=== PATIENT | male | born 1995 | race African-American/Black ===

== ENCOUNTER 2017-11-17 11:44 | Emergency (ER) | payer BC, SELFPAY ==
[2017-11-17 12:13] VITALS: BP 124/88; RESP 18; TEMP 37.1; O2SAT 98
--- NOTE | 2017-11-17 12:22 | W.ED.GENAD ---
Discharge Plan Disposition Patient Disposition: HOME Condition: Fair Discharge Details Chief Complaint: SOB Clinical Impression: Asthma exacerbation Primary Care Provider: Angella Cleveland ED Provider: Sarah Tijerina Home Meds and New Rx's Prescriptions: New prednisone 20 mg tablet 20 mg PO BID Qty: 8 RF: 0 Continue mometasone-formoterol [Dulera] 8.8 GM HFA aerosol inhaler 2 puff BID RF: 0 albuterol sulfate [Ventolin HFA] 60 PUFF HFA aerosol inhaler 8 gm Inhalation Q6H PRN PRNQty: 2 RF: 6 albuterol sulfate [ProAir HFA] 200 PUFF HFA aerosol inhaler 200 puff Inhalation Q4H PRN PRNQty: 2 RF: 10 fluticasone-salmeterol [Advair HFA] 12 GM HFA aerosol inhaler 2 puff Inhalation BID RF: 0 Discharge Instructions Instructions: Asthma (ED) Additional Instructions: Encourage hydration. Stop smoking. Please take prednisone as prescribed to help with asthma exacerbation. Please follow-up with primary care for reevaluation in 1 week. Continue with inhaler and nebulizers previously prescribed. If you develop fever/chills, increased shortness of breath, difficulty breathing or other new/worsening symptoms please seek care urgently once again Stand Alone Forms: Work Release Referrals: Angella Cleveland [Primary Care Provider] - Discharge Data Discharge Date/Time-TO BE ENTERED AT DEPARTURE: 11/17/17 13:41 Medical Decision Making MDM Narrative Medical decision making narrative: Patient presents today with chief complaint of asthma exacerbation. Reports that he has had the symptoms for 1 month. On exam, his lungs are clear. No wheezing or stridor. Patient is currently afebrile with vital signs within normal limits. He appears nontoxic. He does not appear to be short of breath or working to breathe. He is speaking in full complete sentences. No nasal flaring, is breathing through his nose, no pursed lips, no retractions or other accessory muscle use. Patient has not coughed since being here. We discussed treatment options. I did recommend a chest x-ray given the duration of his symptoms. However, he preferred to contact his mother to discuss insurance prior to undergoing imaging. He came into the room, patient was on his phone, resting comfortably. Patient smokes both marijuana and cigarettes daily. I did pediatric genetic counselor him on cessation as this is likely contributing to his asthma exacerbation. However, the patient reports he believes this actually helps his asthma. I further counseled him on this and urged him to consider cessation further. Patient contacted his mother and is agreement with cxr. X-ray reviewed by radiologist. Advised the lungs are unremarkable with no consolidation. Pleural space unremarkable no pleural effusion or pneumothorax. No cardiomegaly. Joints are unremarkable for patient's age. Advised normal two-view chest exam Discussed findings with the patient. Encourage hydration. Tylenol and/or ibuprofen as needed for discomfort or fever. He will be placed on a burst of steroids to help with asthma exacerbation. Advised follow-up with primary care in 1 week for reevaluation. We discussed new/worsening symptoms once he care urgently once again. All questions and concerns were addressed. Patient is requesting a work note for today HPI - General Adult General Mode of arrival: ambulatory. Date/Time Provider Initiated Documentation: 11/17/17 12:03. Limitations to Documentation: no limitations. Information obtained by: patient. HPI Narrative: Patient is a 22-year-old male presenting today with chief complaint of asthma exacerbation ?1 month. He reports that he has been sick with cough and fevers, bringing up yellow phlegm. Reports he has been using his inhalers as prescribed but has not had any relief from these. Reports that his nebulizers not working in regard to helping his symptoms. Patient smokes unfiltered cigarettes and marijuana daily. Reports a typically marijuana helps his asthma symptoms. Has not been seen by his primary care. Reports his symptoms have progressively been increasing. He has not measured his temperature. Reports that he knows he had a fever because I had a headache. Reports that he gets fevers very frequently and reports that this is associated with him being chronically dehydrated. Denies any history of immunocompromise. Related Data Home Medications Medication Instructions Recorded Confirmed mometasone-formoterol [Dulera] 2 puff BID 07/16/15 11/17/17 fluticasone-salmeterol [Advair HFA] 2 puff INHALATION BID 11/18/16 11/17/17 Previous Rx's Medication Instructions Recorded albuterol sulfate [ProAir HFA] 200 puff INHALATION Q4H PRN PRN #2 07/16/15 inh albuterol sulfate [Ventolin HFA] 8 gm INHALATION Q6H PRN PRN #2 inh 07/16/15 prednisone 20 mg PO BID #8 tab 11/17/17 Allergies Allergy/AdvReac Type Severity Reaction Status Date / Time cat dander Allergy Wheezing Unverified 11/17/17 11:58 General Stated Complaint: SOB MINGO: 3 Review of Systems Constitutional Reports as per HPI and Denies headache(s) ENT Denies headache(s), Denies hoarseness, Denies nasal congestion, Denies sinus pressure, Denies sore throat and Denies throat swelling Cardiovascular Denies chest pain Respiratory Reports as per HPI and Reports wheezing (Patient reports that he has a wheezing that this subsides whenever he comes into the hospital.) Gastrointestinal Reports as per HPI and Denies abdominal pain Genitourinary Reports system reviewed and no additional complaints, except as docu Musculoskeletal Denies abnormal gait Neurologic Denies abnormal speech, Denies abnormal gait and Denies headache(s) Psychiatric Denies abnormal sleep pattern and Denies change in appetite Allergic/Immunologic Denies throat swelling and Reports wheezing (Patient reports that he has a wheezing that this subsides whenever he comes into the hospital.) [facility] Medical History Asthma (Chronic) Social History housing: other details: college dorm current occupational status: employed Smoking/Tobacco Use Status: Current every day counseling given: provider counseling substance use type: marijuana counseling given: Yes Exam Const General: cooperative, healthy appearing, comfortable, no acute distress, well developed and well groomed Nutritional Appearance: average body habitus Orientation: alert and awake HENMT Head: normal to inspection Ears: hearing grossly normal bilaterally, external ears normal and TM's normal bilaterally Mouth: oral mucosae normal, lip normal, tongue normal, oropharynx normal and moist mucous membranes Teeth and gingiva: dentition normal Throat: posterior oropharynx normal Eyes General: appearance normal, both eyes and all related structures Neck Neck: normal visual inspection, no lymphadenopathy and no meningeal signs Resp Effort & Inspection: normal respiratory effort, able to speak in complete sentences, abnormal respiratory pattern, no audible wheezes, no cough, no respiratory distress, no retractions and no stridor Auscultation: clear to auscultation bilaterally, no rales, no rhonchi and no wheezes Cardio Rate: regular rate Rhythm: regular rhythm Heart Sounds: S1 normal and S2 normal Skin General skin exam: no rashes or lesions noted Neuro General: alert and awake Cognition: normal cognition Speech: speech normal Gait: normal gait Psych Appearance: grossly normal Mental Status: mental status grossly normal Speech and Movement: speech and movement normal Mood: congruent mood Affect: indifferent Course Vital Signs Temperature 37.1 C 11/17/17 12:13 Respiratory Rate 18 11/17/17 12:13 Blood Pressure 124/88 11/17/17 12:13 Pulse Oximetry 98 11/17/17 12:13 Temperature 37.1 C 11/17/17 12:13 Respiratory Rate 11/17/17 12:13 Blood Pressure 124/88 11/17/17 12:13 Pulse Oximetry 98 11/17/17 12:13
--- NOTE | 2017-11-17 12:27 | ED.GENADUL_ITS ---
Discharge Plan Disposition Patient Disposition: HOME Condition: Fair Discharge Details Chief Complaint: SOB Clinical Impression: Asthma exacerbation Primary Care Provider: Angella Cleveland ED Provider: Sarah Tijerina Home Meds and New Rx's Prescriptions: New prednisone 20 mg tablet 20 mg PO BID Qty: 8 RF: 0 Continue mometasone-formoterol [Dulera] 8.8 GM HFA aerosol inhaler 2 puff BID RF: 0 albuterol sulfate [Ventolin HFA] 60 PUFF HFA aerosol inhaler 8 gm Inhalation Q6H PRN PRNQty: 2 RF: 6 albuterol sulfate [ProAir HFA] 200 PUFF HFA aerosol inhaler 200 puff Inhalation Q4H PRN PRNQty: 2 RF: 10 fluticasone-salmeterol [Advair HFA] 12 GM HFA aerosol inhaler 2 puff Inhalation BID RF: 0 Discharge Instructions Instructions: Asthma (ED) Additional Instructions: Encourage hydration. Stop smoking. Please take prednisone as prescribed to help with asthma exacerbation. Please follow-up with primary care for reevaluation in 1 week. Continue with inhaler and nebulizers previously prescribed. If you develop fever/chills, increased shortness of breath, difficulty breathing or other new/worsening symptoms please seek care urgently once again Stand Alone Forms: Work Release Referrals: Angella Cleveland [Primary Care Provider] - Discharge Data Discharge Date/Time-TO BE ENTERED AT DEPARTURE: 11/17/17 13:41 Medical Decision Making MDM Narrative Medical decision making narrative: Patient presents today with chief complaint of asthma exacerbation. Reports that he has had the symptoms for 1 month. On exam, his lungs are clear. No wheezing or stridor. Patient is currently afebrile with vital signs within normal limits. He appears nontoxic. He does not appear to be short of breath or working to breathe. He is speaking in full complete sentences. No nasal flaring, is breathing through his nose, no pursed lips, no retractions or other accessory muscle use. Patient has not coughed since being here. We discussed treatment options. I did recommend a chest x- ray given the duration of his symptoms. However, he preferred to contact his mother to discuss insurance prior to undergoing imaging. He came into the room , patient was on his phone, resting comfortably. Patient smokes both marijuana and cigarettes daily. 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 However, the patient reports he believes this actually helps his asthma. I further counseled him on this and urged him to consider cessation further. Patient contacted his mother and is agreement with cxr. X-ray reviewed by radiologist. Advised the lungs are unremarkable with no consolidation. Pleural space unremarkable no pleural effusion or pneumothorax. No cardiomegaly. Joints are unremarkable for patient's age. Advised normal two-view chest exam Discussed findings with the patient. Encourage hydration. Tylenol and/or ibuprofen as needed for discomfort or fever. He will be placed on a burst of steroids to help with asthma exacerbation. Advised follow-up with primary care in 1 week for reevaluation. We discussed new/worsening symptoms once he care urgently once again. All questions and concerns were addressed. Patient is requesting a work note for today HPI - General Adult General Mode of arrival: ambulatory . Date/Time Provider Initiated Documentation: 11/17/17 12:03 . Limitations to Documentation: no limitations . Information obtained by: patient . HPI Narrative: Patient is a 22-year-old male presenting today with chief complaint of asthma exacerbation ?1 month. He reports that he has been sick with cough and fevers, bringing up yellow phlegm. Reports he has been using his inhalers as prescribed but has not had any relief from these. Reports that his nebulizers not working in regard to helping his symptoms. Patient smokes unfiltered cigarettes and marijuana daily. Reports a typically marijuana helps his asthma symptoms. Has not been seen by his primary care. Reports his symptoms have progressively been increasing. He has not measured his temperature. Reports that he knows he had a fever because I had a headache. Reports that he gets fevers very frequently and reports that this is associated with him being chronically dehydrated. Denies any history of immunocompromise. Related Data Home Medications Medication Instructions Recorded Confirmed mometasone-formoterol [Dulera] 2 puff BID 07/16/15 11/17/17 fluticasone-salmeterol [Advair HFA] 2 puff INHALATION BID 11/18/16 11/17/17 Previous Rx's Medication Instructions Recorded albuterol sulfate [ProAir HFA] 200 puff INHALATION Q4H PRN PRN #2 07/16/15 inh albuterol sulfate [Ventolin HFA] 8 gm INHALATION Q6H PRN PRN #2 inh 07/16/15 prednisone 20 mg PO BID #8 tab 11/17/17 Allergies Allergy/AdvReac Type Severity Reaction Status Date / Time cat dander Allergy Wheezing Unverified 11/17/17 11:58 General Stated Complaint: SOB MINGO: 3 Review of Systems Constitutional Reports as per HPI and Denies headache(s) ENT Denies headache(s), Denies hoarseness, Denies nasal congestion, Denies sinus pressure, Denies sore throat and Denies throat swelling Cardiovascular Denies chest pain Respiratory Reports as per HPI and Reports wheezing (Patient reports that he has a wheezing that this subsides whenever he comes into the hospital.) Gastrointestinal Reports as per HPI and Denies abdominal pain Genitourinary Reports system reviewed and no additional complaints, except as docu Musculoskeletal Denies abnormal gait Neurologic Denies abnormal speech, Denies abnormal gait and Denies headache(s) Psychiatric Denies abnormal sleep pattern and Denies change in appetite Allergic/Immunologic Denies throat swelling and Reports wheezing (Patient reports that he has a wheezing that this subsides whenever he comes into the hospital.) [facility] Medical History Asthma (Chronic) Social History housing: other details: college dorm current occupational status: employed Smoking/Tobacco Use Status: Current every day counseling given: provider counseling substance use type: marijuana counseling given: Yes Exam Const General: cooperative, healthy appearing, comfortable, no acute distress, well developed and well groomed Nutritional Appearance: average body habitus Orientation: alert and awake HENMT Head: normal to inspection Ears: hearing grossly normal bilaterally, external ears normal and TM's normal bilaterally Mouth: oral mucosae normal, lip normal, tongue normal, oropharynx normal and moist mucous membranes Teeth and gingiva: dentition normal Throat: posterior oropharynx normal Eyes General: appearance normal, both eyes and all related structures Neck Neck: normal visual inspection, no lymphadenopathy and no meningeal signs Resp Effort & Inspection: normal respiratory effort, able to speak in complete sentences, abnormal respiratory pattern, no audible wheezes, no cough, no respiratory distress, no retractions and no stridor Auscultation: clear to auscultation bilaterally, no rales, no rhonchi and no wheezes Cardio Rate: regular rate Rhythm: regular rhythm Heart Sounds: S1 normal and S2 normal Skin General skin exam: no rashes or lesions noted Neuro General: alert and awake Cognition: normal cognition Speech: speech normal Gait: normal gait Psych Appearance: grossly normal Mental Status: mental status grossly normal Speech and Movement: speech and movement normal Mood: congruent mood Affect: indifferent Course Vital Signs Temperature 37.1 C 11/17/17 12:13 Respiratory Rate 18 11/17/17 12:13 Blood Pressure 124/88 11/17/17 12:13 Pulse Oximetry 98 11/17/17 12:13 Temperature 37.1 C 11/17/17 12:13 Respiratory Rate 11/17/17 12:13 Blood Pressure 124/88 11/17/17 12:13 Pulse Oximetry 98 11/17/17 12:13
--- NOTE | 2017-11-17 12:41 | DI.RAD_ITS ---
SYMPTOM/DIAGNOSIS: COUGH X 1 MONTH. PA AND LATERAL CHEST: There are no prior comparison exams. The cardiac and mediastinal contours have a normal appearance. The lungs are well inflated and clear. No infiltrate or effusion is seen. IMPRESSION: Negative chest x-ray.
--- NOTE | 2017-11-17 13:24 | DI.VRAD_ITS ---
EXAM: XR Chest, 2 Views EXAM DATE/TIME: 11/17/2017 12:42 PM CLINICAL HISTORY: 22 years old, male; Signs and symptoms; Cough TECHNIQUE: XR of the chest, 2 views. COMPARISON: No relevant prior studies available. FINDINGS: Lungs: Unremarkable. No consolidation. Pleural space: Unremarkable. No pleural effusion. No pneumothorax. Heart/Mediastinum: Unremarkable. No cardiomegaly. Bones/joints: Unremarkable for patient's age. IMPRESSION: Normal two-view chest examination. Dictated and Authenticated by: Bharath Ventura MD. Ordering:PATRICIA ROBLES MD
== END 2017-11-17 13:41 | disposition home or self-care (01) ==
LOC: ER 13:36
PROVIDERS: Emergency Provider Physician Assistant; PCP Nurse Practitioner Family
DX: J45.901 Unspecified asthma with (acute) exacerbation (principal); F17.210 Nicotine dependence, cigarettes, uncomplicated; F12.20 Cannabis dependence, uncomplicated
CPT/HCPCS: 99284; 71046

== ENCOUNTER 2018-04-18 15:36 | Emergency (ER) | payer BC, SELFPAY ==
[2018-04-18 15:36] VITALS: BP 116/97; PULSE 100; RESP 34; TEMP 37; O2SAT 99
[2018-04-18 15:44] VITALS: RESP 24
--- NOTE | 2018-04-18 16:04 | W.ED.GENAD ---
Discharge Plan Disposition Patient Disposition: HOME Discharge Details Chief Complaint: SOB Clinical Impression: Acute asthma exacerbation Primary Care Provider: Angella Celveland ED Provider: Eric Carrizales Home Meds and New Rx's Prescriptions: Continued sertraline 100 mg Tablet 150 mg PO DAILY RF: 0 albuterol sulfate [ProAir HFA] 200 PUFF HFA aerosol inhaler 200 puff Inhalation Q4H PRN PRNQty: 2 RF: 10 albuterol sulfate 2.5 mg/0.5 mL Solution For Nebulization 2.5 mg INHALATION Q4H PRN (Reason: wheezing) Qty: 30 RF: 0 Advair HFA 12 GM HFA aerosol inhaler 2 puff Inhalation BID Qty: 8 RF: 1 Discontinued Dulera 8.8 GM HFA aerosol inhaler 2 puff BID RF: 0 Ventolin HFA 60 PUFF HFA aerosol inhaler 8 gm Inhalation Q6H PRN PRNQty: 2 RF: 6 prednisone 20 mg tablet 20 mg PO BID Qty: 8 RF: 0 No Action prednisone 20 mg tablet See Rx Instructions .ROUTE .COMPLEX Qty: 12 RF: 0 pantoprazole 40 mg Tablet,Delayed Release (Dr/Ec) 40 mg PO DAILY@0730 Qty: 30 RF: 0 Discharge Instructions Instructions: Asthma (ED) Additional Instructions: Please follow-up with your primary care physician or new primary care physician in the area. Call for an appointment. Please stop smoking. Return to the ER for any worsening or new concerning symptoms. Referrals: Angella Cleveland [Primary Care Provider] - Discharge Data Discharge Date/Time-TO BE ENTERED AT DEPARTURE: 04/18/18 18:12 Medical Decision Making 16:10 --23-year-old male with history of asthma, noncompliant with maintenance treatment, here with shortness of breath and wheezing consistent with asthma exacerbation. Patient also with productive cough, fever, congestion, nausea and vomiting. Patient still wheezing after DuoNeb administered by EMS. Plan to treat with Solu-Medrol and additional albuterol neb treatments. Rapid flu testing negative. Consider pneumonia. Plan to obtain chest x-ray. -- cxr neg. Patient reassessed and has significant improvement. No wheeze on reexamination after nebs. Plan to discharge with prednisone. I will fill his prescription for albuterol neb and albuterol inhaler. I encouraged him to follow-up with primary care and of [facility] care management to assist in arranging outpatient follow-up in the area hopefully in the next couple of weeks. HPI General Mode of arrival: ambulatory. Date/Time Provider Initiated Documentation: 04/18/18 15:41. Limitations to Documentation: no limitations. Information obtained by: patient. HPI Narrative: 23-year-old male with history of asthma presents with chief complaint of difficulty breathing. Patient notes he thinks he is having an asthma exacerbation. Symptoms have flared up over the past day. Wheeze and shortness of breath was severe. Improved after neb given by EMS. Patient also notes recent productive cough, fever, nausea vomiting and sweats. Patient notes he has been noncompliant with his Advair. Patient also notes that his significant other recently was at her dad's house and did laundry with cats present and he believes he is sensitive to cat dander. Related Data Home Medications Medication Instructions Recorded Confirmed Advair HFA 2 puff INHALATION BID #8 gm 04/18/18 05/08/18 albuterol sulfate 2.5 mg INHALATION Q4H PRN #30 each 04/18/18 05/08/18 albuterol sulfate [ProAir HFA] 200 puff INHALATION Q4H PRN PRN #2 04/18/18 05/08/18 inh sertraline 150 mg PO DAILY 04/18/18 05/08/18 pantoprazole 40 mg PO DAILY@0730 #30 tab 04/27/18 05/08/18 prednisone See Rx Instructions .ROUTE 05/08/18 .COMPLEX #12 tab Previous Rx's Medication Instructions Recorded Advair HFA 2 puff INHALATION BID #8 gm 04/18/18 albuterol sulfate 2.5 mg INHALATION Q4H PRN #30 each 04/18/18 albuterol sulfate [ProAir HFA] 200 puff INHALATION Q4H PRN PRN #2 04/18/18 inh pantoprazole 40 mg PO DAILY@0730 #30 tab 04/27/18 prednisone See Rx Instructions .ROUTE 05/08/18 .COMPLEX #12 tab Allergies Allergy/AdvReac Type Severity Reaction Status Date / Time cat dander Allergy Wheezing Unverified 05/08/18 18:49 mirgaine medication AdvReac Uncoded 05/08/18 18:49 General Stated Complaint: SOB MINGO: 3 Review of Systems Review of Systems All systems reviewed & are unremarkable except as noted in HPI and below Constitutional Reports fever(s) Cardiovascular Denies dyspnea Respiratory Reports cough, Denies dyspnea and Reports wheezing Allergic/Immunologic Reports wheezing PFSH Medical History Asthma (Chronic) Social History housing: other details: college dorm current occupational status: employed Smoking and Tabacco status: Current every day counseling given: provider counseling alcohol intake: current alcohol intake frequency: holidays/special occasions only substance use type: marijuana counseling given: Yes Exam Const General: cooperative and no acute distress HENMT Head: normocephalic and atraumatic Mouth: moist mucous membranes Eyes Conjunctivae: normal conjunctivae Sclera: normal sclerae EOM: EOM intact bilaterally Neck Neck: trachea midline and supple Resp Effort & Inspection: normal respiratory effort, able to speak in complete sentences and no respiratory distress Auscultation: no rales, no rhonchi and wheezes scattered wheezes Cardio Jugular venous pressure: no JVD Rate: regular rate and not tachycardic Rhythm: regular rhythm GI Palpation: soft, not firm, no guarding, no masses, not rigid and nontender Skin General skin exam: no rashes or lesions noted Neuro General: alert, awake, oriented x3 and tone normal Extrem General: no edema Psych Appearance: grossly normal Mental Status: mental status grossly normal Speech and Movement: speech and movement normal Course Vital Signs Temperature 37 C 04/18/18 15:36 Pulse 100 H 04/18/18 15:36 Respiratory Rate 34 H 04/18/18 15:36 Blood Pressure 116/97 H 04/18/18 15:36 Pulse Oximetry 99 04/18/18 15:36 Temperature 37 C 04/18/18 15:36 Temperature Source Skin 04/18/18 15:36 Pulse 100 H 04/18/18 15:36 Respiratory Rate 24 04/18/18 15:44 Respiratory Effort 04/18/18 15:44 Respiratory Depth Normal 04/18/18 15:44 Blood Pressure 116/97 H 04/18/18 15:36 Blood Pressure Position Sitting 04/18/18 15:36 Pulse Oximetry 99 04/18/18 15:36 Lab/Test Results Lab/Test Results: 04/18/18 15:40 Nasopharynx Influenza Types A,B Antigen - Final
[2018-04-18] MEDS: methylPREDNISolone SUCC 125 MG VIAL IVP (16:13)
[2018-04-18] MEDS: Albuterol/Ipratropium 3 ML UPD VIAL UPD ×2 (16:13→16:39)
[2018-04-18] MEDS: Normal Saline Flush 10 ML SYR IVP ×3 (16:19→16:40)
[2018-04-18 16:41] VITALS: BP 103/56; PULSE 93; RESP 20; TEMP 37; O2SAT 99
--- NOTE | 2018-04-18 16:55 | DI.RAD_ITS ---
SYMPTOM/DIAGNOSIS: COUGH PA AND LATERAL CHEST: The heart is normal in size. The lungs are clear. The mediastinal structures and pleura appear intact. CONCLUSION: Normal chest.
[2018-04-18 17:01] VITALS: BP 123/69; PULSE 90; RESP 18; O2SAT 94
[2018-04-18 17:58] VITALS: BP 118/63; PULSE 88; RESP 18; TEMP 36.9; O2SAT 97
--- NOTE | 2018-04-18 18:08 | DI.VRAD_ITS ---
EXAM: XR Chest, 2 Views EXAM DATE/TIME: 04/18/2018 4:58 PM CLINICAL HISTORY: 23 years old, male; Signs and symptoms; Cough TECHNIQUE: XR of the chest, 2 views. COMPARISON: No relevant prior studies available. FINDINGS: Lungs: Unremarkable. No consolidation. Pleural space: Unremarkable. No pleural effusion. No pneumothorax. Heart/Mediastinum: Unremarkable. No cardiomegaly. Bones/joints: Unremarkable. IMPRESSION: Negative chest. Dictated and Authenticated by: Vlad Anderson MD. Ordering:JIN Reyes MD
[2018-04-18 18:12] VITALS: BP 118/63; PULSE 88; RESP 18; TEMP 36.9; O2SAT 97
--- NOTE | 2018-04-19 09:16 | PDOC.ERCMPRO ---
Care Management Progress Note 04/19-Dr. Julia Carrizales requested assistance with a PCP (Angella Cleveland) f/u in two weeks for Asthma, med refill. Referral faxed to [facility] this am.
== END 2018-04-18 18:12 | disposition home or self-care (01) ==
PROVIDERS: Emergency Provider Student in an Organized Health Care Education/Training Program; PCP Nurse Practitioner Family
DX: J45.901 Unspecified asthma with (acute) exacerbation (principal); F17.210 Nicotine dependence, cigarettes, uncomplicated
CPT/HCPCS: 87449; 94640; 99283; 71046; J2930; J7620

== ENCOUNTER 2018-04-27 05:41 | Observation (INO) | payer BC, SELFPAY ==
[2018-04-27] VITALS (9 sets, daily range): BP systolic 115–130; BP diastolic 66–89; PULSE 80–100; RESP 7–24; TEMP 36.7–37; O2SAT 96–100
--- NOTE | 2018-04-27 05:56 | W.ED.GENAD ---
Discharge Plan Disposition Patient Disposition: [facility] INPATIENT Condition: Poor Discharge Details Chief Complaint: SOB Clinical Impression: Acute asthma exacerbation Reason For Visit: MINNA Primary Care Provider: Angella Cleveland ED Provider: Joe Walters Home Meds and New Rx's Prescriptions: No Action sertraline 100 mg Tablet 150 mg PO DAILY RF: 0 ProAir HFA 200 PUFF HFA aerosol inhaler 200 puff Inhalation Q4H PRN PRNQty: 2 RF: 10 albuterol sulfate 2.5 mg/0.5 mL Solution For Nebulization 2.5 mg INHALATION Q4H PRN (Reason: wheezing) Qty: 30 RF: 0 Advair HFA 12 GM HFA aerosol inhaler 2 puff Inhalation BID Qty: 8 RF: 1 Medical Decision Making Patient's saturations are normal on room air. He is a little tachypneic and has diffuse wheezing throughout. He received a DuoNeb in route. We will continue with 2 more albuterol. Will dose of 60 of prednisone. We will not repeat x-ray as it was negative last week. May require more of a burst and taper approach to his steroids. Would benefit from decrease smoking of marijuana and tobacco. Needs referral to primary care, but he did not follow through with referral from last week. 8:00 AM -patient has not improved. He continues to have diffuse wheezing and tachypnea. He is not in respiratory distress. He has been hospitalized previously for asthma. He is not sure whether he is ever been intubated. He is agreeable for admission since he is not improving. IVs established and fluids started. CBC and chemistry sent. Case discussed with hospitalist, Dr. Henderson. She would like repeat chest x-ray and flu swab. We will give some IV magnesium to see if that helps in terms of his asthma exacerbation. Will obtain blood gas to be sure there is no CO2 retention. Patient is accepted to the hospitalist service for further management of his asthma exacerbation. Patient has elevated white count of 14. Chemistries fine. Blood gases pending. Chest x-ray is pending. Medical Records Medical records reviewed: Yes I reviewed the patient's medical records. Lab Data Lab results reviewed: Yes I reviewed the patient's lab results. HPI General Mode of arrival: EMS. Date/Time Provider Initiated Documentation: 04/27/18 05:43. Limitations to Documentation: no limitations. Information obtained by: patient and old records reviewed. HPI Narrative: Patient presents to ED by ambulance with complaint of shortness of breath, cough, wheezing. Patient seen here on the seventh for same. At that time chest x-ray and flu swab negative. He received a burst of prednisone. He reports jed better for about a day or two but has steadily got worse again. Not follow-up with primary care. He has been using inhaler/nebulizer without relief. Continues to smoke marijuana and tobacco. Denies fevers recently. No other real URI type symptoms. No chest pain. No GI symptoms. Did receive DuoNeb in route with some help. Related Data Home Medications Medication Instructions Recorded Confirmed Advair HFA 2 puff INHALATION BID #8 gm 04/18/18 04/27/18 ProAir HFA 200 puff INHALATION Q4H PRN PRN #2 04/18/18 04/27/18 inh albuterol sulfate 2.5 mg INHALATION Q4H PRN #30 each 04/18/18 04/27/18 sertraline 150 mg PO DAILY 04/18/18 04/27/18 Previous Rx's Medication Instructions Recorded Advair HFA 2 puff INHALATION BID #8 gm 04/18/18 ProAir HFA 200 puff INHALATION Q4H PRN PRN #2 04/18/18 inh albuterol sulfate 2.5 mg INHALATION Q4H PRN #30 each 04/18/18 Allergies Allergy/AdvReac Type Severity Reaction Status Date / Time cat dander Allergy Wheezing Unverified 11/17/17 11:58 mirgaine medication AdvReac Uncoded 04/27/18 05:49 General Stated Complaint: SOB MINGO: 3 Review of Systems Constitutional Denies fever(s), Reports headache(s) and Denies weakness ENT Denies otalgia, Reports headache(s), Denies neck pain, Denies sinus pain and Denies sore throat Cardiovascular Denies chest pain, Denies edema and Reports dyspnea Respiratory Reports cough, Reports dyspnea and Reports wheezing Gastrointestinal Denies abdominal pain, Denies diarrhea, Denies nausea and Denies vomiting Musculoskeletal Denies back pain, Denies neck pain and Denies numbness Neurologic Denies confusion, Reports headache(s), Denies focal weakness, Denies numbness and Denies weakness Psychiatric Denies confusion Allergic/Immunologic Reports wheezing [facility] Medical History Asthma (Chronic) Social History housing: other details: college dorm current occupational status: employed Smoking and Tabacco status: Current every day counseling given: provider counseling substance use type: marijuana counseling given: Yes Exam Const General: cooperative, comfortable and no acute distress Orientation: alert and oriented x3 HENMT Head: normocephalic and atraumatic Neck Neck: trachea midline and supple Resp Effort & Inspection: tachypneic Auscultation: lung sounds not diminished, no rales, no rhonchi and wheezes Cardio Rate: regular rate Rhythm: regular rhythm Heart Sounds: S1 normal and S2 normal Skin General skin exam: no rashes or lesions noted Neuro General: alert, oriented x3, gait normal, no focal motor deficits and CN's II-XI intact bilaterally Cognition: normal cognition Speech: speech normal Extrem General: no clubbing, cyanosis or edema Course Vital Signs Temperature 98.1 F 04/27/18 05:42 Pulse 100 H 04/27/18 05:42 Respiratory Rate 18 04/27/18 05:42 Pulse Oximetry 100 04/27/18 05:42 Temperature 98.1 F 04/27/18 05:42 Temperature Source Skin 04/27/18 05:42 Pulse 100 H 04/27/18 05:42 Respiratory Rate 22 04/27/18 05:52 Respiratory Effort 04/27/18 05:52 Respiratory Depth Normal 04/27/18 05:52 Respiratory Pattern Normal 04/27/18 05:52 Blood Pressure 130/71 04/27/18 05:52 Pulse Oximetry 100 04/27/18 05:42 Pain Level 0 04/27/18 05:42
[2018-04-27] MEDS: Albuterol 2.5 MG/3 ML INH SOLN VIAL 5 MG UPD (06:02)
[2018-04-27] MEDS: predniSONE 20 MG TAB 60 MG PO (06:02)
--- NOTE | 2018-04-27 06:02 | ED.GENADUL_ITS ---
Discharge Plan Disposition Patient Disposition: [facility] INPATIENT Condition: Poor Discharge Details Chief Complaint: SOB Clinical Impression: Acute asthma exacerbation Reason For Visit: MINNA Primary Care Provider: Angella Cleveland ED Provider: Joe Walters Home Meds and New Rx's Prescriptions: No Action sertraline 100 mg Tablet 150 mg PO DAILY RF: 0 ProAir HFA 200 PUFF HFA aerosol inhaler 200 puff Inhalation Q4H PRN PRNQty: 2 RF: 10 albuterol sulfate 2.5 mg/0.5 mL Solution For Nebulization 2.5 mg INHALATION Q4H PRN (Reason: wheezing) Qty: 30 RF: 0 Advair HFA 12 GM HFA aerosol inhaler 2 puff Inhalation BID Qty: 8 RF: 1 Medical Decision Making Patient's saturations are normal on room air. He is a little tachypneic and has diffuse wheezing throughout. He received a DuoNeb in route. We will continue with 2 more albuterol. Will dose of 60 of prednisone. We will not repeat x-ray as it was negative last week. May require more of a burst and taper approach to his steroids. Would benefit from decrease smoking of marijuana and tobacco. Needs referral to primary care, but he did not follow through with referral from last week. 8:00 AM -patient has not improved. He continues to have diffuse wheezing and tachypnea. He is not in respiratory distress. He has been hospitalized previously for asthma. He is not sure whether he is ever been intubated. He is agreeable for admission since he is not improving. IVs established and fluids started. CBC and chemistry sent. Case discussed with hospitalist, Dr. Henderson. She would like repeat chest x-ray and flu swab. We will give some IV magnesium to see if that helps in terms of his asthma exacerbation. Will obtain blood gas to be sure there is no CO2 retention. Patient is accepted to the hospitalist service for further management of his asthma exacerbation. Patient has elevated white count of 14. Chemistries fine. Blood gases pending. Chest x-ray is pending. Medical Records Medical records reviewed: Yes I reviewed the patient's medical records. Lab Data Lab results reviewed: Yes I reviewed the patient's lab results. HPI General Mode of arrival: EMS . Date/Time Provider Initiated Documentation: 04/27/18 05:43 . Limitations to Documentation: no limitations . Information obtained by: patient and old records reviewed . HPI Narrative: Patient presents to ED by ambulance with complaint of shortness of breath, cough, wheezing. Patient seen here on the seventh for same. At that time chest x-ray and flu swab negative. He received a burst of prednisone. He reports jed better for about a day or two but has steadily got worse again. Not follow-up with primary care. He has been using inhaler/nebulizer without relief. Continues to smoke marijuana and tobacco. Denies fevers recently. No other real URI type symptoms. No chest pain. No GI symptoms. Did receive DuoNeb in route with some help. Related Data Home Medications Medication Instructions Recorded Confirmed Advair HFA 2 puff INHALATION BID #8 gm 04/18/18 04/27/18 ProAir HFA 200 puff INHALATION Q4H PRN PRN #2 04/18/18 04/27/18 inh albuterol sulfate 2.5 mg INHALATION Q4H PRN #30 each 04/18/18 04/27/18 sertraline 150 mg PO DAILY 04/18/18 04/27/18 Previous Rx's Medication Instructions Recorded Advair HFA 2 puff INHALATION BID #8 gm 04/18/18 ProAir HFA 200 puff INHALATION Q4H PRN PRN #2 04/18/18 inh albuterol sulfate 2.5 mg INHALATION Q4H PRN #30 each 04/18/18 Allergies Allergy/AdvReac Type Severity Reaction Status Date / Time cat dander Allergy Wheezing Unverified 11/17/17 11:58 mirgaine medication AdvReac Uncoded 04/27/18 05:49 General Stated Complaint: SOB MINGO: 3 Review of Systems Constitutional Denies fever(s), Reports headache(s) and Denies weakness ENT Denies otalgia, Reports headache(s), Denies neck pain, Denies sinus pain and Denies sore throat Cardiovascular Denies chest pain, Denies edema and Reports dyspnea Respiratory Reports cough, Reports dyspnea and Reports wheezing Gastrointestinal Denies abdominal pain, Denies diarrhea, Denies nausea and Denies vomiting Musculoskeletal Denies back pain, Denies neck pain and Denies numbness Neurologic Denies confusion, Reports headache(s), Denies focal weakness, Denies numbness and Denies weakness Psychiatric Denies confusion Allergic/Immunologic Reports wheezing [facility] Medical History Asthma (Chronic) Social History housing: other details: college dorm current occupational status: employed Smoking and Tabacco status: Current every day counseling given: provider counseling substance use type: marijuana counseling given: Yes Exam Const General: cooperative, comfortable and no acute distress Orientation: alert and oriented x3 HENMT Head: normocephalic and atraumatic Neck Neck: trachea midline and supple Resp Effort & Inspection: tachypneic Auscultation: lung sounds not diminished, no rales, no rhonchi and wheezes Cardio Rate: regular rate Rhythm: regular rhythm Heart Sounds: S1 normal and S2 normal Skin General skin exam: no rashes or lesions noted Neuro General: alert, oriented x3, gait normal, no focal motor deficits and CN's II-XI intact bilaterally Cognition: normal cognition Speech: speech normal Extrem General: no clubbing, cyanosis or edema Course Vital Signs Temperature 98.1 F 04/27/18 05:42 Pulse 100 H 04/27/18 05:42 Respiratory Rate 18 04/27/18 05:42 Pulse Oximetry 100 04/27/18 05:42 Temperature 98.1 F 04/27/18 05:42 Temperature Source Skin 04/27/18 05:42 Pulse 100 H 04/27/18 05:42 Respiratory Rate 22 04/27/18 05:52 Respiratory Effort 04/27/18 05:52 Respiratory Depth Normal 04/27/18 05:52 Respiratory Pattern Normal 04/27/18 05:52 Blood Pressure 130/71 04/27/18 05:52 Pulse Oximetry 100 04/27/18 05:42 Pain Level 0 04/27/18 05:42
--- NOTE | 2018-04-27 06:04 | NUR.NOTE ---
patient medicated per MD order. receiving NEb Nursing Note:
--- NOTE | 2018-04-27 06:22 | NUR.NOTE ---
patient still I/E wheezy after nebulizer. will continue to monitor Nursing Note:
[2018-04-27 07:51] LABS: Abs Immature Grans 0.07 k/cumm (0.0-0.09); Absolute Basophil Count 0.03 k/cumm (0.0-0.2); Absolute Eosinophil Count 0.71 k/cumm (0.0-0.7); Absolute Lymphocyte Count 2.16 k/cumm (1.2-3.4); Absolute Neutrophil Count 9.54 k/cumm (1.2-6.7); Basophils % 0.2; Eosinophils % 5.4; HCT 44.7 % (40.0-50.0); HGB 14.8 g/dL (13.5-17.5); Immature Grans % 0.5; Lymphocytes % 16.5; Mean Corp. HGB Concentration 33.1 g/dL (32.0-36.0); Mean Corpuscular Hemoglobin 27.4 pg (27.0-33.0); Mean Corpuscular Volume 82.8 fL (80-95); Mean Platelet Volume 8.7 fL (8.0-11.0); Monocytes % 4.6; Neutrophils % 72.8; Platelet Count 245 x1000/uL (130-400); RBC Distribution Width 14.3 % (11.8-14.1)
--- NOTE | 2018-04-27 07:56 | DI.RAD_ITS ---
SYMPTOM/DIAGNOSIS: CONTINUED WHEEZE, SOB PA AND LATERAL CHEST: Comparison is made with 04/18/18. The heart is normal in size. The lungs are clear. The mediastinal structures and pleura appear intact. CONCLUSION: Normal chest.
[2018-04-27 07:58] LABS: Anion Gap 9.3 mmol/L (3-11); BUN 17 mg/dL (7-18); CO2 27.7 mmol/L (21.0-32.0); CREATININE 0.91 mg/dL (0.70-1.30); Calcium 8.8 mg/dL (8.5-10.1); Chloride 103 mmol/L (98-107); Glucose 109 mg/dL (70-100); Potassium 3.7 mmol/L (3.5-5.1); Sodium 140 mmol/L (136-145)
[2018-04-27] MEDS: Albuterol/Ipratropium 3 ML UPD VIAL UPD ×4 (08:06→19:08)
--- NOTE | 2018-04-27 08:28 | DI.VRAD_ITS ---
EXAM: XR Chest, 2 Views EXAM DATE/TIME: 04/27/2018 7:58 AM CLINICAL HISTORY: 23 years old, male; Signs and symptoms; Cough and shortness of breath; Patient HX: Cough and SOB x2 months. PT is a current smoker. TECHNIQUE: XR of the chest, 2 views. COMPARISON: CR XR CHEST 2V PA LATERAL 04/18/2018 4:51 PM FINDINGS: The cardiomediastinal silhouette and pulmonary vasculature are within normal limits. The lungs are clear. No pleural effusion or pneumothorax is identified. IMPRESSION: No acute process. Dictated and Authenticated by: Madhav Delarosa MD. Ordering:NONI iDaz MD
[2018-04-27] MEDS: Normal Saline 1,000 ML 200 ML IV (10:05)
[2018-04-27] MEDS: MAGNESIUM SULFATE 2 GM/50 ML BAG IVPB (10:05)
[2018-04-27] MEDS: Normal Saline Flush 10 ML SYR IVP (10:06)
[2018-04-27] MEDS: Lactated Ringers 1,000 ML 150 ML IV ×2 (12:14→18:46)
--- NOTE | 2018-04-27 12:37 | HPE_ITS ---
Date of service: 04/27/18 Time of Service: 12:30 Assessment and Plan (1) Asthma exacerbation: Start date: 04/27/18 Start time: 12:22 Current visit: Yes Status: Acute admitted from Emergency room, given 60 mg PO prednisone updraft and mag run with little relief in emergency room. severe inspiratory and expiratory wheezing with cough, started on updraft every 4 hours with albuterol 2.5 mg every 1 hour, LR at 150, and prednisone 40 mg twice a day. Sprivia has also been started. Able to speak full sentences at this time. and coughing up white sputum. He was also started on Protonix 40 mg daily (2) Reactive airway disease: Start date: 04/27/18 Start time: 12:26 Current visit: Yes Status: Acute see above (3) Eczema: Start date: 04/27/18 Start time: 12:27 Current visit: Yes Status: Acute Started on triamcinolone 0.1%, he has had this for awhile and never seeked treatment. (4) Tobacco abuse: Start date: 04/27/18 Start time: 12:27 Current visit: Yes Status: Acute Currently is smoking marijana and tobacco, shows interest in quitting, I spoke at length about cessation, he does not want a nicoderm patch at this time as he does not think this will help, he does not like the way they make him feel. (5) DVT prophylaxis: Start date: 04/27/18 Start time: 12:28 Current visit: Yes Status: Acute Young male, active, Teds and scds. History of Present Illness Chief Complaint: Asthma Exacerbation Narrative: Mr. Silvestre is a 23 y.o male with a history of asthma. He was seen by [facility] Emergency department for exacerbation of his asthma. He has had SOB in the last 24 hours that has worsened. At home he takes provair, advair, albuterol nebs and did not have any relief. He was given 2 albuterol treatments, 60 mg prednisone and magnesium 2 gram IV with little relief and asked to be admitted by our service. He is lying in bed with no apparent distress, he was not tachypnic or tachycardic. He was able to complete full sentences. Only significant history is for asthma and eczema. He was pretty sure he was intubated one time for exacerbation but not fully sure. He was wheezing both expiratory and inspriatory worse with exhalation. He does state he is breathing better then when he first arrived. He was sitting up in bed without excertion asking about food. He does smoke marijana and tobacco and does show interest in quitting. He was adopted so he is unsure of his family history. He was started on PO steroids, albuterol up draft with 1 hour prn, LR and spiriva. Review of Systems Review of Systems All systems reviewed & are unremarkable except as noted in HPI and below Constitutional Reports system reviewed and no additional complaints, except as docu Eyes Reports system reviewed and no additional complaints, except as docu ENT Reports system reviewed and no additional complaints, except as docu Cardiovascular Reports system reviewed and no additional complaints, except as docu Respiratory Reports as per HPI Gastrointestinal Reports system reviewed and no additional complaints, except as docu Genitourinary Reports system reviewed and no additional complaints, except as docu Musculoskeletal Reports system reviewed and no additional complaints, except as docu Neurologic Reports system reviewed and no additional complaints, except as docu Psychiatric Reports system reviewed and no additional complaints, except as docu Endocrine Reports system reviewed and no additional complaints, except as docu Hematologic/Lymphatic Reports system reviewed and no additional complaints, except as docu Allergic/Immunologic Reports system reviewed and no additional complaints, except as docu PFSH Medical History Asthma (Chronic) Social History housing: other details: college dorm current occupational status: employed Smoking and Tabacco status: Current every day counseling given: provider counseling substance use type: marijuana counseling given: Yes Meds Home Medications Medication Instructions Recorded Confirmed Type Advair HFA 2 puff INHALATION BID #8 gm 04/18/18 04/27/18 Rx ProAir HFA 200 puff INHALATION Q4H PRN PRN #2 04/18/18 04/27/18 Rx inh albuterol sulfate 2.5 mg INHALATION Q4H PRN #30 each 04/18/18 04/27/18 Rx sertraline 150 mg PO DAILY 04/18/18 04/27/18 History Allergies Allergy/AdvReac Type Severity Reaction Status Date / Time cat dander Allergy Wheezing Unverified 11/17/17 11:58 mirgaine medication AdvReac Uncoded 04/27/18 05:49 Exam Const General: cooperative and no acute distress HENMT Head: normal to inspection Eyes General: appearance normal, both eyes and all related structures Neck Neck: normal visual inspection Chest Chest: normal inspection of the chest Resp Effort & Inspection: cough Auscultation: wheezes expiratory wheezes and inspiratory wheezes Cardio Jugular venous pressure: no JVD Rate: regular rate Rhythm: regular rhythm Heart Sounds: S1 normal and S2 normal GI Inspection: normal to inspection Skin Other: eczema Neuro General: alert and awake Extrem General: normal to inspection Results Labs : 04/27/18 07:39 04/27/18 07:39 Laboratory Results - last 24 hr 04/27/18 04/27/18 07:39 07:39 WBC 13.10 H RBC 5.40 Hgb 14.8 Hct 44.7 MCV 82.8 MCH 27.4 MCHC 33.1 RDW 14.3 H Plt Count 245 MPV 8.7 Immature Gran % 0.5 Neutrophils % 72.8 Lymphocytes % 16.5 Monocytes % 4.6 Eosinophils % 5.4 Basophils % 0.2 Absolute Neutrophils 9.54 H Absolute Lymphocytes 2.16 Absolute Monocytes 0.60 Absolute Eosinophils 0.71 H Absolute Basophils 0.03 Sodium 140 Potassium 3.7 Chloride 103 Carbon Dioxide 27.7 Anion Gap 9.3 BUN 17 Creatinine 0.91 Estimated GFR/1.73 m2 >= 60.00 Glucose 109 H Calcium 8.8 Last Vital Signs Temp 36.9 C 04/27/18 09:10 Pulse 96 H 04/27/18 09:10 Resp 20 04/27/18 09:10 BP 115/76 04/27/18 09:10 Pulse Ox 96 04/27/18 09:10
[2018-04-27] MEDS: Triamcinolone 0.1% CR 15 GM TUBE TP (14:39)
--- NOTE | 2018-04-27 17:53 | NUR.NOTE ---
Nursing Note: Pt to [facility] floor at 0907 via stretcher. Ambulated independently to bed. VSS; 98% O2, 18 R, 94 P, 36.8 T, 125/76 BP. Tremors noted d/t steroid administration in ER. Pt c/o SOB; Lungs rhonci, course, musical, tight t/o anterior and posterior. Pt's inhaler brought to pharmacy. Pt's girlfriend at bedside, familiarized with hospital environment, call marino, etc. Will continue to monitor.
--- NOTE | 2018-04-27 19:13 | W.PM.DS.N ---
Date of service: 04/27/18 Time of Service: 19:13 DS: Diagnosis Discharge Diagnosis (1) Asthma exacerbation: Status: Acute (2) Reactive airway disease: Status: Acute (3) Eczema: Status: Acute (4) Tobacco abuse: Status: Acute Discharge Plan Disposition Patient Disposition: AGAINST MEDICAL ADVICE Condition: Fair Discharge Details Reason For Visit: ASTHMA EXACERBATION Admit Date/Time: 04/27/18 07:57 Admit Provider: Kimberley Henderson Attending Provider: Kimberley Henderson Primary Care Provider: Angella Cleveland Hospital Course Hospital Course: Mr Luke Soto was admited to [facility] on 04/27/18 for asthma exacerbation, having failed outpatient treatment. He was admitted with systemic/inhaled corticosteroids, scheduled and prn nebs. Unfortunately, he decided to leave [place] despite me counseling him personally on risks of doing so, including the risk of . He verbalized understanding. He states he will be following up with his PCP and that he has nebs at home. We hope that he reconsiders and returns to [facility] to complete treatment of his asthma exacerbation. Home Meds and New Rx's Prescriptions: New pantoprazole 40 mg Tablet,Delayed Release (Dr/Ec) 40 mg PO DAILY@0730 Qty: 30 RF: 0 prednisone 20 mg tablet See Rx Instructions .ROUTE .COMPLEX Qty: 14 RF: 0 levofloxacin 500 mg tablet 500 mg PO DAILY Qty: 5 RF: 0 Continued sertraline 100 mg Tablet 150 mg PO DAILY RF: 0 ProAir HFA 200 PUFF HFA aerosol inhaler 200 puff Inhalation Q4H PRN PRNQty: 2 RF: 10 albuterol sulfate 2.5 mg/0.5 mL Solution For Nebulization 2.5 mg INHALATION Q4H PRN (Reason: wheezing) Qty: 30 RF: 0 Advair HFA 12 GM HFA aerosol inhaler 2 puff Inhalation BID Qty: 8 RF: 1 Discharge Instructions Instructions: Asthma (DC), Bronchospasm (DC) Additional Instructions: Return to the hospital to complete treatment. Follow up with your PCP as soon as possible. Finish your antibiotics and steroid taper as prescribed. Activity:: Activity as Tolerated Equipment/Supplies:: No Equipment Needed Diet:: As Tolerated Discharge Orders Discharge Orders: Discharge Order (Routine); Ordered 04/27/18 Ordered By: Kimberley Henderson Exam Const General: cooperative and no acute distress HENMT Head: normal to inspection Eyes General: appearance normal, both eyes and all related structures Neck Neck: normal visual inspection Chest Chest: normal inspection of the chest Resp Effort & Inspection: cough Auscultation: wheezes Cardio Jugular venous pressure: no JVD Rate: regular rate Rhythm: regular rhythm Heart Sounds: S1 normal and S2 normal GI Inspection: normal to inspection Neuro General: alert and awake Extrem General: normal to inspection DS: Data Vitals/I&O Vitals and I&O: Vital Signs Temperature 36.8 C 04/27/18 15:45 Temperature Source Tympanic 04/27/18 15:45 Pulse 93 H 04/27/18 19:08 Pulse Rhythm Regular 04/27/18 09:10 Respiratory Rate 24 04/27/18 19:08 Respiratory Effort 04/27/18 09:10 Respiratory Depth Normal 04/27/18 09:10 Respiratory Pattern Normal 04/27/18 09:10 Blood Pressure 125/76 04/27/18 15:45 Pulse Oximetry 100 04/27/18 19:08 Oxygen Delivery Method Room Air 04/27/18 19:08 Oxygen Flow Rate 0 04/27/18 19:08 Pain Level 0 04/27/18 05:42 Comment 04/27/18 09:10 Intake & Output 04/26/18 04/27/18 04/27/18 23:59 11:59 23:59 Intake Total 2402.333 2393.333 / 2403.333 Balance 2402.333 2393.333 / 2403.333 Weight 58.967 kg Intake: IV [id number] 1977.333 / 1923.333 Oral 480 / 480 Other: Comment Pt voiding ad umm in toilet. Urine not measured. Pt denies sx. Voiding Methods Toilet Completed studies during hospitalization [Text1]: CXR; No acute process. Labs on day of discharge: Labs from last 24 hours 04/27/18 04/27/18 04/27/18 07:56 07:39 07:39 WBC 13.10 H RBC 5.40 Hgb 14.8 Hct 44.7 MCV 82.8 MCH 27.4 MCHC 33.1 RDW 14.3 H Plt Count 245 MPV 8.7 Immature Gran % 0.5 Neutrophils % 72.8 Lymphocytes % 16.5 Monocytes % 4.6 Eosinophils % 5.4 Basophils % 0.2 Absolute Neutrophils 9.54 H Absolute Lymphocytes 2.16 Absolute Monocytes 0.60 Absolute Eosinophils 0.71 H Absolute Basophils 0.03 Sample Site Pending pCO2 Pending pO2 Pending O2 Saturation Pending ABG pH Pending ABG HCO3 Pending ABG Total CO2 Pending ABG Base Excess Pending Sodium 140 Potassium 3.7 Chloride 103 Carbon Dioxide 27.7 Anion Gap 9.3 BUN 17 Creatinine 0.91 Estimated GFR/1.73 m2 >= 60.00 Glucose 109 H Calcium 8.8 PFSH Medical History Asthma (Chronic) Social History housing: other details: college dorm current occupational status: employed Smoking and Tabacco status: Current every day counseling given: provider counseling substance use type: marijuana counseling given: Yes
--- NOTE | 2018-04-27 19:17 | DSE_ITS ---
Date of service: 04/27/18 Time of Service: 19:13 DS: Diagnosis Discharge Diagnosis (1) Asthma exacerbation: Status: Acute (2) Reactive airway disease: Status: Acute (3) Eczema: Status: Acute (4) Tobacco abuse: Status: Acute Discharge Plan Disposition Patient Disposition: AGAINST MEDICAL ADVICE Condition: Fair Discharge Details Reason For Visit: ASTHMA EXACERBATION Admit Date/Time: 04/27/18 07:57 Admit Provider: Kimberley Henderson Attending Provider: Kimberley Henderson Primary Care Provider: Angella Cleveland Hospital Course Hospital Course: Mr Luke Soto was admited to [facility] on 04/27/18 for asthma exacerbation, having failed outpatient treatment. He was admitted with systemic/inhaled corticosteroids, scheduled and prn nebs. Unfortunately, he decided to leave [facility] despite me counseling him personally on risks of doing so, including the risk of . He verbalized understanding. He states he will be following up with his PCP and that he has nebs at home. We hope that he reconsiders and returns to [facility] to complete treatment of his asthma exacerbation. Home Meds and New Rx's Prescriptions: New pantoprazole 40 mg Tablet,Delayed Release (Dr/Ec) 40 mg PO DAILY@0730 Qty: 30 RF: 0 prednisone 20 mg tablet See Rx Instructions .ROUTE .COMPLEX Qty: 14 RF: 0 levofloxacin 500 mg tablet 500 mg PO DAILY Qty: 5 RF: 0 Continued sertraline 100 mg Tablet 150 mg PO DAILY RF: 0 ProAir HFA 200 PUFF HFA aerosol inhaler 200 puff Inhalation Q4H PRN PRNQty: 2 RF: 10 albuterol sulfate 2.5 mg/0.5 mL Solution For Nebulization 2.5 mg INHALATION Q4H PRN (Reason: wheezing) Qty: 30 RF: 0 Advair HFA 12 GM HFA aerosol inhaler 2 puff Inhalation BID Qty: 8 RF: 1 Discharge Instructions Instructions: Asthma (DC), Bronchospasm (DC) Additional Instructions: Return to the hospital to complete treatment. Follow up with your PCP as soon as possible. Finish your antibiotics and steroid taper as prescribed. Activity:: Activity as Tolerated Equipment/Supplies:: No Equipment Needed Diet:: As Tolerated Discharge Orders Discharge Orders: Discharge Order (Routine); Ordered 04/27/18 Ordered By: Kimberley Henderson Exam Const General: cooperative and no acute distress HENMT Head: normal to inspection Eyes General: appearance normal, both eyes and all related structures Neck Neck: normal visual inspection Chest Chest: normal inspection of the chest Resp Effort & Inspection: cough Auscultation: wheezes Cardio Jugular venous pressure: no JVD Rate: regular rate Rhythm: regular rhythm Heart Sounds: S1 normal and S2 normal GI Inspection: normal to inspection Neuro General: alert and awake Extrem General: normal to inspection DS: Data Vitals/I&O Vitals and I&O: Vital Signs Temperature 36.8 C 04/27/18 15:45 Temperature Source Tympanic 04/27/18 15:45 Pulse 93 H 04/27/18 19:08 Pulse Rhythm Regular 04/27/18 09:10 Respiratory Rate 24 04/27/18 19:08 Respiratory Effort 04/27/18 09:10 Respiratory Depth Normal 04/27/18 09:10 Respiratory Pattern Normal 04/27/18 09:10 Blood Pressure 125/76 04/27/18 15:45 Pulse Oximetry 100 04/27/18 19:08 Oxygen Delivery Method Room Air 04/27/18 19:08 Oxygen Flow Rate 0 04/27/18 19:08 Pain Level 0 04/27/18 05:42 Comment 04/27/18 09:10 Intake & Output 04/26/18 04/27/18 04/27/18 23:59 11:59 23:59 Intake Total 2402.333 2393.333 / 2403.333 Balance 2402.333 2393.333 / 2403.333 Weight 58.967 kg Intake: IV 19225501.752 7583.333 / 1923.333 Oral 480 / 480 Other: Comment Pt voiding ad umm in toilet. Urine not measured. Pt denies sx. Voiding Methods Toilet Completed studies during hospitalization [Text1]: CXR; No acute process. Labs on day of discharge: Labs from last 24 hours 04/27/18 04/27/18 04/27/18 07:56 07:39 07:39 WBC 13.10 H RBC 5.40 Hgb 14.8 Hct 44.7 MCV 82.8 MCH 27.4 MCHC 33.1 RDW 14.3 H Plt Count 245 MPV 8.7 Immature Gran % 0.5 Neutrophils % 72.8 Lymphocytes % 16.5 Monocytes % 4.6 Eosinophils % 5.4 Basophils % 0.2 Absolute Neutrophils 9.54 H Absolute Lymphocytes 2.16 Absolute Monocytes 0.60 Absolute Eosinophils 0.71 H Absolute Basophils 0.03 Sample Site Pending pCO2 Pending pO2 Pending O2 Saturation Pending ABG pH Pending ABG HCO3 Pending ABG Total CO2 Pending ABG Base Excess Pending Sodium 140 Potassium 3.7 Chloride 103 Carbon Dioxide 27.7 Anion Gap 9.3 BUN 17 Creatinine 0.91 Estimated GFR/1.73 m2 >= 60.00 Glucose 109 H Calcium 8.8 PFSH Medical History Asthma (Chronic) Social History housing: other details: college dorm current occupational status: employed Smoking and Tabacco status: Current every day counseling given: provider counseling substance use type: marijuana counseling given: Yes
[2018-04-27] MEDS: predniSONE 20 MG TAB 40 MG PO (20:05)
== END 2018-04-27 20:43 | disposition left against medical advice (07) ==
LOC: ER 08:03 → MS 09:07
PROVIDERS: Admitting Provider Internal Medicine; Emergency Provider Emergency Medicine; PCP Nurse Practitioner Family; Visit Provider Internal Medicine
DX: J45.901 Unspecified asthma with (acute) exacerbation (principal); L30.9 Dermatitis, unspecified; F17.210 Nicotine dependence, cigarettes, uncomplicated; Z53.21 Procedure and treatment not carried out due to patient leaving prior to being seen by health care provider; F12.10 Cannabis abuse, uncomplicated
CPT/HCPCS: 36415; 80048; 82805; 87449; 94640; 99217; 99285; 71046; 85025; 99220; 99284; G0378; J7512; J7613; J7620

== ENCOUNTER 2018-05-08 18:41 | Emergency (ER) | payer BC, SELFPAY ==
[2018-05-08] VITALS (7 sets, daily range): BP systolic 118–124; BP diastolic 56–73; PULSE 95–117; RESP 4–20; TEMP 37.1–37.7; O2SAT 97–100
--- NOTE | 2018-05-08 18:59 | DI.RAD_ITS ---
SYMPTOM/DIAGNOSIS: COUGH, SOB,? PNEUMONIA PORTABLE AP CHEST: Comparison is made with 04/27/18. The cardiac and mediastinal contours have a normal appearance. The lungs are well inflated and clear. No infiltrate, effusion or pneumothorax is seen. IMPRESSION: Negative chest xray.
--- NOTE | 2018-05-08 19:00 | ED.GENADUL_ITS ---
Discharge Plan Disposition Patient Disposition: HOME Condition: Improving Discharge Details Chief Complaint: SOB Clinical Impression: Acute asthma exacerbation Reason For Visit: CATEX Primary Care Provider: Angella Cleveland ED Provider: Iker Stein Home Meds and New Rx's Prescriptions: New prednisone 20 mg tablet See Rx Instructions .ROUTE .COMPLEX Qty: 12 RF: 0 doxycycline hyclate 100 mg tablet 100 mg PO BID 5 Days Qty: 10 RF: 0 Continued sertraline 100 mg Tablet 150 mg PO DAILY RF: 0 albuterol sulfate [ProAir HFA] 200 PUFF HFA aerosol inhaler 200 puff Inhalation Q4H PRN PRNQty: 2 RF: 10 albuterol sulfate 2.5 mg/0.5 mL Solution For Nebulization 2.5 mg INHALATION Q4H PRN (Reason: wheezing) Qty: 30 RF: 0 Advair HFA 12 GM HFA aerosol inhaler 2 puff Inhalation BID Qty: 8 RF: 1 pantoprazole 40 mg Tablet,Delayed Release (Dr/Ec) 40 mg PO DAILY@0730 Qty: 30 RF: 0 Discharge Instructions Instructions: Asthma (ED) Additional Instructions: Use your albuterol and Advair inhalers needed and directed. Take the steroids until finished. If no improvement or worsening of symptoms over the next 2 days, take the antibiotics. Follow-up with your primary care doctor in 1 week for reevaluation as needed. Return immediately to the emergency department any worsening or new concerning symptoms. Discharge Data Discharge Physician: Ofelia Chandler Medical Decision Making <Ofelia Chandler DO - Last Filed: 05/08/18 19:49> 23-year-old male with a history of asthma who presents with cough and shortness of breath since yesterday, worse tonight after smoking marijuana. Patient was admitted here 11 days ago for an asthma exacerbation and left AMA. He states his symptoms have improved. Heart rate 1 teens. Afebrile. Normal blood pressure, respiratory rate and oxygen saturation. Patient is able to speak in full sentences. Normal ENT exam. He has diffuse wheezing and rhonchi throughout. No retractions or accessory muscle use. Patient had an IV placed by EMS. Will give a dose of 80 mg Solu-Medrol IV, DuoNeb, chest x-ray and influenza and reassess. Influenza negative. 1999 --case endorsed to Dr. Stein to follow-up on imaging and response to medications. <Iker Stein MD - Last Filed: 05/08/18 20:16> Imaging Data Radiologic Study: Attestation: I personally reviewed and interpreted this imaging study as follows: Imaging: X-Ray Radiologist's impression: IMPRESSION: Normal frontal view of the chest. Lab Data Lab results reviewed: Yes I reviewed the patient's lab results. HPI <Ofelia Chandler DO - Last Filed: 05/08/18 19:49> General Mode of arrival: ambulatory . Date/Time Provider Initiated Documentation: 05/08/18 18:52 . Limitations to Documentation: no limitations . Information obtained by: patient . HPI Narrative: Patient is a 23-year-old male with a history of asthma and depression who presents with cough and shortness of breath since yesterday. Patient was admitted here 11 days ago for an asthma exacerbation but left AMA. Patient states he had felt better at that time and wanted to go home. He states he finished his steroids approximate 4 days ago. He states his girlfriend is sick and he has been recently sharing drinks with her and thinks he might of gotten sick from her now. He states he did not receive the flu shot this year. Patient denies any known fever, chest pain and states he has been eating and drinking normally. He states he is unsure of any history of intubations. Related Data Home Medications Medication Instructions Recorded Confirmed Advair HFA 2 puff INHALATION BID #8 gm 04/18/18 05/08/18 albuterol sulfate 2.5 mg INHALATION Q4H PRN #30 each 04/18/18 05/08/18 albuterol sulfate [ProAir HFA] 200 puff INHALATION Q4H PRN PRN #2 04/18/18 05/08/18 inh sertraline 150 mg PO DAILY 04/18/18 05/08/18 pantoprazole 40 mg PO DAILY@0730 #30 tab 04/27/18 05/08/18 doxycycline hyclate 100 mg PO BID 5 Days #10 tab 05/08/18 prednisone See Rx Instructions .ROUTE 05/08/18 .COMPLEX #12 tab Previous Rx's Medication Instructions Recorded Advair HFA 2 puff INHALATION BID #8 gm 04/18/18 albuterol sulfate 2.5 mg INHALATION Q4H PRN #30 each 04/18/18 albuterol sulfate [ProAir HFA] 200 puff INHALATION Q4H PRN PRN #2 04/18/18 inh pantoprazole 40 mg PO DAILY@30 #30 tab 04/27/18 doxycycline hyclate 100 mg PO BID 5 Days #10 tab 05/08/18 prednisone See Rx Instructions .ROUTE 05/08/18 .COMPLEX #12 tab Allergies Allergy/AdvReac Type Severity Reaction Status Date / Time cat dander Allergy Wheezing Unverified 05/08/18 18:49 mirgaine medication AdvReac Uncoded 05/08/18 18:49 General Stated Complaint: SOB MINGO: 3 Review of Systems <Ofelia Chandler DO - Last Filed: 05/08/18 19:49> Review of Systems All systems reviewed & are unremarkable except as noted in HPI and below Constitutional Reports as per HPI, Denies chills and Denies fever(s) Eyes Denies blurry vision ENT Denies dizziness, Denies sore throat and Denies throat swelling Cardiovascular Denies chest pain and Reports dyspnea Respiratory Reports cough and Reports dyspnea Gastrointestinal Denies abdominal pain, Denies diarrhea and Denies vomiting Genitourinary Denies hematuria and Denies dysuria Musculoskeletal Denies back pain and Denies numbness Integumentary/Breasts Denies lesions and Denies rash Neurologic Denies dizziness, Denies focal weakness and Denies numbness Allergic/Immunologic Denies throat swelling PFSH <Ofelia Chandler DO - Last Filed: 05/08/18 19:49> Medical History Asthma (Chronic) Depression (Chronic) Surgical History No significant past surgical history (Acute) Social History housing: other details: college dorm current occupational status: employed Smoking and Tabacco status: Current every day counseling given: provider counseling alcohol intake: current alcohol intake frequency: holidays/special occasions only substance use type: marijuana counseling given: Yes Exam <Ofelia Chandler DO - Last Filed: 05/08/18 19:49> Const General: cooperative, healthy appearing and no acute distress [facility] Head: normal to inspection Ears: hearing grossly normal bilaterally, external ears normal and TM's normal bilaterally General nose exam: external nose normal Face and sinus: normal facial exam Mouth: oral mucosae normal Throat: posterior oropharynx normal Eyes General: appearance normal, both eyes and all related structures Pupils: PERRL EOM: EOM intact bilaterally Neck Neck: normal visual inspection and No submandibular swelling Lymphatic: no lymphadenopathy noted Chest Chest: normal inspection of the chest and no tenderness Resp Effort & Inspection: normal respiratory effort and able to speak in complete sentences Auscultation: rhonchi upper bilaterally and lower bilaterally and wheezes lower bilaterally and upper bilaterally Cardio Rate: tachycardic Rhythm: regular rhythm GI Inspection: normal to inspection Palpation: soft, not firm, not rigid and nontender Auscultation: normal bowel sounds Skin General skin exam: no rashes or lesions noted Neuro General: alert, awake and oriented x3 Cognition: normal cognition Speech: speech normal Motor: muscle tone normal throughout Sensory Exam: no sensory deficits noted Extrem General: normal to inspection, full ROM and no edema Psych Appearance: grossly normal Mental Status: mental status grossly normal Speech and Movement: speech and movement normal Affect: normal affect Course <Ofelia Chandler DO - Last Filed: 05/08/18 19:49> Vital Signs Temperature 99.5 F 05/08/18 18:39 Pulse 112 H 05/08/18 18:39 Respiratory Rate 20 05/08/18 18:39 Blood Pressure 121/72 05/08/18 18:39 Pulse Oximetry 100 05/08/18 18:39 Temperature 99.5 F 05/08/18 18:39 Temperature Source Skin 05/08/18 18:39 Pulse 112 H 05/08/18 18:39 Respiratory Rate 18 05/08/18 18:52 Respiratory Effort 05/08/18 18:52 Respiratory Depth Normal 05/08/18 18:52 Blood Pressure 121/72 05/08/18 18:39 Blood Pressure Position Sitting 05/08/18 18:39 Pulse Oximetry 100 05/08/18 18:39 Oxygen Delivery Method Aerosol Mask 05/08/18 18:39 Sign Out <Ofelia Chandler DO - Last Filed: 05/08/18 19:49> Sign Out Data: Sign Out Comment: Follow-up on patient response to meds, labs and imaging. Last updated by Ofelia Chandler DO at 05/08/18 19:38 Post-Handoff Eval: pt's xray and flu test negative, he is speaking in full sentences and only has mild wheezing at the bases bilaterally. Will d/c on steroids and inhaler and advised f/u with pcp and return precautions given
[2018-05-08] MEDS: Albuterol/Ipratropium 3 ML UPD VIAL UPD (19:05)
[2018-05-08] MEDS: methylPREDNISolone SUCC 125 MG VIAL 80 MG IVP (19:14)
[2018-05-08] MEDS: Albuterol HFA 8 GM 60 PUFF INH IH (19:56)
[2018-05-08] MEDS: Albuterol/Ipratropium 3 ML UPD VIAL (20:03)
--- NOTE | 2018-05-08 20:11 | DI.VRAD_ITS ---
EXAM: XR Chest, 1 View EXAM DATE/TIME: 05/08/2018 7:01 PM CLINICAL HISTORY: 23 years old, male; Signs and symptoms; Cough and shortness of breath TECHNIQUE: XR of the chest, 1 view. COMPARISON: CR XR CHEST 2V PA LATERAL 04/27/2018 8:16 AM FINDINGS: Lungs: No consolidation. Pleural space: No significant pleural effusion. No pneumothorax. Heart/Mediastinum: No cardiomegaly. Bones/joints: No acute fracture. IMPRESSION: Normal frontal view of the chest. Dictated and Authenticated by: June Verma MD. Ordering:LEÓN Gilbert MD
--- NOTE | 2018-05-09 08:27 | PDOC.ERCMPRO ---
Care Management Progress Note 05/09-Dr. Stein requested assistance with a PCP ([facility]) f/u in one week for asthma. Referral faxed to [facility] this am. Of note, this CM referred him to Dr. Marley on 07/28/15 and then to Angella Cleveland at [facility] on 04/19/18. Phone number at that time was not a working number.
--- NOTE | 2018-05-09 08:28 | CMPROGNOTE_ITS ---
Care Management Progress Note 05/09-Dr. Stein requested assistance with a PCP ([facility]) f/u in one week for asthma. Referral faxed to [facility] this am. Of note, this CM referred him to Dr. Marley on 07/28/15 and then to Angella Cleveland at [facility] on 04/19/18. Phone number at that time was not a working number.
== END 2018-05-08 20:55 | disposition home or self-care (01) ==
PROVIDERS: Emergency Provider Emergency Medicine; PCP Nurse Practitioner Family
DX: J45.901 Unspecified asthma with (acute) exacerbation (principal)
CPT/HCPCS: 87449; 94640; 96374; 99284; 71045; J2930; J7620

== ENCOUNTER 2018-05-20 05:56 | Emergency (ER) | payer BC, SELFPAY ==
[2018-05-20 05:51] VITALS: PULSE 127; RESP 34; TEMP 36.5; O2SAT 100
--- NOTE | 2018-05-20 05:59 | ED.GENADUL_ITS ---
Discharge Plan Disposition Patient Disposition: AGAINST MEDICAL ADVICE Condition: Stable Discharge Details Chief Complaint: SOB Clinical Impression: Asthma exacerbation Reason For Visit: MINNA Primary Care Provider: Angella Cleveland ED Provider: Iker Stein Home Meds and New Rx's Prescriptions: New prednisone 20 mg tablet 60 mg PO DAILY 4 Days Qty: 12 RF: 0 No Action sertraline 100 mg Tablet 150 mg PO DAILY RF: 0 albuterol sulfate [ProAir HFA] 200 PUFF HFA aerosol inhaler 200 puff Inhalation Q4H PRN PRNQty: 2 RF: 10 albuterol sulfate 2.5 mg/0.5 mL Solution For Nebulization 2.5 mg INHALATION Q4H PRN (Reason: wheezing) Qty: 30 RF: 0 Advair HFA 12 GM HFA aerosol inhaler 2 puff Inhalation BID Qty: 8 RF: 1 pantoprazole 40 mg Tablet,Delayed Release (Dr/Ec) 40 mg PO DAILY@0730 Qty: 30 RF: 0 Discharge Instructions Instructions: Asthma (ED) Additional Instructions: The marijuana smoke you use is likely increasing your symptoms, try to cut down on this and stop using If you feel your symptoms are worsening despite using your inhalers return to the emergency department Medical Decision Making 23 yo male with hx of asthma comes in with chief complaint of shortness of breath since last night. HE states it started after an arguemt and called ems this morning as he was not getting relief with inhaler. He arrives tachypneic and speaking in only 1-2 word sentences. HE has diffuse wheezing throughout in all lung grossman. Denies chest pain or fevers or cough so doubt pna, acs. His clinical hx and exam is consistent with asthma exacerbation, will tx with IV steroids, nebs and IV mag Pt is improving, he still has diffuse wheezing but is now able to speak in 5-6 word sentences. HE is HD stasble, xray on my read shows no acute findings. I recommended admission but the pt declined at this time as he states he would just end up leaving AMA later in the day. He understands risks of not being admitted including and becoming permanently disabled. He has capacity to make his own decisions. He is willing to stay to get more tx here until stable. pt now requesting d/c, still has diffuse wheezing on exam and recommended staying but he is again declining despite being told the risks, leaving against my med advise. He will return if he changes his mind and also if he is worsening. He will f/u with pcp care management set him up with pcp appt Differential Diagnosis asthma exacerbation, pna, uri Imaging Data Radiologic Study: Attestation: I personally reviewed and interpreted this imaging study as follows: Imaging: X-Ray My impression: no acute findings Lab Data Lab results reviewed: Yes I reviewed the patient's lab results. HPI General Mode of arrival: EMS . Date/Time Provider Initiated Documentation: 05/20/18 05:58 . Limitations to Documentation: no limitations . Information obtained by: patient . History of Present Illness 23 year old M presents to the emergency department with the chief complaint of shortness of breath, Patient started experiencing this hour(s) (12) and it has been constant. No relieving factors improve symptom(s), No exacerbating factors reported . Patient notes no other symptoms.. Patient did receive the following treatments prior to arrival, other (duoneb) Related Data Home Medications Medication Instructions Recorded Confirmed Advair HFA 2 puff INHALATION BID #8 gm 04/18/18 05/20/18 albuterol sulfate 2.5 mg INHALATION Q4H PRN #30 each 04/18/18 05/20/18 albuterol sulfate [ProAir HFA] 200 puff INHALATION Q4H PRN PRN #2 04/18/18 05/20/18 inh sertraline 150 mg PO DAILY 04/18/18 05/20/18 pantoprazole 40 mg PO DAILY@0730 #30 tab 04/27/18 05/20/18 prednisone 60 mg PO DAILY 4 Days #12 tab 05/20/18 Previous Rx's Medication Instructions Recorded Advair HFA 2 puff INHALATION BID #8 gm 04/18/18 albuterol sulfate 2.5 mg INHALATION Q4H PRN #30 each 04/18/18 albuterol sulfate [ProAir HFA] 200 puff INHALATION Q4H PRN PRN #2 04/18/18 inh pantoprazole 40 mg PO DAILY@0730 #30 tab 04/27/18 prednisone 60 mg PO DAILY 4 Days #12 tab 05/20/18 Allergies Allergy/AdvReac Type Severity Reaction Status Date / Time cat dander Allergy Wheezing Unverified 05/20/18 06:18 mirgaine medication AdvReac Uncoded 05/20/18 06:18 General MINGO: 3 Review of Systems Review of Systems All systems reviewed & are unremarkable except as noted in HPI and below Constitutional Denies chills and Denies fever(s) ENT Denies change in voice Cardiovascular Denies chest pain Respiratory Denies cough Gastrointestinal Denies abdominal pain, Denies nausea and Denies vomiting Genitourinary Denies dysuria Integumentary/Breasts Denies rash PFSH Medical History Asthma (Chronic) Depression (Chronic) Surgical History No significant past surgical history (Acute) Social History housing: other details: college dorm current occupational status: employed Smoking and Tabacco status: Current every day counseling given: provider counseling alcohol intake: current alcohol intake frequency: holidays/special occasions only substance use type: marijuana counseling given: Yes Exam Const General: other (tachypneic) Orientation: alert HENMT Head: normal to inspection Ears: external ears normal General nose exam: external nose normal Mouth: moist mucous membranes Eyes General: appearance normal, both eyes and all related structures Neck Neck: normal visual inspection Resp Effort & Inspection: tachypneic and no tracheal deviation Auscultation: wheezes Cardio Rate: tachycardic Rhythm: regular rhythm Skin General skin exam: no rashes or lesions noted Neuro General: alert and oriented x3 Extrem General: normal to inspection Psych Mental Status: mental status grossly normal
[2018-05-20] MEDS: methylPREDNISolone SUCC 125 MG VIAL IVP (06:06)
[2018-05-20] MEDS: Normal Saline Flush 10 ML SYR IVP (06:06)
[2018-05-20] MEDS: MAGNESIUM SULFATE 1 GM/100 ML BAG IVPB (06:07)
[2018-05-20 06:08] VITALS: RESP 4
[2018-05-20] MEDS: Albuterol/Ipratropium 3 ML UPD VIAL UPD (06:08)
[2018-05-20] MEDS: Normal Saline 1,000 ML 1000 ML IV (06:09)
[2018-05-20 06:15] VITALS: RESP 4; O2SAT 95
[2018-05-20 06:15] LABS: Abs Immature Grans 0.06 k/cumm (0.0-0.09); Absolute Basophil Count 0.04 k/cumm (0.0-0.2); Absolute Eosinophil Count 0.54 k/cumm (0.0-0.7); Absolute Lymphocyte Count 3.41 k/cumm (1.2-3.4); Absolute Monocyte Count 1.15 k/cumm (0.11-0.7); Absolute Neutrophil Count 9.02 k/cumm (1.2-6.7); Basophils % 0.3; Eosinophils % 3.8; HCT 44.5 % (40.0-50.0); HGB 15.1 g/dL (13.5-17.5); Immature Grans % 0.4; Mean Corp. HGB Concentration 33.9 g/dL (32.0-36.0); Mean Corpuscular Hemoglobin 28.5 pg (27.0-33.0); Mean Platelet Volume 8.6 fL (8.0-11.0); Monocytes % 8.1; Neutrophils % 63.4; Platelet Count 198 x1000/uL (130-400); RBC Distribution Width 15.1 % (11.8-14.1); White Blood Cell Count 14.22 k/cumm (4.4-10.8)
[2018-05-20] MEDS: Albuterol 2.5 MG/3 ML INH SOLN VIAL UPD ×2 (06:15→06:54)
--- NOTE | 2018-05-20 06:15 | DI.RAD_ITS ---
SYMPTOM/DIAGNOSIS: SOB PORTABLE AP CHEST: Comparison is made with 05/08/18. Heart size and pulmonary vasculature are within normal limits. No focal consolidating infiltrates, effusions or pneumothoraces are identified. The bones appear intact. IMPRESSION: No acute pulmonary process.
[2018-05-20 06:17] VITALS: RESP 32
[2018-05-20 06:32] LABS: ALT 35 U/L (12-78); AST 26 U/L (15-37); Albumin 3.9 g/dL (3.4-5.0); Alkaline Phosphatase 86 U/L (46-116); Anion Gap 6.3 mmol/L (3-11); BUN 17 mg/dL (7-18); Bilirubin, Total 0.4 mg/dL (0.2-1.0); CO2 30.7 mmol/L (21.0-32.0); CREATININE 0.93 mg/dL (0.70-1.30); Calcium 8.7 mg/dL (8.5-10.1); Chloride 101 mmol/L (98-107); Glucose 112 mg/dL (70-100); Magnesium 2.2 mg/dL (1.8-2.4); Potassium 3.9 mmol/L (3.5-5.1); Sodium 138 mmol/L (136-145); Total Protein 7.7 g/dL (6.4-8.2)
[2018-05-20] MEDS: Terbutaline 1 MG/ML VIAL 0.25 MG SC (06:53)
[2018-05-20] MEDS: Acetaminophen 500 MG TAB 1000 MG PO (06:54)
[2018-05-20 07:32] VITALS: BP 126/84; PULSE 118; RESP 22; TEMP 36.5; O2SAT 98
--- NOTE | 2018-05-20 07:57 | DI.VRAD_ITS ---
EXAM: XR Chest, 1 View EXAM DATE/TIME: 05/20/2018 5:59 AM CLINICAL HISTORY: 23 years old, male; Signs and symptoms; Shortness of breath; Patient HX: SOB; Additional info: Asthma TECHNIQUE: XR of the chest, 1 view. COMPARISON: SC XR PORTABLE CHEST AP 05/08/2018 7:40 PM FINDINGS: Lungs: Grossly stable interstitial prominence. No consolidation. Pleural space: Unremarkable. No pleural effusion. No pneumothorax. Heart/Mediastinum: Unremarkable. No cardiomegaly. Bones/joints: Unremarkable. IMPRESSION: No radiographic evidence for pneumonia Findings in keeping with the given clinical history of asthma Dictated and Authenticated by: Boston Zhao MD. Ordering:LAURI Dong MD
--- NOTE | 2018-05-20 09:37 | PDOC.ERCMPRO ---
Care Management Progress Note 05/20-Dr. Stein requested assistance with a PCP f/u sooner than the 06/24 appt this CM scheduled last month. Called [facility] and spoke with Ying. Ying scheduled Alden for 06/03 at 1030 with Jerad. This CM tried to call Alden. No answer and voice mail not set up. Called Alden's mom's home number and cell number and left message. Alden called back about 45 minutes later and now has appt. Alden's mom aNn called back as well and is aware that Alden is all set with f/u appt.
== END 2018-05-20 07:32 | disposition left against medical advice (07) ==
PROVIDERS: Emergency Provider Emergency Medicine; PCP Nurse Practitioner Family
DX: J45.901 Unspecified asthma with (acute) exacerbation (principal); R06.2 Wheezing; F17.210 Nicotine dependence, cigarettes, uncomplicated; Z53.29 Procedure and treatment not carried out because of patient's decision for other reasons
CPT/HCPCS: 36415; 80053; 94640; 96361; 96365; 96375; 99285; 71045; 83735; 85025; 99284; J2930; J3475; J3490; J7613; J7620

== ENCOUNTER 2018-05-27 04:43 | Emergency (ER) | payer BC, SELFPAY ==
[2018-05-27 04:43] VITALS: BP 116/97; PULSE 106; RESP 26; TEMP 36.9; O2SAT 99
[2018-05-27 04:48] VITALS: RESP 22
--- NOTE | 2018-05-27 05:06 | ED.GENADUL_ITS ---
Discharge Plan Disposition Patient Disposition: HOME Condition: Stable Discharge Details Chief Complaint: SOB Clinical Impression: Asthma exacerbation Reason For Visit: MINNA Primary Care Provider: Angella Cleveland ED Provider: Iker Stein Home Meds and New Rx's Prescriptions: New albuterol sulfate [ProAir HFA] 90 mcg/actuation HFA aerosol inhaler 2 puff IH Q6H PRN (Reason: shortness of breath) Qty: 18 RF: 0 albuterol sulfate 5 mg/mL solution for nebulization 2.5 mg IH QID PRN (Reason: shortness of breath) Qty: 20 RF: 0 No Action sertraline 100 mg Tablet 150 mg PO DAILY RF: 0 albuterol sulfate [ProAir HFA] 200 PUFF HFA aerosol inhaler 200 puff Inhalation Q4H PRN PRNQty: 2 RF: 10 albuterol sulfate 2.5 mg/0.5 mL Solution For Nebulization 2.5 mg INHALATION Q4H PRN (Reason: wheezing) Qty: 30 RF: 0 Advair HFA 12 GM HFA aerosol inhaler 2 puff Inhalation BID Qty: 8 RF: 1 pantoprazole 40 mg Tablet,Delayed Release (Dr/Ec) 40 mg PO DAILY@0730 Qty: 30 RF: 0 albuterol sulfate 2.5 mg /3 mL (0.083 %) solution for nebulization 2.5 mg IH QID PRN (Reason: shortness of breath or wheezing) Qty: 75 RF: 0 Discharge Instructions Additional Instructions: Follow up as scheduled with your primary care provider continue with your advair and prednisone, avoid using marijuana or inhaling other irritants that are likely contributing to your symptoms return to the emergency department if you feel you are worsening Medical Decision Making 23 yo male with hx of asthma comes in with shortness of breath. He was placed on steroids which he finished a few days ago and has had worsening shortness of breath since. He states there is rats in his house which causes his symptoms to wosen. Denies chest pain fever, or chills. He is speaking in full sentences on exam in no distress, though does have diffuse wheezing on exam. Will treat with neb and start steroid taper. He has no pleuritic chest pain or evidence of dvt and findings are consistent with asthma exacerbation so doubt PE at this time. No fevers and appears well so doubt pna. pt ambulating with o2 sat of 95% in no respiratory distress. He has been on prednisone off and on for the past few weeks so do not feel prescribing another course will be beneficial and could harm him .will give one time dose of dex and d/c home Differential Diagnosis asthma, allergies HPI General Mode of arrival: EMS . Date/Time Provider Initiated Documentation: 05/27/18 04:44 . Limitations to Documentation: no limitations . Information obtained by: patient . History of Present Illness 23 year old M presents to the emergency department with the chief complaint of shortness of breath, described as moderate, Patient started experiencing this day(s) (2) and it has been constant. No relieving factors improve symptom(s), No exacerbating factors reported . Patient notes no other symptoms.. Patient did receive the following treatments prior to arrival, none Related Data Home Medications Medication Instructions Recorded Confirmed Advair HFA 2 puff INHALATION BID #8 gm 04/18/18 05/27/18 albuterol sulfate 2.5 mg INHALATION Q4H PRN #30 each 04/18/18 05/27/18 albuterol sulfate [ProAir HFA] 200 puff INHALATION Q4H PRN PRN #2 04/18/18 05/27/18 inh sertraline 150 mg PO DAILY 04/18/18 05/27/18 pantoprazole 40 mg PO DAILY@0730 #30 tab 04/27/18 05/27/18 albuterol sulfate 2.5 mg IH QID PRN #75 ml 05/20/18 albuterol sulfate 2.5 mg IH QID PRN #20 ml 05/27/18 albuterol sulfate [ProAir HFA] 2 puff IH Q6H PRN #18 gm 05/27/18 Previous Rx's Medication Instructions Recorded Advair HFA 2 puff INHALATION BID #8 gm 04/18/18 albuterol sulfate 2.5 mg INHALATION Q4H PRN #30 each 04/18/18 albuterol sulfate [ProAir HFA] 200 puff INHALATION Q4H PRN PRN #2 04/18/18 inh pantoprazole 40 mg PO DAILY@0730 #30 tab 04/27/18 albuterol sulfate 2.5 mg IH QID PRN #75 ml 05/20/18 albuterol sulfate 2.5 mg IH QID PRN #20 ml 05/27/18 albuterol sulfate [ProAir HFA] 2 puff IH Q6H PRN #18 gm 05/27/18 Allergies Allergy/AdvReac Type Severity Reaction Status Date / Time cat dander Allergy Wheezing Unverified 05/27/18 04:51 migraine medication AdvReac Uncoded 05/27/18 04:53 General MINGO: 3 Review of Systems Review of Systems All systems reviewed & are unremarkable except as noted in HPI and below Constitutional Denies chills and Denies fever(s) ENT Denies change in voice Cardiovascular Denies chest pain Respiratory Denies cough Gastrointestinal Denies abdominal pain, Denies nausea and Denies vomiting Integumentary/Breasts Denies rash PFSH Social History Smoking/Tobacco Use Status: Current-Occasional Counseling given: provider counseling Alcohol Intake: never Drug use: Daily Substance use type: marijuana Counseling given: Yes Housing: other Details: college dorm Do you feel safe at home: Yes Do you feel safe in your relationship?: Yes Exam Const General: no acute distress Orientation: alert HENMT Head: normal to inspection Ears: external ears normal General nose exam: external nose normal Mouth: moist mucous membranes Eyes General: appearance normal, both eyes and all related structures Neck Neck: normal visual inspection Resp Effort & Inspection: normal respiratory effort and able to speak in complete sentences Cardio Rate: regular rate Skin General skin exam: no rashes or lesions noted Neuro General: alert and oriented x3 Extrem General: normal to inspection Psych Mental Status: mental status grossly normal
[2018-05-27] MEDS: predniSONE 20 MG TAB 60 MG PO (05:08)
[2018-05-27] MEDS: Albuterol 2.5 MG/3 ML INH SOLN VIAL (05:56)
[2018-05-27] MEDS: Dexamethasone 10 MG/ML VIAL PO (05:56)
[2018-05-27 06:13] VITALS: BP 136/77; PULSE 86; RESP 20; O2SAT 98
== END 2018-05-27 06:17 | disposition home or self-care (01) ==
PROVIDERS: Emergency Provider Emergency Medicine; PCP Nurse Practitioner Family
DX: J45.901 Unspecified asthma with (acute) exacerbation (principal)
CPT/HCPCS: 99283; J1100; J7512; J7613

== ENCOUNTER 2018-05-30 15:56 | Emergency (ER) | payer BC, SELFPAY ==
[2018-05-30 16:00] VITALS: BP 106/66; PULSE 110; RESP 18; TEMP 36.7; O2SAT 97
[2018-05-30] MEDS: Albuterol/Ipratropium 3 ML UPD VIAL UPD ×2 (16:13→16:59)
--- NOTE | 2018-05-30 16:13 | ED.GENADUL_ITS ---
Discharge Plan Disposition Patient Disposition: HOME Condition: Stable Discharge Details Chief Complaint: SOB Clinical Impression: Asthma exacerbation Primary Care Provider: Angella Cleveland ED Provider: Iker Stein Home Meds and New Rx's Prescriptions: New prednisone 20 mg tablet 60 mg PO DAILY 5 Days Qty: 15 RF: 0 No Action sertraline 100 mg Tablet 150 mg PO DAILY RF: 0 albuterol sulfate [ProAir HFA] 200 PUFF HFA aerosol inhaler 200 puff Inhalation Q4H PRN PRNQty: 2 RF: 10 albuterol sulfate 2.5 mg/0.5 mL Solution For Nebulization 2.5 mg INHALATION Q4H PRN (Reason: wheezing) Qty: 30 RF: 0 Advair HFA 12 GM HFA aerosol inhaler 2 puff Inhalation BID Qty: 8 RF: 1 albuterol sulfate 2.5 mg /3 mL (0.083 %) solution for nebulization 2.5 mg IH QID PRN (Reason: shortness of breath or wheezing) Qty: 75 RF: 0 albuterol sulfate [ProAir HFA] 90 mcg/actuation HFA aerosol inhaler 2 puff IH Q6H PRN (Reason: shortness of breath) Qty: 18 RF: 0 albuterol sulfate 5 mg/mL solution for nebulization 2.5 mg IH QID PRN (Reason: shortness of breath) Qty: 20 RF: 0 Discharge Instructions Instructions: Asthma (ED) Additional Instructions: follow up with your primary care provider as scheduled on 06/03. You should discuss starting a prednisone taper at that time if you develop severe worsening symptoms or fevers return to the emergency department Medical Decision Making 23 yo male with hx of asthma, due to see a pcp next week, heavy marijuana smoker, who comes in with shortness of breath and wheezing. He is speaking in full sentences in no distress, is noted to have apical wheezing bilaterally, no leg swelling or calf pain or pleuric chest pain to suggest PE. No fevers or cough to suggest pna. Suspect asthma that is being exacerbated by heavy marijuana smoking, will give duoneb and reassess. He has been on a lot of steroids recently so will try and hold on this at this time pt doing better, still with wheezing, given worsening symptoms will start prednisone and give another duoneb only has mild apical wheezing now and speaking in full sentences. Will d/c and have him f/u with his pcp as scheduled on 06/03 Differential Diagnosis asthma, rad HPI General Mode of arrival: ambulatory . Date/Time Provider Initiated Documentation: 05/30/18 15:57 . Limitations to Documentation: no limitations . Information obtained by: patient . History of Present Illness 23 year old M presents to the emergency department with the chief complaint of wheezing, and it has been constant. No relieving factors improve symptom(s), No exacerbating factors reported . Related Data Home Medications Medication Instructions Recorded Confirmed Advair HFA 2 puff INHALATION BID #8 gm 04/18/18 05/30/18 albuterol sulfate 2.5 mg INHALATION Q4H PRN #30 each 04/18/18 05/30/18 albuterol sulfate [ProAir HFA] 200 puff INHALATION Q4H PRN PRN #2 04/18/18 05/30/18 inh sertraline 150 mg PO DAILY 04/18/18 05/30/18 albuterol sulfate 2.5 mg IH QID PRN #75 ml 05/20/18 albuterol sulfate 2.5 mg IH QID PRN #20 ml 05/27/18 albuterol sulfate [ProAir HFA] 2 puff IH Q6H PRN #18 gm 05/27/18 prednisone 60 mg PO DAILY 5 Days #15 tab 05/30/18 Previous Rx's Medication Instructions Recorded Advair HFA 2 puff INHALATION BID #8 gm 04/18/18 albuterol sulfate 2.5 mg INHALATION Q4H PRN #30 each 04/18/18 albuterol sulfate [ProAir HFA] 200 puff INHALATION Q4H PRN PRN #2 04/18/18 inh albuterol sulfate 2.5 mg IH QID PRN #75 ml 05/20/18 albuterol sulfate 2.5 mg IH QID PRN #20 ml 05/27/18 albuterol sulfate [ProAir HFA] 2 puff IH Q6H PRN #18 gm 05/27/18 prednisone 60 mg PO DAILY 5 Days #15 tab 05/30/18 Allergies Allergy/AdvReac Type Severity Reaction Status Date / Time cat dander Allergy Wheezing Unverified 05/30/18 16:03 migraine medication AdvReac Uncoded 05/30/18 16:03 General Stated Complaint: SOB MINGO: 3 Review of Systems Review of Systems All systems reviewed & are unremarkable except as noted in HPI and below Constitutional Denies chills and Denies fever(s) ENT Denies change in voice Cardiovascular Denies chest pain Respiratory Denies cough Gastrointestinal Denies abdominal pain, Denies nausea and Denies vomiting Musculoskeletal Denies joint swelling Integumentary/Breasts Denies rash PFSH Social History Smoking/Tobacco Use Status: Current-Occasional Counseling given: provider counseling Alcohol Intake: never Drug use: Daily Substance use type: marijuana Counseling given: Yes Housing: other Details: college dorm Do you feel safe at home: Yes Do you feel safe in your relationship?: Yes Exam Const General: no acute distress Orientation: alert HENMT Head: normal to inspection Ears: external ears normal General nose exam: external nose normal Mouth: moist mucous membranes Eyes General: appearance normal, both eyes and all related structures Neck Neck: normal visual inspection Resp Effort & Inspection: normal respiratory effort and able to speak in complete sentences Cardio Rate: regular rate Skin General skin exam: no rashes or lesions noted Neuro General: alert and oriented x3 Extrem General: normal to inspection Psych Mental Status: mental status grossly normal Course Vital Signs Temperature 36.7 C 05/30/18 16:00 Pulse 110 H 05/30/18 16:00 Respiratory Rate 18 05/30/18 16:00 Blood Pressure 106/66 05/30/18 16:00 Pulse Oximetry 97 05/30/18 16:00 Temperature 36.7 C 05/30/18 16:00 Temperature Source Skin 05/30/18 16:00 Pulse 110 H 05/30/18 16:00 Respiratory Rate 18 05/30/18 16:00 Blood Pressure 106/66 05/30/18 16:00 Pulse Oximetry 97 05/30/18 16:00 Pain Level 0 05/30/18 16:00
[2018-05-30] MEDS: predniSONE 20 MG TAB 60 MG PO (16:59)
[2018-05-30 17:25] VITALS: BP 106/66; PULSE 98; RESP 18; TEMP 36.7; O2SAT 97
== END 2018-05-30 17:27 | disposition home or self-care (01) ==
PROVIDERS: Emergency Provider Emergency Medicine; PCP Nurse Practitioner Family
DX: J45.901 Unspecified asthma with (acute) exacerbation (principal); F12.90 Cannabis use, unspecified, uncomplicated; F17.210 Nicotine dependence, cigarettes, uncomplicated
CPT/HCPCS: 94640; 99284; J7512; J7620

== ENCOUNTER 2018-07-16 11:16 | Emergency (ER) | payer BC, SELFPAY ==
[2018-07-16] VITALS (8 sets, daily range): BP systolic 149; BP diastolic 89; PULSE 85–134; RESP 4–30; TEMP 37; O2SAT 99–100
--- NOTE | 2018-07-16 11:25 | W.ED.GENAD ---
Discharge Plan Disposition Patient Disposition: HOME Condition: Stable Discharge Details Chief Complaint: SOB Clinical Impression: Asthma exacerbation Primary Care Provider: Angella Cleveland ED Provider: Ofelia Chandler Home Meds and New Rx's Prescriptions: New prednisone 20 mg tablet See Rx Instructions .ROUTE .COMPLEX Qty: 12 RF: 0 cetirizine [Zyrtec] 10 mg tablet 10 mg PO DAILY Qty: 30 RF: 0 fluticasone propion-salmeterol [Advair Diskus] 250-50 mcg/dose blister with device 1 inh IH BID Qty: 14 RF: 0 ipratropium-albuterol 0.5 mg-3 mg(2.5 mg base)/3 mL solution for nebulization 3 ml IH Q4H PRN (Reason: shortness of breath or wheezing) Qty: 15 RF: 0 Continued sertraline 100 mg Tablet 150 mg PO DAILY RF: 0 Advair HFA 12 GM HFA aerosol inhaler 2 puff Inhalation BID Qty: 8 RF: 1 albuterol sulfate 2.5 mg /3 mL (0.083 %) solution for nebulization 2.5 mg IH QID PRN (Reason: shortness of breath or wheezing) Qty: 75 RF: 0 albuterol sulfate [ProAir HFA] 90 mcg/actuation HFA aerosol inhaler 2 puff IH Q6H PRN (Reason: shortness of breath) Qty: 18 RF: 0 Discharge Instructions Instructions: Asthma (ED) Additional Instructions: Take the medications as directed. Call your primary care doctor tomorrow to schedule a follow-up appointment for reevaluation. Return immediately to the emergency department with any worsening or new concerning symptoms. Discharge Data Discharge Date/Time-TO BE ENTERED AT DEPARTURE: 07/16/18 15:19 Discharge Physician: Ofelia Chandler Medical Decision Making 23-year-old male with a history of asthma who presented with complaint of shortness of breath and wheezing today. Received duo nebs and Solu-Medrol per EMS and states he feels a little better. He has diffuse wheezing and rhonchi throughout. Heart rate tachycardic. Normal respiratory rate and oxygen saturation. He is speaking in full sentences. We will give a 7.5 mg neb and reassess. 1200 --patient still tight but states he feels better. Some improvement in breath sounds. Will give a continuous neb and reassess. 1430 --patient feels much better and is requesting to go home. CXR negative. Pt is texting on phone and appears comfortable. Patient needs refills of his Zyrtec, Advair, albuterol. Per respiratory, patient seemed to benefit more from DuoNeb and patient is requesting a DuoNeb prescription for home. Per discussion with respiratory, patient has missed multiple appointments for PFTs as well as multiple appointments for follow-up with his primary care doctor. Patient is instructed to take his medications as directed, follow-up with his primary care doctor for reevaluation and to return here if worse. Medical Records Medical records reviewed: Yes I reviewed the patient's medical records. Imaging Data Radiologic Study: Radiologist's impression: CHEST X-RAY, AP VIEW: Comparison is 05/20/18. The heart is normal in size. The lungs are clear. The mediastinal structures and pleura appear intact. IMPRESSION: Normal chest. HPI General Mode of arrival: ambulatory. Date/Time Provider Initiated Documentation: 07/16/18 11:24. Limitations to Documentation: no limitations. Information obtained by: patient. HPI Narrative: Patient is a 23-year-old male with a history of asthma and well-known to the emergency department for history of noncompliance with asthma medications who presents with shortness of breath today. Patient recently finished a prednisone taper 2 weeks ago. Patient was given Solu-Medrol and duo nebs by EMS prior to arrival and states he feels a little better. Patient is unsure of a history of intubations. Related Data Home Medications Medication Instructions Recorded Confirmed Advair HFA 2 puff INHALATION BID #8 gm 04/18/18 07/16/18 sertraline 150 mg PO DAILY 04/18/18 07/16/18 albuterol sulfate 2.5 mg IH QID PRN #75 ml 05/20/18 07/16/18 albuterol sulfate [ProAir HFA] 2 puff IH Q6H PRN #18 gm 05/27/18 07/16/18 cetirizine [Zyrtec] 10 mg PO DAILY #30 tab 07/16/18 fluticasone propion-salmeterol 1 inh IH BID #14 each 07/16/18 [Advair Diskus] ipratropium-albuterol 3 ml IH Q4H PRN #15 ml 07/16/18 prednisone See Rx Instructions .ROUTE 07/16/18 .COMPLEX #12 tab Previous Rx's Medication Instructions Recorded Advair HFA 2 puff INHALATION BID #8 gm 04/18/18 albuterol sulfate 2.5 mg IH QID PRN #75 ml 05/20/18 albuterol sulfate [ProAir HFA] 2 puff IH Q6H PRN #18 gm 05/27/18 cetirizine [Zyrtec] 10 mg PO DAILY #30 tab 07/16/18 fluticasone propion-salmeterol 1 inh IH BID #14 each 07/16/18 [Advair Diskus] ipratropium-albuterol 3 ml IH Q4H PRN #15 ml 07/16/18 prednisone See Rx Instructions .ROUTE 07/16/18 .COMPLEX #12 tab Allergies Allergy/AdvReac Type Severity Reaction Status Date / Time cat dander Allergy Wheezing Unverified 07/16/18 11:20 migraine medication AdvReac Uncoded 07/16/18 11:20 General Stated Complaint: SOB MINGO: 2 Review of Systems Review of Systems All systems reviewed & are unremarkable except as noted in HPI and below Constitutional Reports as per HPI, Denies chills and Denies fever(s) Eyes Denies blurry vision ENT Denies dizziness, Denies sore throat and Denies throat swelling Cardiovascular Denies chest pain and Reports dyspnea Respiratory Reports cough and Reports dyspnea Gastrointestinal Denies abdominal pain, Denies diarrhea and Denies vomiting Genitourinary Denies hematuria and Denies dysuria Musculoskeletal Denies back pain and Denies numbness Integumentary/Breasts Denies lesions and Denies rash Neurologic Denies dizziness, Denies focal weakness and Denies numbness Allergic/Immunologic Denies throat swelling [facility] Medical History Asthma (Chronic) Depression (Chronic) Surgical History No significant past surgical history (Acute) Social History Smoking/Tobacco Use Status: Current-Occasional Counseling given: provider counseling Alcohol Intake: never Drug use: Daily Substance use type: marijuana Counseling given: Yes Housing: other Details: college dorm Do you feel safe at home: Yes Do you feel safe in your relationship?: Yes Exam Const General: cooperative, healthy appearing and no acute distress HENMT Head: normal to inspection Face and sinus: normal facial exam Eyes General: appearance normal, both eyes and all related structures EOM: EOM intact bilaterally Neck Neck: normal visual inspection and No submandibular swelling Lymphatic: no lymphadenopathy noted Chest Chest: normal inspection of the chest and no tenderness Resp Effort & Inspection: normal respiratory effort and able to speak in complete sentences Auscultation: rhonchi and wheezes Cardio Rate: tachycardic Rhythm: regular rhythm GI Inspection: normal to inspection Palpation: soft, not firm, not rigid and nontender Auscultation: normal bowel sounds Male General Exam: Yes normal external exam Skin General skin exam: no rashes or lesions noted Neuro General: alert, awake and oriented x3 Cognition: normal cognition Speech: speech normal Motor: muscle tone normal throughout Sensory Exam: no sensory deficits noted Extrem General: normal to inspection, full ROM and no edema Psych Appearance: grossly normal Mental Status: mental status grossly normal Speech and Movement: speech and movement normal Affect: normal affect Course Vital Signs Temperature 98.6 F 07/16/18 11:18 Pulse 118 H 07/16/18 11:18 Respiratory Rate 20 07/16/18 11:18 Blood Pressure 149/89 H 07/16/18 11:18 Pulse Oximetry 100 07/16/18 11:18 Temperature 98.6 F 07/16/18 11:18 Temperature Source Temporal Artery Scan 07/16/18 11:18 Pulse 118 H 07/16/18 11:18 Respiratory Rate 20 07/16/18 11:18 Respiratory Effort 07/16/18 11:18 Blood Pressure 149/89 H 07/16/18 11:18 Pulse Oximetry 100 07/16/18 11:18 Oxygen Delivery Method Room Air 07/16/18 11:18 Oxygen Flow Rate 0 07/16/18 11:18 Pain Level 0 07/16/18 11:18
[2018-07-16] MEDS: Albuterol/Ipratropium 3 ML UPD VIAL ×3 (11:31→11:41)
--- NOTE | 2018-07-16 12:06 | DI.RAD_ITS ---
SYMPTOMS/DIAGNOSIS: SHORTNESS OF BREATH, ? ACUTE DISEASE CHEST X-RAY, AP VIEW: Comparison is 05/20/18. The heart is normal in size. The lungs are clear. The mediastinal structures and pleura appear intact. IMPRESSION: Normal chest.
--- NOTE | 2018-07-16 15:16 | NUR.NOTE ---
patient received discharge medication and follow up teaching per MD order Nursing Note:
[2018-07-16] MEDS: Albuterol HFA 8 GM 60 PUFF INH IH (15:19)
== END 2018-07-16 15:19 | disposition home or self-care (01) ==
PROVIDERS: Emergency Provider Physician Assistant; PCP Nurse Practitioner Family
DX: J45.901 Unspecified asthma with (acute) exacerbation (principal); R00.0 Tachycardia, unspecified; F17.210 Nicotine dependence, cigarettes, uncomplicated
CPT/HCPCS: 94640; 94644; 99284; 71045; J7611; J7620

== ENCOUNTER 2018-08-28 10:21 | Emergency (ER) | payer BC, SELFPAY ==
[2018-08-28] VITALS (54 sets, daily range): BP systolic 117–164; BP diastolic 69–116; PULSE 112–150; RESP 12–51; TEMP 37.2; O2SAT 92–100
[2018-08-28] MEDS: Dexamethasone 10 MG/ML VIAL IVP (10:32)
[2018-08-28] MEDS: Albuterol 2.5 MG/3 ML INH SOLN VIAL UPD (10:32)
[2018-08-28] MEDS: Normal Saline 1,000 ML 1000 ML IV (10:33)
--- NOTE | 2018-08-28 10:59 | DI.RAD_ITS ---
SYMPTOMS/DIAGNOSIS: SHORTNESS OF BREATH, ASTHMA EXACERBATION PORTABLE AP UPRIGHT CHEST: Pulmonary hyperinflation is demonstrated. There is no evidence of an infiltrate or pleural effusion. The heart is not enlarged. The hilar structures, mediastinum and tracheal air column are intact. SUMMARY: Pulmonary hyperinflation is demonstrated, nil else.
[2018-08-28] MEDS: MAGNESIUM SULFATE 2 GM/50 ML BAG IVPB (11:03)
[2018-08-28] MEDS: LORazepam 2 MG/ML VIAL 0.5 MG IVP (12:12)
[2018-08-28] MEDS: Ibuprofen 600 MG TAB PO (12:12)
--- NOTE | 2018-08-28 12:24 | NUR.NOTE ---
Nursing Note: mother states that PT is at baseline
[2018-08-28 13:06] LABS: Abs Immature Grans 0.03 k/cumm (0.0-0.09); Absolute Basophil Count 0.03 k/cumm (0.0-0.2); Absolute Eosinophil Count 0.15 k/cumm (0.0-0.7); Absolute Monocyte Count 0.21 k/cumm (0.11-0.7); Basophils % 0.2; Eosinophils % 0.9; HCT 45.7 % (40.0-50.0); HGB 15.4 g/dL (13.5-17.5); Immature Grans % 0.2; Lymphocytes % 4.3; Mean Corp. HGB Concentration 33.7 g/dL (32.0-36.0); Mean Corpuscular Hemoglobin 27.9 pg (27.0-33.0); Mean Corpuscular Volume 82.9 fL (80-95); Mean Platelet Volume 9.1 fL (8.0-11.0); Monocytes % 1.3; Neutrophils % 93.1; Platelet Count 212 x1000/uL (130-400); RBC 5.51 m/cumm (4.50-6.00); RBC Distribution Width 13.4 % (11.8-14.1); White Blood Cell Count 16.42 k/cumm (4.4-10.8)
[2018-08-28 13:07] LABS: Absolute Lymphocyte Count 0.71 k/cumm (1.2-3.4); Absolute Neutrophil Count 15.29 k/cumm (1.2-6.7)
[2018-08-28] MEDS: Dexamethasone 10 MG/ML VIAL 6 MG IVP (13:07)
[2018-08-28 13:25] LABS: ALT 21 U/L (12-78); AST 15 U/L (15-37); Albumin 3.8 g/dL (3.4-5.0); Alkaline Phosphatase 77 U/L (46-116); Anion Gap 8.7 mmol/L (3-11); BUN 8 mg/dL (7-18); Bilirubin, Total 0.5 mg/dL (0.2-1.0); CO2 26.3 mmol/L (21.0-32.0); CREATININE 0.68 mg/dL (0.70-1.30); Calcium 7.9 mg/dL (8.5-10.1); Chloride 107 mmol/L (98-107); Glucose 118 mg/dL (70-100); Sodium 142 mmol/L (136-145)
--- NOTE | 2018-08-28 13:51 | ED.GENADUL_ITS ---
Discharge Plan Disposition Patient Disposition: AGAINST MEDICAL ADVICE Condition: Critical Discharge Details Chief Complaint: RespSymp Clinical Impression: Asthma exacerbation Primary Care Provider: Jerad Palmer ED Provider: Russell Lira Home Meds and New Rx's Prescriptions: New prednisone 20 mg tablet 20 mg PO DAILY Qty: 19 RF: 0 Continued sertraline 100 mg Tablet 150 mg PO DAILY RF: 0 Advair HFA 12 GM HFA aerosol inhaler 2 puff Inhalation BID Qty: 8 RF: 1 albuterol sulfate 2.5 mg /3 mL (0.083 %) solution for nebulization 2.5 mg IH QID PRN (Reason: shortness of breath or wheezing) Qty: 75 RF: 0 albuterol sulfate [ProAir HFA] 90 mcg/actuation HFA aerosol inhaler 2 puff IH Q6H PRN (Reason: shortness of breath) Qty: 18 RF: 0 cetirizine [Zyrtec] 10 mg tablet 10 mg PO DAILY Qty: 30 RF: 0 fluticasone propion-salmeterol [Advair Diskus] 250-50 mcg/dose blister with device 1 inh IH BID Qty: 14 RF: 0 ipratropium-albuterol 0.5 mg-3 mg(2.5 mg base)/3 mL solution for nebulization 3 ml IH Q4H PRN (Reason: shortness of breath or wheezing) Qty: 15 RF: 0 Discontinued prednisone 20 mg tablet See Rx Instructions .ROUTE .COMPLEX Qty: 12 RF: 0 Discharge Instructions Instructions: Asthma (ED) Additional Instructions: Please return immediately to the emergency department for any new or worsening symptoms as you are leaving AGAINST MEDICAL ADVICE and you may need admission or further treatments. Please start your steroids tomorrow as you are already given steroids in the emergency department today. Referrals: Jerad Palmer, SAFETY ATTENDANT [Primary Care Provider] - 2 days (for reassessment) Discharge Data Discharge Date/Time-TO BE ENTERED AT DEPARTURE: 08/28/18 15:54 Medical Decision Making Patient presents to the emergency department via EMS chief complaint of asthma attack. Patient has a long ongoing history of asthma. Report from EMS is that patient started having a flareup of his asthma yesterday evening at 10 PM and he has tried his home inhalers to resolve his symptoms. Patient is only speaking in 1-2 word sentences, EMS gave 2 DuoNeb's prior to arrival to the emergency department. They report O2 saturation of 90% at home but via nonrebreather patient has saturation of 98%. Patient has significant work of breathing, tachypnea, audible inspiratory and expiratory wheezing. Due to patient's significant work-up being patient was placed up on BiPAP, given steroids, iv fluids, given additional albuterol. Portable chest x-ray ordered. Review of chest x-ray and speak with radiologist shows hyperinflated lungs oth erwise no other concerns noted patient reassessed after 4 albuterol's and BiPAP for greater than 1 hour still has significant work of breathing. Respiratory came down in place patient on continuous albuterol but patient started to not tolerate BiPAP so it was removed. Patient remains tachycardic, tachypneic, but not hypoxic. Mother did arrive to the emergency department and did state that patient's symptoms started after a disagreement that had occurred. Patient does have some history of anxiety so 0.5 mg of Ativan was ordered. Patient does seem to have less work of breathing but still significant audible wheezing, Tachypnea, tachycardia. 2 g of magnesium was also ordered along with labs. Review of labs show no significant leukocytosis, CMP with only elevation of anion gap otherwise nondiagnostic. Pending ABG I did speak with patient in regards to admission given that he persists in tachycardia, tachypnea with respirations 20-30, but not remaining hypoxic. Patient still on continuous albuterol. Patient adamantly refused admission even with discussion of his condition that could lead to respiratory failure and cause or disability. Mother was in room for discussion of risk of leaving AGAINST MEDICAL ADVICE. Patient is alert and oriented and cognitive with no noted disability to make his own decisions so paperwork was signed. Patient was prescribed steroid taper to begin at home and he was strongly encouraged to return any worsening of symptoms. HPI General Mode of arrival: EMS . Date/Time Provider Initiated Documentation: 08/28/18 10:23 . Limitations to Documentation: no limitations . Information obtained by: patient, RN notes reviewed and old records reviewed . History of Present Illness 23 year old M presents to the emergency department with the chief complaint of Shortness of breath difficulty breathing, described as severe and similar to prior episodes, with intensity rated at 7. Quality is described as other (Pressure), and is localized to the chest. Patient started experiencing this day(s) (1) and it has been constant. Other factors that worsen symptoms (Argument and disagreement) . Patient did receive the following treatments prior to arrival, other (Normally prescribed inhalers and 2 DuoNeb's by EMS) Related Data Home Medications Medication Instructions Recorded Confirmed Advair HFA 2 puff INHALATION BID #8 gm 04/18/18 08/28/18 sertraline 150 mg PO DAILY 04/18/18 08/28/18 albuterol sulfate 2.5 mg IH QID PRN #75 ml 05/20/18 08/28/18 albuterol sulfate [ProAir HFA] 2 puff IH Q6H PRN #18 gm 05/27/18 08/28/18 cetirizine [Zyrtec] 10 mg PO DAILY #30 tab 07/16/18 08/28/18 fluticasone propion-salmeterol 1 inh IH BID #14 each 07/16/18 08/28/18 [Advair Diskus] ipratropium-albuterol 3 ml IH Q4H PRN #15 ml 07/16/18 08/28/18 prednisone 20 mg PO DAILY #19 tab 08/28/18 Previous Rx's Medication Instructions Recorded Advair HFA 2 puff INHALATION BID #8 gm 04/18/18 albuterol sulfate 2.5 mg IH QID PRN #75 ml 05/20/18 albuterol sulfate [ProAir HFA] 2 puff IH Q6H PRN #18 gm 05/27/18 cetirizine [Zyrtec] 10 mg PO DAILY #30 tab 07/16/18 fluticasone propion-salmeterol 1 inh IH BID #14 each 07/16/18 [Advair Diskus] ipratropium-albuterol 3 ml IH Q4H PRN #15 ml 07/16/18 prednisone 20 mg PO DAILY #19 tab 08/28/18 Allergies Allergy/AdvReac Type Severity Reaction Status Date / Time cat dander Allergy Wheezing Unverified 08/28/18 10:54 migraine medication AdvReac Uncoded 08/28/18 10:54 General Stated Complaint: RespSymp MINGO: 3 Review of Systems Constitutional Denies chills and Denies fever(s) ENT Denies nasal congestion Cardiovascular Reports chest pain, Denies syncope, Denies palpitations, Reports dyspnea and Reports dyspnea on exertion Respiratory Reports as per HPI, Reports dyspnea, Reports dyspnea on exertion and Reports wheezing Gastrointestinal Denies abdominal pain, Denies nausea and Denies vomiting Neurologic Denies syncope Endocrine Denies palpitations Allergic/Immunologic Reports wheezing [facility] Medical History Asthma (Chronic) Depression (Chronic) Surgical History No significant past surgical history (Acute) Social History Smoking/Tobacco Use Status: Current-Occasional Tobacco Type: cigarettes Counseling given: provider counseling Alcohol Intake: never Drug use: Daily Substance use type: marijuana Counseling given: Yes Housing: other Details: college dorm Do you feel safe at home: Yes Do you feel safe in your relationship?: Yes Exam Const General: in distress severe and respiratory and not diaphoretic Orientation: alert and awake Limitations: mental status not altered Neck Neck: normal visual inspection, full ROM, trachea midline, supple and no anterior neck swelling Chest Chest: normal inspection of the chest Resp Effort & Inspection: normal respiratory effort, able to speak in complete sentences, audible wheezes, labored, respiratory distress, tachypneic, uses accessory muscles and prolonged expiratory phase Auscultation: wheezes expiratory wheezes, inspiratory wheezes and scattered wheezes Cardio Jugular venous pressure: no JVD Palpation: normal PMI Rate: tachycardic Rhythm: regular rhythm Heart Sounds: S1 normal, S2 normal, no click, no gallops, no murmurs and no rubs Bruits: no abdominal aortic bruits and no carotid bruits Pulses: radial pulses present bilaterally 2+ GI Inspection: normal to inspection Palpation: soft, no aortic enlargement, no pulsatile masses and nontender Auscultation: normal bowel sounds Skin General skin exam: no rashes or lesions noted Neuro General: alert, awake, oriented x3, tone normal and moves all extremities Course Vital Signs Respiratory Rate 24 08/28/18 10:24 Pulse Oximetry 99 08/28/18 10:24 Temperature 37.2 C 08/28/18 10:35 Temperature Source Skin 08/28/18 10:35 Pulse 121 H 08/28/18 12:31 Pulse 121 H 08/28/18 12:31 Respiratory Rate 32 H 08/28/18 12:31 Respiratory Effort Labored 08/28/18 10:54 Blood Pressure 131/87 08/28/18 12:31 Blood Pressure Mean 97 08/28/18 12:31 Blood Pressure Position Sitting 08/28/18 10:35 Pulse Oximetry 95 08/28/18 12:31 Oxygen Delivery Method OxyMask 08/28/18 10:35 Oxygen Flow Rate 8 08/28/18 10:35 Fraction of Inspired Oxygen (FIO2) 30 08/28/18 11:20 Lab/Test Results Lab/Test Results: Laboratory Tests Range/Units 08/28/18 08/28/18 12:51 12:51 WBC (4.4-10.8) k/cumm 16.42 H RBC (4.50-6.00) m/cumm 5.51 Hgb (13.5-17.5) g/dL 15.4 Hct (40.0-50.0) % 45.7 MCV (80-95) fL 82.9 MCH (27.0-33.0) pg 27.9 MCHC (32.0-36.0) g/dL 33.7 RDW (11.8-14.1) % 13.4 Plt Count (130-400) x1000/uL 212 MPV (8.0-11.0) fL 9.1 Immature Gran % 0.2 Neutrophils % 93.1 Lymphocytes % 4.3 Monocytes % 1.3 Eosinophils % 0.9 Basophils % 0.2 Absolute Neutrophils (1.2-6.7) k/cumm 15.29 H Absolute Lymphocytes (1.2-3.4) k/cumm 0.71 L Absolute Monocytes (0.11-0.7) k/cumm 0.21 Absolute Eosinophils (0.0-0.7) k/cumm 0.15 Absolute Basophils (0.0-0.2) k/cumm 0.03 Sodium (136-145) mmol/L 142 Potassium (3.5-5.1) mmol/L 4.0 Chloride (98-107) mmol/L 107 Carbon Dioxide (21.0-32.0) mmol/L 26.3 Anion Gap (3-11) mmol/L 8.7 BUN (7-18) mg/dL 8 Creatinine (0.70-1.30) mg/dL 0.68 L Estimated GFR/1.73 m2 (mL/min/1.73m2) >= 60.00 Glucose (70-100) mg/dL 118 H Calcium (8.5-10.1) mg/dL 7.9 L Total Bilirubin (0.2-1.0) mg/dL 0.5 AST (15-37) U/L 15 ALT (12-78) U/L 21 Alkaline Phosphatase (46-116) U/L 77 Total Protein (6.4-8.2) g/dL 7.0 Albumin (3.4-5.0) g/dL 3.8 Critical Care Time Critical Care Time: Yes Total Critical Care Time: 45 Attestation: Greater than 45 minutes was spent addressing patient's immediate life-threatening needs, reassessment of patient, and review of treatments.
== END 2018-08-28 15:54 | disposition left against medical advice (07) ==
PROVIDERS: Emergency Provider Nurse Practitioner Family; PCP Nurse Practitioner Family
DX: J45.901 Unspecified asthma with (acute) exacerbation (principal); R00.0 Tachycardia, unspecified; R06.82 Tachypnea, not elsewhere classified
CPT/HCPCS: 36415; 80053; 82805; 96361; 96365; 96366; 96375; 96376; 99284; 71045; 85025; J1100; J2060; J7613

== ENCOUNTER 2018-09-22 12:50 | Inpatient (IN) | payer BC, SELFPAY ==
[2018-09-22] VITALS (29 sets, daily range): BP systolic 110–135; BP diastolic 70–92; PULSE 100–136; RESP 2–33; TEMP 36.8–37.1; O2SAT 93–100
--- NOTE | 2018-09-22 12:54 | NUR.NOTE ---
Nursing Note: pt states that he developed an asthma attack a few days ago symptoms have progressed till he called ems today. ems placed PT on a duoneb pt has an extensive history of similar attacks
[2018-09-22] MEDS: Albuterol/Ipratropium 3 ML UPD VIAL 9 ML UPD (13:00)
--- NOTE | 2018-09-22 13:04 | DI.RAD_ITS ---
SYMPTOM/DIAGNOSIS: SEVERE ASTHMA, COUGH, SOB PA AND LATERAL CHEST: Comparison is made with 08/28/18. Heart size and pulmonary vasculature are within normal limits. The lungs appear hyperinflated. There is mild peribronchial thickening. No focal consolidating infiltrates, effusions or pneumothoraces are identified. The bones are intact. IMPRESSION: Findings suggestive of reactive airway disease. No focal infiltrate to suggest a pneumonia.
[2018-09-22] MEDS: MAGNESIUM SULFATE 2 GM/50 ML BAG IVPB (13:27)
[2018-09-22] MEDS: methylPREDNISolone SUCC 125 MG VIAL IVP (13:27)
[2018-09-22] MEDS: Acetaminophen 500 MG TAB (13:44)
[2018-09-22 14:54] LABS: Abs Immature Grans 0.01 k/cumm (0.0-0.09); Absolute Basophil Count 0.02 k/cumm (0.0-0.2); Absolute Eosinophil Count 0.65 k/cumm (0.0-0.7); Absolute Lymphocyte Count 1.36 k/cumm (1.2-3.4); Absolute Monocyte Count 0.75 k/cumm (0.11-0.7); Absolute Neutrophil Count 6.68 k/cumm (1.2-6.7); Basophils % 0.2; Eosinophils % 6.9; HCT 48.4 % (40.0-50.0); HGB 16.3 g/dL (13.5-17.5); Immature Grans % 0.1; Lymphocytes % 14.4; Mean Corp. HGB Concentration 33.7 g/dL (32.0-36.0); Mean Corpuscular Hemoglobin 27.3 pg (27.0-33.0); Mean Corpuscular Volume 81.2 fL (80-95); Mean Platelet Volume 9.8 fL (8.0-11.0); Monocytes % 7.9; Neutrophils % 70.5; Platelet Count 211 x1000/uL (130-400); RBC 5.96 m/cumm (4.50-6.00); RBC Distribution Width 13.9 % (11.8-14.1); White Blood Cell Count 9.47 k/cumm (4.4-10.8)
--- NOTE | 2018-09-22 15:00 | DI.VRAD_ITS ---
EXAM: XR Chest, 2 Views EXAM DATE/TIME: 09/22/2018 1:05 PM CLINICAL HISTORY: 23 years old, male; Other: Severe asthma, cough, SOB TECHNIQUE: Imaging protocol: XR of the chest, 2 views. COMPARISON: CR XR PORTABLE CHEST AP 08/28/2018 11:16 AM FINDINGS: Lungs: Hyperexpansion of the lungs. Mild bilateral parabronchial thickening. No infiltrate or consolidation. No focal infiltrate or consolidation. Pleural space: Unremarkable. No pleural effusion. No pneumothorax. Heart/Mediastinum: Unremarkable. No cardiomegaly. Bones/joints: Unremarkable. IMPRESSION: 1. Pulmonary findings consistent with reactive airways disease. 2. No focal infiltrate to indicate pneumonia. Dictated and Authenticated by: Bambi Romo MD. Ordering:MARTHA Marcial MD
[2018-09-22 15:01] LABS: ALT 42 U/L (12-78); AST 14 U/L (15-37); Albumin 4.2 g/dL (3.4-5.0); Alkaline Phosphatase 71 U/L (46-116); Anion Gap 10.4 mmol/L (3-11); BUN 14 mg/dL (7-18); Bilirubin, Total 1.5 mg/dL (0.2-1.0); CO2 26.6 mmol/L (21.0-32.0); CREATININE 0.69 mg/dL (0.70-1.30); Calcium 9.4 mg/dL (8.5-10.1); Chloride 102 mmol/L (98-107); Glucose 101 mg/dL (70-100); Potassium 4.1 mmol/L (3.5-5.1); Sodium 139 mmol/L (136-145); Total Protein 7.8 g/dL (6.4-8.2)
[2018-09-22 15:06] LABS: BE (Venous) 2.8 mmol/L (-3-3); HCO3 (Venous) 28 mmol/L (22-28); O2 Sat (Venous) 83 % (70-80); TCO2 (Venous) 24 mmol/L (22-29); pCO2 (Venous) 44 mm/Hg (34-47); pH (Venous) 7.41 (7.32-7.43); pO2 (Venous) 47 mm/Hg (28-44)
--- NOTE | 2018-09-22 15:08 | ED.GENADUL_ITS ---
Discharge Plan Disposition Patient Disposition: [facility] INPATIENT Condition: Improving Discharge Details Chief Complaint: SOB Clinical Impression: Asthma exacerbation Primary Care Provider: Jerad Palmer ED Provider: Aniket Bonilla Home Meds and New Rx's Prescriptions: No Action prednisone 20 mg tablet 20 mg PO DAILY Qty: 19 RF: 0 sertraline 100 mg Tablet 150 mg PO DAILY RF: 0 Advair HFA 12 GM HFA aerosol inhaler 2 puff Inhalation BID Qty: 8 RF: 1 albuterol sulfate 2.5 mg /3 mL (0.083 %) solution for nebulization 2.5 mg IH QID PRN (Reason: shortness of breath or wheezing) Qty: 75 RF: 0 albuterol sulfate [ProAir HFA] 90 mcg/actuation HFA aerosol inhaler 2 puff IH Q6H PRN (Reason: shortness of breath) Qty: 18 RF: 0 cetirizine [Zyrtec] 10 mg tablet 10 mg PO DAILY Qty: 30 RF: 0 fluticasone propion-salmeterol [Advair Diskus] 250-50 mcg/dose blister with device 1 inh IH BID Qty: 14 RF: 0 ipratropium-albuterol 0.5 mg-3 mg(2.5 mg base)/3 mL solution for nebulization 3 ml IH Q4H PRN (Reason: shortness of breath or wheezing) Qty: 15 RF: 0 Medical Decision Making This is a 23-year-old -Monegasque male with a notable history of asthma who presents today with shortness of breath and asthma for the last 3 to 4 days, he is not been using his Advair disc as he has been out of it for quite some time. Physical exam demonstrates notable wheezes throughout signs and symptoms consistent with asthma. He arrives today by EMS, and despite his notable work of breathing oxygen saturations were consistently in the 90s. Patient was given 2 g of magnesium, Solu-Medrol, and for breathing treatments. He has had a notable improvement in his wheezes, and work of breathing since then. However repeat exam demonstrates continued wheezes throughout notable clinical asthmatic tightness. His work of breathing and respiratory rate appear much more stable and he is now conversing easily on cell phone with friends and family. However because of his continued notable wheeze, I do feel that he would benefit from 24-hour observation/admission. We will contact the hospitalist regards to this. 3:25 PM I discussed the case with Dr. Henderson, she agrees with the assessment and plan. Patient will be admitted. I have extensively reviewed the treatment plan with the patient. I have addressed all patient concerns at this time. I have also discussed the plan with the admitting physician and they agree with the current assessment and plan and have agreed to assume responsibility for the patient. All parties demonstrate verbal understanding and agreement with our assessment and plan at this time. FINDINGS: Lungs: Hyperexpansion of the lungs. Mild bilateral parabronchial thickening. No infiltrate or consolidation. No focal infiltrate or consolidation. Pleural space: Unremarkable. No pleural effusion. No pneumothorax. Heart/Mediastinum: Unremarkable. No cardiomegaly. Bones/joints: Unremarkable. IMPRESSION: 1. Pulmonary findings consistent with reactive airways disease. 2. No focal infiltrate to indicate pneumonia. Dictated and Authenticated by: Bambi Romo MD. Ordering:MARTHA aMrcial MD HPI General Date/Time Provider Initiated Documentation: 09/22/18 12:54 . HPI Narrative: This is a 23-year-old -Monegas[place] male with a past medical history of notable asthma who presents today for evaluation asthma and shortness of breath. Patient states that over the last 3 to 4 days he has had notable progression of his shortness of breath and asthma. He still does smoke on a regular basis. He does take his Xopenex inhaler but this is not been helping. He does note that he is out of his Advair for quite some time and has not gotten it refilled. He denies any productive cough, fever, chills, headache, chest pain, numbness tingling or weakness. Denies PE risk factors such as recent long car rides, immobilization, recent surgery, prior history of DVT or PE, family history of PE or DVT, morbid obesity, exogenous estrogen and smoking, hemoptysis, history of cancer. He denies any other complaints or modifying factors at this time. Related Data Home Medications Medication Instructions Recorded Confirmed Advair HFA 2 puff INHALATION BID #8 gm 04/18/18 08/28/18 sertraline 150 mg PO DAILY 04/18/18 08/28/18 albuterol sulfate 2.5 mg IH QID PRN #75 ml 05/20/18 08/28/18 albuterol sulfate [ProAir HFA] 2 puff IH Q6H PRN #18 gm 05/27/18 08/28/18 cetirizine [Zyrtec] 10 mg PO DAILY #30 tab 07/16/18 08/28/18 fluticasone propion-salmeterol 1 inh IH BID #14 each 07/16/18 08/28/18 [Advair Diskus] ipratropium-albuterol 3 ml IH Q4H PRN #15 ml 07/16/18 08/28/18 prednisone 20 mg PO DAILY #19 tab 08/28/18 Previous Rx's Medication Instructions Recorded Advair HFA 2 puff INHALATION BID #8 gm 04/18/18 albuterol sulfate 2.5 mg IH QID PRN #75 ml 05/20/18 albuterol sulfate [ProAir HFA] 2 puff IH Q6H PRN #18 gm 05/27/18 cetirizine [Zyrtec] 10 mg PO DAILY #30 tab 07/16/18 fluticasone propion-salmeterol 1 inh IH BID #14 each 07/16/18 [Advair Diskus] ipratropium-albuterol 3 ml IH Q4H PRN #15 ml 07/16/18 prednisone 20 mg PO DAILY #19 tab 08/28/18 Allergies Allergy/AdvReac Type Severity Reaction Status Date / Time cat dander Allergy Wheezing Unverified 08/28/18 10:54 migraine medication AdvReac Uncoded 08/28/18 10:54 General Stated Complaint: SOB MINGO: 3 Review of Systems Review of Systems All systems reviewed & are unremarkable except as noted in HPI and below PFSH Social History Smoking/Tobacco Use Status: Current-Occasional Tobacco Type: cigarettes Counseling given: provider counseling Alcohol Intake: never Drug use: Daily Substance use type: marijuana Counseling given: Yes Housing: other Details: college dorm Do you feel safe at home: Yes Do you feel safe in your relationship?: Yes Exam Narrative Exam Narrative: 1.Const: Well-nourished, Well-developed, appearing stated age 2.Eyes: PERRL, no conjunctival injection, and symmetrical lids. 3.ENT: Atraumatic external nose and ears. Moist MM. Neck: Symmetric, trachea midline, No thyromegaly. 4.CVS: +S1/S2, No murmurs or gallops. Peripheral pulses 2+ and equal in all extremities. Brisk capillary refill in all extremities. 5.RESP: Tachypnea, notable wheeze throughout, reduced breath sounds. No crackles or rhonchi. 6.GI: Soft, Nontender/Nondistended, No hepatosplenomegaly. No guarding or rebound. 7.MSK: Normocephalic/Atraumatic, Extremities w/o deformity or ttp No cyanosis or clubbing, Normal movement of all extremities. No pitting edema of the lower extremities 8.Skin: Warm, Dry. No rashes or lesions. 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 Sensation grossly intact, no focal neurologic deficits. 10.Psych: (AAO) x3. Appropriate mood and affect Neck Course Vital Signs Temperature 36.8 C 09/22/18 12:55 Pulse 113 H 09/22/18 12:55 Respiratory Rate 22 09/22/18 12:55 Blood Pressure 128/90 09/22/18 12:55 Pulse Oximetry 99 09/22/18 12:55 Temperature 36.8 C 09/22/18 12:55 Temperature Source Skin 09/22/18 12:55 Pulse 130 H 09/22/18 13:45 Pulse 135 H 09/22/18 13:50 Respiratory Rate 25 H 09/22/18 13:50 Respiratory Effort 09/22/18 13:47 Respiratory Depth Shallow 09/22/18 13:00 Respiratory Pattern Tachypnea 09/22/18 13:00 Blood Pressure 130/86 09/22/18 13:45 Blood Pressure Mean 97 09/22/18 13:45 Blood Pressure Position Sitting 09/22/18 12:55 Pulse Oximetry 94 L 09/22/18 14:00 Oxygen Delivery Method Room Air 09/22/18 14:00 Oxygen Flow Rate 0 09/22/18 14:00 Pain Level 3 09/22/18 12:55 Lab/Test Results Lab/Test Results: Laboratory Tests Range/Units 09/22/18 09/22/18 13:30 13:30 WBC (4.4-10.8) k/cumm 9.47 RBC (4.50-6.00) m/cumm 5.96 Hgb (13.5-17.5) g/dL 16.3 Hct (40.0-50.0) % 48.4 MCV (80-95) fL 81.2 MCH (27.0-33.0) pg 27.3 MCHC (32.0-36.0) g/dL 33.7 RDW (11.8-14.1) % 13.9 Plt Count (130-400) x1000/uL 211 MPV (8.0-11.0) fL 9.8 Immature Gran % 0.1 Neutrophils % 70.5 Lymphocytes % 14.4 Monocytes % 7.9 Eosinophils % 6.9 Basophils % 0.2 Absolute Neutrophils (1.2-6.7) k/cumm 6.68 Absolute Lymphocytes (1.2-3.4) k/cumm 1.36 Absolute Monocytes (0.11-0.7) k/cumm 0.75 H Absolute Eosinophils (0.0-0.7) k/cumm 0.65 Absolute Basophils (0.0-0.2) k/cumm 0.02 Sodium (136-145) mmol/L 139 Potassium (3.5-5.1) mmol/L 4.1 Chloride (98-107) mmol/L 102 Carbon Dioxide (21.0-32.0) mmol/L 26.6 Anion Gap (3-11) mmol/L 10.4 BUN (7-18) mg/dL 14 Creatinine (0.70-1.30) mg/dL 0.69 L Estimated GFR/1.73 m2 (mL/min/1.73m2) >= 60.00 Glucose (70-100) mg/dL 101 H Calcium (8.5-10.1) mg/dL 9.4 Total Bilirubin (0.2-1.0) mg/dL 1.5 H AST (15-37) U/L 14 L ALT (12-78) U/L 42 Alkaline Phosphatase (46-116) U/L 71 Total Protein (6.4-8.2) g/dL 7.8 Albumin (3.4-5.0) g/dL 4.2
[2018-09-22] MEDS: Albuterol 2.5 MG/3 ML INH SOLN VIAL UPD (15:30)
[2018-09-22] MEDS: Normal Saline 1,000 ML 100 ML IV (16:49)
[2018-09-22] MEDS: Albuterol/Ipratropium 3 ML UPD VIAL UPD ×3 (16:50→23:20)
[2018-09-22] MEDS: Budesonide/Formoterol 160/4.5 6 GM 60 PUFF INH IH (17:03)
--- NOTE | 2018-09-22 17:53 | W.PM.HP.N ---
Date of service: 09/22/18 Time of Service: 17:53 Assessment and Plan (1) Asthma exacerbation: Current visit: No Status: Acute possible infectious component given yellow sputum. Obtain sputum sample; start IV azithromycin. Treat with scheduled IV steroids, scheduled duonebs q4hrs, prn albuterol Q2 hrs, symbicort. Check lactate. Per VBG, there was no evidence of pCO2 retention. I spoke with the patient about possibly going to the ICU based on his current status, and he was visibly upset by the idea, stating he would rather stay on medical surgical floor. He is ok with being intubated if needed. Low threshold for transfer to ICU. (2) Depression: Current visit: No Status: Chronic Continue sertraline (3) Anxiety disorder: Current visit: Yes Status: Acute continue buspar and sertraline (4) Tobacco abuse: Current visit: No Status: Acute Advised to quit. Provide nicotine replacement therapy. (5) DVT prophylaxis: Current visit: No Status: Acute Not indicated in a 23 year old ambulatory patient with no other risk factors. Additionally, did have episode of hemoptysis. (6) Discharge planning issues: Current visit: Yes Status: Acute Full code low threshould for transfer to ICU History of Present Illness Chief Complaint: my asthma Narrative: Mr Luke Soto is a 23 year old male with PMHx of asthma, previously requiring intubation when he was young, as well as anxiety, depression, and ongoing tobacco/canabis abuse, who was brought to the ED by ambulance today because of shortness of breath, progressively worse for the last 4 days. The patient describes feeling of chest tightness, feeling like he can't breathe, back pain that he usually gets when he is short of breath. He did have an episode of hemoptysis 2 days ago after 10 minutes of coughing - he stated there were bloody streaks, but hasn't recurred. He has been coughing up yellow sputum since last night. He has a nebulizer machine at home - he used his nebs 8 times yesterday, with no relief. Denies fevers, runny nose, sore throat, sick contacts. States he has been taking his advair and smoking less, but he does continue to smoke both tobacco and canabis (advised to quit). He states he thinks his trigger was getting anxious and yelling a lot 4 days ago prior to onset of symptoms. Review of Systems Review of Systems 12 systems reviewed. Pertinent positives and negatives as per HPI [facility] Medical History (Updated 09/22/18 @ 18:23 by Kimberley Henderson MD) Anxiety disorder (Acute) Asthma (Chronic) Depression (Chronic) Eczema (Acute) Surgical History No significant past surgical history (Acute) Family History (Updated 09/22/18 @ 18:18 by Kimberley Henderson MD) Other Adopted Social History (Updated 09/22/18 @ 18:14 by Kimberley Henderson MD) Smoking/Tobacco Use Status: Current-Occasional Tobacco Type: cigarettes Counseling given: provider counseling Alcohol Intake: current Alcohol Intake frequency: a few times a week Alcohol type: beer Drug use: Daily Substance use type: marijuana Counseling given: Yes Housing: other Details: college dorm Do you feel safe at home: Yes Do you feel safe in your relationship?: Yes Meds Home Medications Medication Instructions Recorded Confirmed Type Advair HFA 2 puff INHALATION BID #8 gm 04/18/18 09/22/18 Rx sertraline 200 mg PO DAILY 04/18/18 09/22/18 History albuterol sulfate 2.5 mg IH QID PRN #75 ml 05/20/18 08/28/18 Rx albuterol sulfate [ProAir HFA] 2 puff IH Q6H PRN #18 gm 05/27/18 09/22/18 Rx cetirizine [Zyrtec] 10 mg PO DAILY #30 tab 07/16/18 09/22/18 Rx fluticasone propion-salmeterol 1 inh IH BID #14 each 07/16/18 09/22/18 Rx [Advair Diskus] ipratropium-albuterol 3 ml IH Q4H PRN #15 ml 07/16/18 09/22/18 Rx buspirone 10 mg PO DAILY 09/22/18 09/22/18 History fluticasone propion-salmeterol INHALATION BID 09/22/18 History levalbuterol tartrate 2 puff INHALATION PRN 09/22/18 History montelukast 10 mg PO DAILY 09/22/18 09/22/18 History pantoprazole 40 mg PO DAILY 09/22/18 09/22/18 History Allergies Allergy/AdvReac Type Severity Reaction Status Date / Time cat dander Allergy Wheezing Unverified 09/22/18 15:56 migraine medication AdvReac Uncoded 09/22/18 15:56 Exam Narrative Exam Narrative: General: Very pleasant young man, laying in bed, looks mildly tachypneic, I can hear him wheezing quietly even without a stethoscope, coughing, able to complete sentences, but does look like he is short of breath by the end of the sentence Neurological: A&Ox3, no focal deficits Psychiatric: anxious Skin: visible skin intact HEENT: atraumatic, normocephalic, EOMI, dry MM, no submandibular or cervical lymphadenopathy, no goiter or JVD Cardiovascular: RRR, tachycardic (120's) Lungs: wheezing on expiration B with audible air antry Gastrointestinal: abdomen is soft, nontender, nondistended Extremities: no e/c/c BLE's Results Imaging Additional studies: CXR: 1. Pulmonary findings consistent with reactive airways disease. 2. No focal infiltrate to indicate pneumonia. Labs : 09/22/18 13:30 09/22/18 13:30 Laboratory Results - last 24 hr 09/22/18 09/22/18 09/22/18 13:30 13:30 15:00 WBC 9.47 RBC 5.96 Hgb 16.3 Hct 48.4 MCV 81.2 MCH 27.3 MCHC 33.7 RDW 13.9 Plt Count 211 MPV 9.8 Immature Gran % 0.1 Neutrophils % 70.5 Lymphocytes % 14.4 Monocytes % 7.9 Eosinophils % 6.9 Basophils % 0.2 Absolute Neutrophils 6.68 Absolute Lymphocytes 1.36 Absolute Monocytes 0.75 H Absolute Eosinophils 0.65 Absolute Basophils 0.02 VBG pH 7.41 VBG pCO2 44 VBG pO2 47 H VBG HCO3 28 VBG Total CO2 24 VBG O2 Saturation 83 H VBG Base Excess 2.8 Sodium 139 Potassium 4.1 Chloride 102 Carbon Dioxide 26.6 Anion Gap 10.4 BUN 14 Creatinine 0.69 L Estimated GFR/1.73 m2 >= 60.00 Glucose 101 H Calcium 9.4 Total Bilirubin 1.5 H AST 14 L ALT 42 Alkaline Phosphatase 71 Total Protein 7.8 Albumin 4.2 Last Vital Signs Temp 37.1 C 09/22/18 16:21 Pulse 127 H 09/22/18 16:50 Resp 19 09/22/18 16:50 BP 135/80 09/22/18 16:21 Pulse Ox 96 09/22/18 16:50
[2018-09-22] MEDS: AZITHROMYCIN 500 MG in Normal Saline 250 ML 250 MG IVPB (19:01)
--- NOTE | 2018-09-22 19:07 | NUR.NOTE ---
PT REFUSED TO HAVE HIS LACTATE DRAWN AT THIS TIME, DR KATE NOTIFIED- SHE SAID IT WOULD BE OK TO DO IN AM:
[2018-09-22] MEDS: methylPREDNISolone SUCC 125 MG VIAL 60 MG IVP (20:04)
[2018-09-22] MEDS: guaiFENesin 600 MG TABCR PO (20:04)
--- NOTE | 2018-09-22 23:26 | NUR.NOTE ---
Nursing Note: Pt been monitored for respiratory distress. Been voiding frequently and refused to use urinal while on bed so when OOB has increasing audible wheeziness throughout. Pt received UPD as scheduled. O2 Sat between 94-97% at R/A. Nicotrol given as PRN. 1st dose of Azithromax given and no unusual reactions noted.Playing on his laptop until this time. Closely monitored.
[2018-09-23] VITALS (12 sets, daily range): BP systolic 110–130; BP diastolic 59–78; PULSE 82–119; RESP 4–24; TEMP 36.5–37.1; O2SAT 93–99
[2018-09-23] MEDS: methylPREDNISolone SUCC 125 MG VIAL 60 MG IVP ×4 (01:37→19:47)
[2018-09-23] MEDS: Albuterol/Ipratropium 3 ML UPD VIAL UPD ×5 (03:27→19:46)
[2018-09-23] MEDS: Normal Saline 1,000 ML 100 ML IV ×2 (03:29→13:52)
[2018-09-23 07:05] LABS: Lactate-non-spesis 1.3 mmol/l (0.6-1.4)
[2018-09-23 07:11] LABS: Abs Immature Grans 0.01 k/cumm (0.0-0.09); Absolute Lymphocyte Count 0.66 k/cumm (1.2-3.4); Absolute Monocyte Count 0.18 k/cumm (0.11-0.7); HCT 43.1 % (40.0-50.0); HGB 14.5 g/dL (13.5-17.5); Immature Grans % 0.2; Lymphocytes % 10.5; Mean Corp. HGB Concentration 33.6 g/dL (32.0-36.0); Mean Corpuscular Hemoglobin 27.5 pg (27.0-33.0); Mean Corpuscular Volume 81.6 fL (80-95); Mean Platelet Volume 9.2 fL (8.0-11.0); Monocytes % 2.9; Neutrophils % 86.4; Platelet Count 187 x1000/uL (130-400); RBC 5.28 m/cumm (4.50-6.00); RBC Distribution Width 13.6 % (11.8-14.1); White Blood Cell Count 6.29 k/cumm (4.4-10.8)
[2018-09-23 07:13] LABS: Absolute Neutrophil Count 5.43 k/cumm (1.2-6.7)
[2018-09-23 07:27] LABS: BUN 13 mg/dL (7-18); CREATININE 0.55 mg/dL (0.70-1.30); Calcium 8.8 mg/dL (8.5-10.1); Chloride 104 mmol/L (98-107); Glucose 135 mg/dL (70-100); Magnesium 2.1 mg/dL (1.8-2.4); Potassium 4.2 mmol/L (3.5-5.1); Sodium 138 mmol/L (136-145)
[2018-09-23] MEDS: Cetirizine 10 MG TAB PO (07:39)
[2018-09-23] MEDS: guaiFENesin 600 MG TABCR PO ×2 (07:39→19:47)
[2018-09-23] MEDS: Montelukast 10 MG TAB PO (07:40)
[2018-09-23] MEDS: Sertraline 50 MG TAB 200 MG PO (07:40)
[2018-09-23] MEDS: Pantoprazole 40 MG TABCR PO (07:40)
[2018-09-23] MEDS: Normal Saline Flush 10 ML SYR IVP ×2 (07:43→14:09)
[2018-09-23] MEDS: busPIRone 5 MG TAB 10 MG PO (08:24)
--- NOTE | 2018-09-23 10:32 | INITIAL_ITS ---
- If Service Date Differs Date of service: 09/23/18 Time of Service: 10:32 Care Management Initial Assess REASON FOR HOSPITALIZATION:: Asthma PAST MEDICAL HISTORY/PAST SURGICAL HISTORY:: Depression, anxiety, tobacco use, reactive airway disease, asthma PREVIOUS FUNCTIONAL STATUS/SOCIAL/FAMILY SUPPORTS:: Alden lives alone in [place], [place] he reports that he has two dumbo rats he cares for. He is not currently working and has been serching for a job. His mother is his primary support person. CURRENT FUNCTIONAL STATUS:: Alden, is shaking during interaction, he does enjoy talking about his pet rats. CM discussed with him enviormental exposures that can increase his resp symptoms. He is not able to review his medications with CM, he is not sure what medications he takes to help with his resp symptoms or prevent his asthma symptoms. Alden states he has been searching for work since he stopped working at [employer] in [place], [place]. ADVANCE DIRECTIVES:: None on file Has patient been provided with information about the portal?: Yes Did the patient sign up for the portal?: No CODE STATUS:: Full Code INSURANCE COVERAGE / FINANCIAL ISSUES:: BC&BS CURRENT HOME/COMMUNITY SERVICES/EQUIPMENT:: None PRIMARY CARE PHYSICIAN:: Jerad Palmer NP POTENTIAL DISCHARGE NEEDS:: Follow up scheduled with primary care, and asthma action plan, referral to CM through [facility] PATIENT/FAMILY EDUCATION NEEDS:: Discharge education, limitations and follow up plan of care including ask me three and self management. CM rreviewed asthma action plan needs with RT to be reviewed prior to discharge. ANTICIPATED BARRIERS TO DISCHARGE:: Alden wants to be discharged home, he is not comfortable being away from home, he has agreed to stay and receive treatment for acute asthma treatment. TRANSPORTATION:: Via private car with family at time of discharge. PLAN:: Alden will be discharged when medcially ready. CM will reach out to [facility] for phone case management r/t frequent ED visits and asthma education. Alden is currently receiving IV steroids and antibioitcs. RT to continue to provide support and education r/t enviormental exposures and risk r/t ongoing management of asthma. CM to continue to provide support ongoing discharge planning and disposition.
[2018-09-23] MEDS: Budesonide/Formoterol 160/4.5 6 GM 60 PUFF INH IH ×3 (10:45→19:49)
--- NOTE | 2018-09-23 12:50 | PHARADMIT ---
Addendum entered by Milagro Kilgore 09/24/18 15:19: Pharmacy Note Subjective pt is smoker, has pets with asthma exacerbation Objective vs ok, no labs today Assessment azithromycin cont. iv steroids, needs sommelier referral, nicotine replacement ordered Plan Original Note: Admission Pharmacy Clinical Review ASTHMA EXACERBATIN Code Status Full Code Current Weight Wgt-58.5 kg Renally Cleared and Narrow Therapeutic Index Meds CrCl~ 117 mL/min Meds-OK QTc Value / Action Taken NA BP Control, Fever BP- 116/67 Tmax-37.1C Electrolytes reviewed Na- 138 K+4.2 Mag-2.1 DVT Prophylaxis none, Young Ambulatory Opiate Usage / Scheduled Bowel Regimen Ordered No Yes Plt/SCr for Heparin / Enoxaparin Plts- 187 SCr-0.55 INR for Warfarin H/H stable, WBC/Bands H&H- 14.5/43.1 WBC- 6.29 Antibiotic appropriateness Azithromycin, Cultures and Sensitivities Sputum-pending Surgical ABX d/c within 24 hr na DM control / Insulin Dosing BG-135 Heart Failure (Check EF%) (TARYN's, B-Block, Diuretics) none IV to PO Switch No Home Meds Reviewed Yes Home Meds Not Ordered Xopenex, Advair (Subst-Symbicort) Comments
--- NOTE | 2018-09-23 13:28 | W.PM.PROGNOT ---
Date of Service Date of service: 09/23/18 Time of Service: 13:28 Assessment and Plan (1) Asthma exacerbation: Current visit: No Status: Acute Due to acute bacterial bronchitis. Sputum c&S is pending. No hemoptysis in the last 24 hours. For now, continue current doses of IV steroids, empiric IV azithromycin, scheduled and prn nebs, symbicort, montelukast, zyrtec. Patient is agreeable to staying another night - which I think is an excellent idea. Await C&s results. Monitor peak flows. (2) Depression: Current visit: No Status: Chronic Continue sertraline (3) Anxiety disorder: Current visit: Yes Status: Acute continue buspar and sertraline (4) Tobacco abuse: Current visit: No Status: Acute Advised to quit. Provide nicotine replacement therapy. (5) DVT prophylaxis: Current visit: No Status: Acute Not indicated in a 23 year old ambulatory patient with no other risk factors. Additionally, did have episode of hemoptysis. (6) Discharge planning issues: Current visit: Yes Status: Acute Full code low threshould for transfer to ICU (previously required intubation). Subjective Interval history since last seen: Alden feels a little better today - he states he is not as wheezy, but continues to cough up yellow sputum, and cough is still bad. Denies dizziness, chest pain, reports improvement in his back pain, had nausea earlier. He is not sure if he had heartburn. Exam Narrative Exam Narrative: General: A&Ox3, laying comfortably in bed playing on the computer; he is less tachypneic, but still mildly tachypneic today; he gets visibly distressed when coughing. HEENT: EOMI, MMM Cardiovascular: RRR, tachycardic (120's) Lungs: wheezing on expiration B - still loud and quite musical. This is not better than yesterday. Gastrointestinal: abdomen is soft, nontender, nondistended Extremities: no e/c/c BLE's Objective Objective Clinical Data: Abnormal lab results 09/22/18 09/22/18 09/22/18 Range/Units 13:30 13:30 15:00 Absolute Lymphocytes (1.2-3.4) k/cumm Absolute Monocytes 0.75 H (0.11-0.7) k/cumm VBG pO2 47 H (28-44) mm/Hg VBG O2 Saturation 83 H (70-80) % Creatinine 0.69 L (0.70-1.30) mg/dL Glucose 101 H (70-100) mg/dL Total Bilirubin 1.5 H (0.2-1.0) mg/dL AST 14 L (15-37) U/L 09/23/18 09/23/18 Range/Units 07:00 07:00 Absolute Lymphocytes 0.66 L (1.2-3.4) k/cumm Absolute Monocytes (0.11-0.7) k/cumm VBG pO2 (28-44) mm/Hg VBG O2 Saturation (70-80) % Creatinine 0.55 L (0.70-1.30) mg/dL Glucose 135 H (70-100) mg/dL Total Bilirubin (0.2-1.0) mg/dL AST (15-37) U/L Vital Signs Temperature 36.5 C 09/23/18 07:45 Temperature Source Tympanic 09/23/18 07:45 Pulse 104 H 09/23/18 13:01 Pulse Rhythm Regular 09/23/18 07:35 Pulse 135 H 09/22/18 13:50 Respiratory Rate 18 09/23/18 13:01 Respiratory Effort 09/23/18 07:35 Respiratory Depth Normal 09/23/18 07:35 Respiratory Pattern Normal 09/23/18 07:35 Blood Pressure 116/67 09/23/18 07:45 Blood Pressure Mean 97 09/22/18 13:45 Blood Pressure Position Sitting 09/22/18 12:55 Pulse Oximetry 97 09/23/18 13:01 Oxygen Delivery Method Room Air 09/23/18 13:01 Oxygen Flow Rate 0 09/23/18 13:01 Pain Level 3 09/23/18 04:30 Comment 09/23/18 04:30 Intake & Output 09/22/18 09/23/18 09/23/18 23:59 11:59 23:59 Intake Total 730 / 730 1590 / 1590 Output Total 200 / 200 Balance 530 / 530 1590 / 1590 Weight 58.967 kg 58.5 kg Intake: IV 250 / 250 1000 / 1000 Oral 480 / 480 590 / 590 Output: Urine 200 / 200 Other: Urine Color Pale Urine Appearance Clear Comment Urine not seen, pt voided and flushed. Denies any issues. Voiding Methods Toilet Toilet Laboratory Results WBC 6.29 k/cumm (4.4-10.8) D 09/23/18 07:00 RBC 5.28 m/cumm (4.50-6.00) 09/23/18 07:00 Hgb 14.5 g/dL (13.5-17.5) 09/23/18 07:00 Hct 43.1 % (40.0-50.0) 09/23/18 07:00 MCV 81.6 fL (80-95) 09/23/18 07:00 MCH 27.5 pg (27.0-33.0) 09/23/18 07:00 MCHC 33.6 g/dL (32.0-36.0) 09/23/18 07:00 RDW 13.6 % (11.8-14.1) 09/23/18 07:00 Plt Count 187 x1000/uL (130-400) 09/23/18 07:00 MPV 9.2 fL (8.0-11.0) 09/23/18 07:00 Immature Gran % 0.2 09/23/18 07:00 86.4 09/23/18 07:00 10.5 09/23/18 07:00 2.9 09/23/18 07:00 0.0 09/23/18 07:00 0.0 09/23/18 07:00 Absolute Neutrophils 5.43 k/cumm (1.2-6.7) 09/23/18 07:00 Absolute Lymphocytes 0.66 k/cumm (1.2-3.4) L 09/23/18 07:00 Absolute Monocytes 0.18 k/cumm (0.11-0.7) 09/23/18 07:00 Absolute Eosinophils 0.00 k/cumm (0.0-0.7) 09/23/18 07:00 Absolute Basophils 0.00 k/cumm (0.0-0.2) 09/23/18 07:00 VBG pH 7.41 (7.32-7.43) 09/22/18 15:00 VBG pCO2 44 mm/Hg (34-47) 09/22/18 15:00 VBG pO2 47 mm/Hg (28-44) H 09/22/18 15:00 VBG HCO3 28 mmol/L (22-28) 09/22/18 15:00 VBG Total CO2 24 mmol/L (22-29) 09/22/18 15:00 VBG O2 Saturation 83 % (70-80) H 09/22/18 15:00 VBG Base Excess 2.8 mmol/L (-3-3) 09/22/18 15:00 Sodium 138 mmol/L (136-145) 09/23/18 07:00 Potassium 4.2 mmol/L (3.5-5.1) 09/23/18 07:00 Chloride 104 mmol/L (98-107) 09/23/18 07:00 Carbon Dioxide 24.0 mmol/L (21.0-32.0) 09/23/18 07:00 10.0 mmol/L (3-11) 09/23/18 07:00 BUN 13 mg/dL (7-18) 09/23/18 07:00 0.55 mg/dL (0.70-1.30) L 09/23/18 07:00 >= 60.00 (mL/min/1.73m2) 09/23/18 07:00 Glucose 135 mg/dL (70-100) H 09/23/18 07:00 1.3 mmol/l (0.6-1.4) 09/23/18 07:00 Calcium 8.8 mg/dL (8.5-10.1) 09/23/18 07:00 Magnesium 2.1 mg/dL (1.8-2.4) 09/23/18 07:00 1.5 mg/dL (0.2-1.0) H 09/22/18 13:30 AST 14 U/L (15-37) L 09/22/18 13:30 ALT 42 U/L (12-78) 09/22/18 13:30 71 U/L (46-116) 09/22/18 13:30 7.8 g/dL (6.4-8.2) 09/22/18 13:30 4.2 g/dL (3.4-5.0) 09/22/18 13:30
[2018-09-23] MEDS: AZITHROMYCIN 500 MG in Normal Saline 500 ML 166.6 MG IVPB (17:28)
[2018-09-24] VITALS (12 sets, daily range): BP systolic 114–131; BP diastolic 68–86; PULSE 82–105; RESP 2–22; TEMP 36.1–37.2; O2SAT 96–99
[2018-09-24] MEDS: Albuterol/Ipratropium 3 ML UPD VIAL UPD ×7 (00:09→23:43)
[2018-09-24] MEDS: methylPREDNISolone SUCC 125 MG VIAL 60 MG IVP ×4 (02:18→22:38)
[2018-09-24] MEDS: Normal Saline 1,000 ML 100 ML IV ×2 (02:19→12:28)
[2018-09-24] MEDS: Sertraline 50 MG TAB 200 MG PO (07:57)
[2018-09-24] MEDS: guaiFENesin 600 MG TABCR PO ×2 (07:58→19:31)
[2018-09-24] MEDS: Montelukast 10 MG TAB PO (07:58)
[2018-09-24] MEDS: Pantoprazole 40 MG TABCR PO (07:58)
[2018-09-24] MEDS: busPIRone 5 MG TAB 10 MG PO (07:58)
[2018-09-24] MEDS: Cetirizine 10 MG TAB PO (07:58)
[2018-09-24] MEDS: Budesonide/Formoterol 160/4.5 6 GM 60 PUFF INH IH ×2 (09:45→19:31)
[2018-09-24] MEDS: Benzonatate 200 MG CAP PO ×2 (13:18→19:31)
--- NOTE | 2018-09-24 13:35 | PDOC.CMPRO ---
- If Service Date Differs Date of service: 09/24/18 Time of Service: 13:35 Care Management Progress Note S/O: Alden is alert he is sitting up in the bed playing his video games. He continues on IV antibiotics and receiving respiratory support. He will need to follow up with [facility] when he is discharged and a referral to pulmonary. A: Alden is a 23 year old male admitted for asthma, and being treated for bacterial bronchitis with IV antibiotics. P: Alden will be discharged when medically ready. CM will reach out to [facility] for phone case management r/t frequent ED visits and asthma education. Alden is currently receiving IV steroids and antibiotics. RT to continue to provide support and education r/t enviormental exposures and risk r/t ongoing management of asthma. CM to continue to provide support ongoing discharge planning and disposition.
--- NOTE | 2018-09-24 17:15 | W.PM.PROGNOT ---
Date of Service Date of service: 09/24/18 Time of Service: 17:15 Assessment and Plan (1) Asthma exacerbation: Current visit: No Status: Acute Due to acute bacterial bronchitis. Sputum c&S is growing gram negative [place] Bacillus. Await sensitivities/speciation. Continue azithromycin. Wean steroids. Continue nebs, symbicort, montelukast, zyrtec. Patient has pet rets and dander around the house - could be an allergic trigger. Monitor peak flows. Advised to stay. (2) Depression: Current visit: No Status: Chronic Continue sertraline (3) Anxiety disorder: Current visit: Yes Status: Acute continue buspar and sertraline (4) Tobacco abuse: Current visit: No Status: Acute Advised to quit. Provide nicotine replacement therapy. (5) DVT prophylaxis: Current visit: No Status: Acute Not indicated in a 23 year old ambulatory patient with no other risk factors. Additionally, did have episode of hemoptysis. (6) Discharge planning issues: Current visit: Yes Status: Acute Full code low threshould for transfer to ICU (previously required intubation). Subjective Interval history since last seen: Alden feels better today, though he continues to report the same cough. His wheezing and back pain are better. Denies dizziness, chest pain, nausea, vomiting. Exam Narrative Exam Narrative: General: A&Ox3, laying comfortably in bed playing on the computer; no tachypnea noted - looks more comfortable HEENT: EOMI, MMM Cardiovascular: RRR, less tachycardic Lungs: significant improvement in wheezing bilaterally Gastrointestinal: abdomen is soft, nontender, nondistended Extremities: no e/c/c BLE's Objective Objective Clinical Data: Vital Signs Temperature 36.7 C 09/24/18 11:11 Temperature Source Tympanic 09/24/18 11:11 Pulse 94 H 09/24/18 11:11 Pulse Rhythm Regular 09/24/18 08:01 Pulse 135 H 09/22/18 13:50 Respiratory Rate 09/24/18 11:11 Respiratory Effort Non-Labored 09/24/18 08:01 Respiratory Depth Normal 09/24/18 08:01 Respiratory Pattern Normal 09/24/18 08:01 Blood Pressure 119/69 09/24/18 11:11 Blood Pressure Mean 97 09/22/18 13:45 Blood Pressure Position Sitting 09/22/18 12:55 Pulse Oximetry 98 09/24/18 11:11 Oxygen Delivery Method Room Air 09/24/18 11:11 Oxygen Flow Rate 0 09/24/18 11:11 Pain Level 5 09/24/18 07:30 Comment 09/23/18 15:42 Intake & Output 09/23/18 09/24/18 09/24/18 23:59 11:59 23:59 Intake Total 1425 / 3666.667 941.667 / 2681.667 1740 / 2681.667 Balance 1425 / 3666.667 941.667 / 2681.667 1740 / 2681.667 Weight 59.2 kg Intake: IV 1175 / 2826.667 581.667 / 0363.347 4102 / 1581.667 Oral 250 / 840 360 / 1100 740 / 1100 Other: Urine Color Yellow Urine Appearance Clear Voiding Methods Toilet Toilet Laboratory Results WBC 6.29 k/cumm (4.4-10.8) D 09/23/18 07:00 RBC 5.28 m/cumm (4.50-6.00) 09/23/18 07:00 Hgb 14.5 g/dL (13.5-17.5) 09/23/18 07:00 Hct 43.1 % (40.0-50.0) 09/23/18 07:00 MCV 81.6 fL (80-95) 09/23/18 07:00 MCH 27.5 pg (27.0-33.0) 09/23/18 07:00 MCHC 33.6 g/dL (32.0-36.0) 09/23/18 07:00 RDW 13.6 % (11.8-14.1) 09/23/18 07:00 Plt Count 187 x1000/uL (130-400) 09/23/18 07:00 MPV 9.2 fL (8.0-11.0) 09/23/18 07:00 Immature Gran % 0.2 09/23/18 07:00 86.4 09/23/18 07:00 10.5 09/23/18 07:00 2.9 09/23/18 07:00 0.0 09/23/18 07:00 0.0 09/23/18 07:00 Absolute Neutrophils 5.43 k/cumm (1.2-6.7) 09/23/18 07:00 Absolute Lymphocytes 0.66 k/cumm (1.2-3.4) L 09/23/18 07:00 Absolute Monocytes 0.18 k/cumm (0.11-0.7) 09/23/18 07:00 Absolute Eosinophils 0.00 k/cumm (0.0-0.7) 09/23/18 07:00 Absolute Basophils 0.00 k/cumm (0.0-0.2) 09/23/18 07:00 VBG pH 7.41 (7.32-7.43) 09/22/18 15:00 VBG pCO2 44 mm/Hg (34-47) 09/22/18 15:00 VBG pO2 47 mm/Hg (28-44) H 09/22/18 15:00 VBG HCO3 28 mmol/L (22-28) 09/22/18 15:00 VBG Total CO2 24 mmol/L (22-29) 09/22/18 15:00 VBG O2 Saturation 83 % (70-80) H 09/22/18 15:00 VBG Base Excess 2.8 mmol/L (-3-3) 09/22/18 15:00 Sodium 138 mmol/L (136-145) 09/23/18 07:00 Potassium 4.2 mmol/L (3.5-5.1) 09/23/18 07:00 Chloride 104 mmol/L (98-107) 09/23/18 07:00 Carbon Dioxide 24.0 mmol/L (21.0-32.0) 09/23/18 07:00 10.0 mmol/L (3-11) 09/23/18 07:00 BUN 13 mg/dL (7-18) 09/23/18 07:00 0.55 mg/dL (0.70-1.30) L 09/23/18 07:00 >= 60.00 (mL/min/1.73m2) 09/23/18 07:00 Glucose 135 mg/dL (70-100) H 09/23/18 07:00 1.3 mmol/l (0.6-1.4) 09/23/18 07:00 Calcium 8.8 mg/dL (8.5-10.1) 09/23/18 07:00 Magnesium 2.1 mg/dL (1.8-2.4) 09/23/18 07:00 1.5 mg/dL (0.2-1.0) H 09/22/18 13:30 AST 14 U/L (15-37) L 09/22/18 13:30 ALT 42 U/L (12-78) 09/22/18 13:30 71 U/L (46-116) 09/22/18 13:30 7.8 g/dL (6.4-8.2) 09/22/18 13:30 4.2 g/dL (3.4-5.0) 09/22/18 13:30
[2018-09-24] MEDS: AZITHROMYCIN 500 MG in Normal Saline 500 ML 166.6 MG IVPB (17:44)
[2018-09-25] VITALS (9 sets, daily range): BP systolic 113–138; BP diastolic 59–75; PULSE 70–97; RESP 1–18; TEMP 36.3–37.6; O2SAT 97–98
[2018-09-25] MEDS: Normal Saline 1,000 ML 100 ML IV (00:51)
[2018-09-25] MEDS: methylPREDNISolone SUCC 125 MG VIAL 60 MG IVP (06:39)
[2018-09-25 07:07] LABS: Abs Immature Grans 0.01 k/cumm (0.0-0.09); Absolute Basophil Count 0.01 k/cumm (0.0-0.2); Absolute Lymphocyte Count 0.81 k/cumm (1.2-3.4); Absolute Monocyte Count 0.45 k/cumm (0.11-0.7); Absolute Neutrophil Count 8.05 k/cumm (1.2-6.7); Basophils % 0.1; HCT 42.8 % (40.0-50.0); HGB 14.3 g/dL (13.5-17.5); Immature Grans % 0.1; Lymphocytes % 8.7; Mean Corp. HGB Concentration 33.4 g/dL (32.0-36.0); Mean Corpuscular Hemoglobin 27.4 pg (27.0-33.0); Mean Platelet Volume 9.5 fL (8.0-11.0); Monocytes % 4.8; Neutrophils % 86.3; Platelet Count 229 x1000/uL (130-400); RBC 5.22 m/cumm (4.50-6.00); RBC Distribution Width 13.9 % (11.8-14.1); White Blood Cell Count 9.33 k/cumm (4.4-10.8)
[2018-09-25 07:17] LABS: Anion Gap 9.5 mmol/L (3-11); BUN 11 mg/dL (7-18); CO2 26.5 mmol/L (21.0-32.0); CREATININE 0.59 mg/dL (0.70-1.30); Calcium 8.8 mg/dL (8.5-10.1); Chloride 104 mmol/L (98-107); Glucose 112 mg/dL (70-100); Potassium 3.7 mmol/L (3.5-5.1); Sodium 140 mmol/L (136-145)
[2018-09-25] MEDS: Albuterol/Ipratropium 3 ML UPD VIAL (07:44)
[2018-09-25] MEDS: Albuterol/Ipratropium 3 ML UPD VIAL UPD ×3 (07:55→17:33)
[2018-09-25] MEDS: Budesonide/Formoterol 160/4.5 6 GM 60 PUFF INH IH ×2 (07:56→19:29)
[2018-09-25] MEDS: Cetirizine 10 MG TAB PO (08:10)
[2018-09-25] MEDS: Benzonatate 200 MG CAP PO ×3 (08:10→19:26)
[2018-09-25] MEDS: guaiFENesin 600 MG TABCR PO ×2 (08:10→19:26)
[2018-09-25] MEDS: busPIRone 5 MG TAB 10 MG PO (08:10)
[2018-09-25] MEDS: Sertraline 50 MG TAB 200 MG PO (08:11)
[2018-09-25] MEDS: Montelukast 10 MG TAB PO (08:11)
[2018-09-25] MEDS: Pantoprazole 40 MG TABCR PO (08:11)
--- NOTE | 2018-09-25 10:36 | PDOC.CMPRO ---
- If Service Date Differs Date of service: 09/25/18 Time of Service: 10:36 Care Management Progress Note S/O: Alden states he is feeling improved, he does make good eye contact and continues to play his video games when CM is in the room. Anticipate Alden will be discharged in the next 24 hours. He does not want any additional services at this time. Alden will be discharged on a steroid taper when he goes home. A: Alden is a 23 year old male admitted for asthma, and being treated for bacterial bronchitis with IV antibiotics. P: Alden will be discharged when medically ready. RT to continue to provide support and education r/t environmental exposures and risk r/t ongoing management of asthma. CM to continue to provide support ongoing discharge planning and disposition.
[2018-09-25] MEDS: AZITHROMYCIN 500 MG in Normal Saline 500 ML 166.6 MG IVPB (17:11)
--- NOTE | 2018-09-25 17:46 | W.PM.PROGNOT ---
Date of Service Date of service: 09/25/18 Time of Service: 17:46 Assessment and Plan (1) Asthma exacerbation: Current visit: No Status: Acute Due to acute bacterial bronchitis. Sputum c&S is growing gram negative Cocco Bacillus. Sensitivities are not back yet. Continue azithromycin. Steroids transitioned to PO today. Continue nebs, symbicort, montelukast, zyrtec. Patient has pet rets and dander around the house - could be an allergic trigger. Monitor peak flows. Advised to stay. Proactively, I sent scripts for azithromycin and prednisone to his pharmacy, in case he does leave AMA. (2) Depression: Current visit: No Status: Chronic Continue sertraline (3) Anxiety disorder: Current visit: Yes Status: Acute continue buspar and sertraline (4) Tobacco abuse: Current visit: No Status: Acute Advised to quit. Provide nicotine replacement therapy. (5) DVT prophylaxis: Current visit: No Status: Acute Not indicated in a 23 year old ambulatory patient with no other risk factors. Additionally, did have episode of hemoptysis. (6) Discharge planning issues: Current visit: Yes Status: Acute Full code Planned for discharge home tomorrow Subjective Interval history since last seen: I feel goodish. That means I feel good! everything feels better - my back, my cough, my wheezing, my breathing. He would like to leave today. We discussed how he really was just transitioned to PO steroids and needs to be observed 1 more day to make sure they are enough - he verbalized understanding when I told him that he could of an untreated asthma exacerbation. He verbalized understanding, but thinks he might leave AMA tonight anyway. Exam Narrative Exam Narrative: General: A&Ox3, laying comfortably in bed playing on the computer; looks better HEENT: EOMI, MMM Cardiovascular: RRR, no m/r/g Lungs: completely clear to auscultation bilaterally with bilateral air entry Gastrointestinal: abdomen is soft, nontender, nondistended Extremities: no e/c/c BLE's Objective Objective Clinical Data: Abnormal lab results 09/25/18 09/25/18 Range/Units 06:36 06:36 Absolute Neutrophils 8.05 H (1.2-6.7) k/cumm Absolute Lymphocytes 0.81 L (1.2-3.4) k/cumm Creatinine 0.59 L (0.70-1.30) mg/dL Glucose 112 H (70-100) mg/dL Vital Signs Temperature 37.6 C H 09/25/18 15:38 Temperature Source Tympanic 09/25/18 15:38 Pulse 70 09/25/18 15:38 Pulse Rhythm Regular 09/25/18 08:18 Pulse 135 H 09/22/18 13:50 Respiratory Rate 16 09/25/18 17:33 Respiratory Effort Non-Labored 09/25/18 08:18 Respiratory Depth Normal 09/25/18 08:18 Respiratory Pattern Normal 09/25/18 08:18 Blood Pressure 120/75 09/25/18 15:38 Blood Pressure Mean 97 09/22/18 13:45 Blood Pressure Position Sitting 09/22/18 12:55 Pulse Oximetry 98 09/25/18 15:38 Oxygen Delivery Method Room Air 09/25/18 17:33 Oxygen Flow Rate 0 09/25/18 17:33 Pain Level 5 09/25/18 07:34 Comment 09/23/18 15:42 Intake & Output 09/24/18 09/25/18 09/25/18 23:59 11:59 23:59 Intake Total 2740 / 3681.667 1375 / 1375 Balance 2740 / 3681.667 1375 / 1375 Weight 59.2 kg Intake: IV 1999 / 2581.667 1375 / 1375 Oral 740 / 1100 Other: Urine Appearance Clear Clear Laboratory Results WBC 9.33 k/cumm (4.4-10.8) 09/25/18 06:36 RBC 5.22 m/cumm (4.50-6.00) 09/25/18 06:36 Hgb 14.3 g/dL (13.5-17.5) 09/25/18 06:36 Hct 42.8 % (40.0-50.0) 09/25/18 06:36 MCV 82.0 fL (80-95) 09/25/18 06:36 MCH 27.4 pg (27.0-33.0) 09/25/18 06:36 MCHC 33.4 g/dL (32.0-36.0) 09/25/18 06:36 RDW 13.9 % (11.8-14.1) 09/25/18 06:36 Plt Count 229 x1000/uL (130-400) 09/25/18 06:36 MPV 9.5 fL (8.0-11.0) 09/25/18 06:36 Immature Gran % 0.1 09/25/18 06:36 86.3 09/25/18 06:36 8.7 09/25/18 06:36 4.8 09/25/18 06:36 0.0 09/25/18 06:36 0.1 09/25/18 06:36 Absolute Neutrophils 8.05 k/cumm (1.2-6.7) H 09/25/18 06:36 Absolute Lymphocytes 0.81 k/cumm (1.2-3.4) L 09/25/18 06:36 Absolute Monocytes 0.45 k/cumm (0.11-0.7) 09/25/18 06:36 Absolute Eosinophils 0.00 k/cumm (0.0-0.7) 09/25/18 06:36 Absolute Basophils 0.01 k/cumm (0.0-0.2) 09/25/18 06:36 VBG pH 7.41 (7.32-7.43) 09/22/18 15:00 VBG pCO2 44 mm/Hg (34-47) 09/22/18 15:00 VBG pO2 47 mm/Hg (28-44) H 09/22/18 15:00 VBG HCO3 28 mmol/L (22-28) 09/22/18 15:00 VBG Total CO2 24 mmol/L (22-29) 09/22/18 15:00 VBG O2 Saturation 83 % (70-80) H 09/22/18 15:00 VBG Base Excess 2.8 mmol/L (-3-3) 09/22/18 15:00 Sodium 140 mmol/L (136-145) 09/25/18 06:36 Potassium 3.7 mmol/L (3.5-5.1) 09/25/18 06:36 Chloride 104 mmol/L (98-107) 09/25/18 06:36 Carbon Dioxide 26.5 mmol/L (21.0-32.0) 09/25/18 06:36 9.5 mmol/L (3-11) 09/25/18 06:36 BUN 11 mg/dL (7-18) 09/25/18 06:36 0.59 mg/dL (0.70-1.30) L 09/25/18 06:36 >= 60.00 (mL/min/1.73m2) 09/25/18 06:36 Glucose 112 mg/dL (70-100) H 09/25/18 06:36 1.3 mmol/l (0.6-1.4) 09/23/18 07:00 Calcium 8.8 mg/dL (8.5-10.1) 09/25/18 06:36 Magnesium 2.0 mg/dL (1.8-2.4) 09/25/18 06:36 1.5 mg/dL (0.2-1.0) H 09/22/18 13:30 AST 14 U/L (15-37) L 09/22/18 13:30 ALT 42 U/L (12-78) 09/22/18 13:30 71 U/L (46-116) 09/22/18 13:30 7.8 g/dL (6.4-8.2) 09/22/18 13:30 4.2 g/dL (3.4-5.0) 09/22/18 13:30
[2018-09-25] MEDS: predniSONE 20 MG TAB 60 MG PO (19:26)
--- NOTE | 2018-09-25 22:34 | NUR.NOTE ---
Patient left hospital against medical advice, he says he knows the implication on his health but he if feeling much better and he will be fine. He left unit with his mother, he refused a being wheeled into the lobby.
--- NOTE | 2018-09-26 16:23 | W.PM.PROGNOT ---
Date of Service Date of service: 09/26/18 Time of Service: 16:23 Subjective Interval history since last seen: Patient left AMA on 09/25/18 without getting formally discharged. Objective Objective Clinical Data: Vital Signs Temperature 37 C 09/25/18 19:33 Temperature Source Tympanic 09/25/18 19:33 Pulse 97 H 09/25/18 19:33 Pulse Rhythm Regular 09/25/18 19:16 Pulse 135 H 09/22/18 13:50 Respiratory Rate 18 09/25/18 19:33 Respiratory Effort Non-Labored 09/25/18 19:16 Respiratory Depth Normal 09/25/18 19:16 Respiratory Pattern Normal 09/25/18 19:16 Blood Pressure 138/75 09/25/18 19:33 Blood Pressure Mean 97 09/22/18 13:45 Blood Pressure Position Sitting 09/22/18 12:55 Pulse Oximetry 97 09/25/18 19:33 Oxygen Delivery Method Room Air 09/25/18 19:33 Oxygen Flow Rate 0 09/25/18 19:33 Pain Level 0 09/25/18 19:33 Comment 09/23/18 15:42 Intake & Output 09/25/18 09/26/18 09/26/18 23:59 11:59 23:59 Intake Total 510 / 1885 Balance 510 / 1885 Intake: IV 510 / 1885 Other: Urine Color Pale Yellow Urine Appearance Clear Urine Odor None Comment pt state he voids independently in the tiolet without any difficulties Voiding Methods Toilet Laboratory Results WBC 9.33 k/cumm (4.4-10.8) 09/25/18 06:36 RBC 5.22 m/cumm (4.50-6.00) 09/25/18 06:36 Hgb 14.3 g/dL (13.5-17.5) 09/25/18 06:36 Hct 42.8 % (40.0-50.0) 09/25/18 06:36 MCV 82.0 fL (80-95) 09/25/18 06:36 MCH 27.4 pg (27.0-33.0) 09/25/18 06:36 MCHC 33.4 g/dL (32.0-36.0) 09/25/18 06:36 RDW 13.9 % (11.8-14.1) 09/25/18 06:36 Plt Count 229 x1000/uL (130-400) 09/25/18 06:36 MPV 9.5 fL (8.0-11.0) 09/25/18 06:36 Immature Gran % 0.1 09/25/18 06:36 86.3 09/25/18 06:36 8.7 09/25/18 06:36 4.8 09/25/18 06:36 0.0 09/25/18 06:36 0.1 09/25/18 06:36 Absolute Neutrophils 8.05 k/cumm (1.2-6.7) H 09/25/18 06:36 Absolute Lymphocytes 0.81 k/cumm (1.2-3.4) L 09/25/18 06:36 Absolute Monocytes 0.45 k/cumm (0.11-0.7) 09/25/18 06:36 Absolute Eosinophils 0.00 k/cumm (0.0-0.7) 09/25/18 06:36 Absolute Basophils 0.01 k/cumm (0.0-0.2) 09/25/18 06:36 VBG pH 7.41 (7.32-7.43) 09/22/18 15:00 VBG pCO2 44 mm/Hg (34-47) 09/22/18 15:00 VBG pO2 47 mm/Hg (28-44) H 09/22/18 15:00 VBG HCO3 28 mmol/L (22-28) 09/22/18 15:00 VBG Total CO2 24 mmol/L (22-29) 09/22/18 15:00 VBG O2 Saturation 83 % (70-80) H 09/22/18 15:00 VBG Base Excess 2.8 mmol/L (-3-3) 09/22/18 15:00 Sodium 140 mmol/L (136-145) 09/25/18 06:36 Potassium 3.7 mmol/L (3.5-5.1) 09/25/18 06:36 Chloride 104 mmol/L (98-107) 09/25/18 06:36 Carbon Dioxide 26.5 mmol/L (21.0-32.0) 09/25/18 06:36 9.5 mmol/L (3-11) 09/25/18 06:36 BUN 11 mg/dL (7-18) 09/25/18 06:36 0.59 mg/dL (0.70-1.30) L 09/25/18 06:36 >= 60.00 (mL/min/1.73m2) 09/25/18 06:36 Glucose 112 mg/dL (70-100) H 09/25/18 06:36 1.3 mmol/l (0.6-1.4) 09/23/18 07:00 Calcium 8.8 mg/dL (8.5-10.1) 09/25/18 06:36 Magnesium 2.0 mg/dL (1.8-2.4) 09/25/18 06:36 1.5 mg/dL (0.2-1.0) H 09/22/18 13:30 AST 14 U/L (15-37) L 09/22/18 13:30 ALT 42 U/L (12-78) 09/22/18 13:30 71 U/L (46-116) 09/22/18 13:30 7.8 g/dL (6.4-8.2) 09/22/18 13:30 4.2 g/dL (3.4-5.0) 09/22/18 13:30
== END 2018-09-25 22:05 | disposition left against medical advice (07) | DRG 202 ==
LOC: ER 15:31 → MS 18:30
PROVIDERS: Admitting Provider Internal Medicine; Emergency Provider Student in an Organized Health Care Education/Training Program; PCP Nurse Practitioner Family; Visit Provider Internal Medicine
DX: J45.901 Unspecified asthma with (acute) exacerbation (principal); J44.0 Chronic obstructive pulmonary disease with (acute) lower respiratory infection; R04.2 Hemoptysis; J20.1 Acute bronchitis due to Hemophilus influenzae; F41.8 Other specified anxiety disorders; R00.0 Tachycardia, unspecified; F12.10 Cannabis abuse, uncomplicated; F17.210 Nicotine dependence, cigarettes, uncomplicated; Z53.29 Procedure and treatment not carried out because of patient's decision for other reasons
CPT/HCPCS: 36415; 80048; 80053; 82805; 87077; 94640; 96365; 96366; 96375; 99223; 99232; 99285; NC; 71046; 83605; 83735; 85025; 87070; 87205; J0456; J2930; J7512; J7613; J7620

== ENCOUNTER 2018-10-17 05:13 | Inpatient (IN) | payer BC, SELFPAY ==
[2018-10-17] VITALS (63 sets, daily range): BP systolic 103–149; BP diastolic 48–102; PULSE 95–130; RESP 1–36; TEMP 36.6–37.1; O2SAT 94–100
--- NOTE | 2018-10-17 05:18 | ED.GENADUL_ITS ---
Discharge Plan Disposition Patient Disposition: [facility] INPATIENT Condition: Serious Discharge Details Chief Complaint: SOB Clinical Impression: Acute asthma exacerbation Primary Care Provider: Jerad Palmer ED Provider: Joe Walters [place] Meds and New Rx's Prescriptions: No Action sertraline 100 mg Tablet 200 mg PO DAILY RF: 0 Advair HFA 12 GM HFA aerosol inhaler 2 puff Inhalation BID Qty: 8 RF: 1 albuterol sulfate 2.5 mg /3 mL (0.083 %) solution for nebulization 2.5 mg IH QID PRN (Reason: shortness of breath or wheezing) Qty: 75 RF: 0 albuterol sulfate [ProAir HFA] 90 mcg/actuation HFA aerosol inhaler 2 puff IH Q6H PRN (Reason: shortness of breath) Qty: 18 RF: 0 cetirizine [Zyrtec] 10 mg tablet 10 mg PO DAILY Qty: 30 RF: 0 fluticasone propion-salmeterol [Advair Diskus] 250-50 mcg/dose blister with device 1 inh IH BID Qty: 14 RF: 0 ipratropium-albuterol 0.5 mg-3 mg(2.5 mg base)/3 mL solution for nebulization 3 ml IH Q4H PRN (Reason: shortness of breath or wheezing) Qty: 15 RF: 0 buspirone 5 mg Tablet 10 mg PO DAILY RF: 0 fluticasone propion-salmeterol 250-50 mcg/dose Blister With Device INHALATION BID RF: 0 pantoprazole 40 mg Tablet,Delayed Release (Dr/Ec) 40 mg PO DAILY RF: 0 montelukast 10 mg Tablet 10 mg PO DAILY RF: 0 levalbuterol tartrate 45 mcg/actuation Hfa Aerosol Inhaler 2 puff INHALATION PRNRF: 0 prednisone 20 mg tablet See Rx Instructions .ROUTE .COMPLEX Qty: 14 RF: 0 Medical Decision Making Patient with acute asthma exacerbation in respiratory distress. Maintaining good saturations on BiPAP and feels better on BiPAP. Quickly desaturates off BiPAP. Has already received 1 DuoNeb and one albuterol updraft by EMS. IV in place with Solu-Medrol given. We will continue BiPAP. Will give 7.5 mg albuterol as continuous neb. Respiratory therapy called in. Magnesium sulfate IV ordered. Will obtain chest x-ray, CBC and BMP. Will require admission but has signed out AMA in the past. 06:20 - Patient off BiPAP which he was not tolerating. Continuous neb in process still. Respiratory has arrived and will switch over to syringe driven continuous neb. CBC and chemistries unremarkable. Chest x-ray normal. Doing better but still in a fair amount of distress with wheezing and continued diminished breath sounds. Will need admission. Will get ABG to determine PCO2 level. Patient at this point agreeable to admission. Will discuss with hospitalist. Medical Records Medical records reviewed: Yes I reviewed the patient's medical records. Lab Data Lab results reviewed: Yes I reviewed the patient's lab results. HPI General Mode of arrival: EMS . Date/Time Provider Initiated Documentation: 10/17/18 06:18 . Limitations to Documentation: other (respiratory distress) . Information obtained by: patient, EMS, RN notes reviewed and old records reviewed . HPI Narrative: Patient is brought in by EMS for asthma exacerbation. Patient has history of s lillian with multiple ED visits. He is on BiPAP and is in fair amount of respiratory distress. Recently off prednisone. Reports exacerbation over the last 24 hours. Related Data Home Medications Medication Instructions Recorded Confirmed Advair HFA 2 puff INHALATION BID #8 gm 04/18/18 09/22/18 sertraline 200 mg PO DAILY 04/18/18 09/22/18 albuterol sulfate 2.5 mg IH QID PRN #75 ml 05/20/18 08/28/18 albuterol sulfate [ProAir HFA] 2 puff IH Q6H PRN #18 gm 05/27/18 09/22/18 cetirizine [Zyrtec] 10 mg PO DAILY #30 tab 07/16/18 09/22/18 fluticasone propion-salmeterol 1 inh IH BID #14 each 07/16/18 09/22/18 [Advair Diskus] ipratropium-albuterol 3 ml IH Q4H PRN #15 ml 07/16/18 09/22/18 buspirone 10 mg PO DAILY 09/22/18 09/22/18 fluticasone propion-salmeterol INHALATION BID 09/22/18 levalbuterol tartrate 2 puff INHALATION PRN 09/22/18 montelukast 10 mg PO DAILY 09/22/18 09/22/18 pantoprazole 40 mg PO DAILY 09/22/18 09/22/18 prednisone See Rx Instructions .ROUTE 09/25/18 .COMPLEX #14 tab Previous Rx's Medication Instructions Recorded Advair HFA 2 puff INHALATION BID #8 gm 04/18/18 albuterol sulfate 2.5 mg IH QID PRN #75 ml 05/20/18 albuterol sulfate [ProAir HFA] 2 puff IH Q6H PRN #18 gm 05/27/18 cetirizine [Zyrtec] 10 mg PO DAILY #30 tab 07/16/18 fluticasone propion-salmeterol 1 inh IH BID #14 each 07/16/18 [Advair Diskus] ipratropium-albuterol 3 ml IH Q4H PRN #15 ml 07/16/18 prednisone See Rx Instructions .ROUTE 09/25/18 .COMPLEX #14 tab Allergies Allergy/AdvReac Type Severity Reaction Status Date / Time cat dander Allergy Wheezing Unverified 10/17/18 05:49 migraine medication AdvReac Uncoded 10/17/18 05:49 General MINGO: 3 Review of Systems Review of Systems Unobtainable due to (respiratory distress/acuity of patient) [facility] Medical History Anxiety disorder (Acute) Asthma (Chronic) Depression (Chronic) Eczema (Acute) Surgical History No significant past surgical history (Acute) Family History (Updated 09/22/18 @ 18:18 by Kimberley Henderson MD) Other Adopted Social History Smoking/Tobacco Use Status: Current-Occasional Tobacco Type: pipe Counseling given: provider counseling Alcohol Intake: current Alcohol Intake frequency: a few times a week Alcohol type: beer Drug use: Occasionally Substance use type: marijuana Counseling given: Yes Housing: other Details: college dorm Do you feel safe at home: Yes Do you feel safe in your relationship?: Yes Exam Narrative Exam Narrative: Vitals: Afebrile. Respiratory distress with tachycardia, hypertension. Saturations 100% on BiPAP. Const: WDWN male in respiratory distress. HEENT: NC/AT. Normal facial exam. Eyes: Normal conjunctiva and sclera. Neck: Supple. Trachea midline. Lungs: Respiratory distress with wheezing throughout and decreased breath sounds. Cor: RRR without murmur/gallop, tachycardic. Good radial pulses. Neuro: A+O x 3. CN grossly in tact. Good strength and no focal deficit. Ext: No C/C/E. No deformity or tenderness. Skin: Warm and dry without rash. Critical Care Time Critical Care Time: Yes Total Critical Care Time: 60 Attestation: Upon my evaluation, this patient had a high probability of imminent or life- threatening deterioration, which required my direct attention, intervention, and personal management. I have personally provided minutes of critical care time exclusive of time spent on separately billable procedures. Time includes review of laboratory data, radiology results, discussion with consultants, and monitoring for potential decompensation. Interventions were performed as documented above.
[2018-10-17] MEDS: MAGNESIUM SULFATE 2 GM/50 ML BAG IVPB (05:37)
[2018-10-17] MEDS: Albuterol 2.5 MG/3 ML INH SOLN VIAL 7.5 MG UPD (05:37)
[2018-10-17] MEDS: Normal Saline 1,000 ML 150 ML IV ×3 (05:45→18:34)
--- NOTE | 2018-10-17 05:50 | DI.RAD_ITS ---
SYMPTOM/DIAGNOSIS: SOB PORTABLE AP CHEST: 10/17/18 The heart is not enlarged. The lungs are clear and normally expanded. CONCLUSION: No evidence of acute disease.
[2018-10-17] MEDS: Normal Saline Flush 10 ML SYR IVP ×3 (05:53→18:34)
[2018-10-17 05:54] LABS: Abs Immature Grans 0.07 k/cumm (0.0-0.09); Absolute Basophil Count 0.05 k/cumm (0.0-0.2); Absolute Eosinophil Count 0.73 k/cumm (0.0-0.7); Absolute Lymphocyte Count 2.96 k/cumm (1.2-3.4); Absolute Monocyte Count 0.83 k/cumm (0.11-0.7); Absolute Neutrophil Count 4.23 k/cumm (1.2-6.7); Basophils % 0.6; Eosinophils % 8.2; HCT 45.4 % (40.0-50.0); HGB 15.3 g/dL (13.5-17.5); Immature Grans % 0.8; Lymphocytes % 33.4; Mean Corp. HGB Concentration 33.7 g/dL (32.0-36.0); Mean Corpuscular Hemoglobin 27.7 pg (27.0-33.0); Mean Corpuscular Volume 82.1 fL (80-95); Mean Platelet Volume 8.8 fL (8.0-11.0); Monocytes % 9.4; Neutrophils % 47.6; Platelet Count 172 x1000/uL (130-400); RBC 5.53 m/cumm (4.50-6.00); RBC Distribution Width 14.9 % (11.8-14.1); White Blood Cell Count 8.87 k/cumm (4.4-10.8)
[2018-10-17 06:00] LABS: Anion Gap 9.6 mmol/L (3-11); BUN 11 mg/dL (7-18); CO2 27.4 mmol/L (21.0-32.0); CREATININE 0.73 mg/dL (0.70-1.30); Calcium 8.5 mg/dL (8.5-10.1); Chloride 102 mmol/L (98-107); Glucose 113 mg/dL (70-100); Potassium 4.3 mmol/L (3.5-5.1); Sodium 139 mmol/L (136-145)
--- NOTE | 2018-10-17 06:08 | DI.VRAD_ITS ---
EXAM: XR Chest, 1 View EXAM DATE/TIME: 10/17/2018 5:28 AM CLINICAL HISTORY: 23 years old, male; Shortness of breath TECHNIQUE: Imaging protocol: XR of the chest, 1 view. COMPARISON: CR XR CHEST 2V PA LATERAL 09/22/2018 2:11 PM FINDINGS: Lungs: Unremarkable. No consolidation. Pleural space: Unremarkable. No pleural effusion. No pneumothorax. Heart/Mediastinum: Unremarkable. No cardiomegaly. Bones/joints: Unremarkable. IMPRESSION: No acute findings. Dictated and Authenticated by: Toro Damon MD. Ordering:NONI Diaz MD
--- NOTE | 2018-10-17 06:48 | W.PM.HP.N ---
Date of service: 10/17/18 Time of Service: 06:48 Assessment and Plan (1) Status asthmaticus: Current visit: Yes Status: Acute He is improving and now is off the BIPAP and using oxy mask. He is able to speak in full sentences. I will continue high dose corticosteroids and leave him on continuous albuterol for the next hour. I told him that we would not feed him until later this morning in case he gets worse and needs to be intubated. He understands this and agrees. If he continues to improve through the morning then he can start a regular diet. I will add nebulized budesonide along w/ the iv corticosteroids and keep him on programmed DuoNeb treatments. History of Present Illness Chief Complaint: short of breath Narrative: 23 yr old male w/ PMH of asthma and frequent exacerbations who presents to the ER w/ acute status asthmaticus. Symptoms developed over past 24hr and include coughing and wheezing not responding to his home nebulizers. he has history of poor medical compliance (per ED physician) and has hx of cat dander allergy (he does not have cats at home but has pet rats) and still occasional smokes (mostly marijiuana but occasional pipe tobacco. He arrived in respiratory extremis via EMS. He was given 1 DuoNeb and 1 Albuterol aerosol treatment and Solumedrol IV by EMS and placed on BIPAP. Patient was treated in the ER w/ continuous Albuterol nebulizer, BIPAP. Labs and CXR were taken. CXR demonstrated no acute findings. Labs included CBC and BMP and were unremarkable. ABG was ordered but patient refused. He was also given magnesium sulfate bolus n2 gm iv. He has improved but still remains tachypneic and w/ diffuse wheezing but he is not hypoxemic and has no fever. He is being admitted to the ICU for status asthmaticus. Review of Systems Constitutional Denies chills, Denies fever(s) and Reports headache(s) ENT Reports headache(s) Cardiovascular Reports system reviewed and no additional complaints, except as docu, Reports dyspnea and Reports dyspnea on exertion Respiratory Denies change in phlegm color, Denies chest congestion, Reports cough, Denies hemoptysis, Denies pain on inspiration, Reports dyspnea, Reports dyspnea on exertion and Reports wheezing Gastrointestinal Reports system reviewed and no additional complaints, except as docu Neurologic Reports headache(s) Allergic/Immunologic Reports wheezing PFSH Medical History Anxiety disorder (Acute) Asthma (Chronic) Depression (Chronic) Eczema (Acute) Surgical History No significant past surgical history (Acute) Family History Other Adopted Social History Smoking/Tobacco Use Status: Current-Occasional Tobacco Type: pipe Counseling given: provider counseling Alcohol Intake: current Alcohol Intake frequency: a few times a week Alcohol type: beer Drug use: Occasionally Substance use type: marijuana Counseling given: Yes Housing: other Details: college dorm Do you feel safe at home: Yes Do you feel safe in your relationship?: Yes Meds Home Medications Medication Instructions Recorded Confirmed Type sertraline 200 mg PO DAILY 04/18/18 10/17/18 History albuterol sulfate 2.5 mg IH QID PRN #75 ml 05/20/18 10/17/18 Rx albuterol sulfate [ProAir HFA] 2 puff IH Q6H PRN #18 gm 05/27/18 10/17/18 Rx cetirizine [Zyrtec] 10 mg PO DAILY #30 tab 07/16/18 10/17/18 Rx fluticasone propion-salmeterol 1 inh IH BID #14 each 07/16/18 10/17/18 Rx [Advair Diskus] ipratropium-albuterol 3 ml IH Q4H PRN #15 ml 07/16/18 10/17/18 Rx buspirone 10 mg PO BID 09/22/18 10/17/18 History fluticasone propion-salmeterol INHALATION BID 09/22/18 History levalbuterol tartrate 2 puff INHALATION PRN 09/22/18 History montelukast 10 mg PO DAILY 09/22/18 10/17/18 History pantoprazole 40 mg PO DAILY 09/22/18 10/17/18 History Allergies Allergy/AdvReac Type Severity Reaction Status Date / Time cat dander Allergy Wheezing Unverified 10/17/18 05:49 migraine medication AdvReac Uncoded 10/17/18 05:49 Exam Const General: cooperative and in distress moderate (still tachypneic and using accessory muscles but able to talk in short sentences) Nutritional Appearance: average body habitus Orientation: alert, awake and oriented x3 Resp Effort & Inspection: not labored, no nasal flaring, no pursed lip breathing, no respiratory distress, tachypneic and uses accessory muscles Auscultation: wheezes expiratory wheezes, inspiratory wheezes and scattered wheezes Cardio Jugular venous pressure: no JVD Palpation: normal PMI Rate: tachycardic Rhythm: regular rhythm Heart Sounds: S1 normal, S2 normal, normal, physiologic split S2, no gallops, no murmurs and no rubs Pulses: normal peripheral pulses GI Inspection: normal to inspection Palpation: soft and no hepatosplenomegaly Percussion: normal to percussion Auscultation: normal bowel sounds Neuro General: alert, awake, oriented x3, moves all extremities and no focal motor deficits Cognition: normal cognition Speech: speech normal Motor: muscle tone normal throughout and no movement abnormalities noted Sensory Exam: no sensory deficits noted Extrem General: normal to inspection, full ROM and no clubbing, cyanosis or edema Psych Appearance: grossly normal Mental Status: mental status grossly normal Speech and Movement: speech and movement normal Mood: congruent mood Affect: normal affect Attitude: cooperative Thought Process: normal Thought Content: normal Insight: fair Judgment: fair Results Labs : 10/17/18 05:45 10/17/18 05:45 Laboratory Results - last 24 hr 10/17/18 10/17/18 05:45 05:45 WBC 8.87 RBC 5.53 Hgb 15.3 Hct 45.4 MCV 82.1 MCH 27.7 MCHC 33.7 RDW 14.9 H Plt Count 172 MPV 8.8 Immature Gran % 0.8 Neutrophils % 47.6 Lymphocytes % 33.4 Monocytes % 9.4 Eosinophils % 8.2 Basophils % 0.6 Absolute Neutrophils 4.23 Absolute Lymphocytes 2.96 Absolute Monocytes 0.83 H Absolute Eosinophils 0.73 H Absolute Basophils 0.05 Sodium 139 Potassium 4.3 Chloride 102 Carbon Dioxide 27.4 Anion Gap 9.6 BUN 11 Creatinine 0.73 Estimated GFR/1.73 m2 >= 60.00 Glucose 113 H Calcium 8.5 Last Vital Signs Temp 37.1 C 10/17/18 05:14 Pulse 119 H 10/17/18 06:40 Resp 23 10/17/18 06:40 BP 143/89 H 10/17/18 06:01 Pulse Ox 100 10/17/18 06:40
[2018-10-17] MEDS: Budesonide 0.5 MG/2 ML UPD VIAL UPD ×2 (10:29→22:03)
[2018-10-17] MEDS: methylPREDNISolone SUCC 125 MG VIAL 80 MG IVP ×2 (10:40→18:34)
--- NOTE | 2018-10-17 11:50 | PHARADMIT ---
Admission Pharmacy Clinical Review STATUS ASTHMATICUS Code Status Full Code Current Weight Wgt-63.6 kg Renally Cleared and Narrow Therapeutic Index Meds CrCl~119 mL/min Meds-OK QTc Value / Action Taken NONE BP Control, Fever BP-123/56 Tmax-36.6C Electrolytes reviewed Na-139 K+4.3 DVT Prophylaxis Lovenox 40mg Opiate Usage / Scheduled Bowel Regimen Ordered No No Plt/SCr for Heparin / Enoxaparin Plts-172 SCr-0.73 INR for Warfarin na H/H stable, WBC/Bands H&H- 15.3/45.4 WBC- 8.87 Antibiotic appropriateness None Cultures and Sensitivities None Surgical ABX d/c within 24 hr NA DM control / Insulin Dosing BG-113 Heart Failure (Check EF%) (TARYN's, B-Block, Diuretics) none IV to PO Switch No Home Meds Reviewed Yes Home Meds Not Ordered Advair Diskus, Xopenex Comments Has recovered
[2018-10-17] MEDS: Albuterol/Ipratropium 3 ML UPD VIAL UPD ×4 (11:51→23:45)
[2018-10-17] MEDS: busPIRone 5 MG TAB 10 MG PO ×2 (11:59→20:29)
[2018-10-17] MEDS: Montelukast 10 MG TAB PO (11:59)
[2018-10-17] MEDS: Pantoprazole 40 MG TABCR PO (12:00)
[2018-10-17] MEDS: Sertraline 50 MG TAB 200 MG PO (12:00)
[2018-10-17] MEDS: Cetirizine 10 MG TAB PO (12:00)
--- NOTE | 2018-10-17 18:39 | PDOC.CMIN ---
- If Service Date Differs Date of service: 10/17/18 Time of Service: 18:39 Care Management Initial Assess REASON FOR HOSPITALIZATION:: Asthma PAST MEDICAL HISTORY/PAST SURGICAL HISTORY:: Depression, anxiety, tobacco use, reactive airway disease, asthma PREVIOUS FUNCTIONAL STATUS/SOCIAL/FAMILY SUPPORTS:: Alden lives alone in [place], [place] he reports that he has two dumbo rats he cares for. He is not currently working and has been searching for a job. His mother is his primary support person. CURRENT FUNCTIONAL STATUS:: Alden, is shaking during interaction, Alden states that he did not use the asthma action plan from the last visit. CM provided positive reinforcement that he was able to reconize symptoms earlier this time. He states It was not r/t teaching of asthma action plan it was because the symptoms came on fast and really bad. He is not able to review his medications with CM, he is not sure what medications he takes to help with his resp symptoms or prevent his asthma symptoms. Alden and his Mom are interested in applying for disability. Alden has not been able to work since leaving [facility] and struggles with anxiety,and difficulty breathing. CM will refer to [facility] for support and assistance with disability options. ADVANCE DIRECTIVES:: None on file - CM offered a packet he declines today Has patient been provided with information about the portal?: Yes Did the patient sign up for the portal?: No CODE STATUS:: Full Code INSURANCE COVERAGE / FINANCIAL ISSUES:: BC&BS CURRENT HOME/COMMUNITY SERVICES/EQUIPMENT:: None - CM faxed referral to [facility] for community support. PRIMARY CARE PHYSICIAN:: Jerad Palmer NP POTENTIAL DISCHARGE NEEDS:: Follow up scheduled with primary care, and asthma action plan, referral to CM through [facility] PATIENT/FAMILY EDUCATION NEEDS:: Discharge education, limitations and follow up plan of care including ask me three and self management. CM rreviewed asthma action plan needs with RT to be reviewed prior to discharge. ANTICIPATED BARRIERS TO DISCHARGE:: Alden wants to be discharged home, he is not comfortable being away from home, he has agreed to stay and receive treatment for acute asthma treatment. TRANSPORTATION:: Via private car with family at time of discharge. PLAN:: Alden will be discharged when medcially ready. CM will reach out to [facility] for phone case management r/t frequent ED visits and asthma education. Alden is currently receiving IV steroids and antibioitcs. RT to continue to provide support and education r/t enviormental exposures and risk r/t ongoing management of asthma. CM to continue to provide support ongoing discharge planning and disposition.
[2018-10-17] MEDS: Acetaminophen 325 MG TAB 650 MG PO (20:28)
[2018-10-18] VITALS (19 sets, daily range): BP systolic 104–135; BP diastolic 42–76; PULSE 89–115; RESP 1–32; TEMP 36.7–37.3; O2SAT 95–97
[2018-10-18] MEDS: methylPREDNISolone SUCC 125 MG VIAL 80 MG IVP ×2 (03:08→09:43)
[2018-10-18] MEDS: Normal Saline Flush 10 ML SYR IVP ×2 (03:08→09:45)
[2018-10-18] MEDS: Albuterol/Ipratropium 3 ML UPD VIAL UPD ×3 (03:08→11:41)
--- NOTE | 2018-10-18 06:07 | NUR.NOTE ---
Addendum entered by Roe Mabry 10/18/18 06:07: Pt awake most of the night, Told me not to come in for vital signs or anything else after he went to sleep. Then refused to have his blood drawn by the lab at 0600. Original Note: Nursing Note:
[2018-10-18] MEDS: Cetirizine 10 MG TAB PO (08:09)
[2018-10-18] MEDS: Sertraline 50 MG TAB 200 MG PO (08:10)
[2018-10-18] MEDS: Montelukast 10 MG TAB PO (08:12)
[2018-10-18] MEDS: busPIRone 5 MG TAB 10 MG PO (08:12)
[2018-10-18] MEDS: Pantoprazole 40 MG TABCR PO (08:12)
[2018-10-18] MEDS: Budesonide 0.5 MG/2 ML UPD VIAL UPD (11:40)
--- NOTE | 2018-10-18 13:59 | W.PM.DS.N ---
Date of service: 10/18/18 Time of Service: 13:59 DS: Diagnosis Discharge Diagnosis (1) Status asthmaticus: Status: Acute Discharge Plan Disposition Patient Disposition: HOME Condition: Stable Discharge Details Chief Complaint: SOB Clinical Impression: Acute asthma exacerbation Reason For Visit: STATUS ASTHMATICUS Admit Date/Time: 10/17/18 06:38 Admit Provider: Andrés Ocampo Attending Provider: Andrés Ocampo Primary Care Provider: Jerad Palmer ED Provider: Joe Walters [facility] Course Hospital Course: Chief Complaint: Dyspnea HPI: 23 yr old asthmatic man, admitted from [facility] Emergency Department on 10/17 with a diagnosis of Status Asthmaticus. Mr. Butler has a history of Asthma with frequent exacerbations. He also occasional smoking, mostly marijuana but also occsionally pipe tobacco. He presented to the ED with dyspnea, wheezing, and cough that had developed over the course of the past day. He has a reported history of poor medical compliance as well. The patient was treated with IV Steroids, a series of nebs, IV Mag, and BiPAP by EMS and in the ED. His labs and imaging were unremarkable, and he refused an ABG. He was admitted to the ICU for close monitoring. Since admission the patient has made a rapid turn around in his symptoms, and appears vastly improved by both exam and history today. He is requesting to go home. There is no indication for antibiotics - he will be discharged with a slow steroid taper, and advised to use his nebulizer therapy liberally over the course of the next week. He should follow-up shortly with his PCP. Home Meds and New Rx's Prescriptions: New ipratropium-albuterol 0.5 mg-3 mg(2.5 mg base)/3 mL Solution For Nebulization 3 ml UPD Q4H Qty: 1 RF: 0 albuterol sulfate 2.5 mg /3 mL (0.083 %) Solution For Nebulization 2.5 mg UPD Q2H PRN PRNQty: 1 RF: 0 prednisone 10 mg tablet 10 mg PO DAILY Qty: 53 RF: 0 Continued sertraline 100 mg Tablet 200 mg PO DAILY RF: 0 albuterol sulfate 2.5 mg /3 mL (0.083 %) solution for nebulization 2.5 mg IH QID PRN (Reason: shortness of breath or wheezing) Qty: 75 RF: 0 albuterol sulfate [ProAir HFA] 90 mcg/actuation HFA aerosol inhaler 2 puff IH Q6H PRN (Reason: shortness of breath) Qty: 18 RF: 0 cetirizine [Zyrtec] 10 mg tablet 10 mg PO DAILY Qty: 30 RF: 0 fluticasone propion-salmeterol [Advair Diskus] 250-50 mcg/dose blister with device 1 inh IH BID Qty: 14 RF: 0 ipratropium-albuterol 0.5 mg-3 mg(2.5 mg base)/3 mL solution for nebulization 3 ml IH Q4H PRN (Reason: shortness of breath or wheezing) Qty: 15 RF: 0 buspirone 5 mg Tablet 10 mg PO BID RF: 0 fluticasone propion-salmeterol 250-50 mcg/dose Blister With Device INHALATION BID RF: 0 pantoprazole 40 mg Tablet,Delayed Release (Dr/Ec) 40 mg PO DAILY RF: 0 montelukast 10 mg Tablet 10 mg PO DAILY RF: 0 levalbuterol tartrate 45 mcg/actuation Hfa Aerosol Inhaler 2 puff INHALATION PRNRF: 0 Discharge Instructions Activity:: No strenuous activity Equipment/Supplies:: No Equipment Needed Diet:: As Tolerated Discharge Orders Discharge Orders: Discharge Order (Routine); Ordered 10/18/18 Ordered By: Kevin Blandon DS: Data Vitals/I&O Vitals and I&O: Vital Signs Temperature 37.3 C 10/18/18 12:58 Temperature Source Temporal Artery Scan 10/18/18 12:58 Pulse 108 H 10/18/18 12:43 Pulse 115 H 10/18/18 10:03 Respiratory Rate 22 10/18/18 11:41 Respiratory Effort 10/18/18 11:19 Respiratory Depth Normal 10/18/18 11:19 Respiratory Pattern Normal 10/18/18 11:19 Blood Pressure 133/76 10/18/18 12:43 Blood Pressure Mean 87 10/18/18 12:43 Blood Pressure Position Supine 10/17/18 21:06 Pulse Oximetry 95 10/18/18 12:43 Oxygen Delivery Method Room Air 10/18/18 11:41 Oxygen Flow Rate 0 10/18/18 11:41 Fraction of Inspired Oxygen (FIO2) 30 10/17/18 05:14 Pain Level 4 10/18/18 11:19 Intake & Output 10/17/18 10/18/18 10/18/18 23:59 11:59 23:59 Intake Total 3010.0 / 3010.0 300 / 540 240 / 540 Output Total 500 / 700 1775 / 1775 Balance 2510.0 / 2310.0 -1475 / -1235 240 / -1235 Intake: IV 2270.0 / 2270.0 0 / 0 Oral 740 / 740 300 / 540 240 / 540 Output: Urine 500 / 700 1775 / 1775 Other: Urine Color Yellow Urine Appearance Clear Clear Urine Odor Strong Comment Voiding clear yellow urine in urinal. Voiding Methods Urinal Urinal Completed studies during hospitalization [Text1]: Exam(s) a RAD:XR portable chest AP SYMPTOM/DIAGNOSIS: SOB PORTABLE AP CHEST: 10/17/18 The heart is not enlarged. The lungs are clear and normally expanded. CONCLUSION: No evidence of acute disease. Labs on day of discharge: Labs from last 24 hours 10/18/18 10/18/18 05:35 05:35 WBC Pending RBC Pending Hgb Pending Hct Pending MCV Pending MCH Pending MCHC Pending RDW Pending Plt Count Pending MPV Pending Immature Gran % Pending Neutrophils % Pending Lymphocytes % Pending Monocytes % Pending Eosinophils % Pending Basophils % Pending Absolute Neutrophils Pending Absolute Lymphocytes Pending Absolute Monocytes Pending Absolute Eosinophils Pending Absolute Basophils Pending Sodium Pending Potassium Pending Chloride Pending Carbon Dioxide Pending Anion Gap Pending BUN Pending Creatinine Pending Estimated GFR/1.73 m2 Pending Glucose Pending Calcium Pending PFSH Medical History Anxiety disorder (Acute) Asthma (Chronic) Depression (Chronic) Eczema (Acute) Surgical History No significant past surgical history (Acute) Family History Other Adopted Social History Smoking/Tobacco Use Status: Current-Occasional Tobacco Type: pipe Counseling given: provider counseling Alcohol Intake: current Alcohol Intake frequency: a few times a week Alcohol type: beer Drug use: Occasionally Substance use type: marijuana Counseling given: Yes Housing: other Details: college dorm Do you feel safe at home: Yes Do you feel safe in your relationship?: Yes
--- NOTE | 2018-10-18 17:48 | PDOC.CMDIS ---
- If Service Date Differs Date of service: 10/18/18 Time of Service: 17:48 LACE Index Scoring Tool - Questions: Length of Stay (in days): 3 Acuity (Admit via E.D.?): Yes E.D. Visits: 11 - Answers: Total Score: 10 Risk of Readmission: High Risk Care Management Discharge Reason for Hospitalization: Asthma Discharge Plan: Alden was referred to [facility] connections they will follow up with him as outpatient. He is being discharged today with no additional services and follow up with his primary care. CM has referred patient to [facility] for telephonic case management. Patient/Family Education Needs: Discharge plan, limitations and follow up plan of care
== END 2018-10-18 12:45 | disposition home or self-care (01) | DRG 203 ==
LOC: ER 08:07 → ICU 08:10
PROVIDERS: Admitting Provider Internal Medicine; Emergency Provider Emergency Medicine; PCP Nurse Practitioner Family; Visit Provider Internal Medicine
DX: J45.902 Unspecified asthma with status asthmaticus (principal); Z72.0 Tobacco use; Z91.19 Patient's noncompliance with other medical treatment and regimen
CPT/HCPCS: 36415; 80048; 82805; 94640; 96361; 96365; 96366; 99220; 99238; 99285; 71045; 85025; 99223; 99284; J2930; J7611; J7613; J7620; J7626

== ENCOUNTER 2018-10-20 12:35 | Emergency (ER) | payer BC, SELFPAY ==
[2018-10-20 12:53] VITALS: PULSE 103; RESP 22; TEMP 36.9; O2SAT 98
--- NOTE | 2018-10-20 12:58 | ED.GENADUL_ITS ---
Discharge Plan Disposition Patient Disposition: HOME Discharge Details Chief Complaint: SOB Clinical Impression: Asthma exacerbation Primary Care Provider: Jerad Palmer ED Provider: Derian Daniels Home Meds and New Rx's Prescriptions: No Action sertraline 100 mg Tablet 200 mg PO DAILY RF: 0 albuterol sulfate 2.5 mg /3 mL (0.083 %) solution for nebulization 2.5 mg IH QID PRN (Reason: shortness of breath or wheezing) Qty: 75 RF: 0 albuterol sulfate [ProAir HFA] 90 mcg/actuation HFA aerosol inhaler 2 puff IH Q6H PRN (Reason: shortness of breath) Qty: 18 RF: 0 cetirizine [Zyrtec] 10 mg tablet 10 mg PO DAILY Qty: 30 RF: 0 fluticasone propion-salmeterol [Advair Diskus] 250-50 mcg/dose blister with device 1 inh IH BID Qty: 14 RF: 0 ipratropium-albuterol 0.5 mg-3 mg(2.5 mg base)/3 mL solution for nebulization 3 ml IH Q4H PRN (Reason: shortness of breath or wheezing) Qty: 15 RF: 0 buspirone 5 mg Tablet 10 mg PO BID RF: 0 fluticasone propion-salmeterol 250-50 mcg/dose Blister With Device INHALATION BID RF: 0 pantoprazole 40 mg Tablet,Delayed Release (Dr/Ec) 40 mg PO DAILY RF: 0 montelukast 10 mg Tablet 10 mg PO DAILY RF: 0 levalbuterol tartrate 45 mcg/actuation Hfa Aerosol Inhaler 2 puff INHALATION PRNRF: 0 ipratropium-albuterol 0.5 mg-3 mg(2.5 mg base)/3 mL Solution For Nebulization 3 ml UPD Q4H Qty: 1 RF: 0 albuterol sulfate 2.5 mg /3 mL (0.083 %) Solution For Nebulization 2.5 mg UPD Q2H PRN PRNQty: 1 RF: 0 prednisone 10 mg tablet 10 mg PO DAILY Qty: 53 RF: 0 Discharge Instructions Instructions: Asthma (ED) Additional Instructions: It is very important that you start taking your prednisone prescription as wri tten. Continue with duo nebs at home every 4 hours as needed for shortness of breath and wheezing. If you feel like you are taking more frequent duo nebs without the adequate response we would want to see you back in the emergency department as soon as possible. Referrals: Jerad Palmer NP [Primary Care Provider] - 3 days Medical Decision Making This is a nontoxic-appearing known asthmatic with shortness of breath over the last 24 to 48 hours. Diffuse wheezing noted on exam here. Vitals are otherwise stable with the exception of a slight tachycardia. Oxygenation well maintained in the upper 90s on room air. He has not been febrile. His the was discharged home on oral prednisone which he did not fill. Prednisone 60 mg p.o. given h ere. DuoNeb given with some effect. Patient still somewhat symptomatic. Albuterol 1 hour continuous given with respiratory at bedside. Will most likely be able to discharge home with reinforcement of both smoking cessation and prednisone prescription fill. Patient symptoms of dyspnea much improved status post 1 hour continuous neb. He is moving wood and with adequate oxygenation in the upper 90s. His mother is now at the bedside who was able to pickling tank operator the prescription given at his time of discharge 2 days ago. We discussed in detail return precautions. He is stable for discharge at this time. HPI General Date/Time Provider Initiated Documentation: 10/20/18 12:49 . HPI Narrative: Patient is a 23-year-old male presenting to the emergency department with acute exacerbation of his asthma. Patient was recently hospitalized and discharged 2 days prior to his arrival today for asthma exacerbation. He is been taking duo nebs at home with little relief. He was discharged with a prescription for prednisone for which she has not filled. He continues to smoke roughly half a pack cigarettes per day. He denies any chest pain. He has had a mild cough with no sputum production. Related Data Home Medications Medication Instructions Recorded Confirmed sertraline 200 mg PO DAILY 04/18/18 10/17/18 albuterol sulfate 2.5 mg IH QID PRN #75 ml 05/20/18 10/17/18 albuterol sulfate [ProAir HFA] 2 puff IH Q6H PRN #18 gm 05/27/18 10/17/18 cetirizine [Zyrtec] 10 mg PO DAILY #30 tab 07/16/18 10/17/18 fluticasone propion-salmeterol 1 inh IH BID #14 each 07/16/18 10/17/18 [Advair Diskus] ipratropium-albuterol 3 ml IH Q4H PRN #15 ml 07/16/18 10/17/18 buspirone 10 mg PO BID 09/22/18 10/17/18 fluticasone propion-salmeterol INHALATION BID 09/22/18 levalbuterol tartrate 2 puff INHALATION PRN 09/22/18 montelukast 10 mg PO DAILY 09/22/18 10/17/18 pantoprazole 40 mg PO DAILY 09/22/18 10/17/18 albuterol sulfate 2.5 mg UPD Q2H PRN PRN #1 ml 10/18/18 ipratropium-albuterol 3 ml UPD Q4H #1 ml 10/18/18 prednisone 10 mg PO DAILY #53 tab 10/18/18 Previous Rx's Medication Instructions Recorded albuterol sulfate 2.5 mg IH QID PRN #75 ml 05/20/18 albuterol sulfate [ProAir HFA] 2 puff IH Q6H PRN #18 gm 05/27/18 cetirizine [Zyrtec] 10 mg PO DAILY #30 tab 07/16/18 fluticasone propion-salmeterol 1 inh IH BID #14 each 07/16/18 [Advair Diskus] ipratropium-albuterol 3 ml IH Q4H PRN #15 ml 07/16/18 albuterol sulfate 2.5 mg UPD Q2H PRN PRN #1 ml 10/18/18 ipratropium-albuterol 3 ml UPD Q4H #1 ml 10/18/18 prednisone 10 mg PO DAILY #53 tab 10/18/18 Allergies Allergy/AdvReac Type Severity Reaction Status Date / Time cat dander Allergy Wheezing Unverified 10/20/18 12:55 migraine medication AdvReac Uncoded 10/20/18 12:55 General Stated Complaint: SOB MINGO: 3 Review of Systems Constitutional Denies chills, Denies fatigue, Denies fever(s), Denies lethargy, Denies malaise, Denies night sweats and Denies weakness ENT Denies dizziness Cardiovascular Denies chest pain and Reports dyspnea Respiratory Reports cough, Denies excessive phlegm production, Denies pain on inspiration, Reports dyspnea, Denies stridor and Reports wheezing Musculoskeletal Denies numbness Integumentary/Breasts Denies rash Neurologic Denies dizziness, Denies numbness and Denies weakness Endocrine Denies fatigue Allergic/Immunologic Reports wheezing [facility] Medical History Anxiety disorder (Acute) Asthma (Chronic) Depression (Chronic) Eczema (Acute) Surgical History No significant past surgical history (Acute) Family History Other Adopted Social History Smoking/Tobacco Use Status: Current-Occasional Tobacco Type: pipe Counseling given: provider counseling Alcohol Intake: current Alcohol Intake frequency: a few times a week Alcohol type: beer Drug use: Occasionally Substance use type: marijuana Counseling given: Yes Housing: other Details: college dorm Do you feel safe at home: Yes Do you feel safe in your relationship?: Yes Exam Const General: cooperative, healthy appearing and no acute distress Orientation: alert and awake HENMT Head: normal to inspection Chest Chest: normal inspection of the chest Resp Effort & Inspection: normal respiratory effort and able to speak in complete sentences Auscultation: wheezes expiratory wheezes and scattered wheezes Cardio Palpation: normal PMI Rate: tachycardic Rhythm: regular rhythm Heart Sounds: S1 normal and S2 normal Pulses: normal peripheral pulses Back/Spine/Pelvis Thoracic/Lumbar Spine: thoracic and lumbar spine normal to inspection Skin General skin exam: no rashes or lesions noted Extrem General: normal to inspection Course Vital Signs Temperature 36.9 C 10/20/18 12:53 Pulse 103 H 10/20/18 12:53 Respiratory Rate 22 10/20/18 12:53 Pulse Oximetry 98 10/20/18 12:53 Temperature 36.9 C 10/20/18 12:53 Temperature Source Temporal Artery Scan 10/20/18 12:53 Pulse 103 H 10/20/18 12:53 Respiratory Rate 22 10/20/18 12:53 Blood Pressure Position Sitting 10/20/18 12:53 Pulse Oximetry 98 10/20/18 12:53 Oxygen Delivery Method Room Air 10/20/18 12:53 Oxygen Flow Rate 0 10/20/18 12:53 Pain Level 0 10/20/18 12:53
[2018-10-20 13:02] VITALS: RESP 4
[2018-10-20] MEDS: Albuterol/Ipratropium 3 ML UPD VIAL UPD (13:02)
[2018-10-20] MEDS: predniSONE 20 MG TAB 60 MG PO (13:02)
[2018-10-20 13:22] VITALS: PULSE 95; RESP 16; RESP 4; O2SAT 98
[2018-10-20 14:05] VITALS: RESP 22
[2018-10-20 16:02] VITALS: RESP 4; RESP 7
[2018-10-20 16:27] VITALS: BP 116/62; PULSE 61; RESP 15; RESP 16; TEMP 36.5; O2SAT 98
== END 2018-10-20 16:34 | disposition home or self-care (01) ==
PROVIDERS: Emergency Provider Physician Assistant; PCP Nurse Practitioner Family
DX: J45.901 Unspecified asthma with (acute) exacerbation (principal); F17.210 Nicotine dependence, cigarettes, uncomplicated
CPT/HCPCS: 94640; 99283; J7512; J7611; J7620

== ENCOUNTER 2018-12-25 07:05 | Inpatient (IN) | payer BC, SELFPAY ==
[2018-12-25] VITALS (89 sets, daily range): BP systolic 96–147; BP diastolic 45–98; PULSE 91–137; RESP 4–33; TEMP 36.5–37.2; O2SAT 92–100
[2018-12-25] MEDS: Albuterol/Ipratropium 3 ML UPD VIAL (07:20)
--- NOTE | 2018-12-25 07:20 | DI.RAD_ITS ---
EXAM: XR PORTABLE CHEST AP INDICATION: cough/wheezing. COMPARISON: XR PORTABLE CHEST AP from 10/17/2018 TECHNIQUE: 2D digital imaging was performed. FINDINGS: The heart size is normal. The lungs are well inflated and clear. No infiltrate or effusion is seen . IMPRESSION: No acute process is identified.
--- NOTE | 2018-12-25 07:23 | ED.GENADUL_ITS ---
Discharge Plan Disposition Patient Disposition: [facility] INPATIENT Condition: Improving Discharge Details Chief Complaint: SOB Clinical Impression: Exacerbation of reactive airway disease Admit Date/Time: 12/25/18 11:34 Admit Provider: Kevin Blandon Attending Provider: Kevin Blandon Primary Care Provider: Jerad Palmer ED Provider: Dudley Robb Discharge Data Discharge Date/Time-TO BE ENTERED AT DEPARTURE: 12/25/18 13:40 Medical Decision Making <Joe Walters MD - Last Filed: 12/25/18 20:07> Patient presenting with respiratory difficulty secondary to acute asthma exacerbation. Possibly triggered by previous URI. IV in place. Will dose with IV magnesium. Third DuoNeb given here. Will give continuous albuterol neb subsequently. Labs and chest x-ray ordered. Has already had steroids. <Dudley Robb MD - Last Filed: 12/25/18 10:57> Received signout from Dr. Walters. Please see his note regarding details initial presentation, plan of care. Patient received continuous albuterol neb, observed over approximately 4 hours. He did improve to the point be able to eat a morning meal. He does have persistent wheezing, tachycardia although it is improving. Influenza negative. Chest x-ray without acute findings. Consistent with acute exacerbation of reactive airway disease. Will discuss admission with the hospitalist team. Lab Data Lab results reviewed: Yes I reviewed the patient's lab results. Labs: Laboratory Results - last 24 hr 12/25/18 12/25/18 07:30 07:30 WBC 8.12 RBC 5.40 Hgb 15.0 Hct 45.6 MCV 84.4 MCH 27.8 MCHC 32.9 RDW 14.0 Plt Count 189 MPV 9.0 Immature Gran % 0.1 Neutrophils % 72.1 Lymphocytes % 16.7 Monocytes % 8.7 Eosinophils % 2.3 Basophils % 0.1 Absolute Neutrophils 5.84 Absolute Lymphocytes 1.36 Absolute Monocytes 0.71 H Absolute Eosinophils 0.19 Absolute Basophils 0.01 Sodium 140 Potassium 3.3 L Chloride 102 Carbon Dioxide 30.1 Anion Gap 7.9 BUN 10 Creatinine 0.78 Estimated GFR/1.73 m2 >= 60.00 Glucose 114 H Calcium 8.5 Magnesium 3.2 H HPI <Joe Walters MD - Last Filed: 12/25/18 20:07> General Mode of arrival: EMS . Date/Time Provider Initiated Documentation: 12/25/18 07:09 . Limitations to Documentation: no limitations . Information obtained by: patient, EMS and RN notes reviewed . HPI Narrative: Patient presents to ED by EMS with wheezing and shortness of breath. He has history of asthma. He was ill with URI symptoms previous. Subsequently has had more difficulty breathing and wheezing. This morning not responding to medications and EMS called. He received a DuoNeb and Solu-Medrol in route. Arrives here still in distress with diffuse wheezing audibly heard. Related Data Home Medications Medication Instructions Recorded Confirmed sertraline 200 mg PO DAILY 04/18/18 12/25/18 albuterol sulfate 2.5 mg IH QID PRN #75 ml 05/20/18 12/25/18 albuterol sulfate [ProAir HFA] 2 puff IH Q6H PRN #18 gm 05/27/18 12/25/18 cetirizine [Zyrtec] 10 mg PO DAILY #30 tab 07/16/18 12/25/18 ipratropium-albuterol 3 ml IH Q4H PRN #15 ml 07/16/18 12/25/18 buspirone 10 mg PO BID 09/22/18 12/25/18 fluticasone propion-salmeterol INHALATION BID 09/22/18 levalbuterol tartrate 2 puff INHALATION PRN 09/22/18 montelukast 10 mg PO DAILY 09/22/18 12/25/18 pantoprazole 40 mg PO DAILY 09/22/18 12/25/18 albuterol sulfate 2.5 mg UPD Q2H PRN PRN #1 ml 10/18/18 12/25/18 ipratropium-albuterol 3 ml UPD Q4H #1 ml 10/18/18 12/25/18 Previous Rx's Medication Instructions Recorded albuterol sulfate 2.5 mg IH QID PRN #75 ml 05/20/18 albuterol sulfate [ProAir HFA] 2 puff IH Q6H PRN #18 gm 05/27/18 cetirizine [Zyrtec] 10 mg PO DAILY #30 tab 07/16/18 ipratropium-albuterol 3 ml IH Q4H PRN #15 ml 05/07/19 albuterol sulfate 2.5 mg UPD Q2H PRN PRN #1 ml 10/18/18 ipratropium-albuterol 3 ml UPD Q4H #1 ml 10/18/18 Allergies Allergy/AdvReac Type Severity Reaction Status Date / Time cat dander Allergy Wheezing Unverified 12/25/18 11:09 migraine medication AdvReac Uncoded 12/25/18 11:09 General Stated Complaint: SOB MINGO: 3 Review of Systems <Joe Walters MD - Last Filed: 12/25/18 20:07> Review of Systems Narrative: 12/23 Review of Systems completed and is negative except as stated above in HPI (Systems reviewed: Const, Eyes, ENT, Resp, CV, GI, , MSK, Skin, Neuro) PFSH <Joe Walters MD - Last Filed: 12/25/18 20:07> Medical History Anxiety disorder (Acute) Asthma (Chronic) Depression (Chronic) Eczema (Acute) Surgical History No significant past surgical history (Acute) Family History Other Adopted Social History Smoking/Tobacco Use Status: Current-Occasional Tobacco Type: pipe Counseling given: provider counseling Alcohol Intake: current Alcohol Intake frequency: a few times a week Alcohol type: beer Drug use: Occasionally Substance use type: marijuana Counseling given: Yes Housing: other Details: college dorm Current gender identity: male Do you feel safe at home: Yes Do you feel safe in your relationship?: Yes Exam <Joe Walters MD - Last Filed: 12/25/18 20:07> Narrative Exam Narrative: Vitals: Afebrile. Tachycardic and tachypneic but saturations normal while getting nebulized treatment. Const: WDWN male in mild respiratory distress/tachypneic. HEENT: NC/AT. Normal facial exam. TMs clear. OP clear. Eyes: Normal conjunctiva and sclera. Neck: Supple. Trachea midline. Lungs: Tachypneic with increased work of breathing. Decreased breath sounds and wheezing throughout. Cor: RRR without murmur/gallop. Tachycardic. Good radial pulses. GI: Soft. NT/ND. No guarding or rebound. Neuro: A+O x 3. CN grossly in tact. Good strength and no focal deficit. Ext: No C/C/E. Skin: Warm and dry without rash. Course <Joe Walters MD - Last Filed: 12/25/18 20:07> Vital Signs Vital signs: Vital Signs Temperature 97.7 F 12/25/18 07:07 Pulse 120 H 12/25/18 07:07 Respiratory Rate 30 H 12/25/18 07:07 Blood Pressure 108/55 L 12/25/18 07:07 Pulse Oximetry 97 12/25/18 07:07 Temperature 97.7 F 12/25/18 07:07 Temperature Source Temporal Artery Scan 12/25/18 07:07 Pulse 105 H 12/25/18 07:20 Respiratory Rate 22 12/25/18 07:20 Respiratory Effort 12/25/18 07:11 Respiratory Depth Normal 12/25/18 07:11 Respiratory Pattern Tachypnea 12/25/18 07:11 Blood Pressure 108/55 L 12/25/18 07:07 Blood Pressure Position Sitting 12/25/18 07:07 Pulse Oximetry 100 12/25/18 07:20 Oxygen Delivery Method Room Air 12/25/18 07:20 Oxygen Flow Rate 0 12/25/18 07:20 Sign Out <Joe Walters MD - Last Filed: 12/25/18 20:07> Sign Out Data: Sign Out Comment: Patient signed out pending labs and chest x-ray results and reevaluation of respiratory status. Last updated by Joe Walters MD at 12/25/18 07:40
[2018-12-25] MEDS: MAGNESIUM SULFATE 2 GM/50 ML BAG IVPB (07:40)
[2018-12-25 07:47] LABS: Abs Immature Grans 0.01 k/cumm (0.0-0.09); Absolute Basophil Count 0.01 k/cumm (0.0-0.2); Absolute Eosinophil Count 0.19 k/cumm (0.0-0.7); Absolute Lymphocyte Count 1.36 k/cumm (1.2-3.4); Absolute Monocyte Count 0.71 k/cumm (0.11-0.7); Absolute Neutrophil Count 5.84 k/cumm (1.2-6.7); Basophils % 0.1; Eosinophils % 2.3; HCT 45.6 % (40.0-50.0); Immature Grans % 0.1; Lymphocytes % 16.7; Mean Corp. HGB Concentration 32.9 g/dL (32.0-36.0); Mean Corpuscular Hemoglobin 27.8 pg (27.0-33.0); Mean Corpuscular Volume 84.4 fL (80-95); Monocytes % 8.7; Neutrophils % 72.1; Platelet Count 189 x1000/uL (130-400); White Blood Cell Count 8.12 k/cumm (4.4-10.8)
--- NOTE | 2018-12-25 07:53 | DI.VRAD_ITS ---
PROCEDURE INFORMATION: Exam: XR Chest, 1 View Exam date and time: 12/25/2018 7:44 AM Clinical history: 23 years old, male; Other: Cough/wheezing TECHNIQUE: Imaging protocol: XR of the chest Views: 1 view. COMPARISON: SC XR PORTABLE CHEST AP 10/17/2018 5:49 AM FINDINGS: Lungs: Unremarkable. No consolidation. Pleural space: Unremarkable. No pleural effusion. No pneumothorax. Heart/Mediastinum: Unremarkable. No cardiomegaly. Bones/joints: Unremarkable. IMPRESSION: No acute findings. There is no significant interval change from the previous study. Dictated and Authenticated by: Que Knight MD. Ordering:NONI Diaz MD
[2018-12-25 07:56] LABS: Anion Gap 7.9 mmol/L (3-11); BUN 10 mg/dL (7-18); CO2 30.1 mmol/L (21.0-32.0); CREATININE 0.78 mg/dL (0.70-1.30); Calcium 8.5 mg/dL (8.5-10.1); Chloride 102 mmol/L (98-107); Glucose 114 mg/dL (70-100); Magnesium 3.2 mg/dL (1.8-2.4); Potassium 3.3 mmol/L (3.5-5.1); Sodium 140 mmol/L (136-145)
[2018-12-25] MEDS: Normal Saline 1,000 ML 1000 ML IV (08:55)
--- NOTE | 2018-12-25 14:09 | W.PM.HP.N ---
Date of service: 12/25/18 Time of Service: 14:10 Assessment and Plan Assessment and plan (1) Asthma exacerbation: Status: Acute Assessment and plan: History of asthma, with exacerbation likely on the basis of a viral URI. ?CXR negative, and rapid influenza negative. Patient with a normal white blood count, and has remained afebrile. ?Initiate IV Solu-Medrol, frequent standing DuoNebs with Albuterol in between as needed. We will also initiate nebulized budesonide. -May utilize IV magnesium as needed, and if so would recommend 2 g IV infused over 15 to 20 minutes. -Titrate oxygen to maintain sats above 93 to 95%. (2) Depression: Status: Chronic Assessment and plan: Continue home regimen of SSRI therapy with twice daily dosing of buspirone. (3) DVT prophylaxis: Status: Acute Assessment and plan: SC enoxaparin. History of Present Illness History of Present Illness Chief Complaint: Dyspnea, Cough Narrative: 23 yr old asthmatic man, being admitted from [facility] Emergency Department on 12/25 with a diagnosis of Acute Asthma exacerbation. Mr. Butler has a history of Asthma with frequent exacerbations and poor medical compliance, anxiety, depression, and eczema. He also occasional smoking, mostly marijuana but also occsionally pipe tobacco. He presented to the ED with dyspnea, wheezing, cough, subjective chills, and generalized malaise that had developed over the course of the past week. Labwork was fairly unremarkable, including a negative rapid influenza, and CXR showed no acute pathology. The patient was treated with IV Steroids, nebs, IV Mag, and admitted to the ICU for close monitoring. Review of Systems Review of Systems ROS Unobtainable: All systems reviewed & are unremarkable except as noted in HPI and below [facility] Medical History Anxiety disorder (Acute) Asthma (Chronic) Depression (Chronic) Eczema (Acute) Surgical History No significant past surgical history (Acute) Family History Other Adopted Social History Smoking/Tobacco Use Status: Current-Occasional Tobacco Type: pipe Counseling given: provider counseling Alcohol Intake: current Alcohol Intake frequency: a few times a week Alcohol type: beer Drug use: Occasionally Substance use type: marijuana Counseling given: Yes Housing: other Details: college dorm Current gender identity: male Do you feel safe at home: Yes Do you feel safe in your relationship?: Yes Meds Home Medications and Allergies Home Medications Medication Instructions Recorded Confirmed Type sertraline 200 mg PO DAILY 04/18/18 12/25/18 History albuterol sulfate 2.5 mg IH QID PRN #75 ml 05/20/18 12/25/18 Rx albuterol sulfate [ProAir HFA] 2 puff IH Q6H PRN #18 gm 05/27/18 12/25/18 Rx cetirizine [Zyrtec] 10 mg PO DAILY #30 tab 07/16/18 12/25/18 Rx ipratropium-albuterol 3 ml IH Q4H PRN #15 ml 07/16/18 12/25/18 Rx buspirone 10 mg PO BID 09/22/18 12/25/18 History fluticasone propion-salmeterol INHALATION BID 09/22/18 History levalbuterol tartrate 2 puff INHALATION PRN 09/22/18 History montelukast 10 mg PO DAILY 09/22/18 12/25/18 History pantoprazole 40 mg PO DAILY 09/22/18 12/25/18 History albuterol sulfate 2.5 mg UPD Q2H PRN PRN #1 ml 10/18/18 12/25/18 Rx ipratropium-albuterol 3 ml UPD Q4H #1 ml 10/18/18 12/25/18 Rx Allergies Allergy/AdvReac Type Severity Reaction Status Date / Time cat dander Allergy Wheezing Unverified 12/25/18 11:09 migraine medication AdvReac Uncoded 12/25/18 11:09 Exam Narrative Exam Narrative: General: Patient appears comfortable, AAOX3, NAD Neck: Supple CV: Regular, tachycardic, S1S2, No rubs, murmurs, or gallops. Pulmonary: Diffuse and significant wheezing, but with good air entry and breath sounds Abdomen: + Bowel Sounds, soft, nontender, nondistended Vascular: No lower extremity edema Psych: Normal mood and affect. Results Imaging Chest x-ray: report reviewed Labs Result diagrams: 12/25/18 07:30 12/25/18 07:30 Labs: Laboratory Results - last 24 hr 12/25/18 12/25/18 07:30 07:30 WBC 8.12 RBC 5.40 Hgb 15.0 Hct 45.6 MCV 84.4 MCH 27.8 MCHC 32.9 RDW 14.0 Plt Count 189 MPV 9.0 Immature Gran % 0.1 Neutrophils % 72.1 Lymphocytes % 16.7 Monocytes % 8.7 Eosinophils % 2.3 Basophils % 0.1 Absolute Neutrophils 5.84 Absolute Lymphocytes 1.36 Absolute Monocytes 0.71 H Absolute Eosinophils 0.19 Absolute Basophils 0.01 Sodium 140 Potassium 3.3 L Chloride 102 Carbon Dioxide 30.1 Anion Gap 7.9 BUN 10 Creatinine 0.78 Estimated GFR/1.73 m2 >= 60.00 Glucose 114 H Calcium 8.5 Magnesium 3.2 H Last Vital Signs Temp 36.5 C 12/25/18 07:07 Pulse 110 H 12/25/18 12:46 Resp 28 H 12/25/18 12:50 BP 122/55 L 12/25/18 12:46 Pulse Ox 96 12/25/18 11:46
[2018-12-25] MEDS: Enoxaparin 40 MG/0.4 ML SYR SC (14:30)
[2018-12-25] MEDS: methylPREDNISolone SUCC 125 MG VIAL 60 MG IVP ×2 (14:30→20:30)
[2018-12-25] MEDS: Potassium Chloride 20 MEQ TABCR 40 MEQ PO (15:15)
[2018-12-25] MEDS: Albuterol/Ipratropium 3 ML UPD VIAL UPD ×2 (16:28→21:19)
[2018-12-25] MEDS: Albuterol 2.5 MG/3 ML INH SOLN VIAL UPD (18:34)
[2018-12-25] MEDS: Acetaminophen 325 MG TAB PO (18:52)
[2018-12-25] MEDS: busPIRone 5 MG TAB 10 MG PO (20:30)
[2018-12-25] MEDS: Normal Saline Flush 10 ML SYR IVP (20:30)
[2018-12-25] MEDS: Ibuprofen 800 MG TAB PO (21:02)
[2018-12-25] MEDS: Budesonide 0.5 MG/2 ML UPD VIAL UPD (21:20)
[2018-12-26] VITALS (26 sets, daily range): BP systolic 133–139; BP diastolic 70–84; PULSE 65–100; RESP 4–29; TEMP 36.4–37.2; O2SAT 93–100
[2018-12-26] MEDS: Ibuprofen 800 MG TAB PO (01:52)
[2018-12-26] MEDS: Normal Saline Flush 10 ML SYR IVP ×2 (04:21→12:45)
[2018-12-26] MEDS: methylPREDNISolone SUCC 125 MG VIAL 60 MG IVP ×2 (04:21→12:45)
[2018-12-26] MEDS: Albuterol/Ipratropium 3 ML UPD VIAL UPD ×3 (08:27→15:24)
[2018-12-26] MEDS: Budesonide 0.5 MG/2 ML UPD VIAL UPD (08:41)
[2018-12-26] MEDS: Sertraline 50 MG TAB 200 MG PO (09:28)
[2018-12-26] MEDS: Pantoprazole 40 MG TABCR PO (09:28)
[2018-12-26] MEDS: Montelukast 10 MG TAB PO (09:29)
[2018-12-26] MEDS: Cetirizine 10 MG TAB PO (09:29)
[2018-12-26] MEDS: busPIRone 5 MG TAB 10 MG PO (09:29)
--- NOTE | 2018-12-26 09:49 | INITIAL_ITS ---
- If Service Date Differs Date of service: 12/26/18 Time of Service: 09:50 Care Management Initial Assess REASON FOR HOSPITALIZATION:: Acute asthma exacerbation. PAST MEDICAL HISTORY/PAST SURGICAL HISTORY:: Medical History: Anxiety disorder, asthma, depression, and eczema. No significant past surgical history. PREVIOUS FUNCTIONAL STATUS/SOCIAL/FAMILY SUPPORTS:: Alden lives independently in an apartment in [facility]. 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 He states he gets rides back and forth to work from co-workers. Alden reports he has a few friends and is close to his mother. In his free time, he enjoys playing video games and writing music. Alden is independent at baseline. CURRENT FUNCTIONAL STATUS:: Alden is sitting up in bed when CM meets with him. He is pleasant and readily engages in conversation. Alden states he is feeling much better and shares that each time he gets a cold, he ends up at the hospital. He expresses a desire to return home today. CM and patient have a discussion about the importance of his remaining at the hospital until he is discharged by the provider. ADVANCE DIRECTIVES:: None on file. Has patient been provided with information about the portal?: Yes Did the patient sign up for the portal?: No CODE STATUS:: Full Code INSURANCE COVERAGE / FINANCIAL ISSUES:: BS CURRENT HOME/COMMUNITY SERVICES/EQUIPMENT:: Alden states he has a nebulizer at home. Anticipate no new services needed at time of discharge. PRIMARY CARE PHYSICIAN:: SYLVIA Shin POTENTIAL DISCHARGE NEEDS:: Follow-up PCP and discharge plan of care. PATIENT/FAMILY EDUCATION NEEDS:: Discharge plan, limitations, and follow-up plan of care, including [facility] Me [employer]. ANTICIPATED BARRIERS TO DISCHARGE:: None. TRANSPORTATION:: Alden states his mom will either transport him home via private vehicle or he will take the [facility] bus. PLAN:: Alden will be discharged home when medically cleared by provider. Anticipate no additional services needed at time of discharge. Patient's mom will transport him home upon discharge via private vehicle. If mom is not available at time of discharge, he will take the [facility] bus home.
--- NOTE | 2018-12-26 14:31 | DSE_ITS ---
Date of service: 12/26/18 Time of Service: 14:31 DS: Diagnosis Discharge Diagnosis (1) Asthma exacerbation: Status: Acute Discharge Plan Disposition Patient Disposition: HOME Condition: Improving Discharge Details Chief Complaint: SOB Clinical Impression: Exacerbation of reactive airway disease Reason For Visit: ACUTE ASTHMA EXACERBATION Admit Date/Time: 12/25/18 11:34 Admit Provider: Kevin Blandon Attending Provider: Kevin Blandon Primary Care Provider: Jerad Palmer ED Provider: Dudley Robb Hospital Course Hospital Course: Chief Complaint: Dyspnea HPI: 23 yr old asthmatic man, admitted from [facility] Emergency Department on 12/25 with a diagnosis of Acute Asthma exacerbation. Mr. Butler has a history of Asthma with frequent exacerbations, prior history of Status Asthmaticus, and poor medical compliance. His other history includes anxiety, depression, and eczema. He also admits to occasional smoking, mostly marijuana but also occsionally pipe tobacco in the past. He presented to the ED with dyspnea, wheezing, cough, subjective chills, and generalized malaise that had developed over the course of the past week. Labwork was fairly unremarkable, including a negative rapid influenza, and CXR showed no acute pathology. The patient was treated with IV Steroids, nebs, IV Mag, and admitted to the ICU for close monitoring. This morning Mr. Butler reports significant improvement in symptoms, but continues to have some wheezing by exam. He is requesting to be discharged or he would leave AMA. Hospital Course: (1) Asthma exacerbation: History of asthma, with this exacerbation likely on the basis of a viral URI. ?CXR negative, and rapid influenza negative. Patient with a normal white blood count, and has remained afebrile. ?Initiated IV Solu-Medrol, frequent standing DuoNebs with Albuterol in between as needed. Was also maintained on nebulized budesonide. -He remained off supplemental oxygen, and at time of discharge has a saturation of 96-98%. -Plan will be for a relatively slow steroid taper, and aggressive home nebulizer use following discharge. Did explain to patient that he would benefit from an additional day of IV Steroids, but refused. (2) Depression: Continued on home regimen of SSRI therapy with twice daily dosing of buspirone. (3) DVT prophylaxis: Was maintained on SC enoxaparin. Home Meds and New Rx's Prescriptions: New prednisone 20 mg tablet 20 mg PO DAILY Qty: 39 RF: 0 Continued sertraline 100 mg Tablet 200 mg PO DAILY RF: 0 albuterol sulfate 2.5 mg /3 mL (0.083 %) solution for nebulization 2.5 mg IH QID PRN (Reason: shortness of breath or wheezing) Qty: 75 RF: 0 albuterol sulfate [ProAir HFA] 90 mcg/actuation HFA aerosol inhaler 2 puff IH Q6H PRN (Reason: shortness of breath) Qty: 18 RF: 0 cetirizine [Zyrtec] 10 mg tablet 10 mg PO DAILY Qty: 30 RF: 0 ipratropium-albuterol 0.5 mg-3 mg(2.5 mg base)/3 mL solution for nebulization 3 ml IH Q4H PRN (Reason: shortness of breath or wheezing) Qty: 15 RF: 0 buspirone 5 mg Tablet 10 mg PO BID RF: 0 fluticasone propion-salmeterol 250-50 mcg/dose Blister With Device INHALATION BID RF: 0 pantoprazole 40 mg Tablet,Delayed Release (Dr/Ec) 40 mg PO DAILY RF: 0 montelukast 10 mg Tablet 10 mg PO DAILY RF: 0 levalbuterol tartrate 45 mcg/actuation Hfa Aerosol Inhaler 2 puff INHALATION PRNRF: 0 ipratropium-albuterol 0.5 mg-3 mg(2.5 mg base)/3 mL Solution For Nebulization 3 ml UPD Q4H Qty: 1 RF: 0 albuterol sulfate 2.5 mg /3 mL (0.083 %) Solution For Nebulization 2.5 mg UPD Q2H PRN PRNQty: 1 RF: 0 Discharge Instructions Activity:: No strenuous activity Equipment/Supplies:: No Equipment Needed Diet:: As Tolerated Discharge Orders Discharge Orders: Discharge Order (Routine); Ordered 12/26/18 Ordered By: Kevin Blandon DS: Summary Status at Discharge Functional status at discharge: independent ambulation Overall status at discharge: patient is back to baseline Mental Status: mental status grossly normal Speech and Movement: speech and movement normal Mood: congruent mood Affect: normal affect Exam Narrative Exam Narrative: General: Patient appears comfortable, AAOX3, NAD Neck: Supple CV: Regular, nontachycardic, S1S2, No rubs, murmurs, or gallops. Pulmonary: Diffuse wheezing that appears improved, with good air entry and breath sounds that appear better than prior Abdomen: + Bowel Sounds, soft, nontender, nondistended Vascular: No lower extremity edema Psych: Normal mood and affect. Psych Mental Status: mental status grossly normal Speech and Movement: speech and movement normal Mood: congruent mood Affect: normal affect DS: Data Vitals/I&O Vitals and I&O: Vital Signs Temperature 36.9 C 12/26/18 09:30 Temperature Source Temporal Artery Scan 12/26/18 09:30 Pulse 83 12/26/18 12:29 Pulse 88 12/26/18 12:29 Respiratory Rate 23 12/26/18 12:29 Respiratory Effort 12/26/18 11:32 Respiratory Depth Normal 12/26/18 11:32 Respiratory Pattern Normal 12/26/18 11:32 Blood Pressure 139/76 12/26/18 12:29 Blood Pressure Mean 89 12/26/18 12:29 Blood Pressure Position Supine 12/26/18 09:30 Pulse Oximetry 96 12/26/18 12:29 Oxygen Delivery Method Room Air 12/26/18 11:31 Oxygen Flow Rate 0 12/26/18 11:31 Pain Level 0 12/26/18 09:30 Intake & Output 12/25/18 12/26/18 12/26/18 23:59 11:59 23:59 Intake Total 260 / 1310 Output Total 350 / 350 400 / 400 Balance -90 / 960 -400 / -390 10 390 Weight 61.6 kg Intake: IV 20 / 1070 Oral 240 / 240 Output: Urine 350 / 350 400 / 400 Other: Urine Color Yellow Light Dyan Urine Appearance Clear Clear Urine Odor None Comment Voids to urinal Voids to urinal Stool Occult Blood Negative Stool Size Moderate Stool Characteristics Soft Formed Voiding Methods Urinal Urinal Data Completed and Pending Completed studies during hospitalization [Text1]: Exam(s) 12/25/2018 a RAD:XR portable chest AP EXAM: XR PORTABLE CHEST AP INDICATION: cough/wheezing. COMPARISON: XR PORTABLE CHEST AP from 10/17/2018 TECHNIQUE: 2D digital imaging was performed. FINDINGS: The heart size is normal. The lungs are well inflated and clear. No infiltrate or effusion is seen. IMPRESSION: No acute process is identified. Labs on day of discharge: Labs from last 24 hours 12/26/18 05:35 Sodium Cancelled Potassium Cancelled Chloride Cancelled Carbon Dioxide Cancelled Anion Gap Cancelled BUN Cancelled Creatinine Cancelled Estimated GFR/1.73 m2 Cancelled Glucose Cancelled Calcium Cancelled [facility] Medical History Anxiety disorder (Acute) Asthma (Chronic) Depression (Chronic) Eczema (Acute) Surgical History No significant past surgical history (Acute) Family History Other Adopted Social History Smoking/Tobacco Use Status: Current-Occasional Tobacco Type: pipe Counseling given: provider counseling Alcohol Intake: current Alcohol Intake frequency: a few times a week Alcohol type: beer Drug use: Occasionally Substance use type: marijuana Counseling given: Yes Housing: other Details: college dorm Current gender identity: male Do you feel safe at home: Yes Do you feel safe in your relationship?: Yes
== END 2018-12-26 16:00 | disposition home or self-care (01) | DRG 203 ==
LOC: ER 11:58 → ICU 13:44
PROVIDERS: Emergency Medicine; Admitting Provider Internal Medicine; Emergency Provider Emergency Medicine; PCP Nurse Practitioner Family; Visit Provider Internal Medicine
DX: J45.901 Unspecified asthma with (acute) exacerbation (principal); F41.8 Other specified anxiety disorders; Z72.0 Tobacco use; F12.90 Cannabis use, unspecified, uncomplicated; Z91.19 Patient's noncompliance with other medical treatment and regimen
CPT/HCPCS: 36415; 80048; 87449; 94640; 96361; 96365; 96366; 99222; 99238; 99285; J1650; 71045; 83735; 85025; 99284; J2930; J7613; J7620; J7626

== ENCOUNTER 2019-01-14 17:10 | Emergency (ER) | payer BC, SELFPAY ==
[2019-01-14 17:21] VITALS: BP 122/41; PULSE 84; RESP 20; TEMP 36.6; O2SAT 98
--- NOTE | 2019-01-14 17:27 | ED.GENADUL_ITS ---
Discharge Plan Disposition Patient Disposition: HOME Condition: Fair Discharge Details Chief Complaint: SOB Clinical Impression: Asthma exacerbation Primary Care Provider: Jerad Palmer ED Provider: Sarah Tijerina Home Meds and New Rx's Prescriptions: New prednisone 10 mg tablet 10 mg PO DAILY Qty: 33 RF: 0 Continued sertraline 100 mg Tablet 200 mg PO DAILY RF: 0 albuterol sulfate 2.5 mg /3 mL (0.083 %) solution for nebulization 2.5 mg IH QID PRN (Reason: shortness of breath or wheezing) Qty: 75 RF: 0 albuterol sulfate [ProAir HFA] 90 mcg/actuation HFA aerosol inhaler 2 puff IH Q6H PRN (Reason: shortness of breath) Qty: 18 RF: 0 cetirizine [Zyrtec] 10 mg tablet 10 mg PO DAILY Qty: 30 RF: 0 ipratropium-albuterol 0.5 mg-3 mg(2.5 mg base)/3 mL solution for nebulization 3 ml IH Q4H PRN (Reason: shortness of breath or wheezing) Qty: 15 RF: 0 buspirone 5 mg Tablet 10 mg PO BID RF: 0 fluticasone propion-salmeterol 250-50 mcg/dose Blister With Device INHALATION BID RF: 0 pantoprazole 40 mg Tablet,Delayed Release (Dr/Ec) 40 mg PO DAILY RF: 0 montelukast 10 mg Tablet 10 mg PO DAILY RF: 0 levalbuterol tartrate 45 mcg/actuation Hfa Aerosol Inhaler 2 puff INHALATION PRNRF: 0 ipratropium-albuterol 0.5 mg-3 mg(2.5 mg base)/3 mL Solution For Nebulization 3 ml UPD Q4H Qty: 1 RF: 0 albuterol sulfate 2.5 mg /3 mL (0.083 %) Solution For Nebulization 2.5 mg UPD Q2H PRN PRNQty: 1 RF: 0 prednisone 20 mg tablet 20 mg PO DAILY Qty: 39 RF: 0 Discharge Instructions Instructions: Prednisone (By mouth), Asthma (ED) Additional Instructions: Encourage hydration. Please continue with nebulizer as previously prescribed. Please take the steroid as prescribed. Follow-up with primary care at the end of the week for reevaluation. If you develop increased shortness of breath, difficulty breathing or other new/worsening symptoms please seek care urgently once again. Referrals: Jerad Palmer NP [Primary Care Provider] - Medical Decision Making Patient is a 23-year-old male with history of asthma. He has been admitted multiple times in the past for his asthma. He was admitted last on 12/25/2018. Patient does have a history of status asthmaticus. He presents today with chief complaint of wheezing. He reports is been using his home nebulizer without success. States symptoms are worse with exertion. He denies any fevers or chills. Has a nonproductive cough since increased symptoms over the past few days. No other URI symptoms. Patient states that he was on steroids recently but completed his taper last week. Was seen by his primary care he was angelica solis at that time. On exam, he is resting comfortably. He is playing on his cell phone and speaking with his mother in full sentences. However, on exam he has diffuse wheezing and is diminished in the bilateral lower lung grossman. Patient will begin with a nebulizer treatment and will begin on oral prednisone. Patient has received 3 duonebulizers, continues to feel and sound tight. Will gi ve continuous albuterol neb, 60mg PO prednisone and obtain cxr. FINDINGS: Lungs: No congestion or focal area of consolidation. 6 mm nodular density superimposing right upper lobe at the intersection of the anterior right first rib and clavicle is not confirmed on the lateral view and likely represents superimposition of structures. It is not seen on multiple prior images likely due to slight differences of positioning. Pleural space: Unremarkable. No pleural effusion. No pneumothorax. Heart/Mediastinum: Unremarkable. No cardiomegaly. Bones/joints: Unremarkable. IMPRESSION: 1. No acute intrathoracic process seen. 2. Incidental note of 6 mm nodular density right upper lobe which is felt to be due to superimposition of normal structures. If clinically indicated slight oblique views could be obtained to exclude a pulmonary nodule. Patient is unable to tolerate the entirety of his 1 hour of nebulizer. He continues to be wheezy although slightly improved. Will begin IV give magnesium. When nursing staff went to go begin the IV, patient refused. He would rather continue with the continuous nebulizer as he does feel slightly improved and reassess after that time. Patient is feeling improved after the continuous nebulizer and prednisone. We discussed disposition options and patient prefers to be discharged home at this time. Feels like, although he is still remains slightly tight, symptoms are improved to the point that he is able to manage this at home. Feel that this is appropriate particularly given his history and that he is able and willing to seek care urgently if his symptoms recur. He will be placed on a prednisone taper, I have asked that he follow-up with primary care at the end of the week. He is given strict return precautions. All of his questions and concerns were addressed and he is in agreement with this plan. HPI General Mode of arrival: ambulatory . Date/Time Provider Initiated Documentation: 01/14/19 17:27 . Limitations to Documentation: no limitations . Information obtained by: patient and family . HPI Narrative: Patient is a 23 year old male with hx of asthma presenting today with c/c asthma exacerbation. Has been SOB x 3 days. States that this has been increasing. States that he was on steroids for similar exacerbation recently. Finished steroids last week for this, was on a taper. Has been using nebulizer at home with no improvement in symptoms. States he was ill with URI recently, no symptoms currently. Denies fevers/chills. Related Data Home Medications Medication Instructions Recorded Confirmed sertraline 200 mg PO DAILY 04/18/18 12/25/18 albuterol sulfate 2.5 mg IH QID PRN #75 ml 05/20/18 12/25/18 albuterol sulfate [ProAir HFA] 2 puff IH Q6H PRN #18 gm 05/27/18 12/25/18 cetirizine [Zyrtec] 10 mg PO DAILY #30 tab 07/16/18 12/25/18 ipratropium-albuterol 3 ml IH Q4H PRN #15 ml 07/16/18 12/25/18 buspirone 10 mg PO BID 09/22/18 12/25/18 fluticasone propion-salmeterol INHALATION BID 09/22/18 levalbuterol tartrate 2 puff INHALATION PRN 09/22/18 montelukast 10 mg PO DAILY 09/22/18 12/25/18 pantoprazole 40 mg PO DAILY 09/22/18 12/25/18 albuterol sulfate 2.5 mg UPD Q2H PRN PRN #1 ml 10/18/18 12/25/18 ipratropium-albuterol 3 ml UPD Q4H #1 ml 10/18/18 12/25/18 prednisone 20 mg PO DAILY #39 tab 12/26/18 prednisone 10 mg PO DAILY #33 tab 01/14/19 Previous Rx's Medication Instructions Recorded albuterol sulfate 2.5 mg IH QID PRN #75 ml 05/20/18 albuterol sulfate [ProAir HFA] 2 puff IH Q6H PRN #18 gm 05/27/18 cetirizine [Zyrtec] 10 mg PO DAILY #30 tab 07/16/18 ipratropium-albuterol 3 ml IH Q4H PRN #15 ml 07/16/18 albuterol sulfate 2.5 mg UPD Q2H PRN PRN #1 ml 10/18/18 ipratropium-albuterol 3 ml UPD Q4H #1 ml 10/18/18 prednisone 20 mg PO DAILY #39 tab 12/26/18 prednisone 10 mg PO DAILY #33 tab 01/14/19 Allergies Allergy/AdvReac Type Severity Reaction Status Date / Time cat dander Allergy Wheezing Unverified 01/14/19 17:24 migraine medication AdvReac Uncoded 01/14/19 17:24 General Stated Complaint: SOB MINGO: 3 Review of Systems Constitutional Constitutional: Reports as per HPI, Denies chills, Denies fever(s), Denies headache(s) and Denies poor appetite Eyes Eyes: Reports as per HPI, Denies eye discharge and Denies irritation ENT Ears, Nose, Mouth, and Throat: Reports as per HPI and Denies headache(s) Cardiovascular Cardiovascular: Reports as per HPI, Denies chest pain, Reports dyspnea and Reports dyspnea on exertion Respiratory Respiratory: Reports as per HPI, Denies chest congestion, Reports cough (dry, nonproductive cough), Denies hemoptysis, Denies pain on inspiration, Denies pain with cough, Reports dyspnea, Reports dyspnea on exertion, Denies stridor and Reports wheezing Gastrointestinal Gastrointestinal: Reports as per HPI, Denies abdominal pain, Denies change in bowel habits, Denies nausea and Denies vomiting Integumentary/Breasts Skin/Breast: Reports as per HPI and Denies rash Neurologic Neurologic: Reports as per HPI and Denies headache(s) Allergic/Immunologic Allergic/Immunologic: Reports wheezing PFSH Medical History Anxiety disorder (Acute) Asthma (Chronic) Depression (Chronic) Eczema (Acute) Surgical History No significant past surgical history (Acute) Social History Smoking/Tobacco Use Status: Current every day Tobacco Type: cigarettes and pipe Counseling given: provider counseling Alcohol Intake: current Alcohol Intake frequency: a few times a week Alcohol type: beer Drug use: Occasionally Substance use type: marijuana Counseling given: Yes Housing: other Details: college dorm Current gender identity: male Do you feel safe at home: Yes Do you feel safe in your relationship?: Yes Exam Const General: cooperative, healthy appearing, comfortable, no acute distress, well developed and well groomed Nutritional Appearance: average body habitus and well nourished Orientation: alert and awake HENMT Head: normal to inspection, normocephalic and atraumatic Ears: hearing grossly normal bilaterally General nose exam: external nose normal and nares normal Face and sinus: normal facial exam and face symmetric Mouth: oral mucosae normal, lip normal, tongue normal, oropharynx normal and moist mucous membranes Teeth and gingiva: dentition normal Throat: posterior oropharynx normal, tonsils normal and uvula midline Eyes General: appearance normal, both eyes and all related structures Neck Neck: normal visual inspection, full ROM, no lymphadenopathy and no meningeal signs Resp Effort & Inspection: normal respiratory effort, able to speak in complete sentences, respiratory effort not decreased, no grunting, not labored, no respiratory distress, no retractions, not tachypneic, no tripod positioning and no use of accessory muscles Auscultation: diminished lung sounds bilaterally in the lower lung grossman, no rales, no rhonchi and wheezes expiratory wheezes (diffuse) Cardio Rate: regular rate Rhythm: regular rhythm Heart Sounds: S1 normal and S2 normal Skin General skin exam: no rashes or lesions noted Neuro General: alert and awake Cognition: normal cognition Speech: speech normal Gait: normal gait Psych Appearance: grossly normal and well kempt Mental Status: mental status grossly normal Speech and Movement: speech and movement normal Course Vital Signs Vital signs: Vital Signs Temperature 36.6 C 01/14/19 17:21 Pulse 84 01/14/19 17:21 Respiratory Rate 20 01/14/19 17:21 Blood Pressure 122/41 L 01/14/19 17:21 Pulse Oximetry 98 01/14/19 17:21 Temperature 36.6 C 01/14/19 17:21 Temperature Source Temporal Artery Scan 01/14/19 17:21 Pulse 84 01/14/19 17:21 Respiratory Rate 20 01/14/19 17:21 Respiratory Effort 01/14/19 17:21 Respiratory Depth Normal 01/14/19 17:21 Respiratory Pattern Normal 01/14/19 17:21 Blood Pressure 122/41 L 01/14/19 17:21 Pulse Oximetry 98 01/14/19 17:21 Oxygen Delivery Method Room Air 01/14/19 17:21 Oxygen Flow Rate 0 01/14/19 17:21 Pain Level 0 01/14/19 17:21
[2019-01-14 17:29] VITALS: RESP 8
[2019-01-14] MEDS: Albuterol/Ipratropium 3 ML UPD VIAL ×2 (17:29→18:30)
--- NOTE | 2019-01-14 18:27 | NUR.NOTE ---
Nursing Note: pt eating in his room. reports that his breathing feels about the same. improved air movement in lungs CTM.
[2019-01-14] MEDS: predniSONE 20 MG TAB 60 MG PO (18:29)
[2019-01-14 18:30] VITALS: RESP 4
--- NOTE | 2019-01-14 19:35 | DI.RAD_ITS ---
EXAM: XR CHEST 2V PA LATERAL XR CHEST 2V PA LATERAL CLINICAL HISTORY: asthma asthma TECHNIQUE: 2D digital imaging was performed. COMPARISON: XR PORTABLE CHEST AP from 12/25/2018 FINDINGS: The heart is not enlarged. The lungs are clear and well expanded. No pleural effusion seen. Mediastin al contours appear intact. IMPRESSION: Normal chest
--- NOTE | 2019-01-14 19:36 | DI.VRAD_ITS ---
PROCEDURE INFORMATION: Exam: XR Chest, 2 Views Exam date and time: 01/14/2019 7:23 PM Clinical history: 23 years old, male; Chest wall pain; Patient HX: Asthma, cough, PT. States lungs hurt in back TECHNIQUE: Imaging protocol: XR of the chest Views: 2 views. COMPARISON: XR PORTABLE CHEST AP 12/25/2018 7:34 AM FINDINGS: Lungs: No congestion or focal area of consolidation. 6 mm nodular density superimposing right upper lobe at the intersection of the anterior right first rib and clavicle is not confirmed on the lateral view and likely represents superimposition of structures. It is not seen on multiple prior images likely due to slight differences of positioning. Pleural space: Unremarkable. No pleural effusion. No pneumothorax. Heart/Mediastinum: Unremarkable. No cardiomegaly. Bones/joints: Unremarkable. IMPRESSION: 1. No acute intrathoracic process seen. 2. Incidental note of 6 mm nodular density right upper lobe which is felt to be due to superimposition of normal structures. If clinically indicated slight oblique views could be obtained to exclude a pulmonary nodule. Dictated and Authenticated by: Asim Shaffer MD. Ordering:PATRICIA Smith MD
--- NOTE | 2019-01-14 20:40 | NUR.NOTE ---
Nursing Note: pt refused mag at this time. neb current still in progress. pt wants to wait till neb is done to see how he feels. ctm. pt reports his breathing feels a little better.
[2019-01-14 21:11] VITALS: RESP 20
--- NOTE | 2019-01-14 21:42 | NUR.NOTE ---
Nursing Note: Continuous neb finished at this time. Pt requesting to go home. Provider aware.
[2019-01-14 21:43] VITALS: BP 134/68; PULSE 102; RESP 19; TEMP 36.6; O2SAT 98
[2019-01-14 22:18] VITALS: BP 134/68; PULSE 102; RESP 19; TEMP 36.6; O2SAT 98
== END 2019-01-14 20:25 | disposition home or self-care (01) ==
PROVIDERS: Emergency Provider Physician Assistant; PCP Nurse Practitioner Family
DX: J45.901 Unspecified asthma with (acute) exacerbation (principal); R91.8 Other nonspecific abnormal finding of lung field
CPT/HCPCS: 94640; 99284; 71046; J7512; J7620

== ENCOUNTER 2019-02-01 19:37 | Observation (INO) | payer BC, SELFPAY ==
[2019-02-01 19:56] VITALS: BP 122/74; PULSE 90; RESP 16; TEMP 36.3; O2SAT 97
--- NOTE | 2019-02-01 19:56 | ED.GENADUL_ITS ---
Discharge Plan Disposition Patient Disposition: [facility] Condition: Good Discharge Details Chief Complaint: PsychEval Clinical Impression: Depression Primary Care Provider: Jerad Palmer ED Provider: Aniket Bonilla Home Meds and New Rx's Prescriptions: No Action prednisone 10 mg tablet 10 mg PO DAILY Qty: 33 RF: 0 sertraline 100 mg Tablet 200 mg PO DAILY RF: 0 albuterol sulfate 2.5 mg /3 mL (0.083 %) solution for nebulization 2.5 mg IH QID PRN (Reason: shortness of breath or wheezing) Qty: 75 RF: 0 albuterol sulfate [ProAir HFA] 90 mcg/actuation HFA aerosol inhaler 2 puff IH Q6H PRN (Reason: shortness of breath) Qty: 18 RF: 0 cetirizine [Zyrtec] 10 mg tablet 10 mg PO DAILY Qty: 30 RF: 0 ipratropium-albuterol 0.5 mg-3 mg(2.5 mg base)/3 mL solution for nebulization 3 ml IH Q4H PRN (Reason: shortness of breath or wheezing) Qty: 15 RF: 0 buspirone 5 mg Tablet 10 mg PO BID RF: 0 fluticasone propion-salmeterol 250-50 mcg/dose Blister With Device INHALATION BID RF: 0 pantoprazole 40 mg Tablet,Delayed Release (Dr/Ec) 40 mg PO DAILY RF: 0 montelukast 10 mg Tablet 10 mg PO DAILY RF: 0 levalbuterol tartrate 45 mcg/actuation Hfa Aerosol Inhaler 2 puff INHALATION PRNRF: 0 ipratropium-albuterol 0.5 mg-3 mg(2.5 mg base)/3 mL Solution For Nebulization 3 ml UPD Q4H Qty: 1 RF: 0 albuterol sulfate 2.5 mg /3 mL (0.083 %) Solution For Nebulization 2.5 mg UPD Q2H PRN PRNQty: 1 RF: 0 prednisone 20 mg tablet 20 mg PO DAILY Qty: 39 RF: 0 Medical Decision Making This is a 23-year-old -[place] male with a past medical history of asthma and depression who presents today for evaluation of mental health screening and depression. Patient states that he is scheduled to be evicted from his apartment in 48 hours, and although he does not want to hurt himself or end his life at all now, he states that he might feel differently on Sunday. He did contact mental health who recommended that he come in. Currently he denies any homicidal or suicidal ideations, he denies any auditory visual hallucinations. He denies any IV or illicit drug use. Vital signs are stable, he appears both medically cleared and clinically stable at this time. We will have mental health come and evaluate him. Currently he is here voluntarily, and with no homicidal or suicidal ideations at this time I do not feel that one-to-one patient observer is indicated. Additionally he clinically appears medically cleared at this time. 9:21 PM On reassessment the patient is now saying that he is not sure if you would be safe if he goes home, right now he feels still feels stable however he states that he could potentially hurt himself and the likelihood is definitely higher and he is unsure if he has the coping mechanisms needed. He states that he would do this by either cutting his throat or by using a news. This seems to be a change. We will continue to evaluate. Will get screening labs. 10:37 PM Patient has been medically cleared, mental health continues to feel that he would be inappropriate to be discharged at this time with his and his statements. We will keep him here at the hospital admit involuntarily. He has been wanded down by security staff. I discussed the case with hospitalist, he agrees with the plan. We have continue to have close observation with CPS O. Safety plan has been enacted. I have extensively reviewed the treatment plan with the patient. I have addressed all patient concerns at this time. I have also discussed the plan with the admitting physician and they agree with the current assessment and plan and have agreed to assume responsibility for the patient. All parties demonstrate verbal understanding and agreement with our assessment and plan at this time. I will place I will place bridging orders for admission. HPI General Date/Time Provider Initiated Documentation: 02/01/19 19:56 . HPI Narrative: This is a 23-year-old -[place] male with past medical history of reactive airway disease and depression who presents today for evaluation of depression. The patient states that he is scheduled to be evicted from his apartment in 48 hours, and he states that because of this he feels depressed. Currently he denies any homicidal or suicidal ideations, but he states that on Sunday when he is affected he may feel like he would want to take his life then. However currently he has no plan or intent to harm himself. He denies any IV or illicit drug use. He denies any other complaints at this time. He denies any homicidal suicidal ideations. No other modifying factors. Related Data Home Medications Medication Instructions Recorded Confirmed sertraline 200 mg PO DAILY 04/18/18 12/25/18 albuterol sulfate 2.5 mg IH QID PRN #75 ml 05/20/18 12/25/18 albuterol sulfate [ProAir HFA] 2 puff IH Q6H PRN #18 gm 05/27/18 12/25/18 cetirizine [Zyrtec] 10 mg PO DAILY #30 tab 07/16/18 12/25/18 ipratropium-albuterol 3 ml IH Q4H PRN #15 ml 07/16/18 12/25/18 buspirone 10 mg PO BID 09/22/18 12/25/18 fluticasone propion-salmeterol INHALATION BID 09/22/18 levalbuterol tartrate 2 puff INHALATION PRN 09/22/18 montelukast 10 mg PO DAILY 09/22/18 12/25/18 pantoprazole 40 mg PO DAILY 09/22/18 12/25/18 albuterol sulfate 2.5 mg UPD Q2H PRN PRN #1 ml 10/18/18 12/25/18 ipratropium-albuterol 3 ml UPD Q4H #1 ml 10/18/18 12/25/18 prednisone 20 mg PO DAILY #39 tab 12/26/18 prednisone 10 mg PO DAILY #33 tab 01/14/19 Previous Rx's Medication Instructions Recorded albuterol sulfate 2.5 mg IH QID PRN #75 ml 05/20/18 albuterol sulfate [ProAir HFA] 2 puff IH Q6H PRN #18 gm 05/27/18 cetirizine [Zyrtec] 10 mg PO DAILY #30 tab 07/16/18 ipratropium-albuterol 3 ml IH Q4H PRN #15 ml 07/16/18 albuterol sulfate 2.5 mg UPD Q2H PRN PRN #1 ml 10/18/18 ipratropium-albuterol 3 ml UPD Q4H #1 ml 10/18/18 prednisone 20 mg PO DAILY #39 tab 12/26/18 prednisone 10 mg PO DAILY #33 tab 01/14/19 Allergies Allergy/AdvReac Type Severity Reaction Status Date / Time cat dander Allergy Wheezing Unverified 01/14/19 17:24 migraine medication AdvReac Uncoded 01/14/19 17:24 General MINGO: 3 Review of Systems All systems reviewed & are unremarkable except as noted in HPI and below PFSH Social History Smoking/Tobacco Use Status: Current every day Tobacco Type: cigarettes and pipe Counseling given: provider counseling Alcohol Intake: current Alcohol Intake frequency: a few times a week Alcohol type: beer Drug use: Occasionally Substance use type: marijuana Counseling given: Yes Housing: other Details: college dorm Current gender identity: male Do you feel safe at home: Yes Do you feel safe in your relationship?: Yes Exam Narrative Exam Narrative: 1.Const: Well-nourished, Well-developed, appearing stated age 2.Eyes: PERRL, no conjunctival injection, and symmetrical lids. 3.ENT: Atraumatic external nose and ears. Moist MM. Neck: Symmetric, trachea midline, No thyromegaly. 4.CVS: +S1/S2, No murmurs or gallops. Peripheral pulses 2+ and equal in all extremities. Brisk capillary refill in all extremities. 5.RESP: Unlabored respiratory effort. Clear to auscultation bilaterally. No wheezes rales or rhonchi 6.GI: Soft, Nontender/Nondistended, No hepatosplenomegaly. No guarding or rebound. 7.MSK: Normocephalic/Atraumatic, Extremities w/o deformity or ttp No cyanosis or clubbing, Normal movement of all extremities 8.Skin: Warm, Dry. No rashes or lesions. 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 Sensation grossly intact, no focal neurologic deficits. 10.Psych: (AAO) x3. Appropriate mood and affect
--- NOTE | 2019-02-01 19:58 | NUR.NOTE ---
Nursing Note: At this time, pt is here voluntarily. Pt asked to remove clothing and place blue scrubs on which is routine. Pt stated that he is not currently suicidal or homicidal. Provider notifed of this information. Crisis counselor in room with patient at this time. Will continue to monitor pts status.
[2019-02-01 21:17] VITALS: BP 111/63; PULSE 110; RESP 16; TEMP 36.8; O2SAT 98
[2019-02-01 21:37] LABS: Abs Immature Grans 0.03 k/cumm (0.0-0.09); Absolute Basophil Count 0.03 k/cumm (0.0-0.2); Absolute Eosinophil Count 0.38 k/cumm (0.0-0.7); Absolute Lymphocyte Count 1.55 k/cumm (1.2-3.4); Absolute Monocyte Count 0.71 k/cumm (0.11-0.7); Absolute Neutrophil Count 7.27 k/cumm (1.2-6.7); Basophils % 0.3; Eosinophils % 3.8; HCT 47.5 % (40.0-50.0); HGB 15.8 g/dL (13.5-17.5); Immature Grans % 0.3; Lymphocytes % 15.5; Mean Corp. HGB Concentration 33.3 g/dL (32.0-36.0); Mean Corpuscular Hemoglobin 27.7 pg (27.0-33.0); Mean Corpuscular Volume 83.2 fL (80-95); Mean Platelet Volume 9.3 fL (8.0-11.0); Monocytes % 7.1; Platelet Count 233 x1000/uL (130-400); RBC 5.71 m/cumm (4.50-6.00); RBC Distribution Width 13.6 % (11.8-14.1); White Blood Cell Count 9.97 k/cumm (4.4-10.8)
[2019-02-01 21:54] LABS: ALT 16 U/L (16-63); AST 12 U/L (15-37); Albumin 4.3 g/dL (3.4-5.0); Alkaline Phosphatase 64 U/L (46-116); Anion Gap 10.3 mmol/L (3-11); BUN 18 mg/dL (7-18); Bilirubin, Total 0.7 mg/dL (0.2-1.0); CO2 27.7 mmol/L (21.0-32.0); CREATININE 0.83 mg/dL (0.70-1.30); Chloride 106 mmol/L (98-107); ETHANOL BLOOD < 3.0 mg/dL (<3); Glucose 87 mg/dL (74-106); Potassium 3.7 mmol/L (3.5-5.1); Sodium 144 mmol/L (136-145); TSH (W/Ref FT4) 0.65 uIU/mL (0.36-3.74); Total Protein 7.5 g/dL (6.4-8.2)
--- NOTE | 2019-02-01 21:56 | PDOC.MHCN_ITS ---
Date of service: 02/01/19 Time of Service: 19:45 Mental Health Crisis Note Presenting Issue How did you arrive at the ED and why did you come: Patient was on the phone with his mother, he reported to her that he lost his job and received an eviction notice; patient's mom was concerned about his well being and asked for a safety check. Client was escorted, willingly, by the [facility], to [facility], as a result of his mental health screening at the , by 2 mental health professional, one being a [facility]. Patient shared with both mental health professionals that he was suicidal, and that he had a plan. Precipitating Factors It was reported to this property underwriter by the mental health professions that screened patient, at the [facility], that he stated I want to . Client shared that he had two way that he could carry out his plan; to cut his wrists or to hang himself. Patient has a history of cutting. Patient could not agree to a 24 hour safety plan. Client explained that he felt he was still processing his thoughts when this property underwriter saw him in the ED. Disposition BEHAVIOR: Client was cooperative and willing to talk about how he felt in the moment and previously. Client shared that he is impulsive and has limited ability to look ahead. EYE CONTACT: Client maintained appropriate eye contact and would look away, when he appeared to be anxious, and he was fidgeting. MOOD: Client shared that he is depressed and concerned about what is going to take place in the next week with his eviction and his unemployment status. AFFECT: Client appears to have a flat affect. APPETITE: Client reported to be hungry and was provided food. SLEEP(trouble falling/staying asleep: Client reports to not be tired at this time. Plan Patient is on a voluntary status; if patient changes he is to be held at [facility], and will be reevaluated to a possible involuntary status per the [facility]. Provisional Diagnosis Adjustment Disorder: with anxiety and depressed mood Signature Clinician's Name/Title: Tayler Urias-[facility] -Emergency Mental Health Professional
[2019-02-01 22:00] LABS: *AMPHETAMINES SCREEN URINE Negative (Negative); *BARBITURATES SCREEN URINE Negative (Negative); *BENZODIAZEPINES SCREEN URINE Negative (Negative); Cannabinoids THC POSITIVE (Negative); Cocaine Screen,Urine Negative (Negative); METHADONE URINE SCREEN Negative (Negative); OPIATES URINE SCREEN Negative (Negative)
--- NOTE | 2019-02-01 22:00 | CMSP_ITS ---
- If Service Date Differs Date of service: 02/01/19 Time of Service: 22:00 Care Management Safety Plan VOLUNTARY FOR INPATIENT PSYCHIATRIC STABILIZATION. Patient is appropriate in all interactions since arriving at [facility]; Pt has demonstrated appropriate coping and communication skills, has articulated his or her needs and concerns and is fully engaged during staff interactions. Safety plan has been established with patient, and care team, to adhere to patient goals, identify restrictions based on behavioral status, address nutrition, and determine allowed personal belongings, tools for hygiene and personal care. Determine level of activity including ambulation, level of supervision, visitors, and determine privileges based on behaviors and level of engagement by pt. CM met with Alden at the bedside in the ED. He is alert and engaged in conversa tion. He reports that he has had a history of depression and is not currently taking his medication. His depression was worsened today with thoughts of suicide due to the news that he would be evicted from his apartment, and recently losing his job. His mother has offered for him to stay with her in [place], but he does not want to leave the [facility] at this time as he identifies many supportive friends as well as community resources that have helped him in the past. He reports that he would like to be connected with a counselor and work on setting and achieving personal goals. Delmi from [facility] has sent referrals to Olayinka and Jur[facility], who are both currently considering [facility] for inpatient psychiatric stabilization. Huddle occurred in the ED with Dr. Bonilla; SUSHIL Burnett supervisory lifeguard; Delmi [facility]; ELVER Freedman. SAFETY PLAN: 1. Will remain on suicide precautions. Pt can be in own clothes for comfort at the discretion of staff. 2. Will remain in room under direct supervision of one-on-one staff at all times provided by [employer]; GALEN STERLING horse show manager. 3. May have paper cups, plates, finger foods as well as cardboard utensils with which to eat meals. [facility] staff will be responsible for accounting of utensils after meals. 4. Follow [facility] Management of the Admitted Behavioral Health Patient policy. 5. Comfort bath system only. 6. No personal belongings with the exception of his cell phone at the discretion of staff. No net front end developer in the room. 7. Visitors- Mom can visit at this time. 8. Activities: Coloring, books, music and other items off activity cart, no s harps. He may have the television if he transitions to a transition bed on the medical surgical unit. 9. Bathroom privileges 10. Phone: Cell phone permitted at the discretion of staff. Charging must be done outside of room, supervised. No net front end developer in room with pt. 11. Due to VOLUNTARY status, if patient wishes to leave [facility], the [facility] lawn care worker must be contacted to re-evaluate patient prior to patient exiting the building. Patient is currently voluntarily at [facility] and seeking inpatient admission when a bed becomes available. [facility] Frontline Pillowcase Turner will continue seeking placement. Please contact the [facility]ward[facility] Receptionist ([phone]) and [facility] Pillowcase Turner ([phone]) for any needed changes in the Safety Plan. Safety plan has been provided to interdepartmental care team.
[2019-02-01 22:03] LABS: Salicylate < 2.8 mg/dL (2.8-20.0)
[2019-02-01 22:06] LABS: Tricyclic Antidepressants Negative (Negative)
[2019-02-01 22:07] LABS: Acetaminophen < 2 ug/mL (10-30)
--- NOTE | 2019-02-01 22:59 | HPE_ITS ---
Date of service: 02/01/19 Time of Service: 22:59 Assessment and Plan Assessment and plan (1) Depression: Status: Chronic Assessment and plan: continue his Zoloft, consider addition of Wellbutrin. Will wait on adding Wellbutrin until we see if he gets transferred to in-patient psychiatric facility. Qualifiers: Active/Remission status: currently active Depression Type: major depressive disorder Major depression episode severity: severe Major depression recurrence: recurrent Psychotic features: without psychotic features Qualified Code(s): F33.2 - Major depressive disorder, recurrent severe without psychotic features (2) Suicidal ideation: Status: Acute Assessment and plan: patient is admitted under voluntary status however, if he decides to leave the hospital then [facility] mental health worker will be called to evaluate the patient as he may need EE status d/t his statement regarding suicidal thoughts. See his care plan, he will continue to require clinical safety patient observer. History of Present Illness Narrative: 23-year-old -Dominican male with a past medical history of asth ma and depression who presents to the ER w/ complaints of suicidal ideation. He is currently facing eviction from his apartment on Sunday (2days from now) and is feeling more depressed. He has no auditory or visual hallucinations and initially he was referred to the ER by his mental health worker after he contacted mental health. He initially told Dr. Bonilla in the ER that he had no desires to hurt himself or end his life but might feel differently on Sunday when he is evicted. Upon re-evaluation by Dr. Bonilla the patient then stated that he did not feel safe he were to return home tonight and that he did not have the coping mechanisms to ensure his safety and had thoughts the he might hurt himself by either hanging himself oer cutting his throat. Screening labs were done including CMP, TSH, CBC and all were normal. He is not having any acute asthma exacerbation at this time and has been medically cleared by Dr. Bonilla. However, [facility] and there[facility] re he will be admitted on a voluntary basis pending referral to inpatient psychiatry hospital. Review of Systems Psychiatric Psychiatric: Reports as per HPI, Reports anxiety, Reports depression, Reports difficulty concentrating, Denies auditory hallucinations, Reports hopelessness, Reports irritability, Reports mood swings, Denies visual hallucinations, Denies hallucinations, Denies homicidal ideation and Reports suicidal ideation [facility] Medical History (Updated 02/02/19 @ 01:29 by Andrés Ocampo) Anxiety disorder (Chronic) Asthma (Chronic) Depression (Chronic) Eczema (Acute) Surgical History No significant past surgical history (Acute) Family History Other Adopted Social History Smoking/Tobacco Use Status: Current every day Tobacco Type: cigarettes and pipe Counseling given: provider counseling Alcohol Intake: current Alcohol Intake frequency: a few times a week Alcohol type: beer Drug use: Occasionally Substance use type: marijuana Counseling given: Yes Housing: other Details: college dorm Current gender identity: male Do you feel safe at home: Yes Do you feel safe in your relationship?: Yes Meds Home Medications and Allergies Home Medications Medication Instructions Recorded Confirmed Type sertraline 200 mg PO DAILY 04/18/18 02/01/19 History albuterol sulfate 2.5 mg IH QID PRN #75 ml 05/20/18 12/25/18 Rx albuterol sulfate [ProAir HFA] 2 puff IH Q6H PRN #18 gm 05/27/18 02/01/19 Rx cetirizine [Zyrtec] 10 mg PO DAILY #30 tab 07/16/18 12/25/18 Rx ipratropium-albuterol 3 ml IH Q4H PRN #15 ml 07/16/18 12/25/18 Rx buspirone 10 mg PO BID 09/22/18 02/01/19 History fluticasone propion-salmeterol INHALATION BID 09/22/18 History levalbuterol tartrate 2 puff INHALATION PRN 09/22/18 History montelukast 10 mg PO DAILY 09/22/18 02/01/19 History pantoprazole 40 mg PO DAILY 09/22/18 02/01/19 History albuterol sulfate 2.5 mg UPD Q2H PRN PRN #1 ml 10/18/18 02/01/19 Rx ipratropium-albuterol 3 ml UPD Q4H #1 ml 10/18/18 02/01/19 Rx Allergies Allergy/AdvReac Type Severity Reaction Status Date / Time cat dander Allergy Wheezing Unverified 01/14/19 17:24 migraine medication AdvReac Uncoded 01/14/19 17:24 Exam Neck Neck: normal visual inspection, full ROM, no lymphadenopathy, trachea midline, supple and no JVD Thyroid: thyroid normal Carotids: normal carotid upstroke Lymphatic: no lymphadenopathy noted Chest Chest: normal inspection of the chest and normal palpation of entire chest wall Resp Effort & Inspection: normal respiratory effort and able to speak in complete sentences Auscultation: clear to auscultation bilaterally Cardio Jugular venous pressure: no JVD Palpation: normal PMI Rate: regular rate Rhythm: regular rhythm Heart Sounds: S1 normal, S2 normal, normal, physiologic split S2, no gallops, no murmurs and no rubs Pulses: normal peripheral pulses GI Inspection: normal to inspection Palpation: soft, no hepatosplenomegaly and nontender Percussion: normal to percussion Psych Appearance: grossly normal Mental Status: mental status grossly normal Speech and Movement: speech and movement normal Mood: congruent mood Affect: normal affect Attitude: cooperative Thought Process: normal Thought Content: normal Insight: insight good Judgment: judgment good Results Labs Result diagrams: 02/01/19 21:25 02/01/19 21:25 Labs: Laboratory Results - last 24 hr 02/01/19 02/01/19 02/01/19 21:25 21:25 21:25 WBC 9.97 RBC 5.71 Hgb 15.8 Hct 47.5 MCV 83.2 MCH 27.7 MCHC 33.3 RDW 13.6 Plt Count 233 MPV 9.3 Immature Gran % 0.3 Neutrophils % 73.0 Lymphocytes % 15.5 Monocytes % 7.1 Eosinophils % 3.8 Basophils % 0.3 Absolute Neutrophils 7.27 H Absolute Lymphocytes 1.55 Absolute Monocytes 0.71 H Absolute Eosinophils 0.38 Absolute Basophils 0.03 Sodium 144 Potassium 3.7 Chloride 106 Carbon Dioxide 27.7 Anion Gap 10.3 BUN 18 Creatinine 0.83 Estimated GFR/1.73 m2 >= 60.00 Glucose 87 Calcium 9.0 Total Bilirubin 0.7 AST 12 L ALT 16 Alkaline Phosphatase 64 Total Protein 7.5 Albumin 4.3 TSH 0.65 Salicylates < 2.8 L Urine Opiates Screen Urine Methadone Screen Acetaminophen < 2 L Ur Barbiturates Screen Ur Tricyclics Screen Ur Amphetamines Screen U Benzodiazepines Scrn Urine Cocaine Screen Ur THC Screen Ethyl Alcohol < 3.0 02/01/19 21:25 WBC RBC Hgb Hct MCV MCH MCHC RDW Plt Count MPV Immature Gran % Neutrophils % Lymphocytes % Monocytes % Eosinophils % Basophils % Absolute Neutrophils Absolute Lymphocytes Absolute Monocytes Absolute Eosinophils Absolute Basophils Sodium Potassium Chloride Carbon Dioxide Anion Gap BUN Creatinine Estimated GFR/1.73 m2 Glucose Calcium Total Bilirubin AST ALT Alkaline Phosphatase Total Protein Albumin TSH Salicylates Urine Opiates Screen Negative Urine Methadone Screen Negative Acetaminophen Ur Barbiturates Screen Negative Ur Tricyclics Screen Negative Ur Amphetamines Screen Negative U Benzodiazepines Scrn Negative Urine Cocaine Screen Negative Ur THC Screen Positive A Ethyl Alcohol Last Vital Signs Temp 36.8 C 02/01/19 21:17 Pulse 110 H 02/01/19 21:17 Resp 16 02/01/19 21:17 BP 111/63 02/01/19 21:17 Pulse Ox 98 02/01/19 21:17
--- NOTE | 2019-02-02 06:51 | NUR.NOTE ---
Nursing Note: assumed primary care of this patient at this time. Pt has not had a sitter and melt house drag operator is aware and 1:1 sitter has been requested for patient safety. pt appears to be sleeping with adequate chest rise and fall. continue to monitor.
--- NOTE | 2019-02-02 07:15 | NUR.NOTE ---
Nursing Note: pt noted to not be in safety clothing. will evaluate when pt is awake.
--- NOTE | 2019-02-02 08:00 | NUR.NOTE ---
Nursing Note: mental health paged for repeat evaluation per md.
[2019-02-02] MEDS: Montelukast 10 MG TAB PO (08:25)
[2019-02-02] MEDS: Budesonide/Formoterol 160/4.5 6 GM 60 PUFF INH IH (08:25)
[2019-02-02] MEDS: Pantoprazole 40 MG TABCR PO (08:25)
[2019-02-02] MEDS: SERTRALINE 100 MG TAB 200 MG PO (08:25)
[2019-02-02] MEDS: busPIRone 5 MG TAB 10 MG PO (08:25)
[2019-02-02 08:56] VITALS: BP 135/86; PULSE 74; RESP 16; TEMP 37.2; O2SAT 99
--- NOTE | 2019-02-02 10:21 | DSE_ITS ---
Date of service: 02/02/19 Time of Service: 10:21 DS: Diagnosis Discharge Diagnosis (1) Depression: Start date: 02/02/19 Start time: 10:21 Status: Chronic Asessment and Plan: On seteraline, monitor and titrate as needed for outpatient (2) Suicidal ideation: Status: Acute Discharge Plan Disposition Patient Disposition: OTHER Condition: Good Discharge Details Chief Complaint: PsychEval Clinical Impression: Depression Reason For Visit: DEPRESSION Admit Date/Time: 02/01/19 22:32 Admit Provider: Andrés Ocampo Attending Provider: Andrés Ocampo Primary Care Provider: Jerad Palmer ED Provider: Aniket Bonilla Hospital Course Hospital Course: 23 y.o male with PMH of asthma and depression admitted from [facility] ER for SI. Due to recent life stressors patient if feeling more depressed with thoughts of harming himself. He did not feel safe to return home due to lack of coping mechanisms. A plan to cut his throat was formulated and therefore he was admitted for voluntary status to a [facility] facility. He has agreed to go to [facility] for treatment. His seteraline was continued and should be monitored as an outpatient. His asthma is under control and screening labs were normal. He is being discharged to a mental health facility for further management. Home Meds and New Rx's Prescriptions: Continued sertraline 100 mg Tablet 200 mg PO DAILY RF: 0 albuterol sulfate 2.5 mg /3 mL (0.083 %) solution for nebulization 2.5 mg IH QID PRN (Reason: shortness of breath or wheezing) Qty: 75 RF: 0 albuterol sulfate [ProAir HFA] 90 mcg/actuation HFA aerosol inhaler 2 puff IH Q6H PRN (Reason: shortness of breath) Qty: 18 RF: 0 cetirizine [Zyrtec] 10 mg tablet 10 mg PO DAILY Qty: 30 RF: 0 ipratropium-albuterol 0.5 mg-3 mg(2.5 mg base)/3 mL solution for nebulization 3 ml IH Q4H PRN (Reason: shortness of breath or wheezing) Qty: 15 RF: 0 buspirone 5 mg Tablet 10 mg PO BID RF: 0 fluticasone propion-salmeterol 250-50 mcg/dose Blister With Device INHALATION BID RF: 0 pantoprazole 40 mg Tablet,Delayed Release (Dr/Ec) 40 mg PO DAILY RF: 0 montelukast 10 mg Tablet 10 mg PO DAILY RF: 0 ipratropium-albuterol 0.5 mg-3 mg(2.5 mg base)/3 mL Solution For Nebulization 3 ml UPD Q4H Qty: 1 RF: 0 albuterol sulfate 2.5 mg /3 mL (0.083 %) Solution For Nebulization 2.5 mg UPD Q2H PRN PRNQty: 1 RF: 0 Discharge Instructions Instructions: Asthma (GEN), Stress (GEN), Depression (GEN), Suicide Prevention for Adults (GEN) Additional Instructions: Follow up with your Primary provider as needed for asthma Activity:: Activity as Tolerated Equipment/Supplies:: No Equipment Needed Diet:: As Tolerated Discharge Orders Discharge Orders: Discharge Order (Routine); Ordered 02/02/19 Ordered By: Paula Cotto DS: Summary Status at Discharge Functional status at discharge: independent ambulation Overall status at discharge: patient is back to baseline Mental Status: mental status grossly normal Speech and Movement: speech and movement normal Mood: congruent mood Affect: normal affect Exam Neck Neck: normal visual inspection, full ROM, no lymphadenopathy, trachea midline, supple and no JVD Thyroid: thyroid normal Carotids: normal carotid upstroke Lymphatic: no lymphadenopathy noted Chest Chest: normal inspection of the chest and normal palpation of entire chest wall Resp Effort & Inspection: normal respiratory effort and able to speak in complete sentences Auscultation: clear to auscultation bilaterally Cardio Jugular venous pressure: no JVD Palpation: normal PMI Rate: regular rate Rhythm: regular rhythm Heart Sounds: S1 normal, S2 normal, normal, physiologic split S2, no gallops, no murmurs and no rubs Pulses: normal peripheral pulses GI Inspection: normal to inspection Palpation: soft, no hepatosplenomegaly and nontender Percussion: normal to percussion Psych Appearance: grossly normal Mental Status: mental status grossly normal Speech and Movement: speech and movement normal Mood: congruent mood Affect: normal affect Attitude: cooperative Thought Process: normal Thought Content: normal Insight: insight good Judgment: judgment good DS: Data Vitals/I&O Vitals and I&O: Vital Signs Temperature 37.2 C 02/02/19 08:56 Temperature Source Temporal Artery Scan 02/01/19 21:17 Pulse 74 02/02/19 08:56 Pulse Rhythm Regular 02/01/19 21:17 Pulse Strength Normal 02/01/19 21:17 Respiratory Rate 16 02/02/19 08:56 Respiratory Effort 02/02/19 08:56 Respiratory Depth Normal 02/02/19 08:56 Respiratory Pattern Normal 02/02/19 08:56 Blood Pressure 135/86 02/02/19 08:56 Blood Pressure Mean 79 02/01/19 21:17 Blood Pressure Position Sitting 02/01/19 21:17 Pulse Oximetry 99 02/02/19 08:56 Oxygen Delivery Method Room Air 02/02/19 08:56 Oxygen Flow Rate 0 02/02/19 08:56 Pain Level 0 02/02/19 08:56 Intake & Output 02/01/19 02/01/19 02/02/19 11:59 23:59 11:59 Intake Total 240 / 240 Balance 240 / 240 Weight 65.771 kg 65.771 kg Intake: Oral 240 / 240 Data Completed and Pending Labs on day of discharge: Labs from last 24 hours 02/01/19 02/01/19 02/01/19 21:25 21:25 21:25 WBC 9.97 RBC 5.71 Hgb 15.8 Hct 47.5 MCV 83.2 MCH 27.7 MCHC 33.3 RDW 13.6 Plt Count 233 MPV 9.3 Immature Gran % 0.3 Neutrophils % 73.0 Lymphocytes % 15.5 Monocytes % 7.1 Eosinophils % 3.8 Basophils % 0.3 Absolute Neutrophils 7.27 H Absolute Lymphocytes 1.55 Absolute Monocytes 0.71 H Absolute Eosinophils 0.38 Absolute Basophils 0.03 Sodium 144 Potassium 3.7 Chloride 106 Carbon Dioxide 27.7 Anion Gap 10.3 BUN 18 Creatinine 0.83 Estimated GFR/1.73 m2 >= 60.00 Glucose 87 Calcium 9.0 Total Bilirubin 0.7 AST 12 L ALT 16 Alkaline Phosphatase 64 Total Protein 7.5 Albumin 4.3 TSH 0.65 Salicylates Urine Opiates Screen Negative Urine Methadone Screen Negative Acetaminophen Ur Barbiturates Screen Negative Ur Tricyclics Screen Negative Ur Amphetamines Screen Negative U Benzodiazepines Scrn Negative Urine Cocaine Screen Negative Ur THC Screen Positive A Ethyl Alcohol < 3.0 02/01/19 21:25 WBC RBC Hgb Hct MCV MCH MCHC RDW Plt Count MPV Immature Gran % Neutrophils % Lymphocytes % Monocytes % Eosinophils % Basophils % Absolute Neutrophils Absolute Lymphocytes Absolute Monocytes Absolute Eosinophils Absolute Basophils Sodium Potassium Chloride Carbon Dioxide Anion Gap BUN Creatinine Estimated GFR/1.73 m2 Glucose Calcium Total Bilirubin AST ALT Alkaline Phosphatase Total Protein Albumin TSH Salicylates < 2.8 L Urine Opiates Screen Urine Methadone Screen Acetaminophen < 2 L Ur Barbiturates Screen Ur Tricyclics Screen Ur Amphetamines Screen U Benzodiazepines Scrn Urine Cocaine Screen Ur THC Screen Ethyl Alcohol PFSH Medical History Anxiety disorder (Chronic) Asthma (Chronic) Depression (Chronic) Eczema (Acute) Surgical History No significant past surgical history (Acute) Family History Other Adopted Social History Smoking/Tobacco Use Status: Current every day Tobacco Type: cigarettes and pipe Counseling given: provider counseling Alcohol Intake: current Alcohol Intake frequency: a few times a week Alcohol type: beer Drug use: Occasionally Substance use type: marijuana Counseling given: Yes Housing: other Details: college dorm Current gender identity: male Do you feel safe at home: Yes Do you feel safe in your relationship?: Yes
[2019-02-02] MEDS: Mylanta Suspension 30 ML CUP PO (11:59)
--- NOTE | 2019-02-02 17:11 | CMSP_ITS ---
- If Service Date Differs Date of service: 02/02/19 Time of Service: 17:11 Care Management Safety Plan VOLUNTARY FOR INPATIENT PSYCHIATRIC STABILIZATION. Patient is appropriate in all interactions since arriving at [facility]; Pt has demonstrated appropriate coping and communication skills, has articulated his or her needs and concerns and is fully engaged during staff interactions. Safety plan has been established with patient, and care team, to adhere to patient goals, identify restrictions based on behavioral status, address nutrition, and determine allowed personal belongings, tools for hygiene and personal care. Determine level of activity including ambulation, level of supervision, visitors, and determine privileges based on behaviors and level of engagement by pt. [facility] has offered a bed for Ald[facility], but he has refused at this time. He would prefer to go to [facility]. [facility] is considering [facility], but is requiring a pre certification for his insurance prior to making an official bed offer. ELVER will work in collaboration with Delmi from [facility] in the morning to attempt to send him to [facility]. He has completed his intake paperwork with Delmi, so he will be able to begin services as a step down from placement. Huddle with Ava, primary RN; Katelyn, SUSHIL supervisor endless track vehicle; Delmi, [facility]; ELVER Freemdan. SAFETY PLAN: 1. Will remain on suicide precautions. Pt can be in own clothes for comfort at the discretion of staff. 2. Will remain in room under direct supervision of one-on-one staff at all times provided by [employer]; HALLIE, GALEN perinatal director. 3. May have paper cups, plates, finger foods as well as cardboard utensils with which to eat meals. [facility] staff will be responsible for accounting of utensils after meals. 4. Follow [facility] Management of the Admitted Behavioral Health Patient policy. 5. Comfort bath system only. 6. No personal belongings with the exception of his cell phone at the discretion of staff. No manager web in the room. 7. Visitors- Mom can visit at this time. 8. Activities: Coloring, books, music and other items off activity cart, no sharps. He may have the television if he transitions to a transition bed on the medical surgical unit. 9. Bathroom privileges 10. Phone: Cell phone permitted at the discretion of staff. Charging must be done outside of room, supervised. No manager web in room with pt. 11. Due to VOLUNTARY status, if patient wishes to leave [facility], the [facility] carry in worker must be contacted to re-evaluate patient prior to patient exiting the building. Patient is currently voluntarily at [facility] and seeking inpatient admission when a bed becomes available. [facility] Frontline Welder Assistant will continue seeking placement. Please contact the Director Of Special Services Instrument Specialist ([phone]) and [facility] Welder Assistant ([phone]) for any needed changes in the Safety Plan. Safety plan has been provided to interdepartmental care team.
--- NOTE | 2019-02-02 17:15 | PDOC.MHCN ---
Date of service: 02/02/19 Time of Service: 08:30 Mental Health Crisis Note Presenting Issue How did you arrive at the ED and why did you come: Client was brought into the ED yesterday for suicidality, depression and anxiety. Client is voluntary looking for placement. Precipitating Factors Client shared that they are depressed and anxious. That they agree they need treatment and could benefit from placement to learn coping skills for preventative maintenance to help him continue to function independently in the community, as he doesn't want to have to relay on his supports, all of the time. Disposition BEHAVIOR: Client is cooperative. EYE CONTACT: Client maintains appropriate eye contact. MOOD: Client is anxious due to the uncertainty of what is going to happen next; placement, housing, employment and appoitnments this week. AFFECT: Normal Expansive with moments of reflection and for thought that leave the client somber. APPETITE: Good but, struggled a little with nausea which appeared to be due to anxiety. SLEEP(trouble falling/staying asleep: Patient reported that he didn't sleep very well last night, 2 hours total. Plan Mental Health worker will continue to reach out to available beds within the state. Patient will continue to follow safety plan, per the team. Provisional Diagnosis Adjustment Disorder: with mixed anxiety and depressed mood. Signature Clinician's Name/Title: Tayler Urias-[facility] Mental Health Screener
--- NOTE | 2019-02-02 18:22 | PDOC.MHCN ---
Date of service: 02/02/19 Time of Service: 16:40 Mental Health Crisis Note Presenting Issue How did you arrive at the ED and why did you come: Client was brought into the ED yesterday, February 01, 2019, for suicidal ideation, depression and anxiety. Client required placement, as he was willing to go voluntarily to an impatient psychiatric facility. Precipitating Factors Client still reports that he feels going inpatient would be helpful for him, at this time. He reports that he wants to find ways to cope with his depression, anxiety and impassivity so, that it becomes more manageable for him andf he will not have to relaty on his supports as much, as he feels as if he is a burden to them. Disposition BEHAVIOR: Cooperative, respectful and willing to seek treatment at [facility] [place][Note 2]. EYE CONTACT: Client remained appropriate eye contact during the assessment. MOOD: Client appeared to be anxious. His presentation appeared to be friendly, and calm. AFFECT: There was a range: normal expansive and flat. APPETITE: Client reported he was not really interested in eating dinner but, he was going to try as his stomach hurt. SLEEP(trouble falling/staying asleep: Client reported that he took a nap, earlier in the afternoon. Plan Client will be transported to [facility] [place]Note 2], he was official accpeted at 17:21, on February 02, 2019. Senior Clinical Data Manager transportation was arranged and will be provided. Provisional Diagnosis Adjustment Disorder: with mixed anxiety and depressive mood. Signature Clinician's Name/Title: Tayler Hurtado: Emergency Services Mental Health Screener
== END 2019-02-02 18:40 | disposition other institution (70) ==
LOC: ER 02-02 08:20 → MS 02-02 08:42
PROVIDERS: Admitting Provider Internal Medicine; Emergency Provider Student in an Organized Health Care Education/Training Program; PCP Nurse Practitioner Family; Visit Provider Internal Medicine
DX: F33.2 Major depressive disorder, recurrent severe without psychotic features (principal); R45.851 Suicidal ideations; F43.9 Reaction to severe stress, unspecified; Z75.1 Person awaiting admission to adequate facility elsewhere; Z59.0 Homelessness; F17.210 Nicotine dependence, cigarettes, uncomplicated; J45.909 Unspecified asthma, uncomplicated
CPT/HCPCS: 36415; 80053; 80307; 99222; 99239; 99285; 80320; 80329; 84443; 85025; 99217; 99219; 99284; G0378

== ENCOUNTER 2019-02-27 20:11 | Observation (INO) | payer BC, SELFPAY ==
[2019-02-27 20:18] VITALS: BP 122/75; PULSE 97; RESP 20; TEMP 37.5; O2SAT 96
[2019-02-27] MEDS: predniSONE 20 MG TAB 60 MG PO (20:31)
--- NOTE | 2019-02-27 20:31 | ED.GENADUL_ITS ---
Discharge Plan Disposition Patient Disposition: [facility] INPATIENT Condition: Fair Discharge Details Chief Complaint: RespSymp Clinical Impression: Asthma exacerbation, URI (upper respiratory infection) Admit Date/Time: 02/28/19 00:29 Admit Provider: Andrés Ocampo Attending Provider: Andrés Ocampo Primary Care Provider: Jerad Palmer ED Provider: Joe Walters Medical Decision Making Patient is a known asthmatic with frequent exacerbations. Sounds like he developed URI over the last few days and now has exacerbation. Has not been on steroids for couple of weeks. He is given prednisone orally here. He is started on a continuous neb of albuterol 7.5 mg. Patient was not feeling significantly better. Respiratory therapy was here for another patient. Patient was therefore given 5 mg of albuterol neb via Aeroneb syringe continuous. After this he is moving air much better but still has diffuse wheezing. He develops dyspnea with any type of exertion. He does not feel well enough to go home. Typically does not wish to be admitted. At this point IV established and labs sent. Chest x-ray obtained. Flu swab done. Chest x-ray shows no consolidation. Flu swab is negative. Labs unremarkable. Case discussed with hospitalist for admission for continued nebs and steroids. Patient admitted to observation status. Medical Records Medical records reviewed: Yes I reviewed the patient's medical records. Lab Data Lab results reviewed: Yes I reviewed the patient's lab results. HPI General Mode of arrival: EMS . Date/Time Provider Initiated Documentation: 02/27/19 20:16 . Limitations to Documentation: no limitations . Information obtained by: patient, RN notes reviewed and old records reviewed . HPI Narrative: Patient presents to ED by EMS with difficulty breathing and wheezing. Patient is well-known to me as a chronic asthmatic with frequent exacerbations. He has not been on prednisone for couple of weeks. He has developed a URI with congestion and cough. No fever he is aware of. He has been using DuoNeb at home but is out of albuterol neb. He used neb treatment prior to calling EMS. He received a second DuoNeb in the ambulance. He arrives here with continued difficulty breathing and wheezing. He has some back pain that is worse with deep breathing. Cough is nonproductive. No GI symptoms. Related Data Home Medications Medication Instructions Recorded Confirmed sertraline 200 mg PO DAILY 04/18/18 02/01/19 albuterol sulfate 2.5 mg IH QID PRN #75 ml 05/20/18 02/02/19 albuterol sulfate [ProAir HFA] 2 puff IH Q6H PRN #18 gm 05/27/18 02/01/19 cetirizine [Zyrtec] 10 mg PO DAILY #30 tab 07/16/18 02/02/19 ipratropium-albuterol 3 ml IH Q4H PRN #15 ml 07/16/18 02/02/19 buspirone 10 mg PO BID 09/22/18 02/01/19 fluticasone propion-salmeterol INHALATION BID 09/22/18 montelukast 10 mg PO DAILY 09/22/18 02/01/19 pantoprazole 40 mg PO DAILY 09/22/18 02/01/19 albuterol sulfate 2.5 mg UPD Q2H PRN PRN #1 ml 10/18/18 02/01/19 ipratropium-albuterol 3 ml UPD Q4H #1 ml 10/18/18 02/01/19 Previous Rx's Medication Instructions Recorded albuterol sulfate 2.5 mg IH QID PRN #75 ml 05/20/18 albuterol sulfate [ProAir HFA] 2 puff IH Q6H PRN #18 gm 05/27/18 cetirizine [Zyrtec] 10 mg PO DAILY #30 tab 07/16/18 ipratropium-albuterol 3 ml IH Q4H PRN #15 ml 07/16/18 albuterol sulfate 2.5 mg UPD Q2H PRN PRN #1 ml 10/18/18 ipratropium-albuterol 3 ml UPD Q4H #1 ml 10/18/18 Allergies Allergy/AdvReac Type Severity Reaction Status Date / Time cat dander Allergy Wheezing Unverified 01/14/19 17:24 migraine medication AdvReac Uncoded 01/14/19 17:24 General Stated Complaint: RespSymp MINGO: 3 Review of Systems Narrative: 12/23 Review of Systems completed and is negative except as stated above in HPI (Systems reviewed: Const, Eyes, ENT, Resp, CV, GI, , MSK, Skin, Neuro) PFSH Medical History Anxiety disorder (Chronic) Asthma (Chronic) Depression (Chronic) Eczema (Acute) Surgical History No significant past surgical history (Acute) Social History Smoking/Tobacco Use Status: Current-Occasional Tobacco Type: cigarettes and pipe Counseling given: provider counseling Alcohol Intake: current Alcohol Intake frequency: a few times a week Alcohol type: beer Drug use: Occasionally Substance use type: marijuana Counseling given: Yes Housing: other Details: college dorm Current gender identity: male Do you feel safe at home: Yes Do you feel safe in your relationship?: Yes Exam Narrative Exam Narrative: Vitals: Afebrile. Normal vitals other than some tachypnea. Room air pulse ox normal. Const: WDWN male in NAD. HEENT: NC/AT. Normal facial exam. Eyes: Normal conjunctiva and sclera. Neck: Supple. Trachea midline. Lungs: Tachypnea with slight accessory muscle use. Lungs significantly diminished throughout with tight wheeze. Cor: RRR without murmur/gallop. Good radial pulses. Neuro: A+O x 3. Normal mental status and speech. No gross motor or sensory deficit. Ext: No C/C/E. Skin: Warm and dry without rash. Course Vital Signs Vital signs: Vital Signs Temperature 99.5 F 02/27/19 20:18 Pulse 97 H 02/27/19 20:18 Respiratory Rate 20 02/27/19 20:18 Pulse Oximetry 96 02/27/19 20:18 Temperature 99.5 F 02/27/19 20:18 Temperature Source Oral 02/27/19 20:18 Pulse 97 H 02/27/19 20:18 Respiratory Rate 20 02/27/19 20:18 Respiratory Effort 02/27/19 20:18 Pulse Oximetry 96 02/27/19 20:18 Oxygen Delivery Method Room Air 02/27/19 20:18 Oxygen Flow Rate 0 02/27/19 20:18 Pain Level 6 02/27/19 20:18
[2019-02-27 20:35] VITALS: PULSE 87; RESP 20; RESP 4; O2SAT 95
[2019-02-27] MEDS: Albuterol 2.5 MG/3 ML INH SOLN VIAL 7.5 MG UPD (20:35)
[2019-02-27 21:36] VITALS: RESP 2
[2019-02-27] MEDS: Albuterol 2.5 MG/3 ML INH SOLN VIAL ×2 (21:36→21:39)
[2019-02-27 21:39] VITALS: RESP 2
--- NOTE | 2019-02-27 21:56 | NUR.NOTE ---
Nursing Note: Lungs sounds much improved. Mild expiratory wheezing noted. Pt talking on cellphone, no apparent distress noted.
--- NOTE | 2019-02-27 23:18 | DI.RAD_ITS ---
EXAM: XR CHEST 2V PA LATERAL XR CHEST 2V PA LATERAL CLINICAL HISTORY: cough/SOB cough/SOB TECHNIQUE: 2D digital imaging was performed. COMPARISON: XR CHEST 2V PA LATERAL from 01/14/2019 FINDINGS: The heart is not enlarged. The lungs are clear and well expanded. No pleural effusion seen. Mediastin al contours appear intact. IMPRESSION: Normal chest
--- NOTE | 2019-02-27 23:36 | DI.VRAD_ITS ---
PROCEDURE INFORMATION: Exam: XR Chest, 2 Views Exam date and time: 02/27/2019 11:17 PM Age: 24 years old Clinical indication: Cough and shortness of breath TECHNIQUE: Imaging protocol: XR of the chest Views: 2 views. COMPARISON: XR CHEST 2V PA LATERAL 01/14/2019 7:20 PM FINDINGS: Lungs: No congestion or focal air consolidation. Small nodular density questioned in the right upper lobe is not confirmed and likely represented superimposition of normal structures Pleural space: Unremarkable. No pleural effusion. No pneumothorax. Heart/Mediastinum: Unremarkable. No cardiomegaly. Bones/joints: Unremarkable. IMPRESSION: No acute intrathoracic process. Dictated and Authenticated by: Asim Shaffer MD. Ordering:NONI Diaz MD
[2019-02-27 23:37] LABS: Anion Gap 10.1 mmol/L (3-11); BUN 11 mg/dL (7-18); CO2 27.9 mmol/L (21.0-32.0); CREATININE 0.73 mg/dL (0.70-1.30); Calcium 9.2 mg/dL (8.5-10.1); Chloride 102 mmol/L (98-107); Glucose 138 mg/dL (74-106); Sodium 140 mmol/L (136-145)
[2019-02-27 23:38] LABS: Abs Immature Grans 0.02 k/cumm (0.0-0.09); Absolute Basophil Count 0.01 k/cumm (0.0-0.2); Absolute Eosinophil Count 0.04 k/cumm (0.0-0.7); Absolute Lymphocyte Count 0.63 k/cumm (1.2-3.4); Absolute Monocyte Count 0.13 k/cumm (0.11-0.7); Absolute Neutrophil Count 8.59 k/cumm (1.2-6.7); Basophils % 0.1; Eosinophils % 0.4; HCT 48.9 % (40.0-50.0); HGB 16.2 g/dL (13.5-17.5); Immature Grans % 0.2; Lymphocytes % 6.7; Mean Corp. HGB Concentration 33.1 g/dL (32.0-36.0); Mean Corpuscular Hemoglobin 27.1 pg (27.0-33.0); Mean Corpuscular Volume 81.8 fL (80-95); Mean Platelet Volume 9.3 fL (8.0-11.0); Monocytes % 1.4; Neutrophils % 91.2; Platelet Count 210 x1000/uL (130-400); RBC 5.98 m/cumm (4.50-6.00); RBC Distribution Width 14.2 % (11.8-14.1); White Blood Cell Count 9.42 k/cumm (4.4-10.8)
--- NOTE | 2019-02-27 23:39 | NUR.NOTE ---
Nursing Note: Per Mother, patient will not eat any frozen or real cold food. Apple juice provided.
--- NOTE | 2019-02-27 23:41 | NUR.NOTE ---
Nursing Note: Patient resting in bed, talking on cellphone. No respiratory distress noted.
--- NOTE | 2019-02-28 00:22 | NUR.NOTE ---
Nursing Note: Monitor was turned off prior to VS being pulled over. Pt sats have remained 95% and above since arrival.
[2019-02-28 00:23] VITALS: BP 100/53; PULSE 109; RESP 16; O2SAT 98
[2019-02-28 01:07] VITALS: BP 103/56; PULSE 90; RESP 16; O2SAT 97
[2019-02-28 01:31] VITALS: BP 121/72; PULSE 99; RESP 22; TEMP 36; O2SAT 96
[2019-02-28 01:50] VITALS: BP 121/72; PULSE 99; RESP 22; TEMP 36; O2SAT 97
[2019-02-28] MEDS: Benzonatate 100 MG CAP 200 MG PO (03:15)
[2019-02-28] MEDS: methylPREDNISolone SUCC 125 MG VIAL 80 MG IVP (03:16)
[2019-02-28] MEDS: Albuterol 2.5 MG/3 ML INH SOLN VIAL UPD ×2 (03:16→06:31)
[2019-02-28] MEDS: Normal Saline Flush 10 ML SYR IVP (03:17)
--- NOTE | 2019-02-28 03:46 | HPE_ITS ---
Date of service: 02/28/19 Time of Service: 03:46 Assessment and Plan Assessment and plan (1) Acute asthma exacerbation: Status: Acute Assessment and plan: Patient be treated with IV corticosteroids and scheduled DuoNeb aerosol treatments. Chest wall discomfort be treated with nonsteroidal anti-inflammatory medications on a as needed basis. He will be given Tessalon Perles to suppress his cough. He will be continued on his usual allergy medications including Zyrtec and montelukast as well as his Advair Qualifiers: Asthma severity: moderate Asthma persistence: persistent Qualified Code(s): J45.41 - Moderate persistent asthma with (acute) exacerbation History of Present Illness History of Present Illness Chief Complaint: Short of breath, wheezing, asthma attack Narrative: 24-year-old male with a history of asthma with known frequent exacerbations. Developed recent URI with upper respiratory congestion and cough has been nonproductive. No fever or chills. He had been using his DuoNeb at home but reportedly was out of his albuterol nebulizer. He used a nebulizer treatment just prior to calling EMS and then received a second DuoNeb treatment in the ambulance. He arrived in the emergency department acutely short of breath and wheezing and complaining of chest wall pain with coughing and deep breathing. Cough is nonproductive. Upon arrival to emergency department is afebrile slightly tachycardic at 100 bpm initial blood pressure is normal at 122/75 but transiently dipped to 100/53 before rebounding in the no rmal range. Respirations on admission were labored at 20 breaths/min with normal oxygen saturation of 95 to 98% on room air. Diagnostic studies include a chest x-ray that showed no acute lung congestion or focal air consolidation. No pleural effusion or pneumothorax. Laboratory testing showed a normal CBC with no leukocytosis and no anemia. Routine chemistries showed a mildly elevated glucose of 138 but otherwise normal electrolytes and BUN and creatinine. Treatment in the emergency department included 60 mg of prednisone orally and he was given ketorolac 30 mg IV for his pleuritic chest pain. He was given a continuous nebulizer of albuterol 7.5 mg. After the continuous aerosol treat ment he was moving air much better but still had diffuse wheezing and although he was not dyspneic at rest with any kind of activity he would get dyspneic. The patient agreed to admission for observation status for continued IV corticosteroids and continued DuoNeb treatments. Nasal swab for influenza was obtained and was negative. Review of Systems All systems reviewed & are unremarkable except as noted in HPI and below Constitutional Constitutional: Denies chills and Denies fever(s) Eyes Eyes: Reports system reviewed and no additional complaints, except as docu ENT Ears, Nose, Mouth, and Throat: Reports system reviewed and no additional complaints, except as docu Cardiovascular Cardiovascular: Reports chest pain Respiratory Respiratory: Reports as per HPI Gastrointestinal Gastrointestinal: Reports system reviewed and no additional complaints, except as docu Musculoskeletal Musculoskeletal: Reports system reviewed and no additional complaints, except as docu Integumentary/Breasts Skin/Breast: Reports system reviewed and no additional complaints, except as docu Neurologic Neurologic: Reports system reviewed and no additional complaints, except as docu Psychiatric Psychiatric: Reports system reviewed and no additional complaints, except as docu Endocrine Endocrine: Reports system reviewed and no additional complaints, except as docu Hematologic/Lymphatic Hematologic/Lymphatic: Reports system reviewed and no additional complaints, except as docu Allergic/Immunologic Allergic/Immunologic: Reports system reviewed and no additional complaints, except as docu PFSH Medical History Anxiety disorder (Chronic) Asthma (Chronic) Depression (Chronic) Eczema (Acute) Surgical History No significant past surgical history (Acute) Social History Smoking/Tobacco Use Status: Current-Occasional Tobacco Type: cigarettes and pipe Counseling given: provider counseling Alcohol Intake: current Alcohol Intake frequency: a few times a week Alcohol type: beer Drug use: Occasionally Substance use type: marijuana Counseling given: Yes Housing: other Details: college dorm Current gender identity: male Do you feel safe at home: Yes Do you feel safe in your relationship?: Yes Meds Home Medications and Allergies Home Medications Medication Instructions Recorded Confirmed Type sertraline 200 mg PO DAILY 04/18/18 02/28/19 History albuterol sulfate 2.5 mg IH QID PRN #75 ml 05/20/18 02/28/19 Rx albuterol sulfate [ProAir HFA] 2 puff IH Q6H PRN #18 gm 05/27/18 02/28/19 Rx cetirizine [Zyrtec] 10 mg PO DAILY #30 tab 07/16/18 02/28/19 Rx ipratropium-albuterol 3 ml IH Q4H PRN #15 ml 07/16/18 02/28/19 Rx buspirone 10 mg PO BID 09/22/18 02/28/19 History fluticasone propion-salmeterol INHALATION BID 09/22/18 History montelukast 10 mg PO DAILY 09/22/18 02/28/19 History pantoprazole 40 mg PO DAILY 09/22/18 02/28/19 History albuterol sulfate 2.5 mg UPD Q2H PRN PRN #1 ml 10/18/18 02/28/19 Rx ipratropium-albuterol 3 ml UPD Q4H #1 ml 10/18/18 02/28/19 Rx Allergies Allergy/AdvReac Type Severity Reaction Status Date / Time cat dander Allergy Wheezing Unverified 01/14/19 17:24 migraine medication AdvReac Uncoded 01/14/19 17:24 Exam Narrative Exam Narrative: Young -[place] male who is lying in bed resting watching TV in no acute respiratory distress. Respirations are nonlabored. No use of accessory respiratory muscles. HEENT is unremarkable. Specifically there is no nasal discharge no erythema of his nares. Mucous membranes are moist without exudate. Neck is supple nontender without cervical lymphadenopathy. Normal range of motion. No thyromegaly. Normal carotid pulses. No JVD. Lungs reveal diffuse expiratory wheezes. No inspiratory wheezes no stridor and no rhonchi. Heart is regular rate and rhythm without murmur rub or gallop. Abdomen is soft and nontender without organomegaly. Normal active bowel sounds. Genitalia rectal exam deferred. Neurologic exam is grossly intact without focal motor or sensory deficits. Extremities without peripheral cyanosis or edema. There is no calf tenderness or swelling. No pedal edema. Results Imaging Chest x-ray: report reviewed (IMPRESSION: No acute intrathoracic process.) and image reviewed Labs Result diagrams: 02/27/19 23:12 02/27/19 23:12 Labs: Laboratory Results - last 24 hr 02/27/19 02/27/19 23:12 23:12 WBC 9.42 RBC 5.98 Hgb 16.2 Hct 48.9 MCV 81.8 MCH 27.1 MCHC 33.1 RDW 14.2 H Plt Count 210 MPV 9.3 Immature Gran % 0.2 Neutrophils % 91.2 Lymphocytes % 6.7 Monocytes % 1.4 Eosinophils % 0.4 Basophils % 0.1 Absolute Neutrophils 8.59 H Absolute Lymphocytes 0.63 L Absolute Monocytes 0.13 Absolute Eosinophils 0.04 Absolute Basophils 0.01 Sodium 140 Potassium 4.0 Chloride 102 Carbon Dioxide 27.9 Anion Gap 10.1 BUN 11 Creatinine 0.73 Estimated GFR/1.73 m2 >= 60.00 Glucose 138 H Calcium 9.2 Last Vital Signs Temp 36.0 C L 02/28/19 01:50 Pulse 99 H 02/28/19 01:50 Resp 22 02/28/19 01:50 BP 121/72 02/28/19 01:50 Pulse Ox 97 02/28/19 01:50
[2019-02-28 06:55] VITALS: BP 133/73; PULSE 94; RESP 18; TEMP 36.5; O2SAT 99
[2019-02-28] MEDS: Budesonide/Formoterol 160/4.5 6 GM 60 PUFF INH IH (08:24)
[2019-02-28 08:25] VITALS: RESP 18
[2019-02-28] MEDS: Benzonatate 200 MG CAP PO (08:40)
[2019-02-28] MEDS: Sertraline 50 MG TAB 200 MG PO (08:40)
[2019-02-28] MEDS: busPIRone 5 MG TAB 10 MG PO (08:41)
[2019-02-28] MEDS: Pantoprazole 40 MG TABCR PO (08:41)
[2019-02-28] MEDS: Cetirizine 10 MG TAB PO (08:41)
[2019-02-28] MEDS: Montelukast 10 MG TAB PO (08:41)
--- NOTE | 2019-02-28 08:53 | PDOC.CMIN ---
Care Management Initial Assess REASON FOR HOSPITALIZATION:: Asthma exacerbation, URI PAST MEDICAL HISTORY/PAST SURGICAL HISTORY:: Anxiety disorder, asthma, depression, eczema PREVIOUS FUNCTIONAL STATUS/SOCIAL/FAMILY SUPPORTS:: Alden lives independently in an apartment in [facility]. 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 He states he gets rides back and forth to work from co-workers. Alden reports he has a few friends and is close to his mother. In his free time, he enjoys playing video games and writing music. Alden is independent at baseline. CURRENT FUNCTIONAL STATUS:: Alden is sitting up in bed when meets with him. He is pleasant and readily engages in conversation. He reviews his current life situation and development from , and explains current supportive relationships as well as maladaptive behaviors. He provides good insight and speaks of his current plan to stabilize his housing with support services. ADVANCE DIRECTIVES:: None on file. Has patient been provided with information about the portal?: Yes Did the patient sign up for the portal?: No CODE STATUS:: Full Code INSURANCE COVERAGE / FINANCIAL ISSUES:: BC/BS CURRENT HOME/COMMUNITY SERVICES/EQUIPMENT:: Nebulizer, [facility] CM: Chastity, MC, LISA, Voc Rehab, Pesticide Use Medical Coordinator, Economic Services, Insurance support and disability navigation support. PRIMARY CARE PHYSICIAN:: SYLVIA Shin POTENTIAL DISCHARGE NEEDS:: Follow-up PCP and discharge plan of care. PATIENT/FAMILY EDUCATION NEEDS:: Discharge plan, limitations, and follow-up plan of care, including [employer]. ANTICIPATED BARRIERS TO DISCHARGE:: None identified at this time. TRANSPORTATION:: Alden states his mom will either transport him home via private vehicle or he will take the [facility] bus. PLAN:: Alden will be discharged home when ready per MD, he will follow up with his service supports and plan of care as prescribed. He will transport via private vehicle with his mother.
--- NOTE | 2019-02-28 10:27 | DSE_ITS ---
Date of service: 02/28/19 Time of Service: 10:27 DS: Diagnosis Discharge Diagnosis (1) Acute asthma exacerbation: Status: Acute Discharge Plan Disposition Patient Disposition: HOME Condition: Improving Discharge Details Chief Complaint: RespSymp Clinical Impression: Asthma exacerbation, URI (upper respiratory infection) Reason For Visit: ASTHMA EXACERBATION,URI Admit Date/Time: 02/28/19 00:29 Admit Provider: Andrés Ocampo Attending Provider: Andrés Ocampo Primary Care Provider: Jerad Palmer ED [facility] Course: Alden Soto is a 24 year old man with a past medical history significant for asthma with exacerbations, depression and anxiety with history of suicidal ideation who presented to the ED via EMS last night with reports of shortness of breath, wheezing, cough, congestion and chest wall pain. He denied fever or chills. In the ED, he was noted to be afebrile and slighly tachycardic, with labored respirations and no hypoxia. He had a chest x-ray that showed no acute process. Nasal swab was negative for influenza. His labs showed normal CBC and unremarkable chemistries. He was given steroids and ketorolac in the emergency department as well as continuous nebulizer treatments. He was admitted to the [facility] floor for further observation and management. He continued on IV steroids and scheduled nebulizer treatments overnight. By the following morning, he was threatening to leave AGAINST MEDICAL ADVICE. He stated that he always wheezes but he felt that he was at his baseline. He was able to speak in complete sentences without shortness of breath. He was able to ambulate in the room without shortness of breath. His respiratory exam showed slightly diminished lung sounds throughout with occasional scattered wheezes. He appeared nontoxic. He remained afebrile overnight. His oxygen saturation was 99% on room air. He is discharged home with a prednisone taper. He reports that he ran out of albuterol nebulizer treatments, he will be given a refill. He also states he ran out of Symbicort and albuterol inhalers. A new prescription for albuterol inhaler will be sent to the pharmacy, he will take the Symbicort inhaler that he has been using here home. He denies smoking cigarettes, but admits to smoking marijuana. He was counseled on quitting, he is not interested in stopping marijuana, but is trying to ingest more orally, and less smoking. He will follow-up with his primary care provider as scheduled. Home Meds and New Rx's Prescriptions: New benzonatate 200 mg Capsule 200 mg PO TID Qty: 12 RF: 0 prednisone 10 mg tablet 10 mg PO DAILY Qty: 20 RF: 0 Continued sertraline 100 mg Tablet 200 mg PO DAILY RF: 0 albuterol sulfate 2.5 mg /3 mL (0.083 %) solution for nebulization 2.5 mg IH QID PRN (Reason: shortness of breath or wheezing) Qty: 75 RF: 0 cetirizine [Zyrtec] 10 mg tablet 10 mg PO DAILY Qty: 30 RF: 0 buspirone 5 mg Tablet 15 mg PO BID RF: 0 pantoprazole 40 mg Tablet,Delayed Release (Dr/Ec) 40 mg PO DAILY RF: 0 montelukast 10 mg Tablet 10 mg PO DAILY RF: 0 hydroxyzine HCl 50 mg Tablet 50 mg PO QHS PRNRF: 0 hydroxyzine HCl 25 mg Tablet 25 mg PO TID PRNRF: 0 aripiprazole [Abilify] 2 mg Tablet 2 mg PO DAILY RF: 0 ipratropium-albuterol 0.5 mg-3 mg(2.5 mg base)/3 mL solution for nebulization 3 ml IH Q4H PRN (Reason: shortness of breath or wheezing) Qty: 30 RF: 0 albuterol sulfate 2.5 mg /3 mL (0.083 %) Solution For Nebulization 2.5 mg UPD Q2H PRN PRNQty: 30 RF: 0 albuterol sulfate [ProAir HFA] 90 mcg/actuation HFA aerosol inhaler 2 puff IH Q6H PRN (Reason: shortness of breath) Qty: 18 RF: 0 Symbicort 160-4.5 mcg/actuation Hfa Aerosol Inhaler 1 puff INHALATION BID Qty: 1 RF: 0 Discontinued ipratropium-albuterol 0.5 mg-3 mg(2.5 mg base)/3 mL Solution For Nebulization 3 ml UPD Q4H Qty: 1 RF: 0 fluticasone propion-salmeterol [Advair Diskus] 500-50 mcg/dose Blister With Device 1 inh INHALATION BID RF: 0 Discharge Instructions Instructions: Asthma (DC) Additional Instructions: Taper prednisone as directed: take 4 tablets daily x2 days, then decrease to 3 tabs daily x2 days, then 2 tabs daily x2 days then 1 tab daily x2 days then stop. Use duoneb and albuterol inhalers as needed at home. Return to the ED if you have increased shortness of breath, difficulty br eathing, increased wheezing, fevers or any worsening condition. Take care! Referrals: Jerad Palmer NP [Primary Care Provider] - 03/14/19 1:15 pm Activity:: Activity as Tolerated Equipment/Supplies:: No Equipment Needed Diet:: As Tolerated Discharge Orders Discharge Orders: Discharge Order (Routine); Ordered 02/28/19 Ordered By: Bettina Romero DS: Summary Status at Discharge Functional status at discharge: independent ambulation Overall status at discharge: patient is progressing back to baseline Mental Status: mental status grossly normal Speech and Movement: speech and movement normal Mood: congruent mood Affect: normal affect Exam Narrative Exam Narrative: General: 24-year-old man, sitting up in bed, no acute distress, alert and oriented, pleasant cooperative, in no acute distress. Speaking in complete sentences without shortness of breath. HEENT: Normocephalic, atraumatic, pupils equal and round, EOMI, mucous membranes moist. Neck: Supple, no JVD. Cardiovascular: Heart has regular rate and rhythm, no murmur appreciated. Respiratory: Lung sounds slightly diminished throughout, few scattered wheezes throughout lung grossman. He is moving air. GI: Normoactive bowel sounds, abdomen is soft, nontender on palpation, nondistended. GI: No clubbing, cyanosis or edema. Psych Mental Status: mental status grossly normal Speech and Movement: speech and movement normal Mood: congruent mood Affect: normal affect DS: Data Vitals/I&O Vitals and I&O: Vital Signs Temperature 36.5 C 02/28/19 06:55 Temperature Source Tympanic 02/28/19 06:55 Pulse 94 H 02/28/19 06:55 Pulse Rhythm Regular 02/28/19 01:31 Respiratory Rate 18 02/28/19 08:25 Respiratory Effort Non-Labored 02/28/19 08:25 Respiratory Depth Normal 02/28/19 08:25 Respiratory Pattern Normal 02/28/19 08:25 Blood Pressure 133/73 02/28/19 06:55 Pulse Oximetry 99 02/28/19 06:55 Oxygen Delivery Method Room Air 02/28/19 06:55 Oxygen Flow Rate 0 02/28/19 06:55 Pain Level 4 02/28/19 06:55 Comment 02/28/19 01:50 Intake & Output 02/27/19 02/27/19 02/28/19 11:59 23:59 11:59 Weight 61.235 kg 63.1 kg Other: Urine Appearance Clear Data Completed and Pending Completed studies during hospitalization [Text1]: 02/27/2019: EXAM: XR CHEST 2V PA LATERAL XR CHEST 2V PA LATERAL CLINICAL HISTORY: cough/SOB cough/SOB TECHNIQUE: 2D digital imaging was performed. COMPARISON: XR CHEST 2V PA LATERAL from 01/14/2019 FINDINGS: The heart is not enlarged. The lungs are clear and well expanded. No pleural effusion seen. Mediastinal contours appear intact. IMPRESSION: Normal chest Labs on day of discharge: Labs from last 24 hours 02/27/19 02/27/19 23:12 23:12 WBC 9.42 RBC 5.98 Hgb 16.2 Hct 48.9 MCV 81.8 MCH 27.1 MCHC 33.1 RDW 14.2 H Plt Count 210 MPV 9.3 Immature Gran % 0.2 Neutrophils % 91.2 Lymphocytes % 6.7 Monocytes % 1.4 Eosinophils % 0.4 Basophils % 0.1 Absolute Neutrophils 8.59 H Absolute Lymphocytes 0.63 L Absolute Monocytes 0.13 Absolute Eosinophils 0.04 Absolute Basophils 0.01 Sodium 140 Potassium 4.0 Chloride 102 Carbon Dioxide 27.9 Anion Gap 10.1 BUN 11 Creatinine 0.73 Estimated GFR/1.73 m2 >= 60.00 Glucose 138 H Calcium 9.2 PFSH Medical History Anxiety disorder (Chronic) Asthma (Chronic) Depression (Chronic) Eczema (Acute) Surgical History No significant past surgical history (Acute) Family History Other Adopted Social History Smoking/Tobacco Use Status: Current-Occasional Tobacco Type: cigarettes and pipe Counseling given: provider counseling Alcohol Intake: current Alcohol Intake frequency: a few times a week Alcohol type: beer Drug use: Occasionally Substance use type: marijuana Counseling given: Yes Housing: other Details: college dorm Current gender identity: male Do you feel safe at home: Yes Do you feel safe in your relationship?: Yes
[2019-02-28] MEDS: busPIRone 5 MG TAB PO (10:47)
[2019-02-28] MEDS: ARIPiprazole 2 MG TAB PO (10:47)
== END 2019-02-28 11:37 | disposition home or self-care (01) ==
LOC: ER 02-28 00:54 → MS 02-28 01:18
PROVIDERS: Admitting Provider Internal Medicine; Emergency Provider Emergency Medicine; PCP Nurse Practitioner Family; Visit Provider Internal Medicine
DX: J45.41 Moderate persistent asthma with (acute) exacerbation (principal)
CPT/HCPCS: 36415; 80048; 87449; 94640; 99222; 99239; 99285; 71046; 85025; 99217; 99219; G0378; J2930; J7512; J7613

== ENCOUNTER 2019-03-06 03:57 | Outpatient (CLI) | payer BC, SELFPAY ==
[2019-03-06] MEDS: Inhaler, Assist Device 1 EACH MC (11:29)
[2019-03-06] MEDS: Albuterol HFA 18 GM 200 PUFF INH IH (11:30)
--- NOTE | 2019-03-06 13:41 | PFT_ITS ---
PULMONARY FUNCTION TEST REPORT DATE OF SERVICE: March 06, 2019 REQUESTING PROVIDER: Jerad Palmer DNP Spirometry shows moderately severe obstructive airways disease with no significant bronchodilator response. Lung volumes show no evidence of restriction. Diffusion capacity elevated. Airways resistance elevated. IMPRESSION: Moderately severe obstructive airways disease with no significant bronchodilator response. This is associated with elevated diffusion capacity and elevated airways resistance. This constellation of findings can be seen in asthma. Clinical correlation recommended. LUCILLE/brad D/
== END 2019-03-06 04:17 ==
PROVIDERS: PCP Nurse Practitioner Family; Visit Provider Nurse Practitioner Family
DX: J45.909 Unspecified asthma, uncomplicated (principal); J98.8 Other specified respiratory disorders
CPT/HCPCS: 94060; 94150; 94726; 94729

== ENCOUNTER 2019-04-21 10:11 | Emergency (ER) | payer BC, SELFPAY ==
[2019-04-21] VITALS (28 sets, daily range): BP systolic 100–148; BP diastolic 49–109; PULSE 93–176; RESP 4–25; TEMP 37; O2SAT 96–100
--- NOTE | 2019-04-21 10:19 | ED.GENADUL_ITS ---
Discharge Plan Disposition Patient Disposition: AGAINST MEDICAL ADVICE Condition: Improving Discharge Details Chief Complaint: SOB Clinical Impression: Acute asthma exacerbation Primary Care Provider: Jerad Palmer ED Provider: Macarena Carrizales Home Meds and New Rx's Prescriptions: New prednisone 20 mg tablet 60 mg PO DAILY Qty: 12 RF: 0 Continued sertraline 100 mg Tablet 200 mg PO DAILY RF: 0 albuterol sulfate 2.5 mg /3 mL (0.083 %) solution for nebulization 2.5 mg IH QID PRN (Reason: shortness of breath or wheezing) Qty: 75 RF: 0 cetirizine [Zyrtec] 10 mg tablet 10 mg PO DAILY Qty: 30 RF: 0 buspirone 5 mg Tablet 15 mg PO BID RF: 0 pantoprazole 40 mg Tablet,Delayed Release (Dr/Ec) 40 mg PO DAILY RF: 0 montelukast 10 mg Tablet 10 mg PO DAILY RF: 0 hydroxyzine HCl 50 mg Tablet 50 mg PO QHS PRNRF: 0 hydroxyzine HCl 25 mg Tablet 25 mg PO TID PRNRF: 0 aripiprazole [Abilify] 2 mg Tablet 2 mg PO DAILY RF: 0 benzonatate 200 mg Capsule 200 mg PO TID Qty: 12 RF: 0 prednisone 10 mg tablet 10 mg PO DAILY Qty: 20 RF: 0 ipratropium-albuterol 0.5 mg-3 mg(2.5 mg base)/3 mL solution for nebulization 3 ml IH Q4H PRN (Reason: shortness of breath or wheezing) Qty: 30 RF: 0 albuterol sulfate 2.5 mg /3 mL (0.083 %) Solution For Nebulization 2.5 mg UPD Q2H PRN PRNQty: 30 RF: 0 albuterol sulfate [ProAir HFA] 90 mcg/actuation HFA aerosol inhaler 2 puff IH Q6H PRN (Reason: shortness of breath) Qty: 18 RF: 0 budesonide-formoterol [Symbicort] 160-4.5 mcg/actuation Hfa Aerosol Inhaler 1 puff INHALATION BID Qty: 1 RF: 0 Discharge Instructions Instructions: Prednisone (By mouth), Asthma (ED), Against Medical Advice (ED) Additional Instructions: You have elected to leave the emergency department AGAINST MEDICAL ADVICE. The risks of doing so are , permanent disability. You may return to the emergency department at any point if you change your mind and would like to continue to undergo the recommended further evaluation and treatment. Please return immediately to the emergency department if you develop any new or worsening symptoms, if your condition does not improve as expected, or if you become otherwise concerned. It is extremely important that you call soon as possible to make an appointment to be seen in follow-up for this visit by your primary care doctor. 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 Please continue to use all of your medication as prescribed. Referrals: Jerad Palmer NP [Primary Care Provider] - Discharge Data Discharge Date/Time-TO BE ENTERED AT DEPARTURE: 04/21/19 12:51 Medical Decision Making Alden Soto is a 24-year-old man with history of asthma, depression who presented to the emergency department with shortness of breath, cough worsening over the past 2 weeks after running out of Symbicort and albuterol inhaler, has been using nebulizer at home. On exam patient is well and nontoxic appearing. He has diffuse expiratory wheeze bilaterally with mild increased work of breathing, no accessory muscle use. Concern for asthma exacerbation, possible influenza, pneumonia. Patient reports that he used a DuoNeb just prior to calling EMS, received 1 DuoNeb from EMS en route. Plan for continuous albuterol, magnesium, Solu-Medrol, IV fluid hydration, screening labs, chest x- ray, telemetry. Will monitor and reassess. Nursing called Pt's pharmacy, Pt with active refills on asthma meds, pharmacy will refill and have ready. I discussed this with the Pt. On reassessment Pt with tachypnea resolved, continued diffuse b/l wheeze, somewhat improved from initial exam. O2 sat 100% while receiving neb. Will continue to monitor on continuous albuterol. I discussed with Pt that given his presentation I plan for admission, Pt states that under no circumstances will he be admitted today as I have to go work tomorrow and I basically always feel like this anyway. He agrees to further observation in ED on continuous nebs. CXR okay. Labs reviewed, WBC 8.3, AG 9.6. Pt reporting that he feels better and is ready to go home. O2 sat 95% on room air, tachycardic 110 likely 2/2 albuterol. No tachypnea. Continued diffuse b/l exp wheeze on auscultation, improved from prior. Given continued wheeze, plan for admission. I again discussed the plan for admission and my concern for worsening of his condition, and I discussed the risks of leaving including intubation, , permanent disability. Pt verbalized understanding of the risks and states that he refuses to stay. I emphasized that he should return for any worsening and may return at any time if changes his mind about leaving AMA. Pt has decision making capacity and capacity to make informed refusal. I had a lengthy discussion with Patient regarding return to emergency department precautions, home care, and importance of outpatient follow-up. Pt verbalizes understanding of the plan and is amenable. Patient discharged to home with clear plan for outpatient follow-up. All questions were answered. Pt d/keira to home with albuterol inhaler and RX for prednisone. Disposition decision was made weighing the risks and benefits of hospitalization versus outpatient treatment, the risk for further decompensation, and the patient's wishes. Medical Records Medical records reviewed: Yes I reviewed the patient's medical records. Imaging Data Radiologic Study: Attestation: I personally reviewed and interpreted this imaging study as follows: Radiologist's impression: EXAM: XR PORTABLE CHEST AP INDICATION: SOB, cough. COMPARISON: No exams were available for comparison TECHNIQUE: 2D digital imaging was performed. FINDINGS: Leads overlie the chest. Oxygen tubing is seen. The heart size is normal. The lungs appear clear. No pneumothorax is seen. IMPRESSION: Negative portable chest Lab Data Lab results reviewed: Yes I reviewed the patient's lab results. Labs: 04/21/19 10:20 Nasopharynx Influenza Types A,B Antigen - Final Laboratory Tests Range/Units 04/21/19 04/21/19 10:20 10:20 WBC (4.4-10.8) k/cumm 8.39 RBC (4.50-6.00) m/cumm 5.66 Hgb (13.5-17.5) g/dL 15.5 Hct (40.0-50.0) % 46.3 MCV (80-95) fL 81.8 MCH (27.0-33.0) pg 27.4 MCHC (32.0-36.0) g/dL 33.5 RDW (11.8-14.1) % 14.3 H Plt Count (130-400) x1000/uL 249 MPV (8.0-11.0) fL 9.1 Immature Gran % % 0.2 Neutrophils % 68.5 Lymphocytes % 19.5 Monocytes % 7.3 Eosinophils % 4.3 Basophils % 0.2 Absolute Neutrophils (1.2-6.7) k/cumm 5.74 Absolute Lymphocytes (1.2-3.4) k/cumm 1.64 Absolute Monocytes (0.11-0.7) k/cumm 0.61 Absolute Eosinophils (0.0-0.7) k/cumm 0.36 Absolute Basophils (0.0-0.2) k/cumm 0.02 Sodium (136-145) mmol/L 141 Potassium (3.5-5.1) mmol/L 3.6 Chloride (98-107) mmol/L 105 Carbon Dioxide (21.0-32.0) mmol/L 26.4 Anion Gap (3-11) mmol/L 9.6 BUN (7-18) mg/dL 11 Creatinine (0.70-1.30) mg/dL 0.98 Estimated GFR/1.73 m2 (mL/min/1.73m2) >= 60.00 Glucose (74-106) mg/dL 88 Calcium (8.5-10.1) mg/dL 8.9 Total Bilirubin (0.2-1.0) mg/dL 0.6 AST (15-37) U/L 15 ALT (16-63) U/L 16 Alkaline Phosphatase (46-116) U/L 71 Total Protein (6.4-8.2) g/dL 7.6 Albumin (3.4-5.0) g/dL 4.3 HPI General Mode of arrival: EMS . Date/Time Provider Initiated Documentation: 04/21/19 10:11 . Limitations to Documentation: no limitations . Information obtained by: patient, RN notes reviewed and old records reviewed . HPI Narrative: Alden Soto is a 24-year-old man with a history of asthma, depression presenting to the emergency department with shortness of breath and cough. Patient reports that he normally takes Symbicort, but has been out of this medication for the past 2 weeks. Patient reports that approximately 2 weeks ago he noticed that his asthma symptoms seem to be getting worse, with increasing shortness of breath and increasing cough. Patient reports that he has been using his nebulizer more than usual over the past 2 weeks. Patient reports that he used nebulizer at home, but called EMS because it did not seem to improve his shortness of breath. He reports chest pain with coughing but not otherwise, denies any other pain. Denies fevers, vomiting, diarrhea, rash, numbness, weakness. Has been eating and drinking as usual. Related Data Home Medications Medication Instructions Recorded Confirmed sertraline 200 mg PO DAILY 04/18/18 04/21/19 albuterol sulfate 2.5 mg IH QID PRN #75 ml 05/20/18 04/21/19 cetirizine [Zyrtec] 10 mg PO DAILY #30 tab 07/16/18 04/21/19 buspirone 15 mg PO BID 09/22/18 04/21/19 montelukast 10 mg PO DAILY 09/22/18 04/21/19 pantoprazole 40 mg PO DAILY 09/22/18 04/21/19 albuterol sulfate 2.5 mg UPD Q2H PRN PRN #30 units 02/28/19 04/21/19 albuterol sulfate [ProAir HFA] 2 puff IH Q6H PRN #18 gm 02/28/19 04/21/19 aripiprazole [Abilify] 2 mg PO DAILY 02/28/19 04/21/19 benzonatate 200 mg PO TID #12 cap 02/28/19 04/21/19 budesonide-formoterol [Symbicort] 1 puff INHALATION BID #1 inh 02/28/19 04/21/19 hydroxyzine HCl 25 mg PO TID PRN 02/28/19 04/21/19 hydroxyzine HCl 50 mg PO QHS PRN 02/28/19 04/21/19 ipratropium-albuterol 3 ml IH Q4H PRN #30 units 02/28/19 04/21/19 prednisone 10 mg PO DAILY #20 tab 02/28/19 04/21/19 prednisone 60 mg PO DAILY #12 tab 04/21/19 Previous Rx's Medication Instructions Recorded albuterol sulfate 2.5 mg IH QID PRN #75 ml 05/20/18 cetirizine [Zyrtec] 10 mg PO DAILY #30 tab 07/16/18 albuterol sulfate 2.5 mg UPD Q2H PRN PRN #30 units 02/28/19 albuterol sulfate [ProAir HFA] 2 puff IH Q6H PRN #18 gm 02/28/19 benzonatate 200 mg PO TID #12 cap 02/28/19 budesonide-formoterol [Symbicort] 1 puff INHALATION BID #1 inh 02/28/19 ipratropium-albuterol 3 ml IH Q4H PRN #30 units 02/28/19 prednisone 10 mg PO DAILY #20 tab 02/28/19 prednisone 60 mg PO DAILY #12 tab 04/21/19 Allergies Allergy/AdvReac Type Severity Reaction Status Date / Time cat dander Allergy Wheezing Unverified 04/21/19 10:17 migraine medication AdvReac Uncoded 04/21/19 10:17 General Stated Complaint: SOB MINGO: 3 Review of Systems Narrative: Constitutional: denies fevers Eyes: denies eye pain ENT: denies ear pain, dental pain, sore throat Cardiovascular: Reports chest pain with coughing and not otherwise Respiratory: Reports SOB, cough GI: denies abdominal pain, vomiting, diarrhea : denies flank pain MSK: denies back pain, neck pain, arthralgias, myalgias Skin: denies rash Neuro: denies headaches, numbness, weakness [facility] Medical History Anxiety disorder (Chronic) Asthma (Chronic) Depression (Chronic) Eczema (Acute) Social History Smoking/Tobacco Use Status: Current-Occasional Tobacco Type: cigarettes and pipe Counseling given: provider counseling Alcohol Intake: current Alcohol Intake frequency: holidays/special occasions only Alcohol type: beer Drug use: Daily Substance use type: marijuana Counseling given: Yes Housing: other Details: college dorm Current gender identity: male Do you feel safe at home: Yes Do you feel safe in your relationship?: Yes Exam Narrative Exam Narrative: Constitutional: well and [id number], pleasant, speaking in short sentences with mild tachypnea, no accessory muscle use HENT: head atraumatic/normocephalic/normal inspection, mucous membranes moist Eyes: conjunctiva normal, sclera normal, pupils 3mm b/l Neck: no stridor, normal ROM, trachea midline Chest: normal inspection Resp: mild tachypnea, diffuse expiratory wheeze bilaterally Cardio: normal rate, normal rhythm, no murmur appreciated Back: normal inspection, no rash Skin: warm, dry, normal color, no rash Neuro: alert, not altered, grossly non-focal, normal tone Ext: no edema, no posterior calf TTP Psych: normal mood, normal affect, normal behavior Course Vital Signs Vital signs: Vital Signs Temperature 37 C 04/21/19 10:12 Pulse 100 H 04/21/19 10:12 Respiratory Rate 19 04/21/19 10:12 Blood Pressure 120/75 04/21/19 10:12 Pulse Oximetry 100 04/21/19 10:12 Temperature 37 C 04/21/19 10:12 Temperature Source Skin 04/21/19 10:12 Pulse 100 H 04/21/19 10:12 Respiratory Rate 19 04/21/19 10:12 Respiratory Effort 04/21/19 10:17 Blood Pressure 120/75 04/21/19 10:12 Blood Pressure Position Sitting 04/21/19 10:12 Pulse Oximetry 100 04/21/19 10:12 Oxygen Delivery Method Aerosol Mask 04/21/19 10:12 Pain Level 5 04/21/19 10:12 Lab/Test Results Lab/Test Results: 04/21/19 10:19 Nasopharynx Influenza Types A,B Antigen - Pending
[2019-04-21] MEDS: methylPREDNISolone SUCC 125 MG VIAL IVP (10:28)
[2019-04-21] MEDS: MAGNESIUM SULFATE 2 GM/50 ML BAG IVPB (10:29)
[2019-04-21] MEDS: Normal Saline Flush 10 ML SYR IVP (10:31)
--- NOTE | 2019-04-21 10:37 | DI.RAD_ITS ---
EXAM: XR PORTABLE CHEST AP INDICATION: SOB, cough. COMPARISON: No exams were available for comparison TECHNIQUE: 2D digital imaging was performed. FINDINGS: Leads overlie the chest. Oxygen tubing is seen. The heart size is normal. The lungs appear clear. No pneumothorax is seen. IMPRESSION: Negative portable chest
[2019-04-21] MEDS: Normal Saline 1,000 ML 1000 ML IV (10:38)
--- NOTE | 2019-04-21 10:38 | NUR.NOTE ---
Nursing Note: Pt states he has been out of symbicort & albuterol inhalers for weeks so has been utilizing nebulizers. Prescriptions are picked up @ [facility] in [place], [place]. Contacted Rachel who states pt has refills available on both the symbicort inhaler and the albuterol inhaler- they will start to get this refilled for Alden now so they will be available for pick up worker upon discharge.
[2019-04-21 10:40] LABS: Abs Immature Grans 0.02 k/cumm (0.0-0.09); Absolute Basophil Count 0.02 k/cumm (0.0-0.2); Absolute Eosinophil Count 0.36 k/cumm (0.0-0.7); Absolute Lymphocyte Count 1.64 k/cumm (1.2-3.4); Absolute Monocyte Count 0.61 k/cumm (0.11-0.7); Absolute Neutrophil Count 5.74 k/cumm (1.2-6.7); Basophils % 0.2; Eosinophils % 4.3; HCT 46.3 % (40.0-50.0); HGB 15.5 g/dL (13.5-17.5); Immature Grans % 0.2 %; Lymphocytes % 19.5; Mean Corp. HGB Concentration 33.5 g/dL (32.0-36.0); Mean Corpuscular Hemoglobin 27.4 pg (27.0-33.0); Mean Corpuscular Volume 81.8 fL (80-95); Mean Platelet Volume 9.1 fL (8.0-11.0); Monocytes % 7.3; Neutrophils % 68.5; Platelet Count 249 x1000/uL (130-400); RBC 5.66 m/cumm (4.50-6.00); RBC Distribution Width 14.3 % (11.8-14.1); White Blood Cell Count 8.39 k/cumm (4.4-10.8)
--- NOTE | 2019-04-21 11:01 | NUR.NOTE ---
Nursing Note: When reviewing the patients home medication list with him, he stated that he has not been taken any of his home medications that he is prescribed for about two weeks.
[2019-04-21 11:15] LABS: ALT 16 U/L (16-63); AST 15 U/L (15-37); Albumin 4.3 g/dL (3.4-5.0); Alkaline Phosphatase 71 U/L (46-116); Anion Gap 9.6 mmol/L (3-11); BUN 11 mg/dL (7-18); Bilirubin, Total 0.6 mg/dL (0.2-1.0); CO2 26.4 mmol/L (21.0-32.0); CREATININE 0.98 mg/dL (0.70-1.30); Calcium 8.9 mg/dL (8.5-10.1); Chloride 105 mmol/L (98-107); Glucose 88 mg/dL (74-106); Potassium 3.6 mmol/L (3.5-5.1); Sodium 141 mmol/L (136-145); Total Protein 7.6 g/dL (6.4-8.2)
[2019-04-21] MEDS: Albuterol HFA 8 GM 60 PUFF INH IH (12:48)
== END 2019-04-21 12:51 | disposition left against medical advice (07) ==
PROVIDERS: Emergency Provider Student in an Organized Health Care Education/Training Program; PCP Nurse Practitioner Family
DX: R06.02 Shortness of breath (principal); J45.901 Unspecified asthma with (acute) exacerbation; Z53.29 Procedure and treatment not carried out because of patient's decision for other reasons; F17.210 Nicotine dependence, cigarettes, uncomplicated
CPT/HCPCS: 36415; 80053; 87449; 94640; 94644; 96361; 96365; 96366; 96375; 99284; 71045; 85025; 99285; J2930; J7611

== ENCOUNTER 2019-04-23 09:11 | Inpatient (IN) | payer BC, SELFPAY ==
[2019-04-23] VITALS (43 sets, daily range): BP systolic 118–156; BP diastolic 49–109; PULSE 88–136; RESP 4–36; TEMP 36.7–37.2; O2SAT 92–100
[2019-04-23] MEDS: Normal Saline 1,000 ML 1000 ML IV ×2 (09:21→10:26)
[2019-04-23] MEDS: MAGNESIUM SULFATE 2 GM/50 ML BAG IVPB (09:22)
--- NOTE | 2019-04-23 09:43 | DI.RAD_ITS ---
EXAM: XR PORTABLE CHEST AP INDICATION: difficulty breathing. COMPARISON: XR PORTABLE CHEST AP from 04/21/2019 TECHNIQUE: 2D digital imaging was performed. FINDINGS: The heart size is normal. Leads and oxygen tubing are are seen overlying the chest. The lungs appea r clear. No infiltrate, effusion pneumothorax seen. IMPRESSION: Negative portable chest.
[2019-04-23 09:59] LABS: Abs Immature Grans 0.04 k/cumm (0.0-0.09); Absolute Basophil Count 0.02 k/cumm (0.0-0.2); Absolute Eosinophil Count 0.18 k/cumm (0.0-0.7); Absolute Lymphocyte Count 2.46 k/cumm (1.2-3.4); Absolute Monocyte Count 0.94 k/cumm (0.11-0.7); Absolute Neutrophil Count 6.36 k/cumm (1.2-6.7); Basophils % 0.2; Eosinophils % 1.8; HCT 42.6 % (40.0-50.0); Immature Grans % 0.4 %; Lymphocytes % 24.6; Mean Corp. HGB Concentration 32.9 g/dL (32.0-36.0); Mean Corpuscular Hemoglobin 27.3 pg (27.0-33.0); Mean Corpuscular Volume 83.2 fL (80-95); Monocytes % 9.4; Neutrophils % 63.6; Platelet Count 256 x1000/uL (130-400); RBC 5.12 m/cumm (4.50-6.00); RBC Distribution Width 14.9 % (11.8-14.1)
[2019-04-23 10:20] LABS: ALT 16 U/L (16-63); AST 33 U/L (15-37); Albumin 3.7 g/dL (3.4-5.0); Alkaline Phosphatase 56 U/L (46-116); Anion Gap 8.7 mmol/L (3-11); BUN 13 mg/dL (7-18); Bilirubin, Total 0.6 mg/dL (0.2-1.0); CO2 27.3 mmol/L (21.0-32.0); CREATININE 0.87 mg/dL (0.70-1.30); Calcium 8.3 mg/dL (8.5-10.1); Chloride 107 mmol/L (98-107); Glucose 87 mg/dL (74-106); Magnesium 2.1 mg/dL (1.8-2.4); Potassium 3.9 mmol/L (3.5-5.1); Sodium 143 mmol/L (136-145); Total Protein 6.6 g/dL (6.4-8.2); Troponin I < 0.05 ng/Ml (<0.06)
--- NOTE | 2019-04-23 10:55 | ED.GENADUL_ITS ---
Discharge Plan Discharge Details Chief Complaint: SOB Admit Date/Time: 04/23/19 10:24 Admit Provider: Johnny Panchal Attending Provider: Johnny Panchal Primary Care Provider: Jerad Palmer ED Provider: Macarena Carrizales Medical Decision Making Alden Soto is a 24-year-old man with a history of asthma, depression, a nxiety presenting to the emergency department with shortness of breath worsening over the past few weeks while not using his regular maintenance asthma medications, significantly worse last night and this morning after leaving the ER for same AMA 2 days ago. On exam patient is in moderate respiratory distress, diffuse expiratory wheeze throughout bilaterally. Grossly nonfocal neurologic exam. Concern for likely asthma exacerbation related to noncompliance with medications, doubt pneumonia, influenza given recent testing. Patient received duo nebs x2 and Solu-Medrol in the field from EMS. Plan for continuous albuterol, IV magnesium, telemetry, IV, IV fluid hydration. Will monitor and reassess. Patient complaining of sudden onset sharp retrosternal chest pain while receiving albuterol treatment. Breath sounds unchanged from prior examination on auscultation. Vital signs unchanged from initial. Concern for pneumothorax, less likely cardiac etiology, doubt PE at this time. Plan for chest x-ray, EKG, screening labs. Patient refuses flu swab. Chest x-ray normal, shows no pneumothorax. EKG okay. Patient reporting gradual improvement in his chest pain. He is somewhat more tachypneic, with respiratory rate now at 30. Plan for trial BiPAP, patient wished to hold on ketamine for now. Patient with significant improvement and breathing after brief period on BiPAP, approximately 15 minutes. Heart rate 110, respiratory rate 20. Patient reports chest pain has resolved completely. Patient has maintained oxygen saturations at 95% or more throughout his emergency department stay. Plan for admission to the ICU. Clinical impression: Acute asthma exacerbation Disposition: [facility] inpatient Medical Records Medical records reviewed: Yes I reviewed the patient's medical records. Imaging Data Radiologic Study: Attestation: I personally reviewed and interpreted this imaging study as follows: Radiologist's impression: EXAM: XR PORTABLE CHEST AP INDICATION: difficulty breathing. COMPARISON: XR PORTABLE CHEST AP from 04/21/2019 TECHNIQUE: 2D digital imaging was performed. FINDINGS: The heart size is normal. Leads and oxygen tubing are are seen overlying the chest. The lungs appear clear. No infiltrate, effusion pneumothorax seen. IMPRESSION: Negative portable chest. Lab Data Lab results reviewed: Yes I reviewed the patient's lab results. Labs: 04/23/19 10:11 Nasopharynx Influenza Types A,B Antigen - Pending Laboratory Tests Range/Units 04/23/19 04/23/19 09:50 09:50 WBC (4.4-10.8) k/cumm 10.00 RBC (4.50-6.00) m/cumm 5.12 Hgb (13.5-17.5) g/dL 14.0 Hct (40.0-50.0) % 42.6 MCV (80-95) fL 83.2 MCH (27.0-33.0) pg 27.3 MCHC (32.0-36.0) g/dL 32.9 RDW (11.8-14.1) % 14.9 H Plt Count (130-400) x1000/uL 256 MPV (8.0-11.0) fL 9.0 Immature Gran % % 0.4 Neutrophils % 63.6 Lymphocytes % 24.6 Monocytes % 9.4 Eosinophils % 1.8 Basophils % 0.2 Absolute Neutrophils (1.2-6.7) k/cumm 6.36 Absolute Lymphocytes (1.2-3.4) k/cumm 2.46 Absolute Monocytes (0.11-0.7) k/cumm 0.94 H Absolute Eosinophils (0.0-0.7) k/cumm 0.18 Absolute Basophils (0.0-0.2) k/cumm 0.02 Sodium (136-145) mmol/L 143 Potassium (3.5-5.1) mmol/L 3.9 Chloride (98-107) mmol/L 107 Carbon Dioxide (21.0-32.0) mmol/L 27.3 Anion Gap (3-11) mmol/L 8.7 BUN (7-18) mg/dL 13 Creatinine (0.70-1.30) mg/dL 0.87 Estimated GFR/1.73 m2 (mL/min/1.73m2) >= 60.00 Glucose (74-106) mg/dL 87 Calcium (8.5-10.1) mg/dL 8.3 L Magnesium (1.8-2.4) mg/dL 2.1 Total Bilirubin (0.2-1.0) mg/dL 0.6 AST (15-37) U/L 33 ALT (16-63) U/L 16 Alkaline Phosphatase (46-116) U/L 56 Troponin I (<0.06) ng/Ml < 0.05 Total Protein (6.4-8.2) g/dL 6.6 Albumin (3.4-5.0) g/dL 3.7 ECG Data Attestation: I personally reviewed and interpreted this ECG (s) as follows: Interpretation: EKG shows sinus tachycardia 120, normal axis, no STEMI, nondiagnostic EKG HPI General Mode of arrival: EMS . Date/Time Provider Initiated Documentation: 04/23/19 09:37 . Limitations to Documentation: no limitations . Information obtained by: patient, RN notes reviewed and old records reviewed . HPI Narrative: Alden Soto is a 24 y/o man with h/o asthma, depression, anxiety presenting to the emergency department with shortness of breath. Patient was seen here 2 days ago for same, was diagnosed with asthma exacerbation, admission was recommended, and he left the emergency department AMA. Patient reports that he has not been using his Spiriva or albuterol inhaler for the past 2 weeks as he ran out, and has only been using his home nebulizer. Patient reports that he has been using albuterol inhaler that he was given in the emergency department 2 days ago and his nebulizer, but has not been using his maintenance asthma medications. Patient reports that he has had productive cough over the past 2 weeks that is unchanged. Patient had negative chest x-ray, negative flu swab at prior ER visit. He denies any pain, fevers, vomiting, diarrhea, numbness, weakness. States that he normally does not eat very well, but has had no change in his appetite or p.o. intake recently. Went to work yesterday at [employer], had gradually increasing worsening of his shortness of breath while he was at work and significant worsening on his walk home in the cold. Related Data Home Medications Medication Instructions Recorded Confirmed sertraline 200 mg PO DAILY 04/18/18 04/23/19 albuterol sulfate 2.5 mg IH QID PRN #75 ml 05/20/18 04/23/19 cetirizine [Zyrtec] 10 mg PO DAILY #30 tab 07/16/18 04/23/19 buspirone 15 mg PO BID 09/22/18 04/23/19 montelukast 10 mg PO DAILY 09/22/18 04/23/19 pantoprazole 40 mg PO DAILY 09/22/18 04/23/19 albuterol sulfate 2.5 mg UPD Q2H PRN PRN #30 units 02/28/19 04/23/19 albuterol sulfate [ProAir HFA] 2 puff IH Q6H PRN #18 gm 02/28/19 04/23/19 aripiprazole [Abilify] 2 mg PO DAILY 02/28/19 04/23/19 benzonatate 200 mg PO TID #12 cap 02/28/19 04/23/19 budesonide-formoterol [Symbicort] 1 puff INHALATION BID #1 inh 02/28/19 04/23/19 hydroxyzine HCl 25 mg PO TID PRN 02/28/19 04/23/19 hydroxyzine HCl 50 mg PO QHS PRN 02/28/19 04/23/19 ipratropium-albuterol 3 ml IH Q4H PRN #30 units 02/28/19 04/23/19 prednisone 10 mg PO DAILY #20 tab 02/28/19 04/23/19 prednisone 60 mg PO DAILY #12 tab 04/21/19 04/23/19 Previous Rx's Medication Instructions Recorded albuterol sulfate 2.5 mg IH QID PRN #75 ml 05/20/18 cetirizine [Zyrtec] 10 mg PO DAILY #30 tab 07/16/18 albuterol sulfate 2.5 mg UPD Q2H PRN PRN #30 units 02/28/19 albuterol sulfate [ProAir HFA] 2 puff IH Q6H PRN #18 gm 02/28/19 benzonatate 200 mg PO TID #12 cap 02/28/19 budesonide-formoterol [Symbicort] 1 puff INHALATION BID #1 inh 02/28/19 ipratropium-albuterol 3 ml IH Q4H PRN #30 units 02/28/19 prednisone 10 mg PO DAILY #20 tab 02/28/19 prednisone 60 mg PO DAILY #12 tab 04/21/19 Allergies Allergy/AdvReac Type Severity Reaction Status Date / Time cat dander Allergy Wheezing Unverified 04/21/19 10:17 migraine medication AdvReac Uncoded 04/21/19 10:17 General Stated Complaint: SOB MINGO: 3 Review of Systems Narrative: Constitutional: denies fevers Eyes: denies eye pain ENT: denies ear pain, dental pain, sore throat Cardiovascular: denies chest pain Respiratory: Reports SOB, cough GI: denies abdominal pain, vomiting, diarrhea : denies flank pain MSK: denies back pain, neck pain, arthralgias, myalgias Skin: denies rash Neuro: denies headaches, numbness, weakness [facility] Medical History (Updated 04/23/19 @ 12:01 by Johnny Panchal) Anxiety disorder (Chronic) Asthma (Chronic) Depression (Chronic) Eczema (Acute) Marijuana smoker (Acute) Surgical History No significant past surgical history (Acute) Family History Other Adopted Social History (Updated 04/23/19 @ 11:47 by Johnny Panchal) Smoking/Tobacco Use Status: Current-Occasional Tobacco Type: cigarettes and pipe Counseling given: provider counseling Alcohol Intake: current Alcohol Intake frequency: holidays/special occasions only Alcohol type: beer Details: Minimal Drug use: Daily Substance use type: marijuana Counseling given: Yes Details: No vaping, no other drug use. States he uses to treat anxiety and insomnia. Adopted: Yes Housing: apartment Current gender identity: male Do you feel safe at home: Yes Do you feel safe in your relationship?: Yes Additional Social history: Grew up in [place], [facility], close with 1 of his moms who lives in [place]. Lives alone in apartment [address] in [place]. She started working at [employer] Has a pet rat for the past 2 years Exam Narrative Exam Narrative: Constitutional: well and [id number], cooperative, speaking in 1-2 word sentences HENT: head atraumatic/normocephalic/normal inspection, mucous membranes moist Eyes: conjunctiva normal, sclera normal, pupils 3mm b/l Neck: no stridor, normal ROM, trachea midline Chest: normal inspection Resp: Tachypnea, accessory muscle use, diffuse expiratory wheeze throughout bilaterally Cardio: Tachycardic rate, normal rhythm, no murmur appreciated Back: normal inspection, no rash Skin: warm, dry, normal color, no rash Neuro: alert, not altered, grossly non-focal, normal tone Ext: no edema no posterior calf tenderness to palpation Psych: normal mood, normal affect, normal behavior Course Vital Signs Vital signs: Vital Signs Temperature 37.2 C 04/23/19 09:13 Pulse 108 H 04/23/19 09:13 Blood Pressure 150/87 H 04/23/19 09:13 Pulse Oximetry 97 04/23/19 09:13 Temperature 37.2 C 04/23/19 09:13 Temperature Source Skin 04/23/19 09:13 Pulse 124 H 04/23/19 10:21 Pulse 128 H 04/23/19 10:20 Respiratory Rate 20 04/23/19 10:25 Respiratory Effort 04/23/19 10:25 Respiratory Depth Normal 04/23/19 10:25 Respiratory Pattern Normal 04/23/19 10:25 Blood Pressure 131/63 04/23/19 10:16 Blood Pressure Mean 80 04/23/19 10:16 Blood Pressure Position Sitting 04/23/19 09:13 Pulse Oximetry 99 04/23/19 10:21 Oxygen Delivery Method Aerosol Mask 04/23/19 09:29 Oxygen Flow Rate 0 04/23/19 09:13 Fraction of Inspired Oxygen (FIO2) 21 04/23/19 10:21 Lab/Test Results Lab/Test Results: 04/23/19 10:11 Nasopharynx Influenza Types A,B Antigen - Pending Laboratory Tests Range/Units 04/23/19 04/23/19 09:50 09:50 WBC (4.4-10.8) k/cumm 10.00 RBC (4.50-6.00) m/cumm 5.12 Hgb (13.5-17.5) g/dL 14.0 Hct (40.0-50.0) % 42.6 MCV (80-95) fL 83.2 MCH (27.0-33.0) pg 27.3 MCHC (32.0-36.0) g/dL 32.9 RDW (11.8-14.1) % 14.9 H Plt Count (130-400) x1000/uL 256 MPV (8.0-11.0) fL 9.0 Immature Gran % % 0.4 Neutrophils % 63.6 Lymphocytes % 24.6 Monocytes % 9.4 Eosinophils % 1.8 Basophils % 0.2 Absolute Neutrophils (1.2-6.7) k/cumm 6.36 Absolute Lymphocytes (1.2-3.4) k/cumm 2.46 Absolute Monocytes (0.11-0.7) k/cumm 0.94 H Absolute Eosinophils (0.0-0.7) k/cumm 0.18 Absolute Basophils (0.0-0.2) k/cumm 0.02 Sodium (136-145) mmol/L 143 Potassium (3.5-5.1) mmol/L 3.9 Chloride (98-107) mmol/L 107 Carbon Dioxide (21.0-32.0) mmol/L 27.3 Anion Gap (3-11) mmol/L 8.7 BUN (7-18) mg/dL 13 Creatinine (0.70-1.30) mg/dL 0.87 Estimated GFR/1.73 m2 (mL/min/1.73m2) >= 60.00 Glucose (74-106) mg/dL 87 Calcium (8.5-10.1) mg/dL 8.3 L Magnesium (1.8-2.4) mg/dL 2.1 Total Bilirubin (0.2-1.0) mg/dL 0.6 AST (15-37) U/L 33 ALT (16-63) U/L 16 Alkaline Phosphatase (46-116) U/L 56 Troponin I (<0.06) ng/Ml < 0.05 Total Protein (6.4-8.2) g/dL 6.6 Albumin (3.4-5.0) g/dL 3.7
--- NOTE | 2019-04-23 11:40 | HPE_ITS ---
Date of service: 04/23/19 Time of Service: 11:40 Assessment and Plan Assessment and plan (1) Acute asthma exacerbation: Status: Acute Assessment and plan: Patient presented in significant respiratory distress and briefly required BiPAP in the emergency room. Given this, he has been admitted to ICU status for close observation at least for this afternoon. He has been given IV Solu-Medrol, will continue this overnight and start some prednisone in the morning. He refused ABG in the emergency room, given his improvement I would not push this. Does have history of leaving AMA. It does appear that upper respiratory infection may have been part of his trigger, though his symptoms and imaging are not consistent with pneumonia. I do not think antibiotics would be helpful. Continue nebulized bronchodilators. [place] to both his acute exacerbation and for chronic management is poor adherence to controller medications. I will restart his Symbicort, cetirizine for allergies, and montelukast, and work with respiratory therapy and care management to try to help him maintain controller therapy. He may benefit from nasal steroid as well if he will take it. Also look for community resources to address environmental triggers in the home, namely humidity. Qualifiers: Asthma severity: moderate Asthma persistence: persistent Qualified Code(s): J45.41 - Moderate persistent asthma with (acute) exacerbation (2) Anxiety disorder: Status: Chronic Assessment and plan: Anxiety and depression appear to be playing a role and the patient's lack of adherence to preventive care. I like to restart his chronic medications, but he is concerned that he will get sick if he takes them all. He is on a PPI, which I will continue for now. I started at least the sertraline, with plan to slowly reintroduce all of his medications. (3) Marijuana smoker: Status: Acute Assessment and plan: I have encouraged in 2 rely more on his medications for control of his anxiety. Using edibles rather than smoking would also help avoid lung toxicity, which he would like to do. (4) DVT prophylaxis: Status: Acute Assessment and plan: Patient is ambulatory and young, no need for medical prophylaxis (5) Discharge planning issues: Status: Acute Assessment and plan: As above, long-term adherence to medication and environmental factors playing into his chronic asthma. His age and mental health are also issues. Will work with care management and possibly with family as well as the primary care team to help improve chronic management. History of Present Illness History of Present Illness Chief Complaint: Shortness of breath Narrative: 24-year-old with history of frequent asthma exacerbations who is presenting with worsening shortness of breath and wheezing progressing over the past 1 to 2 weeks, despite being treated with prednisone 2 days ago after evaluation in the emergency room. Patient has a long history of asthma, including history of intubation as a teenager. He ran out of his controller medication, Symbicort, over 2 weeks ago and has not made it to the pharmacy to [facility] a refill. About a week and a half ago, he started with some increased cough and sputum, associated with mild sore throat and nasal congestion which is chronic. His shortness of breath has been gradually worsening over that time. He was seen April 21, 2 days prior to admission, and the emergency room and started on prednisone. He did not pick this up or he has other inhalers, but he did start on prednisone that he had leftover from previous illness. Despite this, he woke up so short of breath that he could not go to work, came into the hospital. Patient has a history of depression and an anxiety, and admits he is not refill his medications recently. He is concerned if he starts all of them at once he w ill feel sick. He also expresses concern that his apartment has humidity problems and black mold. He is not aware of other triggers. Review of Systems Narrative: No fevers or chills. Hungry. No recent weight change. No headache or vision changes. Chronic nasal congestion as above. No ear pain. Feels like glands in neck swollen. Cough productive of white to yellow sputum, describes chronic intermittent specks of blood in cough. No focal chest pain, though his chest is tight. No palpitations. Intermittent nausea, no vomiting. No diarrhea or constipation. No dysuria or hematuria. He has some aching in his knees for the past 2 days more on the left, no trauma or swelling. No rashes or other skin changes. He has chronic depression and anxiety, no recent mood swings or new stressors. No focal numbness or weakness. [facility] Medical History Anxiety disorder (Chronic) Asthma (Chronic) Depression (Chronic) Eczema (Acute) Surgical History No significant past surgical history (Acute) Family History Other Adopted Social History (Updated 04/23/19 @ 11:47 by Johnny Panchal) Smoking/Tobacco Use Status: Current-Occasional Tobacco Type: cigarettes and pipe Counseling given: provider counseling Alcohol Intake: current Alcohol Intake frequency: holidays/special occasions only Alcohol type: beer Details: Minimal Drug use: Daily Substance use type: marijuana Counseling given: Yes Details: No vaping, no other drug use. States he uses to treat anxiety and insomnia. Adopted: Yes Housing: apartment Current gender identity: male Do you feel safe at home: Yes Do you feel safe in your relationship?: Yes Additional Social history: Grew up in [place], adopted, close with 1 of his moms who lives in [place]. Lives alone in [address] in [place]. She started working at [employer] Has a pet rat for the past 2 years Meds Home Medications and Allergies Home Medications Medication Instructions Recorded Confirmed Type sertraline 200 mg PO DAILY 04/18/18 04/23/19 History albuterol sulfate 2.5 mg IH QID PRN #75 ml 05/20/18 04/23/19 Rx cetirizine [Zyrtec] 10 mg PO DAILY #30 tab 07/16/18 04/23/19 Rx buspirone 15 mg PO BID 09/22/18 04/23/19 History montelukast 10 mg PO DAILY 09/22/18 04/23/19 History pantoprazole 40 mg PO DAILY 09/22/18 04/23/19 History albuterol sulfate 2.5 mg UPD Q2H PRN PRN #30 units 02/28/19 04/23/19 Rx albuterol sulfate [ProAir HFA] 2 puff IH Q6H PRN #18 gm 02/28/19 04/23/19 Rx aripiprazole [Abilify] 2 mg PO DAILY 02/28/19 04/23/19 History benzonatate 200 mg PO TID #12 cap 02/28/19 04/23/19 Rx budesonide-formoterol [Symbicort] 1 puff INHALATION BID #1 inh 02/28/19 04/23/19 Rx hydroxyzine HCl 25 mg PO TID PRN 02/28/19 04/23/19 History hydroxyzine HCl 50 mg PO QHS PRN 02/28/19 04/23/19 History ipratropium-albuterol 3 ml IH Q4H PRN #30 units 02/28/19 04/23/19 Rx prednisone 10 mg PO DAILY #20 tab 02/28/19 04/23/19 Rx prednisone 60 mg PO DAILY #12 tab 04/21/19 04/23/19 Rx Allergies Allergy/AdvReac Type Severity Reaction Status Date / Time cat dander Allergy Wheezing Unverified 04/21/19 10:17 migraine medication AdvReac Uncoded 04/21/19 10:17 Exam Narrative Exam Narrative: General: Alert and oriented x3, able to sit up and have a conversation in full sentences. Moderate tachypnea. HEENT: Normocephalic atraumatic, conjunctive are clear. Tympanic membranes clear. Mild nasal congestion. Mucous membranes moist with oropharynx benign. Neck is supple with small submandibular tender lymphadenopathy bilaterally. Trachea midline. Lungs: Diffuse inspiratory expiratory wheeze with poor air movement. Tachypneic, but no accessory muscle use noted, able to lie back comfortably. Cardiovascular: Tachycardic. Regular, with no murmurs gallops or rubs. Abdomen: Active bowel sounds, soft, nontender and nondistended. No masses or organomegaly. Extremities: No cyanosis, clubbing, or edema. Legs nontender to palpation. No joint redness or swelling, including knees. Normal range of motion in the knees with intact ligaments and no focal tenderness. Neurologic: Cranial nerves II through XII grossly intact. Normal speech, gait, coordination. No tremor. Psychiatric: Mood and affect appropriate, normal thought process. Skin: No rashes or other skin lesions Results Portable AP chest x-ray: No acute disease, no pneumothorax EKG: Sinus tachycardia, otherwise normal Influenza from 04/21/2019: Negative PFTs from 03/06/2019: FVC 72% predicted, FEV1 56% predicted, FEF 25-75% 29% predicted. Minimal change postbronchodilator Labs Result diagrams: 04/23/19 09:50 04/23/19 09:50 Labs: Laboratory Results - last 24 hr 04/23/19 04/23/19 09:50 09:50 WBC 10.00 RBC 5.12 Hgb 14.0 Hct 42.6 MCV 83.2 MCH 27.3 MCHC 32.9 RDW 14.9 H Plt Count 256 MPV 9.0 Immature Gran % 0.4 Neutrophils % 63.6 Lymphocytes % 24.6 Monocytes % 9.4 Eosinophils % 1.8 Basophils % 0.2 Absolute Neutrophils 6.36 Absolute Lymphocytes 2.46 Absolute Monocytes 0.94 H Absolute Eosinophils 0.18 Absolute Basophils 0.02 Sodium 143 Potassium 3.9 Chloride 107 Carbon Dioxide 27.3 Anion Gap 8.7 BUN 13 Creatinine 0.87 Estimated GFR/1.73 m2 >= 60.00 Glucose 87 Calcium 8.3 L Magnesium 2.1 Total Bilirubin 0.6 AST 33 ALT 16 Alkaline Phosphatase 56 Troponin I < 0.05 Total Protein 6.6 Albumin 3.7 Last Vital Signs Temp 37.2 C 04/23/19 09:13 Pulse 124 H 04/23/19 10:21 Resp 20 04/23/19 10:25 BP 131/63 04/23/19 10:16 Pulse Ox 99 04/23/19 10:21
[2019-04-23] MEDS: methylPREDNISolone SUCC 125 MG VIAL 80 MG IVP ×2 (12:44→20:09)
[2019-04-23] MEDS: Normal Saline Flush 10 ML SYR IVP ×2 (13:24→20:10)
[2019-04-23] MEDS: Albuterol/Ipratropium 3 ML UPD VIAL IH (13:53)
[2019-04-23] MEDS: Pantoprazole 40 MG TABCR PO (14:57)
--- NOTE | 2019-04-23 15:35 | PHARADMIT ---
Addendum entered by Jeanine Ching 04/24/19 10:31: Pharmacy Note Subjective improving per morning report Objective HR-92, RR-25 other VS okay no labs Assessment aripiprazole ordered daily, hydroxyzine ordered PRN, sertraline ordered 50 mg daily (lower than home med list as pt has been off of it for more than 2 weeks per progress note) Plan move to [place]?; discharge when able to ambulate without significant respiratory distress Original Note: Admission Pharmacy Clinical Review Acute asthma exacerbation Code Status Full Code Current Weight 67.2 kg Renally Cleared and Narrow Therapeutic Index Meds CrCl ~108 QTc Value / Action Taken QTc 449 BP Control, Fever BP 118/60, afebrile Electrolytes reviewed all WNL DVT Prophylaxis none needed Opiate Usage / Scheduled Bowel Regimen Ordered none Plt/SCr for Heparin / Enoxaparin INR for Warfarin H/H stable, WBC/Bands Antibiotic appropriateness Cultures and Sensitivities Surgical ABX d/c within 24 hr DM control / Insulin Dosing Heart Failure (Check EF%) (TARYN's, B-Block, Diuretics) IV to PO Switch Home Meds Reviewed Home Meds Not Ordered hydroxyzine, buspirone, abilify Comments IV solu-medrol to be continue through the night, oral prednisone to start tomorrow Will reintroduce maintenance inhaler (symbicort) and medications for anxiety starting with sertraline
[2019-04-23] MEDS: Albuterol/Ipratropium 3 ML UPD VIAL UPD (17:57)
[2019-04-23] MEDS: Budesonide/Formoterol 160/4.5 6 GM 60 PUFF INH IH (20:10)
[2019-04-23] MEDS: Ibuprofen 600 MG TAB PO (22:49)
[2019-04-24] VITALS (9 sets, daily range): BP systolic 126; BP diastolic 60; PULSE 80–96; RESP 4–25; TEMP 36.6–36.8; O2SAT 95–99
[2019-04-24] MEDS: Normal Saline Flush 10 ML SYR IVP ×3 (00:15→11:24)
--- NOTE | 2019-04-24 00:29 | NUR.NOTE ---
RN unable to get current new neb set up working despite trying multiple different ways. Told pt I would go get the old fashioned set up, pt refused to have a traditional neb setup stating that it wouldn't work, and did not want to do it despite encouragement from nursing. Nursing Note:
[2019-04-24] MEDS: methylPREDNISolone SUCC 125 MG VIAL 80 MG IVP (04:04)
[2019-04-24] MEDS: Budesonide/Formoterol 160/4.5 6 GM 60 PUFF INH IH (07:38)
[2019-04-24] MEDS: Albuterol/Ipratropium 3 ML UPD VIAL IH (07:47)
[2019-04-24] MEDS: Cetirizine 10 MG TAB PO (08:54)
[2019-04-24] MEDS: Ibuprofen 600 MG TAB PO (08:55)
[2019-04-24] MEDS: Montelukast 10 MG TAB PO (08:56)
[2019-04-24] MEDS: Pantoprazole 40 MG TABCR PO (08:56)
[2019-04-24] MEDS: predniSONE 20 MG TAB 60 MG PO (08:56)
--- NOTE | 2019-04-24 09:13 | W.PM.PROGNOT ---
Date of Service Date of service: 04/24/19 Time of Service: 09:13 Assessment and Plan Assessment and plan (1) Acute asthma exacerbation: Status: Acute Assessment and plan: Patient has been stable overnight with observation in the ICU. He has not been hypoxic. His peak flows are still low, but improving. He is still tachypneic with some respiratory distress with physical activity. I will transfer him to [facility] and continue IV steroids and nebulized bronchodilators Continue nebulized bronchodilators. [place] to both his acute exacerbation and for chronic management is poor adherence to controller medications. I will restart his Symbicort, cetirizine for allergies, and montelukast, and continue working with respiratory therapy and care management to try to help him maintain controller therapy. He may benefit from nasal steroid as well if he will take it. Also look for community resources to address environmental triggers in the home, namely humidity. Qualifiers: Asthma severity: moderate Asthma persistence: persistent Qualified Code(s): J45.41 - Moderate persistent asthma with (acute) exacerbation (2) Anxiety disorder: Status: Chronic Assessment and plan: Anxiety and depression appear to be playing a role and the patient's lack of adherence to preventive care. After discussion, we like to restart the sertraline at a lower dose. Also restart the aripiprazole and hydroxyzine per his request. He does not think the buspirone is helping much, but we will plan to restart and follow-up with outpatient psychiatric care. We did discuss the idea of hydroxyzine as occasional medicine rather than [id number]. We discussed side effects related to anticholinergic properties. (3) Marijuana smoker: Status: Acute Assessment and plan: I have encouraged in 2 rely more on his medications for control of his anxiety. Using edibles rather than smoking would also help avoid lung toxicity, which he would like to do. Plan to follow this as an outpatient. (4) DVT prophylaxis: Status: Acute Assessment and plan: Patient is ambulatory and young, no need for medical prophylaxis (5) Discharge planning issues: Status: Acute Assessment and plan: As above, long-term adherence to medication and environmental factors playing into his chronic asthma. His age and mental health are also issues. Will work with care management and possibly with family as well as the primary care team to help improve chronic management. Consider discharge when able to ambulate without significant respiratory distress. Subjective Subjective Patient reports: no new complaints, tolerating a regular diet and voiding w/o difficulty; denies bowel movement, nausea, vomiting and fever Interval history since last seen: 24hr: No events S: SOB a little better, but still hard to walk, hasn't gotten up this morning. Nebs are helping. Did not take his sertraline, wants to restart at a lower dose as he has been off for >2 weeks. He does want the hydroxyzine as he takes every 6 hrs for anxiety, which is chronic for him. Exam Narrative Exam Narrative: General: Alert and oriented, actively playing x-box, able to sit up and have a conversation in full sentences. mild tachypnea Lungs: Diffuse expiratory wheeze with improved but still limited air movement. no accessory muscle use noted. Abdomen: Active bowel sounds, soft, nontender and nondistended. No masses or organomegaly. Extremities: No cyanosis, clubbing, or edema. Psychiatric: Mood and affect appropriate, normal thought process. Objective Objective Clinical Data: Abnormal lab results 04/23/19 04/23/19 Range/Units 09:50 09:50 RDW 14.9 H (11.8-14.1) % Absolute Monocytes 0.94 H (0.11-0.7) k/cumm Calcium 8.3 L (8.5-10.1) mg/dL Vital Signs Temperature 36.7 C 04/24/19 08:38 Temperature Source Temporal Artery Scan 04/24/19 04:00 Pulse 92 H 04/24/19 08:38 Pulse 113 H 04/23/19 13:31 Respiratory Rate 25 H 04/24/19 08:38 Respiratory Effort 04/24/19 08:38 Respiratory Depth Normal 04/24/19 08:38 Respiratory Pattern Normal 04/24/19 08:38 Blood Pressure 126/60 04/24/19 08:38 Blood Pressure Mean 82 04/24/19 08:38 Blood Pressure Position Supine 04/24/19 04:00 Pulse Oximetry 95 04/24/19 08:38 Oxygen Delivery Method Room Air 04/24/19 08:38 Oxygen Flow Rate 0 04/24/19 08:38 Fraction of Inspired Oxygen (FIO2) 21 04/23/19 10:21 Pain Level 4 04/24/19 08:55 Intake & Output 02/02/2804/23/19 04/24/19 11:59 23:59 11:59 Intake Total 2049 430 / 2480 Output Total 1025 / 1025 700 / 700 Balance 2049 / 1454 -595 / 145 -700 / -700 Weight 61.235 kg 67.2 kg Intake: IV 2049 Oral 400 / 400 Output: Urine 1025 / 1025 700 / 700 Other: Urine Color Yellow Yellow Urine Appearance Clear Clear Urine Odor None Normal Voiding Methods Urinal Urinal Laboratory Results WBC 10.00 k/cumm (4.4-10.8) 04/23/19 09:50 RBC 5.12 m/cumm (4.50-6.00) 04/23/19 09:50 Hgb 14.0 g/dL (13.5-17.5) 04/23/19 09:50 Hct 42.6 % (40.0-50.0) 04/23/19 09:50 MCV 83.2 fL (80-95) 04/23/19 09:50 MCH 27.3 pg (27.0-33.0) 04/23/19 09:50 MCHC 32.9 g/dL (32.0-36.0) 04/23/19 09:50 RDW 14.9 % (11.8-14.1) H 04/23/19 09:50 Plt Count 256 x1000/uL (130-400) 04/23/19 09:50 MPV 9.0 fL (8.0-11.0) 04/23/19 09:50 Immature Gran % 0.4 % 04/23/19 09:50 Neutrophils % 63.6 04/23/19 09:50 Lymphocytes % 24.6 04/23/19 09:50 Monocytes % 9.4 04/23/19 09:50 Eosinophils % 1.8 04/23/19 09:50 Basophils % 0.2 04/23/19 09:50 Absolute Neutrophils 6.36 k/cumm (1.2-6.7) 04/23/19 09:50 Absolute Lymphocytes 2.46 k/cumm (1.2-3.4) 04/23/19 09:50 Absolute Monocytes 0.94 k/cumm (0.11-0.7) H 04/23/19 09:50 Absolute Eosinophils 0.18 k/cumm (0.0-0.7) 04/23/19 09:50 Absolute Basophils 0.02 k/cumm (0.0-0.2) 04/23/19 09:50 Sodium 143 mmol/L (136-145) 04/23/19 09:50 Potassium 3.9 mmol/L (3.5-5.1) 04/23/19 09:50 Chloride 107 mmol/L (98-107) 04/23/19 09:50 Carbon Dioxide 27.3 mmol/L (21.0-32.0) 04/23/19 09:50 Anion Gap 8.7 mmol/L (3-11) 04/23/19 09:50 BUN 13 mg/dL (7-18) 04/23/19 09:50 Creatinine 0.87 mg/dL (0.70-1.30) 04/23/19 09:50 Estimated GFR/1.73 m2 >= 60.00 (mL/min/1.73m2) 04/23/19 09:50 Glucose 87 mg/dL (74-106) 04/23/19 09:50 Calcium 8.3 mg/dL (8.5-10.1) L 04/23/19 09:50 Magnesium 2.1 mg/dL (1.8-2.4) 04/23/19 09:50 Total Bilirubin 0.6 mg/dL (0.2-1.0) 04/23/19 09:50 AST 33 U/L (15-37) 04/23/19 09:50 ALT 16 U/L (16-63) 04/23/19 09:50 Alkaline Phosphatase 56 U/L (46-116) 04/23/19 09:50 Troponin I Cancelled 04/23/19 12:38 Total Protein 6.6 g/dL (6.4-8.2) 04/23/19 09:50 Albumin 3.7 g/dL (3.4-5.0) 04/23/19 09:50
[2019-04-24] MEDS: hydrOXYzine HCL 25 MG TAB PO (10:00)
[2019-04-24] MEDS: guaiFENesin 200 MG/10 ML CUP PO (10:40)
[2019-04-24] MEDS: Sertraline 50 MG TAB PO (10:40)
--- NOTE | 2019-04-24 10:52 | W.NUTCONSULT ---
Date of service: 04/24/19 Time of Service: 10:53 Nutritional Consult ASSESSMENT: 24 year old male admitted iw acute asthma exacerbation into ICU. Has hx of depression and medical non compliance. Following regular meal plan with adequate intake to support typical weight. BMI on high end of normal. Not at nutritional risk at this time. MONITORING AND EVALUATION: po intake, weight trends, labs Time Spent in Nutritional Counseling and Treatment: 0 time spent face to face
[2019-04-24] MEDS: Albuterol/Ipratropium 3 ML UPD VIAL UPD (11:40)
--- NOTE | 2019-04-24 13:23 | DSE_ITS ---
Date of service: 04/24/19 Time of Service: 13:23 DS: Diagnosis Discharge Diagnosis (1) Acute asthma exacerbation: Status: Acute (2) Anxiety disorder: Status: Chronic (3) Marijuana smoker: Status: Acute (4) DVT prophylaxis: Status: Acute (5) Discharge planning issues: Status: Acute Discharge Plan Disposition Patient Disposition: HOME Condition: Improving Discharge Details Chief Complaint: SOB Reason For Visit: ASTHMA Admit Date/Time: 04/23/19 10:24 Admit Provider: Johnny Panchal Attending Provider: Johnny Panchal Primary Care Provider: Jerad Palmer ED Provider: Macarena Carrizales [facility] Course Hospital Course: 24-year-old history of chronic asthma and frequent exacerbations requiring hospitalizations, as well as remote history of intubation, presented with severe respiratory distress requiring BiPAP in the emergency room. Patient described 2 weeks of upper respiratory symptoms leading up to presentation. The Symbicort has also run out about 2 weeks prior to presentation. Chest x-ray on admission was negative. Patient was never hypoxic but had significant increased work of breathing and tachypnea. Given initial presentation, he was admitted to the intensive care overnight and given IV Solu-Medrol and bronchodilators. He was transferred to [facility] the next morning. Plan was to continue to observe him, but he was walking comfortably by the day of discharge and requested to be discharged. He was given an peak flow meter and an Acapella device. We discussed great asthma action plan and the importance of follow-up with his primary foster care case manager to try to prevent further exacerbations. He did not stay long enough to develop the action plan. Sounds like his apartment may have humidity issues contributing to his asthma. We also discussed marijuana smoking as trigger. Per respiratory therapy, he would qualify for pulmonary rehabilitation if he is willing in the future. Patient has also come off of his medication for chronic anxiety and depression. He was concerned about restarting them all at once. Decided to restart sertraline at 50 mg, and gradually go up again. States he will consider resuming aripiprazole if he needs it after maxing out the sertraline. He did seem to prefer taking hydroxyzine as needed concerning side effects of chronic anticholinergic use. Home Meds and New Rx's Prescriptions: New prednisone 20 mg Tablet 60 mg PO DAILY 9 Days Qty: 27 RF: 0 Continued albuterol sulfate 2.5 mg /3 mL (0.083 %) solution for nebulization 2.5 mg IH QID PRN (Reason: shortness of breath or wheezing) Qty: 75 RF: 0 cetirizine [Zyrtec] 10 mg tablet 10 mg PO DAILY Qty: 30 RF: 0 buspirone 5 mg Tablet 15 mg PO BID RF: 0 pantoprazole 40 mg Tablet,Delayed Release (Dr/Ec) 40 mg PO DAILY RF: 0 montelukast 10 mg Tablet 10 mg PO DAILY RF: 0 hydroxyzine HCl 50 mg Tablet 50 mg PO QHS PRNRF: 0 hydroxyzine HCl 25 mg Tablet 25 mg PO TID PRNRF: 0 benzonatate 200 mg Capsule 200 mg PO TID Qty: 12 RF: 0 ipratropium-albuterol 0.5 mg-3 mg(2.5 mg base)/3 mL solution for nebulization 3 ml IH Q4H PRN (Reason: shortness of breath or wheezing) Qty: 30 RF: 0 albuterol sulfate 2.5 mg /3 mL (0.083 %) Solution For Nebulization 2.5 mg UPD Q2H PRN PRNQty: 30 RF: 0 albuterol sulfate [ProAir HFA] 90 mcg/actuation HFA aerosol inhaler 2 puff IH Q6H PRN (Reason: shortness of breath) Qty: 18 RF: 0 budesonide-formoterol [Symbicort] 160-4.5 mcg/actuation Hfa Aerosol Inhaler 1 puff INHALATION BID Qty: 1 RF: 0 prednisone 20 mg tablet 60 mg PO DAILY Qty: 12 RF: 0 Changed sertraline 100 mg Tablet 50 mg PO DAILY Qty: 0 RF: 0 Discontinued aripiprazole [Abilify] 2 mg Tablet 2 mg PO DAILY RF: 0 prednisone 10 mg tablet 10 mg PO DAILY Qty: 20 RF: 0 Discharge Instructions Instructions: Asthma (DC) Additional Instructions: 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 and start tomorrow and follow taper as directed 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 and continue on this as well Talk to your primary foster care case manager about making asthma action plan using peak flows so you can prevent hospitalizations in the future Activity:: Activity as Tolerated Equipment/Supplies:: No Equipment Needed Diet:: As Tolerated Discharge Orders Discharge Orders: Discharge Order (Routine); Ordered 04/24/19 Ordered By: Johnny Panchal DS: Summary Status at Discharge Functional status at discharge: independent ambulation Overall status at discharge: patient is progressing back to baseline Mental Status: mental status grossly normal Speech and Movement: speech and movement normal Mood: congruent mood Affect: normal affect Exam Narrative Exam Narrative: General: Alert and oriented, actively playing x-box, able to sit up and have a conversation in full sentences. mild tachypnea Lungs: Diffuse expiratory wheeze with improved but still limited air movement. no accessory muscle use noted. Abdomen: Active bowel sounds, soft, nontender and nondistended. No masses or organomegaly. Extremities: No cyanosis, clubbing, or edema. Psychiatric: Mood and affect appropriate, normal thought process. Psych Mental Status: mental status grossly normal Speech and Movement: speech and movement normal Mood: congruent mood Affect: normal affect DS: Data Vitals/I&O Vitals and I&O: Vital Signs Temperature 36.7 C 04/24/19 08:38 Temperature Source Temporal Artery Scan 04/24/19 04:00 Pulse 89 04/24/19 11:40 Pulse 113 H 04/23/19 13:31 Respiratory Rate 20 04/24/19 11:40 Respiratory Effort 04/24/19 08:38 Respiratory Depth Normal 04/24/19 08:38 Respiratory Pattern Normal 04/24/19 08:38 Blood Pressure 126/60 04/24/19 08:38 Blood Pressure Mean 82 04/24/19 08:38 Blood Pressure Position Supine 04/24/19 04:00 Pulse Oximetry 99 04/24/19 11:40 Oxygen Delivery Method Room Air 04/24/19 11:40 Oxygen Flow Rate 0 04/24/19 11:40 Fraction of Inspired Oxygen (FIO2) 21 04/23/19 10:21 Pain Level 4 04/24/19 08:55 Intake & Output 04/23/19 04/24/19 04/24/19 23:59 11:59 23:59 Intake Total 430 / 2480 480 / 480 Output Total 1025 / 1025 900 / 900 Balance -595 / 1455 -420 / -420 Weight 67.2 kg Intake: IV 2079 Oral 400 / 400 480 / 480 Output: Urine 1025 / 1025 900 / 900 Other: Urine Color Yellow Yellow Urine Appearance Clear Clear Urine Odor None Normal Voiding Methods Urinal Urinal Data Completed and Pending Labs on day of discharge: Labs from last 24 hours 04/23/19 04/23/19 12:38 11:05 Sample Site Cancelled pCO2 Cancelled pO2 Cancelled O2 Saturation Cancelled ABG pH Cancelled ABG HCO3 Cancelled ABG Total CO2 Cancelled ABG Base Excess Cancelled Oxygen Liter Flow Cancelled FiO2 Cancelled Troponin I Cancelled [facility] Medical History (Updated 04/23/19 @ 12:01 by Johnny Panchal) Anxiety disorder (Chronic) Asthma (Chronic) Depression (Chronic) Eczema (Acute) Marijuana smoker (Acute) Surgical History No significant past surgical history (Acute) Family History Other Adopted Social History (Updated 04/23/19 @ 11:47 by Johnny Panchal) Smoking/Tobacco Use Status: Current-Occasional Tobacco Type: cigarettes and pipe Counseling given: provider counseling Alcohol Intake: current Alcohol Intake frequency: holidays/special occasions only Alcohol type: beer Details: Minimal Drug use: Daily Substance use type: marijuana Counseling given: Yes Details: No vaping, no other drug use. States he uses to treat anxiety and insomnia. Adopted: Yes Housing: apartment Current gender identity: male Do you feel safe at home: Yes Do you feel safe in your relationship?: Yes Additional Social history: Grew up in [place], [facility] [place] [facility], close with 1 of his moms who lives in [place]. Lives alone in apartment on [address] in [place]. She started working at [employer] Has a pet rat for the past 2 years
--- NOTE | 2019-04-24 17:06 | INITIAL_ITS ---
- If Service Date Differs Date of service: 04/24/19 Time of Service: 17:06 Care Management Initial Assess REASON FOR HOSPITALIZATION:: Asthma PAST MEDICAL HISTORY/PAST SURGICAL HISTORY:: Anxiety disorder, asthma, depression, eczema PREVIOUS FUNCTIONAL STATUS/SOCIAL/FAMILY SUPPORTS:: Alden lives independently in an apartment in [facility] [place] [facility]. 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 He states he gets rides from friends, and sometimes takes the bus. Alden reports he has a few friends and is close to his mother. In his free time, he enjoys playing video games and writing music. Alden is independent at baseline. CURRENT FUNCTIONAL STATUS:: Alden was fully dressed and walking around the room when CM met with him. He reported that the provider had met with him and was working on discharging him home. 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 He stated that he has difficulty getting rides and does not prefer to take the [facility] bus. He reported that he has had some support from [facility] recently. He is agreeable to going home, but is calling friends to find a ride in order to avoid the bus. CM will continue to follow. ADVANCE DIRECTIVES:: None on file. Has patient been provided with information about the portal?: No Did the patient sign up for the portal?: No CODE STATUS:: Full Code INSURANCE COVERAGE / FINANCIAL ISSUES:: BCBS CURRENT HOME/COMMUNITY SERVICES/EQUIPMENT:: Nebulizer, [facility] CM: [facility], LISA, [employer], [employer], [employer], Insurance support and disability navigation support. PRIMARY CARE PHYSICIAN:: SYLVIA Shin POTENTIAL DISCHARGE NEEDS:: Follow-up PCP and discharge plan of care. PATIENT/FAMILY EDUCATION NEEDS:: Discharge plan, limitations, and follow-up plan of care, including Ask Me Three. ANTICIPATED BARRIERS TO DISCHARGE:: None identified at this time. TRANSPORTATION:: Alden is attempting to secure a ride with a friend via private vehicle, but will take the [facility] bus otherwise. PLAN:: Alden will be discharged home when ready per MD, he will follow up with his service supports and plan of care as prescribed. He will transport via private vehicle with his friend. CM will continue to follow.
--- NOTE | 2019-04-24 17:15 | PDOC.CMDIS ---
- If Service Date Differs Date of service: 04/24/19 Time of Service: 17:15 LACE Index Scoring Tool - Questions: Length of Stay (in days): 2 Acuity (Admit via E.D.?): Yes E.D. Visits: 16 - Answers: Total Score: 9 Risk of Readmission: Low Risk Care Management Discharge Reason for Hospitalization: Asthma Discharge Plan: Alden will discharge home with no additional services. He will resume his current services in the community, and follow up with his PCP, as recommended. He will transport home via private vehicle with a friend. Patient/Family Education Needs: Review discharge instructions regarding activity levels and medications, discussion of self care including ask me three
== END 2019-04-24 01:30 | disposition home or self-care (01) | DRG 203 ==
LOC: ER 10:57 → ICU 11:58
PROVIDERS: Admitting Provider Family Medicine; Emergency Provider Student in an Organized Health Care Education/Training Program; PCP Nurse Practitioner Family; Visit Provider Family Medicine
DX: J45.41 Moderate persistent asthma with (acute) exacerbation (principal); F41.9 Anxiety disorder, unspecified; F12.90 Cannabis use, unspecified, uncomplicated; R06.03 Acute respiratory distress; F32.9 Major depressive disorder, single episode, unspecified
CPT/HCPCS: 36415; 80053; 82805; 87449; 93005; 94640; 94644; 96361; 96365; 96366; 99223; 99232; 99238; 99285; 71045; 83735; 84484; 85025; 93010; J2930; J3490; J7512; J7611; J7620

== ENCOUNTER 2019-06-24 23:31 | Outpatient (REF) | payer BC, SELFPAY ==
[2019-06-25 15:49] LABS: COVID-19 RT-PCR Result Negative (Negative)
== END 2019-06-24 23:51 ==
LOC: NCHCN 23:31
PROVIDERS: PCP Nurse Practitioner Family; Visit Provider Physician Assistant
DX: R05 Cough (principal)
CPT/HCPCS: U0003

== ENCOUNTER 2019-08-13 21:39 | Emergency (ER) | payer BC, SELFPAY ==
[2019-08-13 21:27] VITALS: BP 119/78; PULSE 132; RESP 24; TEMP 37.4; O2SAT 100
--- NOTE | 2019-08-13 21:36 | ED.GENADUL_ITS ---
Discharge Plan Disposition Patient Disposition: AGAINST MEDICAL ADVICE Condition: Poor Discharge Details Chief Complaint: SOB Clinical Impression: Acute asthma exacerbation Primary Care Provider: Jerad Palmer ED Provider: Joe Walters [place] Meds and New Rx's Prescriptions: New prednisone 10 mg tablet See Rx Instructions .ROUTE .COMPLEX Qty: 40 RF: 0 Continued sertraline 100 mg Tablet 50 mg PO DAILY Qty: 0 RF: 0 budesonide-formoterol [Symbicort] 160-4.5 mcg/actuation Hfa Aerosol Inhaler 1 puff INHALATION BID Qty: 1 RF: 0 albuterol sulfate 2.5 mg /3 mL (0.083 %) solution for nebulization 2.5 mg IH QID PRN (Reason: shortness of breath or wheezing) Qty: 75 RF: 0 cetirizine [Zyrtec] 10 mg tablet 10 mg PO DAILY Qty: 30 RF: 0 buspirone 5 mg Tablet 15 mg PO BID RF: 0 pantoprazole 40 mg Tablet,Delayed Release (Dr/Ec) 40 mg PO DAILY RF: 0 montelukast 10 mg Tablet 10 mg PO DAILY RF: 0 hydroxyzine HCl 50 mg Tablet 50 mg PO QHS PRNRF: 0 hydroxyzine HCl 25 mg Tablet 25 mg PO TID PRNRF: 0 ipratropium-albuterol 0.5 mg-3 mg(2.5 mg base)/3 mL solution for nebulization 3 ml IH Q4H PRN (Reason: shortness of breath or wheezing) Qty: 30 RF: 0 albuterol sulfate 2.5 mg /3 mL (0.083 %) Solution For Nebulization 2.5 mg UPD Q2H PRN PRNQty: 30 RF: 0 albuterol sulfate [ProAir HFA] 90 mcg/actuation HFA aerosol inhaler 2 puff IH Q6H PRN (Reason: shortness of breath) Qty: 18 RF: 0 Discharge Instructions Instructions: Asthma (ED) Additional Instructions: You are leaving AGAINST MEDICAL ADVICE with risk of worsening asthma, intubation and . Please get your prescription filled and take as directed. Use your inhaler/nebulizer every 4 hours. You need to quarantine/self isolate due to symptoms of fever, cough and shortness of breath. COVID testing will be sent. You will need follow-up with primary care and should call in the morning. Return to ED for increasing shortness of breath, chest pain, mental status changes, if you change your mind. Referrals: Jerad Palmer, ROLL REPAIRER [Primary Care Provider] - Medical Decision Making Patient continues on EMS to the lab. He is in fairly significant respiratory distress. I have seen him previously and this is typically how he arrives. He is refusing to undressed and refusing IVs. Once prednisone and 3 nebs and discharge. This is also typical for him with AMA almost routine. He is not willing to stay as long as he gets some relief. Patient written for 60 of prednisone as well as 7.5 mg continuous albuterol neb. He is kept in negative pressure room. Tylenol given. Portable chest x-ray ordered. Patient chest x-ray per my review is unremarkable. Preliminary radiology read agrees. On reevaluation patient is no longer audibly wheezing and has significantly less accessory muscle use. Still some tachypnea but states he feels better and is definitely not staying. Discussed risk and benefit. He is signing out AGAINST MEDICAL ADVICE. Will be given prescription for prednisone as well as Symbicort. Continue MDI and neb use at home. Contact primary care for follow-up. Return to ED if increasing shortness of breath, mental status changes, chest pain, other concerns. Since he is having difficulty getting rides and getting around as well as me requiring him to go into quarantine we will do COVID testing now. He should isolate/quarantine even with negative culprit until asymptomatic for 3 days. Medical Records Medical records reviewed: Yes I reviewed the patient's medical records. HPI General Mode of arrival: EMS . Date/Time Provider Initiated Documentation: 08/13/19 21:49 . Limitations to Documentation: no limitations . Information obtained by: patient, EMS, RN notes reviewed and old records reviewed . HPI Narrative: Patient presents to ED with difficulty breathing, wheezing. Has a history of asthma and has had multiple ED visits and admissions for same. Last admission was in April. He was ill in June and had COVID testing done which was negative. He did not need presentation to the ED then. In the last 24 hours he has developed increasing shortness of breath and wheezing despite MDI and neb treatments at home. He denies having fever or URI symptoms. He has been out of Symbicort. He has not been on prednisone since April. He has not been on antibiotics. He has for the most part avoided people according to him. He wears a mask out in public. He has not traveled. He wanted EMS to just give him prednisone and leave him home but they convinced him for transport. EMS reports fever to 101.2 for them. He was started on a DuoNeb. EMS attempted IV x2 and then he refused. He arrives here still in moderate respiratory distress with audible wheezing. Related Data Home Medications Medication Instructions Recorded Confirmed albuterol sulfate 2.5 mg IH QID PRN #75 ml 05/20/18 08/13/19 cetirizine [Zyrtec] 10 mg PO DAILY #30 tab 07/16/18 08/13/19 buspirone 15 mg PO BID 09/22/18 08/13/19 montelukast 10 mg PO DAILY 09/22/18 08/13/19 pantoprazole 40 mg PO DAILY 09/22/18 08/13/19 albuterol sulfate 2.5 mg UPD Q2H PRN PRN #30 units 02/28/19 08/13/19 albuterol sulfate [ProAir HFA] 2 puff IH Q6H PRN #18 gm 02/28/19 08/13/19 hydroxyzine HCl 25 mg PO TID PRN 02/28/19 08/13/19 hydroxyzine HCl 50 mg PO QHS PRN 02/28/19 08/13/19 ipratropium-albuterol 3 ml IH Q4H PRN #30 units 02/28/19 08/13/19 sertraline 50 mg PO DAILY #0 tab 04/24/19 08/13/19 budesonide-formoterol [Symbicort] 1 puff INHALATION BID #1 inh 08/13/19 prednisone See Rx Instructions .ROUTE 08/13/19 .COMPLEX #40 tab Previous Rx's Medication Instructions Recorded albuterol sulfate 2.5 mg IH QID PRN #75 ml 05/20/18 cetirizine [Zyrtec] 10 mg PO DAILY #30 tab 07/16/18 albuterol sulfate 2.5 mg UPD Q2H PRN PRN #30 units 02/28/19 albuterol sulfate [ProAir HFA] 2 puff IH Q6H PRN #18 gm 02/28/19 ipratropium-albuterol 3 ml IH Q4H PRN #30 units 02/28/19 sertraline 50 mg PO DAILY #0 tab 04/24/19 budesonide-formoterol [Symbicort] 1 puff INHALATION BID #1 inh 08/13/19 prednisone See Rx Instructions .ROUTE 08/13/19 .COMPLEX #40 tab Allergies Allergy/AdvReac Type Severity Reaction Status Date / Time cat dander Allergy Wheezing Unverified 04/21/19 10:17 migraine medication AdvReac Uncoded 04/21/19 10:17 General Stated Complaint: SOB MINGO: 3 Review of Systems Narrative: ROS not obtained due to difficulty talking/respiratory distress. [facility] Medical History Anxiety disorder (Chronic) Asthma (Chronic) Depression (Chronic) Eczema (Acute) Marijuana smoker (Acute) Surgical History No significant past surgical history (Acute) Social History Smoking/Tobacco Use Status: Never Counseling given: provider counseling Alcohol Intake: current Alcohol Intake frequency: holidays/special occasions only Alcohol type: beer Details: Minimal Drug use: Daily Substance use type: marijuana Counseling given: Yes Details: No vaping, no other drug use. States he uses to treat anxiety and insomnia. Adopted: Yes Housing: apartment Current gender identity: male Do you feel safe at home: Yes Do you feel safe in your relationship?: Yes Additional Social history: Grew up in [place], [facility], close with 1 of his moms who lives in [place]. Lives alone in apartment on [address] in [place]. She started working at [employer] Has a pet rat for the past 2 years Exam Narrative Exam Narrative: Vitals: Afebrile 99.3. Pulse of 132 with respiratory rate in the high 20s and accessory muscle use. Saturations are 100% on DuoNeb via O2. Const: WDWN male in respiratory distress. HEENT: NC/AT. Normal facial exam. Eyes: Normal conjunctiva and sclera. Neck: Supple. Trachea midline. Lungs: Increased work of breathing with accessory muscle use throughout. Audible wheezing heard. Cor: Tachycardic with good radial pulses. GI: Soft and nondistended. Neuro: A+O x 3. Normal speech, mentation, gait. Cranial nerves II - XII grossly intact. No gross motor or sensory deficit. Ext: No C/C/E. Skin: Warm and diaphoretic. Course Vital Signs Vital signs: Vital Signs Temperature 99.3 F 08/13/19 21:27 Pulse 132 H 08/13/19 21:27 Respiratory Rate 24 08/13/19 21:27 Blood Pressure 119/78 08/13/19 21:27 Pulse Oximetry 100 08/13/19 21:27 Temperature 99.3 F 08/13/19 21:27 Temperature Source Oral 08/13/19 21:27 Pulse 132 H 08/13/19 21:27 Respiratory Rate 24 08/13/19 21:27 Blood Pressure 119/78 08/13/19 21:27 Pulse Oximetry 100 08/13/19 21:27 Oxygen Delivery Method Aerosol Mask 08/13/19 21:27 End Tidal Co2 7 08/13/19 21:27
[2019-08-13 21:41] VITALS: RESP 4; RESP 8
[2019-08-13] MEDS: Albuterol 2.5 MG/3 ML INH SOLN VIAL 7.5 MG UPD (21:41)
[2019-08-13] MEDS: predniSONE 20 MG TAB 60 MG PO (21:41)
[2019-08-13 21:43] VITALS: TEMP 37.4
[2019-08-13] MEDS: Acetaminophen 500 MG TAB 1000 MG PO (21:43)
--- NOTE | 2019-08-13 22:32 | DI.RAD_ITS ---
EXAM: XR PORTABLE CHEST AP CLINICAL HISTORY: cough and SOB. TECHNIQUE: 2D digital imaging was performed. COMPARISON: CR XR PORTABLE CHEST AP from 04/23/2019 FINDINGS: LUNGS: Clear. No pleural abnormality seen. HEART: Normal. MEDIASTINUM: Normal. OTHER FINDINGS: None. IMPRESSION: No acute pulmonary findings. DATA REPOSITORY: RADIATION DOSE DELIVERED:
--- NOTE | 2019-08-13 22:43 | DI.VRAD_ITS ---
PROCEDURE INFORMATION: Exam: XR Chest, 1 View Exam date and time: 08/13/2019 9:36 PM Age: 24 years old Clinical indication: Cough and shortness of breath TECHNIQUE: Imaging protocol: XR of the chest Views: 1 view. COMPARISON: CR XR PORTABLE CHEST AP 04/23/2019 9:43 AM FINDINGS: Lungs: Unremarkable. No consolidation. Pleural space: Unremarkable. No pleural effusion. No pneumothorax. Heart/Mediastinum: Unremarkable. No cardiomegaly. Bones/joints: Unremarkable. IMPRESSION: No acute findings. Dictated and Authenticated by: Rosamaria Pringle MD. Ordering:NONI Diaz MD
[2019-08-13 22:45] VITALS: PULSE 139; RESP 20; O2SAT 100
[2019-08-13 22:58] VITALS: BP 176/117; PULSE 148; RESP 24; O2SAT 96
--- NOTE | 2019-08-14 07:50 | NUR.NOTE ---
Nursing Note: Referral for RCT given to Care Management today. Elizabeth Bo.
[2019-08-15 01:13] LABS: COVID-19 RT-PCR UVMMC Result Negative (Negative)
== END 2019-08-13 23:02 | disposition left against medical advice (07) ==
LOC: ER 23:00
PROVIDERS: Emergency Provider Emergency Medicine; PCP Nurse Practitioner Family
DX: R06.03 Acute respiratory distress (principal); J45.901 Unspecified asthma with (acute) exacerbation; R50.9 Fever, unspecified; Z53.29 Procedure and treatment not carried out because of patient's decision for other reasons
CPT/HCPCS: 94640; 99282; U0003; 71045; 99284; J7512; J7613

== ENCOUNTER 2020-02-09 20:09 | Emergency (ER) | payer BC, SELFPAY ==
--- NOTE | 2020-02-09 20:12 | NUR.NOTE ---
Out to vestibule to take pt to core, refusing to put on a mask. States he will pass out if he has to put mask. Advised pt we can put him in a wheelchair to take him back to core. States he is having an asthma attack and cannot put on a mask. Advised hospital policy states he has to wear a mask. Nursing supervisory investigative specialist called to speak to pt. Speaking in full sentences, in no apparent distress. Pt arrived carrying in multiple bags from parking lot.
[2020-02-09 20:22] VITALS: BP 115/76; PULSE 113; RESP 17; TEMP 36.6; O2SAT 98
--- NOTE | 2020-02-09 20:22 | NUR.NOTE ---
Nursing Director General Hortencia rosario to speak to pt. Pt agreeable to wearing mask to come in for eval. Pt placed in wheelchair and brought back to core. Continues to speak in full sentences. RA sat 98-100%
--- NOTE | 2020-02-09 20:34 | ED.GENADUL_ITS ---
Discharge Plan Disposition Patient Disposition: AGAINST MEDICAL ADVICE Condition: Improving Discharge Details Chief Complaint: RespSymp Clinical Impression: Asthma Primary Care Provider: Jerad Palmer ED Provider: Dudley Robb Home Meds and New Rx's Prescriptions: New prednisone 50 mg tablet 50 mg PO DAILY 5 Days Qty: 5 RF: 0 Continued albuterol sulfate [ProAir HFA] 90 mcg/actuation HFA aerosol inhaler 2 puff IH Q6H PRN (Reason: shortness of breath) Qty: 18 RF: 0 budesonide-formoterol [Symbicort] 160-4.5 mcg/actuation HFA aerosol inhaler 1 puff INHALATION BID RF: 0 No Action sertraline 100 mg Tablet 50 mg PO DAILY Qty: 0 RF: 0 budesonide-formoterol [Symbicort] 160-4.5 mcg/actuation Hfa Aerosol Inhaler 1 puff INHALATION BID Qty: 1 RF: 0 albuterol sulfate 2.5 mg /3 mL (0.083 %) solution for nebulization 2.5 mg IH QID PRN (Reason: shortness of breath or wheezing) Qty: 75 RF: 0 cetirizine [Zyrtec] 10 mg tablet 10 mg PO DAILY Qty: 30 RF: 0 buspirone 5 mg Tablet 15 mg PO BID RF: 0 hydroxyzine HCl 50 mg Tablet 50 mg PO QHS PRNRF: 0 hydroxyzine HCl 25 mg Tablet 25 mg PO TID PRNRF: 0 albuterol sulfate 2.5 mg /3 mL (0.083 %) Solution For Nebulization 2.5 mg UPD Q2H PRN PRNQty: 30 RF: 0 Discharge Instructions Instructions: Asthma (ED), Against Medical Advice (ED) Additional Instructions: Take prednisone as prescribed. Take Symbicort as prescribed. Albuterol inhaler every 4 hours if needed. We will ask our care managers to arrange an outpatient follow-up for you and also to assist in refilling your routine medications. You have deferred recommended further work-up. Return at any time for reevaluation. Medical Decision Making 25-year-old male with a history of asthma, presents with complaints of days of cough and wheezing. States he ran out of his medications 2 weeks ago and has not been taking anything. He has not had a fever or production of sputum. Is able speak in full sentences. Patient arrives with blood pressure 115/76, afebrile, breathing 17-18 times a minute and 98% sat on room air. This pulse was approximately 110. He is diffusely wheezy throughout both lung grossman. Patient states I am just here for my meds. He initially refused to wear a mask that was able to manage wearing one of the hospital supplied masks. Patient was given oral prednisone, inhaled albuterol and his daily Symbicort inhaler was ordered. He had some improvement with this. He declined chest x- ray or further observation. I believe he does have capacity to make this decision. Therefore, patient signed out AGAINST MEDICAL ADVICE. We will have care management follow-up with him. Also he was prescribed a burst of prednisone. He understands he may return at any time for reevaluation. He understands he is encouraged to stop all forms of smoking. HPI General Mode of arrival: ambulatory . Date/Time Provider Initiated Documentation: 02/09/20 20:09 . Limitations to Documentation: no limitations . Information obtained by: patient . History of Present Illness 25 year old M presents to the emergency department with the chief complaint of Asthma exacerbation, ran out of medications, described as moderate, Quality is described as constant, and is localized to the chest. Patient reports no radiation. Patient started experiencing this day(s) and it has been constant. No relieving factors improve symptom(s), Other factors that worsen symptoms (Smoking) . Patient notes cough and shortness of breath; denies syncope. Patient did receive the following treatments prior to arrival, none Related Data Home Medications Medication Instructions Recorded Confirmed albuterol sulfate 2.5 mg IH QID PRN #75 ml 05/20/18 08/13/19 cetirizine [Zyrtec] 10 mg PO DAILY #30 tab 07/16/18 08/13/19 buspirone 15 mg PO BID 09/22/18 02/09/20 albuterol sulfate 2.5 mg UPD Q2H PRN PRN #30 units 02/28/19 08/13/19 albuterol sulfate [ProAir HFA] 2 puff IH Q6H PRN #18 gm 02/28/19 02/09/20 hydroxyzine HCl 25 mg PO TID PRN 02/28/19 08/13/19 hydroxyzine HCl 50 mg PO QHS PRN 02/28/19 08/13/19 sertraline 50 mg PO DAILY #0 tab 04/24/19 02/09/20 budesonide-formoterol [Symbicort] 1 puff INHALATION BID #1 inh 08/13/19 budesonide-formoterol [Symbicort] 1 puff INHALATION BID 02/09/20 02/09/20 prednisone 50 mg PO DAILY 5 Days #5 tab 02/09/20 Previous Rx's Medication Instructions Recorded albuterol sulfate 2.5 mg IH QID PRN #75 ml 05/20/18 cetirizine [Zyrtec] 10 mg PO DAILY #30 tab 07/16/18 albuterol sulfate 2.5 mg UPD Q2H PRN PRN #30 units 02/28/19 albuterol sulfate [ProAir HFA] 2 puff IH Q6H PRN #18 gm 02/28/19 sertraline 50 mg PO DAILY #0 tab 04/24/19 budesonide-formoterol [Symbicort] 1 puff INHALATION BID #1 inh 08/13/19 prednisone 50 mg PO DAILY 5 Days #5 tab 02/09/20 Allergies Allergy/AdvReac Type Severity Reaction Status Date / Time cat dander Allergy Wheezing Unverified 04/21/19 10:17 migraine medication AdvReac Uncoded 04/21/19 10:17 General Stated Complaint: RespSymp MINGO: 3 Review of Systems Narrative: No cough, no fever, no throwing up. No travel. States he is in between insurance plans. 8 systems reviewed and otherwise negative [facility] Medical History (Updated 02/09/20 @ 20:37 by Dudley Robb MD) Anxiety disorder Asthma Depression Eczema Marijuana smoker Surgical History No significant past surgical history Family History Other Adopted Social History Smoking/Tobacco Use Status: Former Tobacco Use Counseling given: provider counseling Smoking risk assessment performed?: Yes Alcohol Intake: current Alcohol Intake frequency: holidays/special occasions only Alcohol type: beer Details: Minimal Drug use: Daily Substance use type: marijuana Counseling given: Yes Details: No vaping, no other drug use. States he uses to treat anxiety and insomnia. Adopted: Yes Housing: apartment Current gender identity: male Do you feel safe at home: Yes Do you feel safe in your relationship?: Yes Additional Social history: Grew up in [place], adopted, close with 1 of his moms who lives in [place]. Lives alone in apartment on [address] in [place]. She started working at [employer] Has a pet rat for the past 2 years Exam Narrative Exam Narrative: GEN: awake, alert, oriented 3. Pleasant, well groomed, interactive. HEAD: Normocephalic, atraumatic ENT: Mucous membranes moist, oropharynx unremarkable, External ear exam unremarkable EYES: PERRL, EOMI NECK: Full ROM, no SYED, no menigismus CHEST/RESP: Nontender, bilateral inspiratory and expiratory wheeze. Speaking in full sentences. CARDIOVASCULAR: RRR, no murmur, rub armaan. 2+ Rad pulse bilateral EXT: Full ROM, no edema, no rash Neuro: Grossly normal neurologic exam, conversant, interactive. Psych: Speech fluent, thoughts congruent, affect flat Course Vital Signs Vital signs: Vital Signs Temperature 36.6 C 02/09/20 20:22 Pulse 113 H 02/09/20 20:22 Respiratory Rate 17 02/09/20 20:22 Blood Pressure 115/76 02/09/20 20:22 Pulse Oximetry 98 02/09/20 20:22 Temperature 36.6 C 02/09/20 20:22 Temperature Source Skin 02/09/20 20:22 Pulse 113 H 02/09/20 20:22 Respiratory Rate 17 02/09/20 20:22 Respiratory Effort 02/09/20 20:25 Blood Pressure 115/76 02/09/20 20:22 Blood Pressure Position Sitting 02/09/20 20:22 Pulse Oximetry 98 02/09/20 20:22 Oxygen Delivery Method Room Air 02/09/20 20:22 Oxygen Flow Rate 0 02/09/20 20:22 Pain Level 5 02/09/20 20:22 Comment 02/09/20 20:22
[2020-02-09] MEDS: Albuterol HFA 8 GM 60 PUFF INH IH (20:37)
[2020-02-09] MEDS: predniSONE 20 MG TAB 60 MG PO (20:37)
[2020-02-09] MEDS: Budesonide/Formoterol 160/4.5 6 GM 60 PUFF INH IH (20:50)
--- NOTE | 2020-02-09 21:09 | NUR.NOTE ---
Pt declined spacer with ventolin inhaler. Per MD Robb would like t to use spacer with al inhalers. Pt provided with spacer and encouraged to use.
[2020-02-09 21:21] VITALS: BP 125/79; PULSE 92; RESP 17; O2SAT 97
--- NOTE | 2020-02-09 21:22 | NUR.NOTE ---
Reports feeling better after inhalers. Declined further workup offered by MD Robb. Discharge instructions reviewed with verbal understanding. Care management called to assist pt to find ride home.
--- NOTE | 2020-02-09 22:08 | NUR.NOTE ---
Call returned by care management, pt authorized to use [facility] for transport home. Pt made aware RCT called and awaiting call back.
--- NOTE | 2020-02-09 22:45 | NUR.NOTE ---
RCT to pick pt up at 2330. Pt aware. Provided with turkey sandwich and water.
--- NOTE | 2020-02-09 23:30 | NUR.NOTE ---
RCT arrive to transport pt home. Pt to exit with all belongings and steady gait.
--- NOTE | 2020-02-10 07:11 | NUR.NOTE ---
Referral to Care Management to address multiple ER visits for asthma medication.Nursing Note:
== END 2020-02-09 21:20 | disposition left against medical advice (07) ==
PROVIDERS: Emergency Provider Emergency Medicine; PCP Nurse Practitioner Family
DX: J45.909 Unspecified asthma, uncomplicated (principal); F17.210 Nicotine dependence, cigarettes, uncomplicated; Z91.138 Patient's unintentional underdosing of medication regimen for other reason; Z53.29 Procedure and treatment not carried out because of patient's decision for other reasons
CPT/HCPCS: 99283; J7512

== ENCOUNTER 2020-05-20 14:49 | Emergency (ER) | payer MEDICARE, MEDICAID, SELFPAY ==
[2020-05-20 14:54] VITALS: BP 132/83; PULSE 79; RESP 16; TEMP 37.5; O2SAT 98
--- NOTE | 2020-05-20 14:56 | ED.GENADUL_ITS ---
Discharge Plan Discharge Details Chief Complaint: Cellulitis Primary Care Provider: Jerad Palmer ED Provider: Ofelia Chandler Home Meds and New Rx's Prescriptions: No Action sertraline 100 mg Tablet 50 mg PO DAILY Qty: 0 RF: 0 albuterol sulfate 2.5 mg /3 mL (0.083 %) solution for nebulization 2.5 mg IH QID PRN (Reason: shortness of breath or wheezing) Qty: 75 RF: 0 buspirone 5 mg Tablet 15 mg PO BID RF: 0 albuterol sulfate [ProAir HFA] 90 mcg/actuation HFA aerosol inhaler 2 puff IH Q6H PRN (Reason: shortness of breath) Qty: 18 RF: 0 budesonide-formoterol [Symbicort] 160-4.5 mcg/actuation HFA aerosol inhaler 1 puff INHALATION BID RF: 0 HPI General Date/Time Provider Initiated Documentation: 05/20/20 14:56 . Related Data Home Medications Medication Instructions Recorded Confirmed albuterol sulfate 2.5 mg IH QID PRN #75 ml 05/20/18 02/09/20 buspirone 15 mg PO BID 09/22/18 02/09/20 albuterol sulfate [ProAir HFA] 2 puff IH Q6H PRN #18 gm 02/28/19 02/09/20 sertraline 50 mg PO DAILY #0 tab 04/24/19 02/09/20 budesonide-formoterol [Symbicort] 1 puff INHALATION BID 02/09/20 02/09/20 Previous Rx's Medication Instructions Recorded albuterol sulfate 2.5 mg IH QID PRN #75 ml 05/20/18 albuterol sulfate [ProAir HFA] 2 puff IH Q6H PRN #18 gm 02/28/19 sertraline 50 mg PO DAILY #0 tab 04/24/19 Allergies Allergy/AdvReac Type Severity Reaction Status Date / Time cat dander Allergy Wheezing Unverified 04/21/19 10:17 migraine medication AdvReac Uncoded 04/21/19 10:17 General MINGO: 3 PFSH Medical History (Updated 02/09/20 @ 20:37 by Dudley Robb MD) Anxiety disorder Asthma Depression Eczema Marijuana smoker Surgical History No significant past surgical history Family History Other Adopted Social History Smoking/Tobacco Use Status: Former Tobacco Use Counseling given: provider counseling Smoking risk assessment performed?: Yes Alcohol Intake: current Alcohol Intake frequency: holidays/special occasions only Alcohol type: beer Details: Minimal Drug use: Daily Substance use type: marijuana Counseling given: Yes Details: No vaping, no other drug use. States he uses to treat anxiety and insomnia. Adopted: Yes Housing: apartment Current gender identity: male Do you feel safe at home: Yes Do you feel safe in your relationship?: Yes Additional Social history: Grew up in [place], [facility], close with 1 of his moms who lives in [place]. Lives alone in apartment on [address] in [place]. She started working at [employer] Has a pet rat for the past 2 years
--- NOTE | 2020-05-20 15:00 | DI.CT_ITS ---
EXAM: CT NECK W CLINICAL HISTORY: submandibular swelling and pain. TECHNIQUE: Imaging Protocol: Axial computed tomography images with coronal and sagittal reformatted images were created and reviewed CONTRAST MATERIAL: Intravenous: Omnipaque 350 Contrast volume 100 cc contrast route:IV - COMPARISON: CR,XR XR PORTABLE CHEST AP from 08/13/2019 CR,XR XR PORTABLE CHEST AP from 08/13/2019 FINDINGS: Parotids/submandibular/thyroid gland: Normal. Lymphadenopathy: There is an enlarged submental lymph node, measuring 12 millimeters. There are a few additional scattered lymph nodes seen along the level one to level three all measuring less than 8 m m in short axis diameter which are physiologic in nature. Carotids/Jugular: Within normal limits. Soft tissues: 4.4 x 3.7 centimeter low-density mass in the superficial tissues posterior to the left mandible. It shows peripheral enhancement and question of some septations. It does not appear to be w ithin the submandibular gland. It could represent a necrotic lymph node, soft tissue abscess or infec mylene branchial cleft cyst. The floor the mouth is unremarkable. The epiglottis and vocal cords are wit hin normal limits. Images through both lung apices are unremarkable. IMPRESSION: 4.4 x 3.7 centimeter peripherally enhancing low-density mass. Biopsy could be considered for further evaluation if the lesion is not clinically consistent with infection. RADIATION DOSE DELIVERED: 235.29mGy.cm Total DLP DATA REPOSITORY: All CT scans at this facility are submitted to the National Radiology Data Registry (NRDR) Dose Index Registry (DIR) with the [employer] (A[employer]). RADIATION OPTIMIZATION: All CT scans at this facility use at least one of these dose optimization te chniques: automated exposure control; mA and/or kV adjustment per patient size (includes targeted exa ms where dose is matched to clinical indication); or iterative reconstruction.
--- NOTE | 2020-05-20 15:02 | ED.GENADUL_ITS ---
Discharge Plan Disposition Patient Disposition: HOME Condition: Stable Discharge Details Clinical Impression: Mass of left side of neck Primary Care Provider: Jerad Palmer ED Provider: Andrés La Home Meds and New Rx's Prescriptions: New hydrocodone-acetaminophen 5-325 mg tablet 1 tab PO Q8H PRNQty: 8 RF: 0 Continued sertraline 100 mg Tablet 50 mg PO DAILY Qty: 0 RF: 0 albuterol sulfate 2.5 mg /3 mL (0.083 %) solution for nebulization 2.5 mg IH QID PRN (Reason: shortness of breath or wheezing) Qty: 75 RF: 0 buspirone 5 mg Tablet 15 mg PO BID RF: 0 albuterol sulfate [ProAir HFA] 90 mcg/actuation HFA aerosol inhaler 2 puff IH Q6H PRN (Reason: shortness of breath) Qty: 18 RF: 0 budesonide-formoterol [Symbicort] 160-4.5 mcg/actuation HFA aerosol inhaler 1 puff INHALATION BID RF: 0 Anoro Ellipta 62.5-25 mcg/actuation blister with device 1 inh INHALATION DAILY AM RF: 0 ibuprofen 200 mg Capsule RF: 0 Discharge Instructions Additional Instructions: Your CT imaging reveals a left complex submandibular mass. I have personally spoken with ENT at [facility], Dr. Garcia. She recommends urgent outpatient ENT clinic referral, their office should be contacting you in the next 24-48 hours. Hydrocodone as directed, this may cause drowsiness and/or constipation. Hydrocodone does have a component of Tylenol, do not exceed 4 g daily. You may continue taking [id number] anti-inflammatory medication such as Motrin as well. Cool and/or compresses every 2 hours for 20 minutes. Please watch for new or worsening symptoms and return to the ER for any concerns. Medical Decision Making <MAYELIN Vieira - Last Filed: 05/20/20 17:07> I asked my attending physician, Dr. Phan to see the patient Patient has a large septated mass on his CT scan, phone call placed to [facility], mildly elevated CRP level, no leukocytosis, afebrile nontoxic, continue Septra. Call pending from [facility], signed out to Andrés La pending ENT consultation at 1900 Asymmetrical, unlikely to be mononucleosis, no other symptoms, low suspicion for mumps, patient reportedly vaccinated Maintaining airway Vitals stable <Ofelia Chandler DO - Last Filed: 05/20/20 15:26> I have seen and examined this patient. I discussed case and reviewed note with the PA and I agree with plan and note as documented. 25-year-old male with a history of anxiety, depression, and asthma presents for left-sided facial swelling and pain for the past week. Was advised to come here 2 days ago per his primary care doctor did not come at that time. He states hi s swelling has become worse. He is hemodynamically stable and appears nontoxic. He has a large 5 x 5 cm fluctuant symmetrical area of swelling to the left inferior posterior mandible. Area does not appear erythematous or fluctuant but is significantly tender. Differential diagnosis includes abscess but also concern for mass, lymph node, and considering this is near the floor of his mouth and airway, will obtain labs and imaging for further evaluation before incision and drainage. Would be quite hesitant to place a scalpel within this area and may need needle aspiration. Patient initially hesitant to IV and lab draw but now agreeable. <MAYELIN Kelly - Last Filed: 05/20/20 18:12> I assumed care of this 25-year-old male from my colleague MAYELIN Vizcaino, laboratory values have already been completed, CT was obtained, awaiting ENT consultation from [facility]. Please see her initial HPI and examination for further information. Upon my evaluation in room 10, patient is awake, alert, speaking in full sentences, no airway compromise. He is using his computer and cell phone without any difficulty. I made him aware that I was assuming his care and awaiting ENT consultation. He reports his anxiety is worsening, he was given [address] imaging read by radiology as complex left submandibular mass measuring 4.4 x 3.7 cm. Underlying malignancy, malignant lymph node or necrotic lymph nodes not excluded. Consider biopsy. 1.2 cm submental lymph node as well. I received a phone call at [address] Garcia, ENT at [facility]. We discussed his case and she was able to review the CT images. At this time she does not believe that antibiotics or I&D are indicated. She recommends NSAIDs, and an urgent-stat ENT clinic referral. This will likely need to be biopsied for definitive diagnosis. I discussed this plan with patient and his mother on the phone. They are requesting analgesia. I will provide a prescription for Tylenol with codeine. He already is taking an anti-inflammatory medication. If he does not hear from ENT by Sunday he will reach out to the clinic. He was encouraged to return to the ER for new or worsening symptoms. He will use warm and/or cool compresses as tolerated. Patient and mother are comfortable this plan and have no additional questions or concerns. Medical Records Medical records reviewed: Yes I reviewed the patient's medical records. HPI <MAYELIN Vieira - Last Filed: 05/20/20 17:07> Today. This 25-year-old male presents with large abscess to the submandibular region. He denies any fever or chills. He denies any history of IV drug abuse. He denies any fever or chills. He denies headache. He denies sore throat. General Date/Time Provider Initiated Documentation: 05/20/20 14:56 . Related Data Home Medications Medication Instructions Recorded Confirmed albuterol sulfate 2.5 mg IH QID PRN #75 ml 05/20/18 02/09/20 buspirone 15 mg PO BID 09/22/18 05/20/20 albuterol sulfate [ProAir HFA] 2 puff IH Q6H PRN #18 gm 02/28/19 05/20/20 sertraline 50 mg PO DAILY #0 tab 04/24/19 05/20/20 budesonide-formoterol [Symbicort] 1 puff INHALATION BID 02/09/20 05/20/20 Anoro Ellipta 1 inh INHALATION DAILY AM 05/20/20 05/20/20 hydrocodone-acetaminophen 1 tab PO Q8H PRN #8 tab 05/20/20 ibuprofen 05/20/20 Previous Rx's Medication Instructions Recorded albuterol sulfate 2.5 mg IH QID PRN #75 ml 05/20/18 albuterol sulfate [ProAir HFA] 2 puff IH Q6H PRN #18 gm 02/28/19 sertraline 50 mg PO DAILY #0 tab 04/24/19 hydrocodone-acetaminophen 1 tab PO Q8H PRN #8 tab 05/20/20 Allergies Allergy/AdvReac Type Severity Reaction Status Date / Time cat dander Allergy Wheezing Unverified 05/20/20 15:02 migraine medication AdvReac Uncoded 05/20/20 15:02 General Stated Complaint: Cellulitis MINGO: 3 <Ofelia J DO Ramesh - Last Filed: 05/20/20 15:26> Today. This 25-year-old male presents with large abscess to the submandibular region. He denies any fever or chills. He denies any history of IV drug abuse. He denies any fever or chills. He denies headache. He denies sore throat. <MAYELIN Kelly - Last Filed: 05/20/20 18:12> Today. This 25-year-old male presents with large abscess to the submandibular region. He denies any fever or chills. He denies any history of IV drug abuse. He denies any fever or chills. He denies headache. He denies sore throat. Review of Systems <MAYELIN Vieira - Last Filed: 05/20/20 17:07> Narrative: Review of systems negative x7 aside from where indicated in HPI PFSH <MAYELIN Vieira - Last Filed: 05/20/20 17:07> Medical History (Updated 05/20/20 @ 18:08 by MAYELIN Kelly) Anxiety disorder Asthma Depression Eczema Marijuana smoker Surgical History No significant past surgical history Family History Other Adopted Social History Smoking/Tobacco Use Status: Former Tobacco Use Counseling given: provider counseling Smoking risk assessment performed?: Yes Alcohol Intake: current Alcohol Intake frequency: holidays/special occasions only Alcohol type: beer Details: Minimal Drug use: Daily Substance use type: marijuana Counseling given: Yes Details: No vaping, no other drug use. States he uses to treat anxiety and insomnia. Adopted: Yes Housing: apartment Current gender identity: male Do you feel safe at home: Yes Do you feel safe in your relationship?: Yes Additional Social history: Grew up in [place], adopted, close with 1 of his moms who lives in [place]. Lives alone in apartment on [address] in [place]. She started working at [employer] Has a pet rat for the past 2 years Exam <MAYELIN Vieira - Last Filed: 05/20/20 17:07> Const General: cooperative and healthy appearing HENMT Mouth: no muffled voice Teeth and gingiva: dentition normal Throat: uvula midline Other: No dysphasia No stridor Neck Other: Range of motion intact Course <MAYELIN Vieira - Last Filed: 05/20/20 17:07> Vital Signs Vital signs: Vital Signs Temperature 37.5 C 05/20/20 14:54 Pulse 79 05/20/20 14:54 Respiratory Rate 16 05/20/20 14:54 Blood Pressure 132/83 05/20/20 14:54 Pulse Oximetry 98 05/20/20 14:54 Temperature 37.5 C 05/20/20 14:54 Temperature Source Temporal Artery Scan 05/20/20 14:54 Pulse 79 05/20/20 14:54 Respiratory Rate 16 05/20/20 14:54 Respiratory Effort 05/20/20 14:57 Blood Pressure 132/83 05/20/20 14:54 Blood Pressure Position Supine 05/20/20 14:54 Pulse Oximetry 98 05/20/20 14:54 Oxygen Delivery Method Room Air 05/20/20 14:54 Oxygen Flow Rate 0 05/20/20 14:54 Pain Level 7 05/20/20 14:54 Sign Out <MAYELIN Vieira - Last Filed: 05/20/20 17:07> Sign Out Data: Sign Out Comment: pending [facility] call and dispo Last updated by Keli Vizcaino PA at 05/20/20 17:11
[2020-05-20] MEDS: LORazepam 1 MG TAB PO (15:30)
[2020-05-20 15:50] LABS: Abs Immature Grans 0.03 10^3/uL (0.0-0.06); Absolute Basophil Count 0.03 10^3/uL (0.0-0.2); Absolute Eosinophil Count 0.13 10^3/uL (0.0-0.7); Absolute Lymphocyte Count 1.52 10^3/uL (1.2-3.4); Absolute Monocyte Count 0.79 10^3/uL (0.1-0.8); Basophils % 0.3; Eosinophils % 1.2; HCT 46.1 % (40.0-50.0); HGB 14.9 g/dL (13.5-17.5); Immature Grans % 0.3; Lymphocytes % 14.3; MCHC 32.3 % (32.0-36.0); MCV 83.5 fL (80-95); MPV 9.2 fL (8.0-11.0); Monocytes % 7.5; Neutrophils % 76.4; Nucleated RBC 0 %; Platelet Count 289 10^3/uL (130-400); RBC 5.52 10^6/uL (4.36-5.78); RDW 14.4 % (11.8-14.1); RDW-SD 44.1 fL
[2020-05-20 16:05] LABS: ALT 14 U/L (16-63); AST 7 U/L (15-37); Albumin 4.1 g/dL (3.4-5.0); Alkaline Phosphatase 118 U/L (46-116); Anion Gap 11.9 mmol/L (3-11); BUN 15 mg/dL (7-18); Bilirubin, Total 0.7 mg/dL (0.2-1.0); C-Reactive Protein 2.31 mg/dL (0.0-0.3); CO2 27.1 mmol/L (21.0-32.0); CREATININE 0.7 mg/dL (0.70-1.30); Calcium 9.2 mg/dL (8.5-10.1); Chloride 102 mmol/L (98-107); Glucose 87 mg/dL (74-106); Potassium 3.7 mmol/L (3.5-5.1); Sodium 141 mmol/L (136-145); Total Protein 8.1 g/dL (6.4-8.2)
[2020-05-20] MEDS: Normal Saline Flush 10 ML SYR IVP (16:12)
[2020-05-20] MEDS: Omnipaque 350 MG/ML 100 ML BTL IJ (16:12)
[2020-05-20] MEDS: Normal Saline - Diluent 50 ML VIAL IV (16:14)
--- NOTE | 2020-05-20 16:35 | DI.VRAD_ITS ---
PROCEDURE INFORMATION: Exam: CT Neck With Contrast Exam date and time: 05/20/2020 3:13 PM Age: 25 years old Clinical indication: Condition or disease; Other: Mass beneath left mandible; Patient HX: Growth occurred on left mandible progressively increasing in size over 5 days TECHNIQUE: Imaging protocol: Computed tomography images of the neck with intravenous contrast. Contrast material: OMNIPAQUE; Contrast volume: 100 ml; Contrast route: INTRAVENOUS (IV); COMPARISON: No relevant prior studies available. FINDINGS: Nasopharynx: Unremarkable. Oropharynx: Unremarkable. No significant tonsillar enlargement. Hypopharynx: Unremarkable. Larynx: Unremarkable. Normal epiglottis. Retropharyngeal space: Unremarkable. Submandibular/Parotid glands: Complex left submandibular mass measuring 4.4 x 3.7 cm. Underlying malignancy, malignant lymph node or necrotic lymph node is not excluded. Consider biopsy. Thyroid: Normal. No enlarged or calcified nodules. Lymph nodes: 1.2 cm submental lymph node. Trachea: Visualized trachea is unremarkable. Lungs: Unremarkable as visualized. Bones/joints: Unremarkable. No acute fracture. Soft tissues: Unremarkable. No significant soft tissue swelling. IMPRESSION: Complex left submandibular mass measuring 4.4 x 3.7 cm. Underlying malignancy, malignant lymph node or necrotic lymph node is not excluded. Consider biopsy. 1.2 cm submental lymph node. Dictated and Authenticated by: Rosamaria Pringle MD. Ordering:REA Dickey MD
[2020-05-20] MEDS: LORazepam 2 MG/ML VIAL 1 MG IVP (17:47)
--- NOTE | 2020-05-20 17:52 | NUR.NOTE ---
Nursing Note: Referral given to Care Management for RAY follow up for left sided neck mass. Elizabeth Bo
--- NOTE | 2020-05-20 19:18 | CMPROGNOTE_ITS ---
- If Service Date Differs Date of service: 05/20/20 Time of Service: 19:18 Care Management Progress Note Alden is seen in the ED for a neck mass. At the request of ED provider, CM coordinates a referral to [facility] to assist Alden in obtaining a follow up appointment.
== END 2020-05-20 18:19 | disposition home or self-care (01) ==
PROVIDERS: Physician Assistant; Emergency Provider Physician Assistant; PCP Nurse Practitioner Family
DX: R22.1 Localized swelling, mass and lump, neck (principal)
CPT/HCPCS: 36415; 70491; 80053; 96374; 99284; 85025; 86140; J2060; J3490

== ENCOUNTER 2020-05-22 15:28 | Emergency (ER) | payer MEDICARE, MEDICAID, SELFPAY ==
[2020-05-22 15:40] VITALS: BP 125/74; PULSE 78; RESP 20; TEMP 36.8; O2SAT 98
--- NOTE | 2020-05-22 16:16 | ED.GENADUL_ITS ---
Discharge Plan Disposition Patient Disposition: HOME Condition: Stable Discharge Details Clinical Impression: Cyst of face Primary Care Provider: Jerad Palmer ED Provider: Bettina Quesada Home Meds and New Rx's Prescriptions: New clindamycin HCl 300 mg capsule 300 mg PO BID 10 Days Qty: 20 RF: 0 No Action pantoprazole 40 mg tablet,delayed release (DR/EC) 40 mg PO DAILY RF: 0 hydroxyzine HCl 25 mg tablet See Rx Instructions .ROUTE .COMPLEX RF: 0 sertraline 100 mg tablet 200 mg PO DAILY RF: 0 albuterol sulfate 2.5 mg /3 mL (0.083 %) solution for nebulization 2.5 mg IH QID PRN (Reason: shortness of breath or wheezing) Qty: 75 RF: 0 buspirone 5 mg Tablet 15 mg PO BID RF: 0 albuterol sulfate [ProAir HFA] 90 mcg/actuation HFA aerosol inhaler 2 puff IH Q6H PRN (Reason: shortness of breath) Qty: 18 RF: 0 budesonide-formoterol [Symbicort] 160-4.5 mcg/actuation HFA aerosol inhaler 1 puff INHALATION BID RF: 0 Anoro Ellipta 62.5-25 mcg/actuation blister with device 1 inh INHALATION DAILY AM RF: 0 ibuprofen 200 mg Capsule 600 mg PO PRN PRNRF: 0 hydrocodone-acetaminophen 5-325 mg tablet 1 tab PO Q8H PRNQty: 8 RF: 0 Discharge Instructions Instructions: Oxycodone, Rapid Release (By mouth), Abscess (ED) Additional Instructions: I did speak with [facility] ear nose throat once again and they do still recommend follow-up in the clinic. If you do not hear from them by mid Sunday morning please call the clinic number at . The ear nose throat specialist do not recommend any further attempt at incision and drainage of the abscess or cyst. They do still want to see you in the office to remove it. Please follow-up with ENT as previously discussed. Take the antibiotic twice daily as prescribed. Referrals: Jerad Palmer, DIRECTOR SPEECH LANGUAGE [Primary Care Provider] - Discharge Data Discharge Date/Time-TO BE ENTERED AT DEPARTURE: 05/22/20 18:25 Medical Decision Making 25-year-old male presents to the ED secondary with chief complaint of left submandibular mass which is tender to the touch and draining. He was seen here on May 20 for similar complaint was told to follow-up with [facility] in 24 to 48 hours he has not heard from the clinic. He states that it began to drain so he wanted to get it rechecked. He denies any fever, chills, there is no surrounding erythema or induration. Vital signs are stable, no tachycardia. It is actively draining at this time. Discussed option for a very superficial incision and drainage to relieve some of the pressure of the wound patient verbalized understanding and is in agreement with procedure. 1702: Abscess of the left submandibular area incised as noted in procedure note above patient tolerated with difficulty. I did get mild to moderate amount of green purulent drainage expressed. I did discuss with patient today the abscess needs more extensive drainage and/or evaluation by ENT I did encourage follow-up with [facility] as previously discussed. Patient states now that it is draining, I am not going to go see [facility] if I have cancer I do not want to know. At this time I will page [facility] ENT communications tech and discuss case with them. Patient has been moved to a room for possible further anesthetic infiltration and further incision and drainage procedure if patient will consent and tolerate it. Post procedure tenderness is somewhat relieved per patient. 1710: Patient declining IV antibiotics at this time. ENT at [facility] paged for consult. 1730: Spoke with Dr. Rojas with [facility] who does not reccommend any further I&D here in ED she does agree with Antibiotics and Follow up in clinic and and recommends patient to call Sunday to schedule an appointment for further evaluation. I did discuss recommendations with patient he verbalizes understanding. He is requesting couple more days of pain medication. I did give him 4 tablets of 5 mg oxycodone to go. He verbalizes understanding and has had these type of abscesses before but he states that this is bigger and more tender than previous cysts. Instructed to take the antibiotics as prescribed, verbalized understanding. Patient remained hemodynamically stable throughout stay. This text was generated using [employer]ation system, please disregard any oddities of phrase or misspellings. Medical Records Medical records reviewed: Yes I reviewed the patient's medical records. Medical records narrative: CT Neck W 05-20-20 FINDINGS: Parotids/submandibular/thyroid gland: Normal. Lymphadenopathy: There is an enlarged submental lymph node, measuring 12 millimeters. There are a few additional scattered lymph nodes seen along the level one to level three all measuring less than 8 mm in short axis diameter which are physiologic in nature. Carotids/Jugular: Within normal limits. Soft tissues: 4.4 x 3.7 centimeter low-density mass in the superficial tissues posterior to the left mandible. It shows peripheral enhancement and question of some septations. It does not appear to be within the submandibular gland. It could represent a necrotic lymph node, soft tissue abscess or infected branchial cleft cyst. The floor the mouth is unremarkable. The epiglottis and vocal cords are within normal limits. Images through both lung apices are unremarkable. IMPRESSION: 4.4 x 3.7 centimeter peripherally enhancing low-density mass. Biopsy could be considered for further evaluation if the lesion is not clinically consistent with infection. HPI General Mode of arrival: ambulatory . Date/Time Provider Initiated Documentation: 05/22/20 15:54 . Limitations to Documentation: no limitations . Information obtained by: patient . HPI Narrative: 25-year-old male presents to the ED secondary with chief complaint of left submandibular mass which is tender to the touch and draining. He was seen here on May 20 for similar complaint was told to follow-up with [facility] in 24 to 48 hours he has not heard from the clinic. He states that it began to drain so he wanted to get it rechecked. He denies any fever, chills there is no surrounding erythema or induration. It is actively draining at this time. Related Data Home Medications Medication Instructions Recorded Confirmed albuterol sulfate 2.5 mg IH QID PRN #75 ml 05/20/18 05/22/20 buspirone 15 mg PO BID 09/22/18 05/22/20 albuterol sulfate [ProAir HFA] 2 puff IH Q6H PRN #18 gm 02/28/19 05/22/20 budesonide-formoterol [Symbicort] 1 puff INHALATION BID 02/09/20 05/22/20 Anoro Ellipta 1 inh INHALATION DAILY AM 05/20/20 05/22/20 hydrocodone-acetaminophen 1 tab PO Q8H PRN #8 tab 05/20/20 05/22/20 ibuprofen 600 mg PO PRN PRN 05/20/20 05/22/20 clindamycin HCl 300 mg PO BID 10 Days #20 cap 05/22/20 hydroxyzine HCl See Rx Instructions .ROUTE .COMPLEX 05/22/20 05/22/20 pantoprazole 40 mg PO DAILY 05/22/20 05/22/20 sertraline 200 mg PO DAILY 05/22/20 05/22/20 Previous Rx's Medication Instructions Recorded albuterol sulfate 2.5 mg IH QID PRN #75 ml 05/20/18 albuterol sulfate [ProAir HFA] 2 puff IH Q6H PRN #18 gm 02/28/19 hydrocodone-acetaminophen 1 tab PO Q8H PRN #8 tab 05/20/20 clindamycin HCl 300 mg PO BID 10 Days #20 cap 05/22/20 Allergies Allergy/AdvReac Type Severity Reaction Status Date / Time cat dander Allergy Wheezing Unverified 05/22/20 15:43 migraine medication AdvReac Uncoded 05/22/20 15:43 General Stated Complaint: Cellulitis MINGO: 4 PFSH Medical History (Updated 05/22/20 @ 17:43 by Bettina Quesada) Anxiety disorder Asthma Depression Eczema Marijuana smoker Surgical History No significant past surgical history Family History Other Adopted Social History Smoking/Tobacco Use Status: Former Tobacco Use Counseling given: provider counseling Smoking risk assessment performed?: Yes Alcohol Intake: current Alcohol Intake frequency: holidays/special occasions only Alcohol type: beer Details: Minimal Drug use: Daily Substance use type: marijuana Counseling given: Yes Details: No vaping, no other drug use. States he uses to treat anxiety and insomnia. Adopted: Yes Housing: apartment Current gender identity: male Do you feel safe at home: Yes Do you feel safe in your relationship?: Yes Additional Social history: Grew up in [place], adopted, close with 1 of his moms who lives in [place]. Lives alone in apartment [address] in [place]. Exam Narrative Exam Narrative: Constitutional: Alert and oriented x3. Appears stated age. Normal body habitus. Head: Normocephalic, no trauma. Eyes: Pupils PERRLA, Red reflex noted, EOM's intact. Eyelids symmetrical without lesions, discharge, or swelling. ENT: Bilateral TM's WNL, External ear normal to inspection, no mastoid TTP, swelling, or erythema, Nasal turbinates WNL, no nasal discharge. Normal dentition, Posterior pharynx WNL, no exudate. There is a notable approximately 3 cm x 3 cm in diameter mass noted to the left submandibular space. It is sl owly draining greenish-white purulent drainage posteriorly. It is tender to touch. Patient denies any trouble swallowing, no dental pain, no surrounding neck tenderness. Chest: RRR, Normal S1, S2, distal pulses intact. Resp: Lungs clear to auscultation bilaterally, no wheezes, rales, or rhonchi. Musculoskeletal: Normal gait, 5/5 strength to all four extremities. Skin: No suspicious rashes or lesions. Capillary refill less than 2 sec. Neurologic: Cranial nerves II-XII intact. Alert and oriented x 3. DTR's intact. Hematologic/Lymphatic: No ecchymosis, no lymphadenopathy. HENMT Face and sinus: fluctuance and tenderness on the left submandibular (See digram below) Face images: 1. Approximately 3 cm x 3 cm cystic type mass noted with area of fluctuance and drainage. No surrounding erythema, induration or swelling. Patient speaking in full sentences no trouble swallowing. Course Vital Signs Vital signs: Vital Signs Temperature 36.8 C 05/22/20 15:40 Pulse 78 05/22/20 15:40 Respiratory Rate 20 05/22/20 15:40 Blood Pressure 125/74 05/22/20 15:40 Pulse Oximetry 98 05/22/20 15:40 Temperature 36.8 C 05/22/20 15:40 Temperature Source Skin 05/22/20 15:40 Pulse 78 05/22/20 15:40 Respiratory Rate 20 05/22/20 15:40 Blood Pressure 125/74 05/22/20 15:40 Blood Pressure Position Sitting 05/22/20 15:40 Pulse Oximetry 98 05/22/20 15:40 Oxygen Delivery Method Room Air 05/22/20 15:40 Oxygen Flow Rate 0 05/22/20 15:40 Pain Level 3 05/22/20 15:40 Procedures Abscess I/D Site: Face (Left submandibular) Side (if applicable): Left Local Anesthetic: Lidocaine 1% and With Epi Amount of anesthesia used (mL): 2 Technique: Incised with #11 Blade Amount of fluid expressed (mL): 10 Irrigation: No Packing used?: None Complications: Pain and Other (Patient anxiety)
[2020-05-22] MEDS: Clindamycin 300 MG CAP PO (17:26)
[2020-05-22] MEDS: HYDROcodone 5/Acetaminophen 325 TAB PO (17:27)
[2020-05-22] MEDS: LORazepam 0.5 MG TAB PO (17:28)
[2020-05-22 18:18] VITALS: BP 142/91; PULSE 83; RESP 18; TEMP 36.7; O2SAT 97
== END 2020-05-22 18:25 | disposition home or self-care (01) ==
PROVIDERS: Emergency Provider Registered Nurse Emergency; PCP Nurse Practitioner Family
DX: L02.01 Cutaneous abscess of face (principal)
CPT/HCPCS: 10060; 87070; 87205

== ENCOUNTER 2021-12-18 15:15 | Inpatient (IN) | payer MEDICARE, MEDICAID, SELFPAY ==
[2021-12-18] VITALS (33 sets, daily range): BP systolic 116–156; BP diastolic 58–128; PULSE 99–147; RESP 4–31; TEMP 37.2–37.5; O2SAT 92–100
[2021-12-18] MEDS: MAGNESIUM SULFATE 2 GM/50 ML BAG IVPB (15:33)
[2021-12-18 15:37] LABS: Source Nasal/Nares
[2021-12-18 15:40] LABS: Abs Immature Grans 0.03 10^3/uL (0.0-0.06); Absolute Basophil Count 0.07 10^3/uL (0.0-0.2); Absolute Eosinophil Count 0.56 10^3/uL (0.0-0.7); Absolute Lymphocyte Count 3.08 10^3/uL (1.2-3.4); Absolute Monocyte Count 1.43 10^3/uL (0.1-0.8); BE (Venous) 2 mmol/L (-2-3); Basophils % 0.5; Eosinophils % 4.2; HCO3 (Venous) 27 mmol/L (23-28); HCT 49.1 % (40.0-50.0); HGB 15.9 g/dL (13.5-17.5); Immature Grans % 0.2; Lymphocytes % 23.3; MCH 27.3 pg (27.0-33.0); MCHC 32.4 % (32.0-36.0); MCV 84 fL (80-95); MPV 8.9 fL (8.0-11.0); Monocytes % 10.8; O2 Sat (Venous) 94 %; Platelet Count 304 10^3/uL (130-400); RBC 5.83 10^6/uL (4.36-5.78); RDW 13.3 % (11.8-14.1); RDW-SD 40.6 fL; TCO2 (Venous) 24 mmol/L (24-29); WBC 13.23 10^3/uL (4.4-10.8); pCO2 (Venous) 46 mmHg (41-51); pH (Venous) 7.38 (7.31-7.41); pO2 (Venous) 70 mmHg
[2021-12-18 15:42] LABS: Absolute Neutrophil Count 8.07 10^3/uL (1.2-6.7)
[2021-12-18 15:52] LABS: Anion Gap 7.5 mmol/L (3-11); BUN 16 mg/dL (7-18); CO2 28.5 mmol/L (21.0-32.0); CREATININE 0.9 mg/dL (0.70-1.30); Calcium 9.5 mg/dL (8.5-10.1); Chloride 101 mmol/L (98-107); Estimated GFR 120.05 (mL/min/1.73m2); Glucose 109 mg/dL (74-106); Magnesium 2.3 mg/dL (1.8-2.4); Potassium 4.4 mmol/L (3.5-5.1); Sodium 137 mmol/L (136-145)
[2021-12-18 16:14] LABS: COVID-19 PCR Negative (Negative)
--- NOTE | 2021-12-18 16:15 | DI.RAD_ITS ---
Exam(s) XR PORTABLE CHEST AP EXAM: XR PORTABLE CHEST AP CLINICAL HISTORY: asthma TECHNIQUE: 2D digital imaging was performed. COMPARISON: CR,XR XR PORTABLE CHEST AP from 08/13/2019 FINDINGS: LUNGS: Clear. No pleural abnormality seen. HEART: Normal. AORTA: Normal. BONES: Unremarkable for age. Soft tissues: Unremarkable. IMPRESSION: No acute findings. DATA REPOSITORY: RADIATION DOSE DELIVERED:
--- NOTE | 2021-12-18 16:44 | W.ED.GENAD ---
Discharge Plan Disposition Patient Disposition: [facility] INPATIENT Condition: Improving Discharge Details Chief Complaint: RespSymp Clinical Impression: Severe asthma with acute exacerbation ED Provider: Eric Carrizales Home Meds and New Rx's Prescriptions: No Action dextroamphetamine-amphetamine [Adderall XR] 30 mg capsule,extended release 24hr 30 mg PO QAM pantoprazole 40 mg tablet,delayed release (DR/EC) 40 mg PO DAILY Label Comments: TAKE 1 TABLET BY MOUTH DAILY hydroxyzine HCl 25 mg tablet See Rx Instructions .ROUTE .COMPLEX Label Comments: TAKE ONE TABLET BY MOUTH THREE TIMES A DAY AND TWO TABLETS AT BEDTIME NEEDED Rx Instructions: TAKE ONE TABLET BY MOUTH THREE TIMES A DAY AND TWO TABLETS AT BEDTIME NEEDED sertraline 100 mg tablet 200 mg PO DAILY albuterol sulfate 2.5 mg /3 mL (0.083 %) solution for nebulization 2.5 mg IH QID PRN (Reason: shortness of breath or wheezing) Qty: 75 0RF buspirone 5 mg Tablet 15 mg PO BID Label Comments: Patient state he takes 15mg bid budesonide-formoterol [Symbicort] 160-4.5 mcg/actuation HFA aerosol inhaler 1 puff INHALATION BID Label Comments: INHALE 1 PUFF PO NEEDED MAY REPEAT NEEDED MAX D DOSE 12 INHALATIONS Anoro Ellipta 62.5-25 mcg/actuation blister with device 1 inh INHALATION DAILY AM Label Comments: INHALE 1 PUFF BY MOUTH EVERY DAY ibuprofen 200 mg Capsule 600 mg PO PRN PRN hydrocodone-acetaminophen 5-325 mg tablet 1 tab PO Q8H PRNQty: 8 0RF Medical Decision Making 26-year-old male with history of asthma, here with shortness of breath and wheeze and respiratory distress, presentation consistent with acute severe asthma exacerbation. Patient has run out of his Symbicort and also continues to vape. Patient in critical condition on arrival. Respiratory therapy was consulted and continuous albuterol neb was initiated. Magnesium 2 g IV bolus given. Patient provided informed refusal of recommended subcutaneous epinephrine. Patient was given Solu-Medrol by EMS. Chest x-ray was reviewed by me: No consolidative process. Considered COVID. COVID PCR negative. Plan to hospitalize for further treatment. I called and spoke with Dr. Ocampo, on-call hospitalist, discussed ED presentation course, he will admit the patient. Lab Data Lab results reviewed: Yes I reviewed the patient's lab results. Labs: Laboratory Tests Range/Units 12/18/21 12/18/21 12/18/21 15:22 15:22 15:22 WBC (4.4-10.8) 10^3/uL 13.23 H RBC (4.36-5.78) 10^6/uL 5.83 H Hgb (13.5-17.5) g/dL 15.9 Hct (40.0-50.0) % 49.1 MCV (80-95) fL 84 MCH (27.0-33.0) pg 27.3 MCHC (32.0-36.0) % 32.4 RDW (11.8-14.1) % 13.3 Plt Count (130-400) 10^3/uL 304 MPV (8.0-11.0) fL 8.9 Immature Gran % 0.2 Neutrophils % 61.0 Lymphocytes % 23.3 Monocytes % 10.8 Eosinophils % 4.2 Basophils % 0.5 Nucleated RBC % (0.0-0.3) % 0.0 Absolute Neutrophils (1.2-6.7) 10^3/uL 8.07 H Absolute Lymphocytes (1.2-3.4) 10^3/uL 3.08 Absolute Monocytes (0.1-0.8) 10^3/uL 1.43 H Absolute Eosinophils (0.0-0.7) 10^3/uL 0.56 Absolute Basophils (0.0-0.2) 10^3/uL 0.07 VBG pH (7.31-7.41) 7.38 VBG pCO2 (41-51) mmHg 46 VBG pO2 mmHg 70 VBG HCO3 (23-28) mmol/L 27 VBG Total CO2 (24-29) mmol/L 24 VBG O2 Saturation % 94 VBG Base Excess (-2-3) mmol/L 2 Sodium (136-145) mmol/L 137 Potassium (3.5-5.1) mmol/L 4.4 Chloride (98-107) mmol/L 101 Carbon Dioxide (21.0-32.0) mmol/L 28.5 Anion Gap (3-11) mmol/L 7.5 BUN (7-18) mg/dL 16 Creatinine (0.70-1.30) mg/dL 0.9 Est GFR (CKD-EPI 2020) (mL/min/1.73m2) 120.05 Glucose (74-106) mg/dL 109 H Calcium (8.5-10.1) mg/dL 9.5 Magnesium (1.8-2.4) mg/dL 2.3 COVID-19 Source SARS-CoV-2 (PCR) (Negative) Range/Units 12/18/21 15:34 WBC (4.4-10.8) 10^3/uL RBC (4.36-5.78) 10^6/uL Hgb (13.5-17.5) g/dL Hct (40.0-50.0) % MCV (80-95) fL MCH (27.0-33.0) pg MCHC (32.0-36.0) % RDW (11.8-14.1) % Plt Count (130-400) 10^3/uL MPV (8.0-11.0) fL Immature Gran % Neutrophils % Lymphocytes % Monocytes % Eosinophils % Basophils % Nucleated RBC % (0.0-0.3) % Absolute Neutrophils (1.2-6.7) 10^3/uL Absolute Lymphocytes (1.2-3.4) 10^3/uL Absolute Monocytes (0.1-0.8) 10^3/uL Absolute Eosinophils (0.0-0.7) 10^3/uL Absolute Basophils (0.0-0.2) 10^3/uL VBG pH (7.31-7.41) VBG pCO2 (41-51) mmHg VBG pO2 mmHg VBG HCO3 (23-28) mmol/L VBG Total CO2 (24-29) mmol/L VBG O2 Saturation % VBG Base Excess (-2-3) mmol/L Sodium (136-145) mmol/L Potassium (3.5-5.1) mmol/L Chloride (98-107) mmol/L Carbon Dioxide (21.0-32.0) mmol/L Anion Gap (3-11) mmol/L BUN (7-18) mg/dL Creatinine (0.70-1.30) mg/dL Est GFR (CKD-EPI 2020) (mL/min/1.73m2) Glucose (74-106) mg/dL Calcium (8.5-10.1) mg/dL Magnesium (1.8-2.4) mg/dL COVID-19 Source Nasal/Nares SARS-CoV-2 (PCR) (Negative) Negative HPI General Mode of arrival: EMS. Date/Time Provider Initiated Documentation: 12/18/21 15:18. Limitations to Documentation: physical limitation (sob). Information obtained by: patient and EMS. HPI Narrative: 26-year-old male here with shortness of breath. Patient notes shortness of breath and wheeze consistent with prior asthma exacerbation. Symptoms have been worsening over the past 3 to 4 days. Patient notes he has been out of his Symbicort for the past 2 weeks after running out. Patient notes he had a cold a few weeks ago. He continues to have mild cough. No associated fever. Shortness of breath is severe. No modifiers. Patient denies associated chest pain. Patient was given Solu-Medrol review of systems limited secondary to acuity of condition. Patient was given Solu-Medrol and duo nebs in route. Related Data Home Medications Medication Instructions Recorded Confirmed albuterol sulfate 2.5 mg/3 mL 2.5 mg (3 mL) inhalation QID PRN 05/20/18 12/18/21 (0.083 %) solution for nebulization shortness of breath or wheezing #75 mL buspirone 5 mg tablet 15 mg PO BID 09/22/18 12/18/21 budesonide-formoterol HFA 160 1 puff inhalation BID 02/09/20 12/18/21 mcg-4.5 mcg/actuation aerosol inhaler (Symbicort) hydrocodone 5 mg-acetaminophen 325 1 tab PO Q8H PRN #8 tabs 05/20/20 12/18/21 mg tablet ibuprofen 200 mg capsule 600 mg PO PRN PRN 05/20/20 12/18/21 umeclidinium 62.5 mcg-vilanterol 1 inh inhalation DAILY AM 05/20/20 12/18/21 25 mcg/actuation powdr for inhalation (Anoro Ellipta) hydroxyzine HCl 25 mg tablet See Rx Instructions .Route .COMPLEX 05/22/20 12/18/21 pantoprazole 40 mg tablet,delayed 40 mg PO DAILY 05/22/20 12/18/21 release sertraline 100 mg tablet 200 mg PO DAILY 05/22/20 12/18/21 dextroamphetamine-amphetamine ER 30 mg PO QAM 02/28/21 12/18/21 30 mg 24hr capsule,extend release (Adderall XR) Previous Rx's Medication Instructions Recorded albuterol sulfate 2.5 mg/3 mL 2.5 mg (3 mL) inhalation QID PRN 05/20/18 (0.083 %) solution for nebulization shortness of breath or wheezing #75 mL hydrocodone 5 mg-acetaminophen 325 1 tab PO Q8H PRN #8 tabs 05/20/20 mg tablet Allergies Allergy/AdvReac Type Severity Reaction Status Date / Time cat dander Allergy Wheezing Unverified 12/18/21 16:50 migraine medication AdvReac Uncoded 12/18/21 16:50 General Stated Complaint: RespSymp MINGO: 1 Review of Systems Unobtainable due to (Limited secondary to acuity of condition) Constitutional Constitutional: Denies chills and Denies fever(s) Respiratory Respiratory: Reports as per HPI PFSH All Active Problems (Updated 12/18/21 @ 17:12 by Eric Carrizales MD) Severe asthma with acute exacerbation (Acute) ADD (attention deficit disorder) (Acute) Marijuana smoker (Acute) Discharge planning issues (Acute) Asthma (Chronic) Suicidal ideation (Acute) Depression (Chronic) Anxiety disorder (Chronic) DVT prophylaxis (Acute) Eczema (Chronic) Medical History Acute asthma exacerbation Cyst of face Eczema Mass of left side of neck Surgical History No significant past surgical history Family History Other Adopted Social History Smoking/Tobacco Use Status: Former Tobacco Use Counseling given: provider counseling Smoking risk assessment performed?: Yes Alcohol Intake: current Alcohol Intake frequency: holidays/special occasions only Alcohol type: beer Details: Minimal Drug use: Daily Substance use type: marijuana Counseling given: Yes Details: No vaping, no other drug use. States he uses to treat anxiety and insomnia. Adopted: Yes Housing: apartment Current gender identity: male Do you feel safe at home: Yes Do you feel safe in your relationship?: Yes Additional Social history: Grew up in [place], adopted, close with 1 of his moms who lives in [place]. Lives alone in apartment on [address] in [place]. Exam Const General: cooperative HENMT Mouth: moist mucous membranes Eyes Conjunctivae: normal conjunctivae Sclera: normal sclerae Neck Neck: trachea midline and supple Resp Effort & Inspection: labored, respiratory distress and uses accessory muscles Auscultation: diminished lung sounds, no rales, no rhonchi and wheezes expiratory wheezes Cardio Rate: tachycardic Rhythm: regular rhythm Heart Sounds: no murmurs GI Palpation: not firm, no guarding, no masses, not rigid and nontender Skin General skin exam: no rashes or lesions noted Neuro General: patient alert, patient awake and tone normal Extrem General: no calf tenderness and no edema Psych Appearance: grossly normal Mental Status: mental status grossly normal Course Vital Signs Vital signs: Vital Signs Pulse 130 H 12/18/21 15:16 Respiratory Rate 28 H 12/18/21 15:16 Blood Pressure 150/128 H 12/18/21 15:16 Pulse Oximetry 97 12/18/21 15:16 Pulse 140 H 12/18/21 16:33 Pulse 138 H 12/18/21 16:33 Respiratory Rate 26 H 12/18/21 16:33 Respiratory Effort Labored 12/18/21 15:58 Respiratory Depth Deep 12/18/21 15:27 Blood Pressure 123/68 12/18/21 16:33 Blood Pressure Mean 82 12/18/21 16:33 Pulse Oximetry 100 12/18/21 16:33 Oxygen Delivery Method Aerosol Mask 12/18/21 15:27 Oxygen Flow Rate 5 12/18/21 15:16 Lab/Test Results Lab/Test Results: Laboratory Tests Range/Units 12/18/21 12/18/21 12/18/21 15:22 15:22 15:22 WBC (4.4-10.8) 10^3/uL 13.23 H RBC (4.36-5.78) 10^6/uL 5.83 H Hgb (13.5-17.5) g/dL 15.9 Hct (40.0-50.0) % 49.1 MCV (80-95) fL 84 MCH (27.0-33.0) pg 27.3 MCHC (32.0-36.0) % 32.4 RDW (11.8-14.1) % 13.3 Plt Count (130-400) 10^3/uL 304 MPV (8.0-11.0) fL 8.9 Immature Gran % 0.2 Neutrophils % 61.0 Lymphocytes % 23.3 Monocytes % 10.8 Eosinophils % 4.2 Basophils % 0.5 Nucleated RBC % (0.0-0.3) % 0.0 Absolute Neutrophils (1.2-6.7) 10^3/uL 8.07 H Absolute Lymphocytes (1.2-3.4) 10^3/uL 3.08 Absolute Monocytes (0.1-0.8) 10^3/uL 1.43 H Absolute Eosinophils (0.0-0.7) 10^3/uL 0.56 Absolute Basophils (0.0-0.2) 10^3/uL 0.07 VBG pH (7.31-7.41) 7.38 VBG pCO2 (41-51) mmHg 46 VBG pO2 mmHg 70 VBG HCO3 (23-28) mmol/L 27 VBG Total CO2 (24-29) mmol/L 24 VBG O2 Saturation % 94 VBG Base Excess (-2-3) mmol/L 2 Sodium (136-145) mmol/L 137 Potassium (3.5-5.1) mmol/L 4.4 Chloride (98-107) mmol/L 101 Carbon Dioxide (21.0-32.0) mmol/L 28.5 Anion Gap (3-11) mmol/L 7.5 BUN (7-18) mg/dL 16 Creatinine (0.70-1.30) mg/dL 0.9 Est GFR (CKD-EPI 2020) (mL/min/1.73m2) 120.05 Glucose (74-106) mg/dL 109 H Calcium (8.5-10.1) mg/dL 9.5 Magnesium (1.8-2.4) mg/dL 2.3 COVID-19 Source SARS-CoV-2 (PCR) (Negative) Range/Units 12/18/21 15:34 WBC (4.4-10.8) 10^3/uL RBC (4.36-5.78) 10^6/uL Hgb (13.5-17.5) g/dL Hct (40.0-50.0) % MCV (80-95) fL MCH (27.0-33.0) pg MCHC (32.0-36.0) % RDW (11.8-14.1) % Plt Count (130-400) 10^3/uL MPV (8.0-11.0) fL Immature Gran % Neutrophils % Lymphocytes % Monocytes % Eosinophils % Basophils % Nucleated RBC % (0.0-0.3) % Absolute Neutrophils (1.2-6.7) 10^3/uL Absolute Lymphocytes (1.2-3.4) 10^3/uL Absolute Monocytes (0.1-0.8) 10^3/uL Absolute Eosinophils (0.0-0.7) 10^3/uL Absolute Basophils (0.0-0.2) 10^3/uL VBG pH (7.31-7.41) VBG pCO2 (41-51) mmHg VBG pO2 mmHg VBG HCO3 (23-28) mmol/L VBG Total CO2 (24-29) mmol/L VBG O2 Saturation % VBG Base Excess (-2-3) mmol/L Sodium (136-145) mmol/L Potassium (3.5-5.1) mmol/L Chloride (98-107) mmol/L Carbon Dioxide (21.0-32.0) mmol/L Anion Gap (3-11) mmol/L BUN (7-18) mg/dL Creatinine (0.70-1.30) mg/dL Est GFR (CKD-EPI 2020) (mL/min/1.73m2) Glucose (74-106) mg/dL Calcium (8.5-10.1) mg/dL Magnesium (1.8-2.4) mg/dL COVID-19 Source Nasal/Nares SARS-CoV-2 (PCR) (Negative) Negative Critical Care Time Critical Care Time Critical Care Time: Yes Total Critical Care Time: 40 Attestation: I spent greater than 40 minutes addressing this patient's immediate life threats. Please see MDM section of note. This time was spent engaged in work directly related to the patient's care, exclusive of separate procedures, and failure to initiate these interventions would have likely resulted in clinically significant or life threatening deterioration in the patient's condition.
--- NOTE | 2021-12-18 16:56 | HPE_ITS ---
Date of service: 12/18/21 Time of Service: 16:56 Assessment and Plan Assessment and plan (1) Severe asthma with acute exacerbation: Status: Acute Assessment and plan: ICU admission for close monitoring, continued aerosolized bronchodilators, IV corticosteroids, parenteral antibiotics with Rocephin and azithromycin, check sputum culture, continue LABA/ICS, pulmonology consult in the morning Critical care time spent interviewing and examining the patient, reviewing studies, discussing case with patient's nurse and consulting physicians was 45 minutes (2) Marijuana smoker: Status: Acute (3) ADD (attention deficit disorder): Status: Acute History of Present Illness History of Present Illness Chief Complaint: Dyspnea Narrative: 26-year-old -Sing[place] male with a lifelong history of asthma generally under control with use of Symbicort and as needed albuterol comes in with inc reasing cough and dyspnea and wheezing over the last 2 to 3 days not improving despite use of his albuterol. Patient states that he recently had a URI and used up all of his Symbicort. Denies any fever chills or hemoptysis cough is been minimally productive of some yellowish mucus. He has not been around any ill contacts. He lives alone in an apartment and does have guinea pigs and rabbits. He has a known allergy to cat and previously gone through allergy desensitization as a child. EMS brought the patient in acute respiratory distress having given him 3 DuoNeb treatments and a dose of Solu-Medrol in route. On arrival he was tachycardic with a heart rate of 130 bpm, tachypneic with respiratory rate of 28 and hypertensive with blood pressure 150/128. He was on oxygen mask at 5 L/min. Diagnostic work-up in the ER included routine labs and chest x-ray including blood gas. VBG demonstrated pH 7.38 with a PCO2 of 46 and a PO2 of 70. WBCs were elevated at 13,200, BMP was unremarkable. Patient was treated in the emergency department with continuous aerosol treatment of albuterol and 0.5 mg epinephrine was ordered to be given subcutaneously but patient refused this. He was given a bolus of magnesium 2 g over 20 minutes. Patient has responded become less tachypneic and able to speak in full sentences. Patient will be admitted to ICU for close monitoring while he continues to receive iv corticosteroids, aerosolized bronchodilators and given his reported production of sputum, empiric antibiotic coverage for acute bronchitis. Patient states that he was initially vaccinated against COVID-19 but has had no boosters. he denies any ill contacts. SARS-COV2 PCR was negative. CXR did not show any infiltrates. Patient admits to daily smoking of marijuana. Review of Systems All systems reviewed & are unremarkable except as noted in HPI and below PFSH All Active Problems (Updated 12/18/21 @ 17:42 by Andrés Ocampo MD) Severe asthma with acute exacerbation (Acute) ADD (attention deficit disorder) (Acute) Marijuana smoker (Acute) Asthma (Chronic) Suicidal ideation (Acute) Depression (Chronic) Anxiety disorder (Chronic) DVT prophylaxis (Acute) Eczema (Chronic) Medical History Acute asthma exacerbation Cyst of face Eczema Mass of left side of neck Surgical History No significant past surgical history Family History Other Adopted Social History Smoking/Tobacco Use Status: Former Tobacco Use Counseling given: provider counseling Smoking risk assessment performed?: Yes Alcohol Intake: current Alcohol Intake frequency: holidays/special occasions only Alcohol type: beer Details: Minimal Drug use: Daily Substance use type: marijuana Counseling given: Yes Details: No vaping, no other drug use. States he uses to treat anxiety and insomnia. Adopted: Yes Housing: apartment Current gender identity: male Do you feel safe at home: Yes Do you feel safe in your relationship?: Yes Additional Social history: Grew up in [place], [facility], close with 1 of his moms who lives in [place]. Lives alone in apartment on [address] in [place]. Meds Allergies and Home Medications Allergies Allergy/AdvReac Type Severity Reaction Status Date / Time cat dander Allergy Wheezing Unverified 12/18/21 16:50 migraine medication AdvReac Uncoded 12/18/21 16:50 Home Medications Medication Instructions Recorded Confirmed Type albuterol sulfate 2.5 mg/3 mL 2.5 mg (3 mL) inhalation QID PRN 05/20/18 12/18/21 Rx (0.083 %) solution for nebulization shortness of breath or wheezing #75 mL buspirone 5 mg tablet 15 mg PO BID 09/22/18 12/18/21 History budesonide-formoterol HFA 160 1 puff inhalation BID 02/09/20 12/18/21 History mcg-4.5 mcg/actuation aerosol inhaler (Symbicort) hydrocodone 5 mg-acetaminophen 325 1 tab PO Q8H PRN #8 tabs 05/20/20 12/18/21 Rx mg tablet ibuprofen 200 mg capsule 600 mg PO PRN PRN 05/20/20 12/18/21 History umeclidinium 62.5 mcg-vilanterol 1 inh inhalation DAILY AM 05/20/20 12/18/21 History 25 mcg/actuation powdr for inhalation (Anoro Ellipta) hydroxyzine HCl 25 mg tablet See Rx Instructions .Route .COMPLEX 05/22/20 12/18/21 History pantoprazole 40 mg tablet,delayed 40 mg PO DAILY 05/22/20 12/18/21 History release sertraline 100 mg tablet 200 mg PO DAILY 05/22/20 12/18/21 History dextroamphetamine-amphetamine ER 30 mg PO QAM 02/28/21 12/18/21 History 30 mg 24hr capsule,extend release (Adderall XR) Exam Narrative Exam Narrative: Thin -[place]an male sitting up on the gurney in the emergency department using a continuous nebulizer treatment. He is able to talk in complete sentences but is still using accessory respiratory muscles. HEENT unremarkable Neck supple nontender positive use of accessory respiratory muscles no JVD normal carotid pulses, no adenopathy Lungs with diffuse inspiratory and expiratory wheezes Heart tachycardic but regular without murmur rub Abdomen soft nontender no paradoxical breathing Extremities without peripheral cyanosis or edema Results Labs Result diagrams: 12/18/21 15:22 12/18/21 15:22 Labs: Laboratory Results - last 24 hr 12/18/21 12/18/21 12/18/21 15:22 15:22 15:22 WBC 13.23 H RBC 5.83 H Hgb 15.9 Hct 49.1 MCV 84 MCH 27.3 MCHC 32.4 RDW 13.3 Plt Count 304 MPV 8.9 Immature Gran % 0.2 Neutrophils % 61.0 Lymphocytes % 23.3 Monocytes % 10.8 Eosinophils % 4.2 Basophils % 0.5 Nucleated RBC % 0.0 Absolute Neutrophils 8.07 H Absolute Lymphocytes 3.08 Absolute Monocytes 1.43 H Absolute Eosinophils 0.56 Absolute Basophils 0.07 VBG pH 7.38 VBG pCO2 46 VBG pO2 70 VBG HCO3 27 VBG Total CO2 24 VBG O2 Saturation 94 VBG Base Excess 2 Sodium 137 Potassium 4.4 Chloride 101 Carbon Dioxide 28.5 Anion Gap 7.5 BUN 16 Creatinine 0.9 Est GFR (CKD-EPI 2020) 120.05 Glucose 109 H Calcium 9.5 Magnesium 2.3 COVID-19 Source SARS-CoV-2 (PCR) 12/18/21 15:34 WBC RBC Hgb Hct MCV MCH MCHC RDW Plt Count MPV Immature Gran % Neutrophils % Lymphocytes % Monocytes % Eosinophils % Basophils % Nucleated RBC % Absolute Neutrophils Absolute Lymphocytes Absolute Monocytes Absolute Eosinophils Absolute Basophils VBG pH VBG pCO2 VBG pO2 VBG HCO3 VBG Total CO2 VBG O2 Saturation VBG Base Excess Sodium Potassium Chloride Carbon Dioxide Anion Gap BUN Creatinine Est GFR (CKD-EPI 2020) Glucose Calcium Magnesium COVID-19 Source Nasal/Nares SARS-CoV-2 (PCR) Negative Last Vital Signs Pulse 140 H 12/18/21 16:33 Resp 26 H 12/18/21 16:33 BP 123/68 12/18/21 16:33 Pulse Ox 100 12/18/21 16:33
--- NOTE | 2021-12-18 17:58 | DI.VRAD_ITS ---
PROCEDURE INFORMATION: Exam: XR Chest Exam date and time: 12/18/2021 4:20 PM Age: 26 years old Clinical indication: Condition or disease; Lung condition and disease; Asthma TECHNIQUE: Imaging protocol: Radiologic exam of the chest. Views: 1 view. COMPARISON: XR PORTABLE CHEST AP 08/13/2019 10:24 PM FINDINGS: Lungs: Hyperinflation bilaterally suggesting air trapping related to reactive airway disease or an upper respiratory infection. No peripheral infiltrates or consolidation. Pleural spaces: No pleural effusion. Heart/Mediastinum: Normal heart size. Normal mediastinal contour. Bones/joints: Skeletal structures are unremarkable. IMPRESSION: 1. Moderate bilateral hyperinflation. 2. No infiltrates or edema. 3. No pleural effusion. Dictated and Authenticated by: Enrique Mendoza MD. Ordering:JIN Reyes MD
[2021-12-18] MEDS: cefTRIAXone 1,000 MG in Normal Saline 50 ML 100 MG IVPB (18:33)
[2021-12-18] MEDS: Normal Saline Flush 10 ML SYR IVP (18:34)
[2021-12-18] MEDS: Hydrocortisone SOD SUC. 100 MG VIAL 50 MG IVP (18:34)
[2021-12-18 18:58] LABS: Lab Add On Test DONE
[2021-12-18 20:02] LABS: Procalcitonin < 0.1 ng/mL
[2021-12-18] MEDS: Budesonide/Formoterol 160/4.5 6 GM 60 PUFF INH IH (20:39)
[2021-12-18] MEDS: busPIRone 5 MG TAB 15 MG PO (20:39)
[2021-12-18] MEDS: AZITHROMYCIN 500 MG in Normal Saline 250 ML 250 MG IVPB (20:39)
[2021-12-18] MEDS: Albuterol/Ipratropium 3 ML UPD VIAL UPD ×2 (21:26→23:58)
[2021-12-19] VITALS (46 sets, daily range): BP systolic 105–134; BP diastolic 51–88; PULSE 90–131; RESP 4–32; TEMP 36.9–37.1; O2SAT 90–99
[2021-12-19] MEDS: Ibuprofen 600 MG TAB PO (00:01)
[2021-12-19] MEDS: Hydrocortisone SOD SUC. 100 MG VIAL 50 MG IVP ×2 (00:02→05:26)
[2021-12-19] MEDS: Normal Saline Flush 10 ML SYR IVP ×2 (00:29→05:27)
[2021-12-19] MEDS: Albuterol 2.5 MG/3 ML INH SOLN VIAL UPD (02:02)
[2021-12-19] MEDS: hydrOXYzine HCL 25 MG TAB (02:42)
[2021-12-19] MEDS: Albuterol/Ipratropium 3 ML UPD VIAL UPD (04:11)
--- NOTE | 2021-12-19 07:20 | PUCON_ITS ---
General Date Of Service Date of service: 12/19/21 Time of Service: 07:20 Reason for Consult: Asthma Exacerbation Assessment and Plan Assessment and plan (1) Severe asthma with acute exacerbation: Status: Acute Assessment and plan: This is a 26 yo man admitted with an asthma exacerbation. His O2 needs have weaned significantly with treatment and he seems to be improving. I do think he should be tested for viral causes of his exacerbation. Based on his procal, history and imaging I do not think he has a pneumonia and so the antibiotics can be discontinued (there is no evidence to support antibiotic treatment on bronchitis). It seems as though his exacerbation is a combination of viral illness in addition to noncompliance as his Symbicort ran out since he was using it more frequently. SMART therapy for asthma treatment tends to have better outcomes for asthma resulting in less hospitalizations and less exacerbations than ICS/LABA maintenance and prn albuterol. I would recommend that on discharge his Symbicort is written for SMART therapy to avoid this issue in the future. I will also test his IgE level to rule out other potential causes such as ABPA. His steroid dosing can also be weaned given his improvement. Asthma Exacerbation - Symbicort SMART therapy - 160 2 puff bid and prn for up to 12 puffs/24 hours - albuterol prn - albuterol nebs QID and prn - DC Duonebs - DC continuous nebs - DC hydrocortisone - start prednisone 60mg PO for 7 days, 50mg for 7 days, 40mg for 3 days, 30mg for 3 days, 20mg for 3 days, 10mg for 3 days, 5mg for 3 days - Mucinex 1200mg bid - Singulair 10mg daily - expanded respiratory viral panel - IgE - can discontinue antibiotics in my opinion - I will reschedule him for a follow up appointment with me History of Present Illness Narrative: This is a 26 yo man with lifelong asthma who was referred to see me earlier in the year but no showed for the appointment. He uses Symbicort and albuterol as an outpatient. He presented with cough, wheezing and dyspnea that had been worsening over the last few days. His albuterol did not help. He had a recent URI and had used up all of his Symbicort and so was reliant on albuterol. On presentation to the ED he was in respiratory distress so received stacked nebs therapy in addition to Solu Medrol. He required 5LPM at that time. His VBG obtained i [facility] ED was normal, aside from the obvious elevated A-a gradient. He was started on a continuous albuterol neb. He was also given IV mag. His COVID was negative but no other viral testing was performed. He was started on empiric antibiotics to cover for pneumonia. His CXR is perfectly clear with no infiltrates seen. On my assessment this morning the patient was sleeping and unwilling to participate in a conversation. Review of Systems Unobtainable due to (uncooperative) [facility] All Active Problems (Updated 12/19/21 @ 08:27 by Andrés Ocampo MD) Discharge planning issues (Acute) Severe asthma with acute exacerbation (Acute) ADD (attention deficit disorder) (Acute) Marijuana smoker (Acute) Asthma (Chronic) Suicidal ideation (Acute) Depression (Chronic) Anxiety disorder (Chronic) DVT prophylaxis (Acute) Eczema (Chronic) Medical History Acute asthma exacerbation Cyst of face Eczema Mass of left side of neck Surgical History No significant past surgical history Family History Other Adopted Social History Smoking/Tobacco Use Status: Former Tobacco Use Counseling given: provider counseling Smoking risk assessment performed?: Yes Alcohol Intake: current Alcohol Intake frequency: holidays/special occasions only Alcohol type: beer Details: Minimal Drug use: Daily Substance use type: marijuana Counseling given: Yes Details: No vaping, no other drug use. States he uses to treat anxiety and insomnia. Adopted: Yes Housing: apartment Current gender identity: male Do you feel safe at home: Yes Do you feel safe in your relationship?: Yes Additional Social history: Grew up in [place], adopted, close with 1 of his moms who lives in [place]. Lives alone in apartment [address] in [place]. Visit Medication and Allergies Active Medications Generic Name Dose Route Start Last Admin Trade Name Freq PRN Reason Stop Dose Admin Acetaminophen 0 mg 12/18/21 16:33 Acetaminophen 325 Mg Tab PO Q4H PRN PRN Al Hydrox/Mg Hydrox/Simethicone 30 ml 12/18/21 16:33 Mylanta Suspension 30 Ml Cup PO Q2H PRN PRN Albuterol Sulfate 2.5 mg 12/18/21 16:36 12/19/21 02:02 Albuterol 2.5 Mg/3 Ml Inh Soln Vial UPD 2.5 mg Q1H PRN PRN Administration Albuterol/Ipratropium 3 ml 12/18/21 16:33 12/19/21 04:11 Albuterol/Ipratropium 3 Ml Upd Vial UPD 3 ml Q4H PRN PRN Administration Budesonide/Formoterol Fumarate 2 puff 12/18/21 20:00 12/18/21 20:39 Budesonide/Formoterol 160/4.5 6 Gm 60 Puff Inh IH 2 puff BID SHIRLEY Administration Buspirone HCl 15 mg 12/18/21 20:00 12/18/21 20:39 Buspirone 5 Mg Tab PO 15 mg BID SHIRLEY Administration Albuterol Sulfate 100 mg/ 0 mg 12/18/21 15:30 12/18/21 15:27 Sodium Chloride 40 ml UPD 10 mg DIRECTED SHIRLEY Administration Device 1 each 12/18/21 17:00 Inhaler, Assist Device MC DIRECTED SHIRLEY Dimethicone/Zinc Oxide 0 gm 12/18/21 16:33 Bhaskar Protect Cream 142 Gm Tube TP PRN PRN Docusate Sodium 100 mg 12/18/21 16:33 Docusate Sodium 100 Mg Cap PO TID PRN PRN Enoxaparin Sodium 40 mg 12/18/21 20:00 12/18/21 20:40 Enoxaparin 40 Mg/0.4 Ml Syr SC Not Given Q24H SHIRLEY Hydrocortisone 50 mg 12/18/21 18:00 12/19/21 05:26 Hydrocortisone Sod Suc. 100 Mg Vial IVP 12/19/21 12:01 50 mg Q6H SHIRLEY Administration Hydroxyzine HCl 25 mg 12/19/21 08:30 Hydroxyzine Hcl 25 Mg Tab PO 0830,1400,1800 SHIRLEY Hydroxyzine HCl 50 mg 12/19/21 22:00 Hydroxyzine Hcl 50 Mg Tab PO HS SHIRLEY Sodium Chloride 500 mls @ 0 mls/hr 12/18/21 15:18 Saline 500ml Bag IV PRN PRN As Directed Ceftriaxone Sodium 1,000 mg/ 50 mls @ 100 mls/hr 12/18/21 18:00 12/18/21 19:30 Sodium Chloride IVPB Infused Q24H SHIRLEY Infusion Azithromycin 500 mg/ Sodium 250 mls @ 250 mls/hr 12/18/21 20:00 12/18/21 21:40 Chloride IVPB Infused Q24H SHIRLEY Infusion IV Miscellaneous Supplies 1 each 12/18/21 15:30 Iv Access IV DIRECTED SHIRLEY Ibuprofen 600 mg 12/18/21 23:45 12/19/21 00:01 Ibuprofen 600 Mg Tab PO 600 mg Q6H PRN PRN Administration Magnesium Hydroxide 30 ml 12/18/21 16:33 Milk Of Magnesia 30 Ml Cup PO DAILY PRN PRN Nicotine 21 mg 12/18/21 16:33 Nicotine 21 Mg/24 Hr Patch TD DAILY PRN PRN Non-Formulary Medication 30 mg 12/19/21 08:30 Dextroamphetamine-Amphetamine [Adderall Xr] PO QAM [facility] Pantoprazole Sodium 40 mg 12/19/21 08:30 Pantoprazole 40 Mg Tabcr PO DAILY [facility] Polyethylene Glycol 17 gm 12/18/21 16:33 Polyethylene Glycol 3350 17 Gm Packet PO DAILY PRN PRN Constipation Sertraline HCl 200 mg 12/19/21 08:30 Sertraline 100 Mg Tab PO DAILY [facility] Sodium Chloride 0 ml 12/18/21 15:18 12/19/21 05:27 Normal Saline Flush 10 Ml Syr IVP 10 ml PRN PRN Administration Allergies cat dander Allergy (Unverified 12/18/21 16:50) Wheezing migraine medication Adverse Reaction (Uncoded 12/18/21 16:50) Exam Narrative Exam Narrative: Gen: NAD, normal respiratory effort, well-nourished HENT: PERRL, nasal turbinates normal without erythema or inflammation Chest: No respiratory distress, normal appearance of chest, clear to auscultation bilaterally, inspiratory wheezes diffusely, normal inspiratory effort Heart: regular rate and rhythym, no murmurs, rubs or gallops Abdomen: Non-distended, soft, non tender Extremities: No clubbing, edema, cyanosis, rashes Neuro: AAOx3 , non focal Psych: cooperative, appropriate mental affect Results Last Vital Signs Temp 37.1 C 12/19/21 06:00 Pulse 102 H 12/19/21 07:00 Resp 22 12/19/21 07:00 BP 105/56 L 12/19/21 07:00 Pulse Ox 94 12/19/21 07:00 Labs Result diagrams: 12/18/21 15:22 12/18/21 15:22 Labs: Laboratory Results - last 24 hr 12/18/21 12/18/21 12/18/21 15:22 15:22 15:22 WBC 13.23 H RBC 5.83 H Hgb 15.9 Hct 49.1 MCV 84 MCH 27.3 MCHC 32.4 RDW 13.3 Plt Count 304 MPV 8.9 Immature Gran % 0.2 Neutrophils % 61.0 Lymphocytes % 23.3 Monocytes % 10.8 Eosinophils % 4.2 Basophils % 0.5 Nucleated RBC % 0.0 Absolute Neutrophils 8.07 H Absolute Lymphocytes 3.08 Absolute Monocytes 1.43 H Absolute Eosinophils 0.56 Absolute Basophils 0.07 VBG pH 7.38 VBG pCO2 46 VBG pO2 70 VBG HCO3 27 VBG Total CO2 24 VBG O2 Saturation 94 VBG Base Excess 2 Sodium 137 Potassium 4.4 Chloride 101 Carbon Dioxide 28.5 Anion Gap 7.5 BUN 16 Creatinine 0.9 Est GFR (CKD-EPI 2020) 120.05 Glucose 109 H Calcium 9.5 Magnesium 2.3 Procalcitonin COVID-19 Source SARS-CoV-2 (PCR) Add-On Test Request 12/18/21 12/18/21 12/18/21 15:22 15:34 Unknown WBC RBC Hgb Hct MCV MCH MCHC RDW Plt Count MPV Immature Gran % Neutrophils % Lymphocytes % Monocytes % Eosinophils % Basophils % Nucleated RBC % Absolute Neutrophils Absolute Lymphocytes Absolute Monocytes Absolute Eosinophils Absolute Basophils VBG pH VBG pCO2 VBG pO2 VBG HCO3 VBG Total CO2 VBG O2 Saturation VBG Base Excess Sodium Potassium Chloride Carbon Dioxide Anion Gap BUN Creatinine Est GFR (CKD-EPI 2020) Glucose Calcium Magnesium Procalcitonin < 0.1 COVID-19 Source Nasal/Nares SARS-CoV-2 (PCR) Negative Add-On Test Request DONE Imaging Chest x-ray: report reviewed and image reviewed
[2021-12-19] MEDS: predniSONE 20 MG TAB 60 MG PO (08:14)
[2021-12-19] MEDS: Pantoprazole 40 MG TABCR PO (08:15)
[2021-12-19] MEDS: guaiFENesin 600 MG TABCR 1200 MG PO (08:15)
[2021-12-19] MEDS: Montelukast 10 MG TAB PO (08:15)
--- NOTE | 2021-12-19 08:15 | PGE_ITS ---
Date of Service Date of service: 12/19/21 Time of Service: 08:15 Assessment and Plan Assessment and plan (1) Severe asthma with acute exacerbation: Status: Acute Assessment and plan: Duoneb discontinued and patient put on albuteral aerosols qid along w/ Symbicort 160/4.5 mcg 2 puffs bid along w/ 1 puff prn dyspnea up to 12 puffs; IgE level has been ordered. Patient is currently on Rocephin and azithromycin for acute purulent bronchitis; no pneumonic consolidation was seen. Sputum culture is growing moderate gram positive cocci. I will dc iv antibiotics and put him on 5 day course of azithromycin (2) ADD (attention deficit disorder): Status: Acute Assessment and plan: continue his home dose of Adderall (3) Marijuana smoker: Status: Acute Assessment and plan: patient continues to use daily despite his understanding that this worsens his asthma. He does not want to have a discussion about this. I briefly mentioned this when I did his admission note yesterday but did not bring this up today. His PCP and associate professor of law can have further discussions as outpatient. (4) DVT prophylaxis: Status: Acute Assessment and plan: Enoxaparin 40 mg SC (5) Discharge planning issues: Status: Acute Assessment and plan: I expect that the patient will be discharged later today or he will sign out AMA even if he is not ready. I will re-assess him after lunch and if he is still doing well then I will dc him home. He will need follow up w/ pulmonary services (per Dr. Naqvi, he has missed prior outpatient follow up appointments). It will be imperative that he follow up in order to keep his asthma under control. I will dc him on tapering prednisone schedule as per Dr. Naqvi's note along w/ new Rx for Symbicort according to SMART therapy guidelines. Subjective Subjective Interval history since last seen: patient feels improved, not dyspneic and not coughing this morning. He has not been wearing his oxygen properly and his SPO2 has been 93% on RA. Patient has indicated to nursing that he plans to leave the hospital after breakfast. I am encouraging him to stay today while we adjust his medications and monitor him for the day but if he is doing ok once he is up out bed and not having dyspnea or worsening bronchospasms while ambulating then I think that he will be ok to return home. He will be dc on tapered dose of prednisone and SMART use of his Symbicort (i.e. in addition to scheduled use bid also up to 12 puffs per day prn asthma exacerbation). Exam Narrative Exam Narrative: Young male who initially was lying in bed and not acknowleging me. However afer several minutes he became more awake and interacted w/ me and nursing staff He is no longer using accessory muscles and breathing is comfortable and non- labored; he is able to speak in complete sentences Lungs: still w/ diffuse, scattered expiratory wheezing but no longer w/ inspiratory wheezing Heart: regular to slight tachycardia (telemetry demonstrates sinus tachy at 100 to 110; improved from admission Abdomen: soft, nontender Objective Last Vital Signs Temp 37.1 C 12/19/21 06:00 Pulse 102 H 12/19/21 07:00 Resp 22 12/19/21 07:00 BP 105/56 L 12/19/21 07:00 Pulse Ox 93 12/19/21 07:37 Laboratory Results - last 24 hr 12/18/21 12/18/21 12/18/21 15:22 15:22 15:22 WBC 13.23 H RBC 5.83 H Hgb 15.9 Hct 49.1 MCV 84 MCH 27.3 MCHC 32.4 RDW 13.3 Plt Count 304 MPV 8.9 Immature Gran % 0.2 Neutrophils % 61.0 Lymphocytes % 23.3 Monocytes % 10.8 Eosinophils % 4.2 Basophils % 0.5 Nucleated RBC % 0.0 Absolute Neutrophils 8.07 H Absolute Lymphocytes 3.08 Absolute Monocytes 1.43 H Absolute Eosinophils 0.56 Absolute Basophils 0.07 VBG pH 7.38 VBG pCO2 46 VBG pO2 70 VBG HCO3 27 VBG Total CO2 24 VBG O2 Saturation 94 VBG Base Excess 2 Sodium 137 Potassium 4.4 Chloride 101 Carbon Dioxide 28.5 Anion Gap 7.5 BUN 16 Creatinine 0.9 Est GFR (CKD-EPI 2020) 120.05 Glucose 109 H Calcium 9.5 Magnesium 2.3 Procalcitonin COVID-19 Source SARS-CoV-2 (PCR) Add-On Test Request 12/18/21 12/18/21 12/18/21 15:22 15:34 Unknown WBC RBC Hgb Hct MCV MCH MCHC RDW Plt Count MPV Immature Gran % Neutrophils % Lymphocytes % Monocytes % Eosinophils % Basophils % Nucleated RBC % Absolute Neutrophils Absolute Lymphocytes Absolute Monocytes Absolute Eosinophils Absolute Basophils VBG pH VBG pCO2 VBG pO2 VBG HCO3 VBG Total CO2 VBG O2 Saturation VBG Base Excess Sodium Potassium Chloride Carbon Dioxide Anion Gap BUN Creatinine Est GFR (CKD-EPI 2020) Glucose Calcium Magnesium Procalcitonin < 0.1 COVID-19 Source Nasal/Nares SARS-CoV-2 (PCR) Negative Add-On Test Request DONE PAWSS Have you Been Recently Intoxicated or Drunk Within the Last 30 days?: No Have you Ever Experienced Previous Episodes of Alcohol Withdrawal?: No Have you ever Experienced Withdrawal Seizures?: No Have you ever Experienced Delirium Tremens(DT)s?: No Have you ever undergone Alcohol Rehabilitation Treatment (i.e, inpt ot outpatient treatment programs)?: No Have you ever Experienced Blackouts?: No Have you ever Combined Alcohol with other Downers within the last 90 days?: No Have you ever Combined Alcohol with any other Substance of Abuse during the last 90 days?: Yes Positive Blood Alcohol level on Presentation? [PCS.BAL]: No Evidence of Increased Autonomic Activity (i.e. HR>120, tremor, sweating, agitation, nausea)?: Yes Result: 3
[2021-12-19] MEDS: Budesonide/Formoterol 160/4.5 6 GM 60 PUFF INH IH (08:27)
[2021-12-19] MEDS: Sertraline 100 MG TAB 200 MG PO (08:27)
[2021-12-19] MEDS: busPIRone 15 MG TAB PO (08:28)
[2021-12-19] MEDS: Azithromycin 250 MG TAB PO (08:51)
--- NOTE | 2021-12-19 09:44 | NUR.NOTE ---
Nursing Note: 899--Patient states he is leaving AMA. Dr. Ocampo notified. 914--Patient states he needs his Symbicort inhaler so he can take it home. This nurse and Eleanor Espana RN explained to patient when a patient chooses to leave Against Medical Advise (AMA), our policy states patient's do not go home with there [facility] issued medications or prescriptions signed by the MD. Patient became very upset, yelling at nurses, stating that he leaves AMA with every admission and he leaves with his medications. 919--Dr. Ocampo notifed regarding patient's request to leave AMA with his Symbicort inhaler. Dr. Ocampo stated he was okay with patient leaving with his Symbicort inhaler if he choose to leave AMA. Dr. Ocampo stated he was not available to see patient until after patient rounds and morning meeting and it would be this afternoon before he could see him. 944--This nurse explained to patient that leaving AMA was not in his best interest and the doctor wanted to monitor him for another day. Patient choose to leave AMA. This nurse explained if he (patient) did not feel well to return to the ER for treatment. Patient signed AMA papers and left the hospital with Eleanor Espana RN (nursing plastic sheets finishing supervisor) and Amira STERLING walking with patient to the exit door.
--- NOTE | 2021-12-19 10:20 | NUR.NOTE ---
09-patient refused Nasal Swab and Lab draw, text page sent to Dr. Ocampo at 09 to notify of the patient refusal.
--- NOTE | 2021-12-19 12:56 | DSE_ITS ---
Date of service: 12/19/21 Time of Service: 12:56 DS: Diagnosis Discharge Diagnosis (1) Severe asthma with acute exacerbation: Status: Acute Discharge Plan Disposition Patient Disposition: AGAINST MEDICAL ADVICE Condition: Improving Discharge Details Reason For Visit: Asthma Exacerbation,Respiratory Failure Admit Date/Time: 12/18/21 16:28 Admit Provider: Andrés Ocampo Attending Provider: Andrés Ocampo Primary Care Provider: None,None Hospital Course Hospital Course: 26-year-old -[place] male with a lifelong history of asthma generally under control with use of Symbicort and as needed albuterol comes in with increasing cough and dyspnea and wheezing over the last 2 to 3 days not improving despite use of his albuterol.? Patient states that he recently had a URI and used up all of his Symbicort.? Denies any fever chills or hemoptysis cough is been minimally productive of some yellowish mucus.? He has not been a round any ill contacts.? He lives alone in an apartment and does have guinea pigs and rabbits.? He has a known allergy to cat and previously gone through allergy desensitization as a child. EMS brought the patient in acute respiratory distress having given him 3 DuoNeb treatments and a dose of Solu-Medrol in route. On arrival he was tachycardic with a heart rate of 130 bpm, tachypneic with respiratory rate of 28 and hypertensive with blood pressure 150/128.? He was on oxygen mask at 5 L/min.? Diagnostic work-up in the ER included routine labs and chest x-ray including blood gas.? VBG demonstrated pH 7.38 with a PCO2 of 46 and a PO2 of 70.? WBCs were elevated at 13,200, BMP was unremarkable.? Patient was treated in the emergency department with continuous aerosol treatment of albuterol and 0.5 mg epinephrine was ordered to be given subcutaneously but patient refused this.? He was given a bolus of magnesium 2 g over 20 minutes.? Patient has responded become less tachypneic and able to speak in full sentences. Patient will be admitted to ICU for close monitoring while he continues to receive iv corticosteroids, aerosolized bronchodilators and given his reported production of sputum, empiric antibiotic coverage for acute bronchitis. Patient states that he was initially vaccinated against COVID-19 but has had no boosters. he denies any ill contacts. SARS-COV2 PCR was negative. CXR did not show any infiltrates.? Patient admits to daily smoking of marijuana. Patient was treated emergency department with a continuous DuoNeb aerosol treatment placed on supplemental oxygen and he was admitted to the intensive care unit overnight. He continues to receive hydrocortisone 50 mg IV every 6 hours along with DuoNeb treatments every 4 hours and as needed albuterol. His Symbicort was restarted. Dr. Neema Naqvi, case making machine operator, saw the patient the next morning recommended switching him to prednisone in tapering doses beginning at 60 mg daily and placing him on both scheduled and as needed Symbicort per SMART protocol. On the morning of December 19, 2021 patient became demanding with nursing staff that he be given his Adderall immediately. Our pharmacy does not stock Adderall patient was told that his mother would have to bring in his Adderall. He did not want to wait until the Adderall was brought into him and he also would not wait until the hospitalist service could write his prescriptions for his prednisone and Symbicort. Nursing staff dispensed the Symbicort that he had been given here in the hospital as per my recommendations. The patient left the hospital AGAINST MEDICAL ADVICE not waiting until a safe discharge planning could be developed for him. Dr. Naqvi was informed of the patient leaving AGAINST MEDICAL ADVICE and she indicated her office will call him for follow-up. I informed her that the patient did not get a prescription for tapering dose of prednisone. Home Meds and New Rx's Prescriptions: Continued dextroamphetamine-amphetamine [Adderall XR] 30 mg capsule,extended release 24hr 30 mg PO QAM pantoprazole 40 mg tablet,delayed release (DR/EC) 40 mg PO DAILY Label Comments: TAKE 1 TABLET BY MOUTH DAILY hydroxyzine HCl 25 mg tablet See Rx Instructions .ROUTE .COMPLEX Label Comments: TAKE ONE TABLET BY MOUTH THREE TIMES A DAY AND TWO TABLETS AT BEDTIME NEEDED Rx Instructions: TAKE ONE TABLET BY MOUTH THREE TIMES A DAY AND TWO TABLETS AT BEDTIME NEEDED sertraline 100 mg tablet 200 mg PO DAILY albuterol sulfate 2.5 mg /3 mL (0.083 %) solution for nebulization 2.5 mg IH QID PRN (Reason: shortness of breath or wheezing) Qty: 75 0RF buspirone 5 mg Tablet 15 mg PO BID Label Comments: Patient state he takes 15mg bid budesonide-formoterol [Symbicort] 160-4.5 mcg/actuation HFA aerosol inhaler 1 puff INHALATION BID Label Comments: INHALE 1 PUFF PO NEEDED MAY REPEAT NEEDED MAX D DOSE 12 INHALATIONS Anoro Ellipta 62.5-25 mcg/actuation blister with device 1 inh INHALATION DAILY AM Label Comments: INHALE 1 PUFF BY MOUTH EVERY DAY ibuprofen 200 mg Capsule 600 mg PO PRN PRN hydrocodone-acetaminophen 5-325 mg tablet 1 tab PO Q8H PRNQty: 8 0RF Discharge Instructions Instructions: Asthma (DC) Activity:: Activity as Tolerated Equipment/Supplies:: No Equipment Needed Diet:: Normal Diet Discharge Orders Discharge Orders: Discharge Order (Routine); Ordered 12/19/21 Ordered By: Andrés Ocampo Discharge Data Discharge Date/Time-TO BE ENTERED AT DEPARTURE: 12/19/21 09:45 Discharge Comment: Patient left AMA, notified staff he was going home DS: Summary Summary Time spent discussing smoking cessation with patient: 3 to 10 minutes Time Spent with Patient providing and/or coordinating discharge services: Less than 30 minutes Status at Discharge Functional status at discharge: independent ambulation Overall status at discharge: patient is progressing back to baseline Mental Status: mental status grossly normal Speech and Movement: speech and movement normal Mood: irritable mood Affect: normal affect and irritable affect Exam Narrative Exam Narrative: Young male who initially was lying in bed and not acknowleging me. However afer several minutes he became more awake and interacted w/ me and nursing staff He is no longer using accessory muscles and breathing is comfortable and non- labored; he is able to speak in complete sentences Lungs: still w/ diffuse, scattered expiratory wheezing but no longer w/ inspiratory wheezing Heart: regular to slight tachycardia (telemetry demonstrates sinus tachy at 100 to 110; improved from admission Abdomen: soft, nontender Psych Mental Status: mental status grossly normal Speech and Movement: speech and movement normal Mood: irritable mood Affect: normal affect and irritable affect DS: Data Vitals/I&O Vitals and I&O: Vital Signs Temperature 36.9 C 12/19/21 08:40 Temperature Source Temporal Artery Scan 12/19/21 08:40 Pulse 109 H 12/19/21 08:40 Pulse 93 H 12/19/21 08:00 Respiratory Rate 19 12/19/21 08:40 Respiratory Effort Accessory Muscle Use 12/19/21 08:40 Respiratory Depth Shallow 12/19/21 03:00 Respiratory Pattern Tachypnea 12/19/21 03:00 Blood Pressure 134/88 12/19/21 08:40 Blood Pressure Mean 103 12/19/21 08:40 Blood Pressure Position Supine 12/19/21 08:40 Pulse Oximetry 96 12/19/21 08:59 Oxygen Delivery Method Room Air 12/19/21 08:59 Oxygen Flow Rate 0 12/19/21 08:59 Pain Level 0 12/19/21 08:40 Intake & Output 12/18/21 12/19/21 12/19/21 23:59 11:59 23:59 Intake Total 840 / 1080 1060 / 1060 Output Total 500 / 500 300 / 300 Balance 340 / 580 760 / 760 Weight 45.7 kg 50.1 kg Intake: IV 360 / 360 Oral 480 / 720 1060 / 1060 Output: Urine 500 / 500 300 / 300 Other: Urine Color Yellow Straw Urine Appearance Clear Clear Urine Odor None Strong Comment Voids in urinal Patient denies any difficulty or discomfort with v oiding. Voiding Methods Urinal Urinal Data Completed and Pending Labs on day of discharge: Labs from last 24 hours 12/19/21 12/19/21 12/19/21 07:27 05:35 05:35 WBC Pending RBC Pending Hgb Pending Hct Pending MCV Pending MCH Pending MCHC Pending RDW Pending Plt Count Pending MPV Pending Immature Gran % Pending Neutrophils % Pending Lymphocytes % Pending Monocytes % Pending Eosinophils % Pending Basophils % Pending Nucleated RBC % Absolute Neutrophils Pending Absolute Lymphocytes Pending Absolute Monocytes Pending Absolute Eosinophils Pending Absolute Basophils Pending VBG pH VBG pCO2 VBG pO2 VBG HCO3 VBG Total CO2 VBG O2 Saturation VBG Base Excess Sodium Pending Potassium Pending Chloride Pending Carbon Dioxide Pending Anion Gap Pending BUN Pending Creatinine Pending Est GFR (CKD-EPI 2020) Pending Glucose Pending Calcium Pending Magnesium Total Bilirubin Pending AST Pending ALT Pending Alkaline Phosphatase Pending Total Protein Pending Albumin Pending Procalcitonin IgE Pending COVID-19 Source SARS-CoV-2 (PCR) Ur Strep pneumoniae Ag Add-On Test Request 12/18/21 12/18/21 12/18/21 Unknown 20:05 15:34 WBC RBC Hgb Hct MCV MCH MCHC RDW Plt Count MPV Immature Gran % Neutrophils % Lymphocytes % Monocytes % Eosinophils % Basophils % Nucleated RBC % Absolute Neutrophils Absolute Lymphocytes Absolute Monocytes Absolute Eosinophils Absolute Basophils VBG pH VBG pCO2 VBG pO2 VBG HCO3 VBG Total CO2 VBG O2 Saturation VBG Base Excess Sodium Potassium Chloride Carbon Dioxide Anion Gap BUN Creatinine Est GFR (CKD-EPI 2020) Glucose Calcium Magnesium Total Bilirubin AST ALT Alkaline Phosphatase Total Protein Albumin Procalcitonin IgE COVID-19 Source Nasal/Nares SARS-CoV-2 (PCR) Negative Ur Strep pneumoniae Ag Pending Add-On Test Request DONE 12/18/21 12/18/21 12/18/21 15:22 15:22 15:22 WBC 13.23 H RBC 5.83 H Hgb 15.9 Hct 49.1 MCV 84 MCH 27.3 MCHC 32.4 RDW 13.3 Plt Count 304 MPV 8.9 Immature Gran % 0.2 Neutrophils % 61.0 Lymphocytes % 23.3 Monocytes % 10.8 Eosinophils % 4.2 Basophils % 0.5 Nucleated RBC % 0.0 Absolute Neutrophils 8.07 H Absolute Lymphocytes 3.08 Absolute Monocytes 1.43 H Absolute Eosinophils 0.56 Absolute Basophils 0.07 VBG pH 7.38 VBG pCO2 46 VBG pO2 70 VBG HCO3 27 VBG Total CO2 24 VBG O2 Saturation 94 VBG Base Excess 2 Sodium Potassium Chloride Carbon Dioxide Anion Gap BUN Creatinine Est GFR (CKD-EPI 2020) Glucose Calcium Magnesium Total Bilirubin AST ALT Alkaline Phosphatase Total Protein Albumin Procalcitonin < 0.1 IgE COVID-19 Source SARS-CoV-2 (PCR) Ur Strep pneumoniae Ag Add-On Test Request 12/18/21 15:22 WBC RBC Hgb Hct MCV MCH MCHC RDW Plt Count MPV Immature Gran % Neutrophils % Lymphocytes % Monocytes % Eosinophils % Basophils % Nucleated RBC % Absolute Neutrophils Absolute Lymphocytes Absolute Monocytes Absolute Eosinophils Absolute Basophils VBG pH VBG pCO2 VBG pO2 VBG HCO3 VBG Total CO2 VBG O2 Saturation VBG Base Excess Sodium 137 Potassium 4.4 Chloride 101 Carbon Dioxide 28.5 Anion Gap 7.5 BUN 16 Creatinine 0.9 Est GFR (CKD-EPI 2020) 120.05 Glucose 109 H Calcium 9.5 Magnesium 2.3 Total Bilirubin AST ALT Alkaline Phosphatase Total Protein Albumin Procalcitonin IgE COVID-19 Source SARS-CoV-2 (PCR) Ur Strep pneumoniae Ag Add-On Test Request 12/18/21 18:30 Sputum Sputum Culture - Pending Preliminary micro results at discharge 12/18/21 18:30 Sputum Culture - Pending Sputum PFSH All Active Problems Discharge planning issues (Acute) Severe asthma with acute exacerbation (Acute) ADD (attention deficit disorder) (Acute) Marijuana smoker (Acute) Asthma (Chronic) Suicidal ideation (Acute) Depression (Chronic) Anxiety disorder (Chronic) DVT prophylaxis (Acute) Eczema (Chronic) Medical History Acute asthma exacerbation Cyst of face Eczema Mass of left side of neck Surgical History No significant past surgical history Family History Other Adopted Social History Smoking/Tobacco Use Status: Former Tobacco Use Counseling given: provider counseling Smoking risk assessment performed?: Yes Alcohol Intake: current Alcohol Intake frequency: holidays/special occasions only Alcohol type: beer Details: Minimal Drug use: Daily Substance use type: marijuana Counseling given: Yes Details: No vaping, no other drug use. States he uses to treat anxiety and insomnia. Adopted: Yes Housing: apartment Current gender identity: male Do you feel safe at home: Yes Do you feel safe in your relationship?: Yes Additional Social history: Grew up in [place], close with 1 of his moms who lives in [place]. Lives alone in apartment on [address] in [place].
[2021-12-20 15:47] LABS: Streptococcus Pneumoniae Ag, U Negative (Negative)
== END 2021-12-19 09:45 | disposition left against medical advice (07) | DRG 202 ==
LOC: ER 17:27 → ICU 17:28
PROVIDERS: Admitting Provider Internal Medicine; Emergency Provider Student in an Organized Health Care Education/Training Program; Visit Provider Internal Medicine
DX: J45.901 Unspecified asthma with (acute) exacerbation (principal); R45.851 Suicidal ideations; F12.90 Cannabis use, unspecified, uncomplicated; F98.8 Other specified behavioral and emotional disorders with onset usually occurring in childhood and adolescence; F32.A Depression, unspecified; F41.9 Anxiety disorder, unspecified; I10 Essential (primary) hypertension; R06.03 Acute respiratory distress; J20.9 Acute bronchitis, unspecified; L30.9 Dermatitis, unspecified; Z91.14 Patient's other noncompliance with medication regimen
CPT/HCPCS: 36415; 80048; 80053; 82805; 84145; 87635; 94640; 94644; 94645; 96365; 96366; 99285; 71045; 82785; 83735; 85025; 87070; 87205; 87899; 99232; 99291; J0456; J0696; J1720; J7512; J7611; J7613; J7620

== ENCOUNTER 2022-07-14 10:24 | Emergency (ER) | payer MEDICARE, MEDICAID, SELFPAY ==
[2022-07-14 10:25] VITALS: BP 117/62; PULSE 83; RESP 18; O2SAT 97
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
[2022-07-14] MEDS: Acetaminophen 325 MG TAB 650 MG PO (10:53)
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
[2022-07-14 11:53] VITALS: BP 130/86; PULSE 78; RESP 20; TEMP 37; O2SAT 99
== END 2022-07-14 12:15 | disposition home or self-care (01) ==
LOC: ER 12:15
PROVIDERS: Emergency Provider Emergency Medicine; PCP Physician Assistant
DX: S61.512A Laceration without foreign body of left wrist, initial encounter (principal); S20.219A Contusion of unspecified front wall of thorax, initial encounter; X99.1XXA Assault by knife, initial encounter
CPT/HCPCS: 71101; 96372; 99284; 73110

== ENCOUNTER 2022-08-28 02:29 | Emergency (ER) | payer MEDICARE, MEDICAID, SELFPAY ==
[2022-08-28] VITALS (7 sets, daily range): BP systolic 158–188; BP diastolic 114–119; PULSE 80–123; RESP 4–24; TEMP 36.3; O2SAT 96–100
--- NOTE | 2022-08-28 02:39 | ED.GENADUL_ITS ---
Discharge Plan Disposition Patient Disposition: Home Discharge Details Clinical Impression: Asthma with acute exacerbation Primary Care Provider: Dago Joaquin ED Provider: Sadie Duran Home Meds and New Rx's Prescriptions: New prednisone 20 mg tablet 60 mg PO DAILY Qty: 12 0RF Continued budesonide-formoterol [Symbicort] 80-4.5 mcg/actuation HFA aerosol inhaler 2 puff inhalation 6XD Qty: 3 12RF Rx Instructions: 2 puffs twice a day and as needed, up to 12 puffs in a 24 hour period Rinse mouth after use ipratropium-albuterol 0.5 mg-3 mg(2.5 mg base)/3 mL solution for nebulization 3 ml inhalation Q4H PRN (Reason: wheezing) Qty: 540 12RF dextroamphetamine-amphetamine [Adderall XR] 30 mg capsule,extended release 24hr 30 mg PO QAM pantoprazole 40 mg tablet,delayed release (DR/EC) 40 mg PO DAILY Patient Comments: TAKE 1 TABLET BY MOUTH DAILY hydroxyzine HCl 25 mg tablet See Rx Instructions .ROUTE .COMPLEX Patient Comments: TAKE ONE TABLET BY MOUTH THREE TIMES A DAY AND TWO TABLETS AT BEDTIME NEEDED Rx Instructions: TAKE ONE TABLET BY MOUTH THREE TIMES A DAY AND TWO TABLETS AT BEDTIME NEEDED sertraline 100 mg tablet 200 mg PO DAILY lidocaine [Lidoderm] 5 % adhesive patch,medicated 1 patch topical DAILY PRNQty: 15 0RF Rx Instructions: leave on most painful area for up to 12 hrs albuterol sulfate 2.5 mg /3 mL (0.083 %) solution for nebulization 2.5 mg IH QID PRN (Reason: shortness of breath or wheezing) Qty: 75 0RF buspirone 5 mg Tablet 15 mg PO BID Patient Comments: Patient state he takes 15mg bid ibuprofen 200 mg Capsule 600 mg PO PRN PRN Discharge Instructions Instructions: Asthma (ED) Additional Instructions: Take your prednisone 60 mg/day for the next 4 days starting tomorrow. Use your Symbicort 2 puffs twice a day. Albuterol 2 puffs every 4 hours and as needed for wheezing. Return to ED for fever of 100.4 or above, cough, severe chest pain or difficulty breathing. 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 Call tomorrow for follow-up appointment. Medical Decision Making 0255 Patient ate an egg salad sandwich and now wants a DuoNeb. He states he will walk home. He has DuoNebs at home. He is out of his albuterol inhaler and would like 1 of these. 0320 Patient refuses a tetanus shot. Does say he feels better and thinks the walk home will clear out more mucus. We are getting him a coat to go home with. 0330 Patient ambulated from the ED looking comfortable and in no apparent distress. Medical Records Medical records reviewed: Yes I reviewed the patient's medical records. HPI General Date/Time Provider Initiated Documentation: 08/28/22 02:31 . HPI Narrative: This 27-year-old black male presents with a chief complaint of asthma exacerbation. Patient reports that DuoNebs and oral prednisone do not do anything for him. He just needs his Symbicort which he has been out of the past 2 weeks. He did use a friend's earlier today and got some relief for a couple of hours. He states that his breathing difficulty and wheezing have been kicking up since he has been out of the med. He just finished a DuoNeb that he got in the ambulance and said that it did not do anything for him except increase his heart rate. He declines anymore. He will take some oral prednisone while awaiting to get Symbicort from the pharmacy. He denies fever or URI symptoms. There is no chest pain, pedal edema or calf pain. The patient reports that he has been hospitalized many times for his asthma but has never been in the ICU or intubated. He has been on steroids previously. He requested a sandwich immediately in the ED. He has multiple cuts all over his forearms that are self-inflicted. 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 He says it sometimes makes him feel better. He denies suicidality at this time. Does not want to talk to crisis. Related Data Home Medications Medication Instructions Recorded Confirmed albuterol sulfate 2.5 mg/3 mL 2.5 mg (3 mL) inhalation QID PRN 05/20/18 07/03/22 (0.083 %) solution for nebulization shortness of breath or wheezing #75 mL buspirone 5 mg tablet 15 mg PO BID 09/22/18 08/28/22 ibuprofen 200 mg capsule 600 mg PO PRN PRN 05/20/20 08/28/22 hydroxyzine HCl 25 mg tablet See Rx Instructions .Route .COMPLEX 05/22/20 08/28/22 pantoprazole 40 mg tablet,delayed 40 mg PO DAILY 05/22/20 08/28/22 release sertraline 100 mg tablet 200 mg PO DAILY 05/22/20 08/28/22 dextroamphetamine-amphetamine ER 30 mg PO QAM 02/28/21 08/28/22 30 mg 24hr capsule,extend release (Adderall XR) budesonide-formoterol HFA 80 2 puff inhalation 6XD #3 ea 07/03/22 07/03/22 mcg-4.5 mcg/actuation aerosol inhaler (Symbicort) ipratropium 0.5 mg-albuterol 3 mg 3 ml inhalation Q4H PRN wheezing 07/04/22 08/28/22 (2.5 mg base)/3 mL nebulization #540 mL soln lidocaine 5 % topical patch 1 patch topical DAILY PRN #15 ea 07/14/22 08/28/22 (Lidoderm) prednisone 20 mg tablet 60 mg PO DAILY #12 tabs 08/28/22 Previous Rx's Medication Instructions Recorded albuterol sulfate 2.5 mg/3 mL 2.5 mg (3 mL) inhalation QID PRN 05/20/18 (0.083 %) solution for nebulization shortness of breath or wheezing #75 mL budesonide-formoterol HFA 80 2 puff inhalation 6XD #3 ea 07/03/22 mcg-4.5 mcg/actuation aerosol inhaler (Symbicort) ipratropium 0.5 mg-albuterol 3 mg 3 ml inhalation Q4H PRN wheezing 07/04/22 (2.5 mg base)/3 mL nebulization #540 mL soln lidocaine 5 % topical patch 1 patch topical DAILY PRN #15 ea 07/14/22 (Lidoderm) prednisone 20 mg tablet 60 mg PO DAILY #12 tabs 08/28/22 Allergies Allergy/AdvReac Type Severity Reaction Status Date / Time cat dander Allergy Wheezing Unverified 08/28/22 02:29 migraine medication AdvReac Uncoded 08/28/22 02:29 General Stated Complaint: RespSymp MINGO: 3 Review of Systems Constitutional Constitutional: Denies chills, Denies fever(s), Denies headache(s) and Denies weakness Eyes Eyes: Denies diplopia and Reports other (no redness) ENT Ears, Nose, Mouth, and Throat: Denies otalgia, Denies headache(s), Denies nasal congestion, Denies nasal discharge, Denies neck pain and Denies sore throat Cardiovascular Cardiovascular: Denies chest pain, Denies palpitations and Reports dyspnea Respiratory Respiratory: Denies cough, Reports dyspnea and Reports wheezing Gastrointestinal Gastrointestinal: Denies abdominal pain, Denies diarrhea, Denies nausea and Denies vomiting Genitourinary Genitourinary: Denies difficulty urinating and Denies dysuria Musculoskeletal Musculoskeletal: Denies myalgias, Denies muscle weakness, Denies neck pain, Denies numbness and Reports other (edema) Integumentary/Breasts Skin/Breast: Denies change in pigmentation and Denies rash Neurologic Neurologic: Denies headache(s), Denies numbness and Denies weakness Endocrine Endocrine: Denies palpitations Allergic/Immunologic Allergic/Immunologic: Reports wheezing PFSH All Active Problems (Updated 08/28/22 @ 03:21 by Sadie Duran MD) Asthma with acute exacerbation (Acute) Lymphadenopathy (Acute) Hemorrhoids (Acute) Viral warts (Acute) Severe asthma with acute exacerbation (Acute) ADD (attention deficit disorder) (Acute) Marijuana smoker (Acute) Asthma (Chronic) Suicidal ideation (Acute) Depression (Chronic) Anxiety disorder (Chronic) Eczema (Chronic) Medical History Acute asthma exacerbation Cyst of face Eczema Mass of left side of neck Surgical History No significant past surgical history Family History Other Adopted Social History Smoking/Tobacco Use Status: Current every day Tobacco Type: e-cigarettes Counseling given: provider counseling Smoking risk assessment performed?: Yes Alcohol Intake: current Alcohol Intake frequency: holidays/special occasions only Alcohol type: beer Details: Minimal Drug use: Daily Substance use type: marijuana, crack/cocaine and heroin Counseling given: Yes Details: No vaping, no other drug use. States he uses to treat anxiety and insomnia. Adopted: Yes Housing: apartment Current gender identity: male Do you feel safe at home: Yes Do you feel safe in your relationship?: Yes Additional Social history: Grew up in [place], adopted, close with 1 of his moms who lives in [place]. Lives alone in apartment on [address] in [place]. Exam Const General: no acute distress, well developed, well groomed and not in acute distress Nutritional Appearance: well nourished Orientation: alert and oriented x3 HENMT Head: normocephalic and atraumatic Ears: external ears normal Mouth: oropharynx normal and moist mucous membranes Throat: posterior oropharynx normal Eyes Conjunctivae: conjunctivae normal Neck Neck: full ROM and supple Chest Chest: normal inspection of the chest Resp Effort & Inspection: able to speak in complete sentences Auscultation: wheezes ( Moderate, inspiratory and expiratory) scattered wheezes Cardio Rate: regular rate Rhythm: regular rhythm Heart Sounds: no murmurs and no rubs GI Inspection: normal to inspection Palpation: soft, nontender and other (non distended) Auscultation: normal bowel sounds Skin General skin exam: no rashes or lesions noted and other (pink, warm, dry) Neuro General: patient alert, patient awake and patient oriented x3 Speech: speech normal Motor: other (SHELLEY) Sensory Exam: no sensory deficits noted Extrem General: full ROM, pedal edema present and other (Multiple linear cuts to bilateral forearms. All are clean and dry.) Psych Mental Status: mental status grossly normal Speech and Movement: speech and movement normal Affect: normal affect Course Vital Signs Vital signs: Vital Signs Temperature 36.3 C L 08/28/22 02:25 Pulse 114 H 08/28/22 02:25 Respiratory Rate 24 08/28/22 02:25 Blood Pressure 158/114 H 08/28/22 02:25 Pulse Oximetry 96 08/28/22 02:25 Temperature 36.3 C L 08/28/22 02:25 Temperature Source Temporal Artery Scan 08/28/22 02:25 Pulse 114 H 08/28/22 02:25 Respiratory Rate 24 08/28/22 02:25 Respiratory Effort Normal 08/28/22 02:31 Respiratory Depth Normal 08/28/22 02:31 Blood Pressure 158/114 H 08/28/22 02:25 Blood Pressure Position Sitting 08/28/22 02:25 Pulse Oximetry 96 08/28/22 02:25 Oxygen Delivery Method Room Air 08/28/22 02:25 Oxygen Flow Rate 0 08/28/22 02:25 Pain Level 6 08/28/22 02:25
[2022-08-28] MEDS: predniSONE 20 MG TAB 60 MG PO (02:45)
[2022-08-28] MEDS: Inhaler, Assist Device 1 EACH MC (02:50)
[2022-08-28] MEDS: Budesonide/Formoterol 160/4.5 6 GM 60 PUFF INH IH (02:50)
[2022-08-28] MEDS: Albuterol/Ipratropium 3 ML UPD VIAL UPD (02:59)
[2022-08-28] MEDS: Albuterol HFA 8 GM 60 PUFF INH IH (03:10)
--- NOTE | 2022-08-28 03:54 | NUR.NOTE ---
Referral faxed to [facility] Pulmonology to f/u this week for asthma exacerbation.Nursing Note:
== END 2022-08-28 03:31 | disposition home or self-care (01) ==
PROVIDERS: Emergency Provider Emergency Medicine; PCP Physician Assistant
DX: J45.901 Unspecified asthma with (acute) exacerbation (principal)
CPT/HCPCS: 94640; 99283; 99284; J7512; J7613; J7620

== ENCOUNTER 2023-01-15 09:46 | Emergency (ER) | payer MEDICARE, MEDICAID, SELFPAY ==
--- NOTE | 2023-01-15 09:45 | DI.RAD_ITS ---
Exam(s) XR CHEST 2V PA LATERAL EXAM: XR CHEST 2V PA LATERAL CLINICAL HISTORY: shortness of breath TECHNIQUE: 2D digital imaging was performed of the chest. Two images were obtained. PA and lateral views were obtained. COMPARISON: CR,XR XR CHEST 2V PA LATERAL from 02/27/2019 FINDINGS: MEDIASTINUM: Normal. HEART: Normal. PULMONARY VASCULATURE: Normal. LUNGS: Clear. PLEURAL SPACE: No pleural effusion or pneumothorax. BONE:Within normal limits for the patient's age. OTHER FINDINGS:Normal. IMPRESSION: No acute pulmonary findings. DATA REPOSITORY: RADIATION DOSE DELIVERED:
[2023-01-15 09:49] VITALS: BP 148/107; PULSE 127; RESP 22; TEMP 36.5; O2SAT 93
--- NOTE | 2023-01-15 09:53 | W.ED.GENAD ---
Discharge Plan Disposition Patient Disposition: Home Condition: Fair Discharge Details Clinical Impression: Asthma exacerbation Primary Care Provider: Dago Joaquin ED Provider: Aniket Lloyd Home Meds and New Rx's Prescriptions: New prednisone 20 mg tablet 40 mg PO DAILY 5 Days Qty: 10 0RF azithromycin 250 mg tablet See Rx Instructions .ROUTE .COMPLEX Qty: 6 0RF Rx Instructions: For 250 mg dose pack: take 500 mg today (day 1), then 250 mg for 4 days (days 2-5) amoxicillin-pot clavulanate 875-125 mg tablet 1 tab PO BID 5 Days Qty: 10 0RF Continued budesonide-formoterol [Symbicort] 80-4.5 mcg/actuation HFA aerosol inhaler 2 puff inhalation 6XD Qty: 3 12RF Rx Instructions: 2 puffs twice a day and as needed, up to 12 puffs in a 24 hour period Rinse mouth after use ipratropium-albuterol 0.5 mg-3 mg(2.5 mg base)/3 mL solution for nebulization 3 ml inhalation Q4H PRN (Reason: wheezing) Qty: 540 12RF Vyvanse 70 mg capsule 70 mg PO DAILY pantoprazole 40 mg tablet,delayed release (DR/EC) 40 mg PO DAILY Patient Comments: TAKE 1 TABLET BY MOUTH DAILY hydroxyzine HCl 25 mg tablet See Rx Instructions .ROUTE .COMPLEX Patient Comments: TAKE ONE TABLET BY MOUTH THREE TIMES A DAY AND TWO TABLETS AT BEDTIME NEEDED Rx Instructions: TAKE ONE TABLET BY MOUTH THREE TIMES A DAY AND TWO TABLETS AT BEDTIME NEEDED sertraline 100 mg tablet 200 mg PO DAILY albuterol sulfate 2.5 mg /3 mL (0.083 %) solution for nebulization 2.5 mg IH QID PRN (Reason: shortness of breath or wheezing) Qty: 75 0RF buspirone 5 mg Tablet 15 mg PO BID Patient Comments: Patient state he takes 15mg bid ibuprofen 200 mg Capsule 600 mg PO PRN PRN Discharge Instructions Instructions: Prednisone (By mouth), Amoxicillin/Clavulanate Potassium (By mouth), Azithromycin (By mouth), Asthma (ED) Additional Instructions: You were seen in the emergency department for your likely asthma attack, you have a productive cough so we are starting treatment for bronchitis with both azithromycin and Augmentin. You had severe wheezing and I am prescribing you prednisone tablets as well. Your prescriptions were sent to [facility] in [place]. You refused a repeat breathing treatment despite still wheezing, you stated that you know your asthma and that you wanted to leave. I did discuss with you admitting you for severe asthma exacerbation and you stated that you did not want this. You refused EKG with a heart rate of 130 bpm. This is not an ideal heart rate to have and we did discuss your refusal of the EKG at length. You stated many times that you wanted to leave due to the above schedule, I did make every effort to encourage you to stay for repeat breathing treatments and improvement of your heart rate as well as a cardiac rule out with an EKG, your troponin laboratory test was negative so you are not likely having a large heart attack but your could be experiencing ischemia or oxygen demand due to your high heart rate. I was unable to provide you with a lift to go but we did give you Symbicort to go. Please follow-up with your pulmonology provider for the asthma medications you are out of. Please return to the ED at once for any further shortness of breath or increasing wheezing despite treatment. Referrals: Dago Joaquin [Primary Care Provider] - Medical Decision Making This dictation utilizes [id number] dictation software and may contain unedited grammatical errors. 27 y/o M presents to ED today with a chief complaint of asthma, shortness of breath, productive cough for 2 days, and being out of his symbicort2. Onset and characteristics include day onset of worsening shortness of breath with a productive cough and gross mucous production. Patient presented mildly tachycardic and diaphoretic, denies overt fevers. Patient has relevant history of asthma with severe exacerbations requiring intubation. Family and social history: noncontributory. Patient has difficulty cooperating with provider/staff and states nebulizers don't work on him and he only wants symbicort and no work-up with no needles, no EKG, no CXR Pertinent exam findings / vital signs include diffuse wheezing inspiratory & expiratory, rales at bases, tachycardic but normal to auscultation, benign abdomen, neuro intact. Differential / pathologies of concern includ. Diagnostic studies of: -CBC, CMP, Lactate, Procalcitonin, Blood Cx's, EKG, CXR, Covid/Flu/RSV PCR. -refused EKG despite tachycardia in 120s on arrival -attempted to refuse CXR, significant time discussing PNA risk, agreed -attempted to refuse IV insertion, counseled on significant risk for sepsis, provided lorazepam and he agreed -lactate WNL, procalcitonin negative- do not suspect sepsis -CXR no focal PNA, no pulmonary edema -Trop I negative with days onset shortness of breath Interventions of: -Hour-long DuoNeb, Symbicort inhaler for patient comfort, IV Methylpred. -wheezing improved with 9mL DuoNeb, giving 3mL again for more relief -symbicort given to go, states he is out of is Anoro Ellipta, but this is non-formullary for hospital ED Course: Patient presents with increasing symptoms of asthma being out of his medications, he endorses a productive cough. I did discuss with him that he is very wheezy, he was tachycardic on arrival with a negative troponin, he refused EKG I told him that we could not rule out that he is having cardiac syndrome. I stated that we should continue p.o. steroids as well as dual treatment with Augmentin and azithromycin for bronchitis with severe asthma. The patient states that he agrees with this plan, I did suggest that he stay for reevaluation after another breathing treatment but he refused. He wants to be discharged, I did discuss with that his heart rate is high and still has significant wheezing and this is a risk, he chose to leave. His prescriptions were sent to [facility] in [place]. Findings not consistent with hypoxemic respiratory failure or focal bacterial pneumonia, the patient has no systemic signs of sepsis or cardiac syndrome, he likely has an exacerbation of significant asthma due to possible respiratory infection and it is reasonable to treat with steroids and dual antibiotic therapy. I did discuss with the patient at length that we cannot completely rule out cardiac pathology because he refused his EKG for financial reasons, he was adamant on refusing bits and pieces of his care throughout the visit and took extensive staff resources to convince him to perform a definitive work-up. I discussed at length his tachycardia being something he should stay and have evaluated, but he was adament on leaving stating it was only high because of his hour-long nebulizer. Disposition of Bronchitis. Assessment/Plan: Dual treatment with Augmentin and azithromycin as well as prednisone for 5 days, recommend he follow-up with his regular provider for Ellipta refill and I did provide him Symbicort to go as well as additional DuoNeb to go as he would not stay for his second breathing treatment due to the blood schedule. The patient was comfortable with this risk profile and stated he could come back if he ever got worse. Patient verbalized understanding of the plan and return to ED criteria and engaged in shared decision making. Medical Records Medical records reviewed: Yes I reviewed the patient's medical records. Imaging Data Radiologic Study: Imaging: X-Ray Radiologist's impression: EXAM: XR CHEST 2V PA LATERAL CLINICAL HISTORY: shortness of breath TECHNIQUE: 2D digital imaging was performed of the chest. Two images were obtained. PA and lateral views were obtained. COMPARISON: CR,XR XR CHEST 2V PA LATERAL from 02/27/2019 FINDINGS: MEDIASTINUM: Normal. HEART: Normal. PULMONARY VASCULATURE: Normal. LUNGS: Clear. PLEURAL SPACE: No pleural effusion or pneumothorax. BONE:Within normal limits for the patient's age. OTHER FINDINGS:Normal. IMPRESSION: No acute pulmonary findings. Lab Data Labs: 01/15/23 11:50 Blood Blood Culture - Pending 01/15/23 11:40 Blood Blood Culture - Pending Laboratory Tests Range/Units 01/15/23 01/15/23 10:34 11:40 WBC (4.4-10.8) 10^3/uL 15.46 H RBC (4.36-5.78) 10^6/uL 5.71 Hgb (13.5-17.5) g/dL 15.1 Hct (40.0-50.0) % 46.9 MCV (80-95) fL 82 MCH (27.0-33.0) pg 26.4 L MCHC (32.0-36.0) % 32.2 RDW (11.8-14.1) % 12.5 Plt Count (130-400) 10^3/uL 239 MPV (8.0-11.0) fL 8.8 Immature Gran % 0.5 Neutrophils % 77.8 Lymphocytes % 11.1 Monocytes % 7.5 Eosinophils % 2.5 Basophils % 0.6 Nucleated RBC % (0.0-0.3) % 0.0 Absolute Neutrophils (1.2-6.7) 10^3/uL 12.03 H Absolute Lymphocytes (1.2-3.4) 10^3/uL 1.72 Absolute Monocytes (0.1-0.8) 10^3/uL 1.16 H Absolute Eosinophils (0.0-0.7) 10^3/uL 0.39 Absolute Basophils (0.0-0.2) 10^3/uL 0.09 VBG Lactate (0.6-1.4) mmol/L 1.2 Sodium (136-145) mmol/L 131 L Potassium (3.5-5.1) mmol/L 3.9 Chloride (98-107) mmol/L 95 L Carbon Dioxide (21.0-32.0) mmol/L 27.1 Anion Gap (3-11) mmol/L 8.9 BUN (7-18) mg/dL 12 Creatinine (0.70-1.30) mg/dL 0.8 Est GFR (CKD-EPI 2020) (mL/min/1.73m2) 123.63 Glucose (74-106) mg/dL 143 H Calcium (8.5-10.1) mg/dL 9.7 Magnesium (1.8-2.4) mg/dL 1.9 Total Bilirubin (0.2-1.0) mg/dL 0.7 AST (15-37) U/L 16 ALT (16-63) U/L 23 Alkaline Phosphatase (46-116) U/L 86 Troponin I (<or=60) ng/L < 50 Total Protein (6.4-8.2) g/dL 8.5 H Albumin (3.4-5.0) g/dL 4.1 Procalcitonin ng/mL < 0.1 COVID-19 Source Nasopharynx SARS-CoV-2 (PCR) (Negative) Negative Influenza Type A (PCR) (Negative) Negative Influenza Type B (PCR) (Negative) Negative RSV (PCR) (Negative) Negative HPI General Date/Time Provider Initiated Documentation: 01/15/23 09:53. HPI Narrative: 27 year-old male presents to ED today by POV/ambulating with a chief complaint of shortness of breath, worsening asthma, out of asthma meds with onset for the past couple days. Quality described as shortness of breath, states nebulizers do not work on him, he needs symbicort inhaler up to 12x/day for relief also out of his Ellipta, no radiation to chest pain, fever, does endorse productive cough, denies intractable nausea/vomiting, denies hemoptysis. Severity is described as moderate. Palliating factors include at-home nebulizers without relief. Provoking factors include nothing specific, possible cold. Patient not anticoagulated. Related Data Home Medications Medication Instructions Recorded Confirmed albuterol sulfate 2.5 mg/3 mL 2.5 mg (3 mL) inhalation QID PRN 05/20/18 01/15/23 (0.083 %) solution for nebulization shortness of breath or wheezing #75 mL buspirone 5 mg tablet 15 mg PO BID 09/22/18 01/15/23 ibuprofen 200 mg capsule 600 mg PO PRN PRN 05/20/20 01/15/23 hydroxyzine HCl 25 mg tablet See Rx Instructions .Route .COMPLEX 05/22/20 01/15/23 pantoprazole 40 mg tablet,delayed 40 mg PO DAILY 05/22/20 01/15/23 release sertraline 100 mg tablet 200 mg PO DAILY 05/22/20 01/15/23 budesonide-formoterol HFA 80 2 puff inhalation 6XD #3 ea 07/03/22 01/15/23 mcg-4.5 mcg/actuation aerosol inhaler (Symbicort) ipratropium 0.5 mg-albuterol 3 mg 3 ml inhalation Q4H PRN wheezing 07/04/22 01/15/23 (2.5 mg base)/3 mL nebulization #540 mL soln lisdexamfetamine 70 mg capsule 70 mg PO DAILY 10/02/22 01/15/23 (Vyvanse) amoxicillin 875 mg-potassium 1 tab PO BID Bronchitis 5 days #10 01/15/23 clavulanate 125 mg tablet tabs azithromycin 250 mg tablet See Rx Instructions PO .COMPLEX 01/15/23 Bronchitis #6 tabs prednisone 20 mg tablet 40 mg (2 x 20 mg) PO DAILY 01/15/23 Reactive Airway 5 days #10 tabs Previous Rx's Medication Instructions Recorded albuterol sulfate 2.5 mg/3 mL 2.5 mg (3 mL) inhalation QID PRN 05/20/18 (0.083 %) solution for nebulization shortness of breath or wheezing #75 mL budesonide-formoterol HFA 80 2 puff inhalation 6XD #3 ea 07/03/22 mcg-4.5 mcg/actuation aerosol inhaler (Symbicort) ipratropium 0.5 mg-albuterol 3 mg 3 ml inhalation Q4H PRN wheezing 07/04/22 (2.5 mg base)/3 mL nebulization #540 mL soln amoxicillin 875 mg-potassium 1 tab PO BID Bronchitis 5 days #10 01/15/23 clavulanate 125 mg tablet tabs azithromycin 250 mg tablet See Rx Instructions PO .COMPLEX 01/15/23 Bronchitis #6 tabs prednisone 20 mg tablet 40 mg (2 x 20 mg) PO DAILY 01/15/23 Reactive Airway 5 days #10 tabs Allergies Allergy/AdvReac Type Severity Reaction Status Date / Time cat dander Allergy Wheezing Unverified 01/15/23 13:19 migraine medication AdvReac Uncoded 01/15/23 13:19 General Stated Complaint: SOB MINGO: 3 Review of Systems All systems reviewed & are unremarkable except as noted in HPI and below PFSH All Active Problems (Updated 01/15/23 @ 13:13 by MAYELIN Linton) Asthma exacerbation (Acute) Lymphadenopathy (Acute) Hemorrhoids (Acute) Viral warts (Acute) Severe asthma with acute exacerbation (Acute) ADD (attention deficit disorder) (Acute) Marijuana smoker (Acute) Asthma (Chronic) Suicidal ideation (Acute) Depression (Chronic) Anxiety disorder (Chronic) Eczema (Chronic) Medical History Acute asthma exacerbation Cyst of face Eczema Mass of left side of neck Surgical History No significant past surgical history Family History Other Adopted Social History Smoking/Tobacco Use Status: Current every day Tobacco Type: e-cigarettes Counseling given: provider counseling Smoking risk assessment performed?: Yes Alcohol Intake: current Alcohol Intake frequency: holidays/special occasions only Alcohol type: beer Details: Minimal Drug use: Daily Substance use type: marijuana, crack/cocaine and heroin Counseling given: Yes Details: states he does not want to disclosed other drug use at this time. Placido RN 01/15/23 Adopted: Yes Housing: apartment Current gender identity: male Do you feel safe at home: Yes Do you feel safe in your relationship?: Yes Additional Social history: Grew up in [place], adopted, close with 1 of his moms who lives in [place]. Lives alone in apartment on [address] in [place]. Exam Narrative Exam Narrative: GENERAL APPEARANCE: Well-nourished, non-toxic, awake and alert, atraumatic, no acute distress. SKIN: Warm, pink, dry, intact, without rashes/lesions/ulcerations. HEAD: Normocephalic, atraumatic, normal hair distribution for gender/age. EYES: Pupils PERRLA, EOMs intact without nystagmus, normal conjunctiva, no exudates on lids/lashes. ENT: Nares patent, no circumoral cyanosis, no facial swelling NECK: Supple, trachea midline, painless cervical ROM. LUNGS/CHEST: Lungs- diffuse inspiratory/expiratory wheezing with fine rales in bases, labored respirations without retractions/accessory muscle use, normal A/P diameter, symmetrical expansion, no chest wall deformity HEART (CV/PV): Regular rate and rhythm without murmur, no peripheral edema, no JVD. ABDOMEN: Soft, non-distended, no guarding. MSK: Normal ROM, no swelling/deformity to bilateral UEs or LEs, moving all extremities without weakness, no cyanosis, spine midline without tenderness, normal curvature. NEURO: Mental Status AAOx4 - alert to person, place, time, events No facial droop, no forehead involvement. Motor: No focal weakness - strength 5/5 in bilateral UEs and LEs, proximal and distal, symmetric. Sensory: sensation intact to light touch globally. Gait normal: patient ambulated without ataxia into ED room. PSYCH: euthymic, cooperative, pleasant, appropriate speech Course Vital Signs Vital signs: Vital Signs Temperature 36.5 C 01/15/23 09:49 Pulse 127 H 01/15/23 09:49 Respiratory Rate 22 01/15/23 09:49 Blood Pressure 148/107 H 01/15/23 09:49 Pulse Oximetry 93 01/15/23 09:49 Temperature 36.5 C 01/15/23 09:49 Temperature Source Temporal Artery Scan 01/15/23 09:49 Pulse 127 H 01/15/23 09:49 Respiratory Rate 22 01/15/23 09:49 Blood Pressure 148/107 H 01/15/23 09:49 Blood Pressure Position Sitting 01/15/23 09:49 Pulse Oximetry 93 01/15/23 09:49 Oxygen Delivery Method Room Air 01/15/23 09:49 Oxygen Flow Rate 0 01/15/23 09:49 Pain Level 5 01/15/23 09:49
[2023-01-15 10:03] VITALS: RESP 18
[2023-01-15 10:15] VITALS: RESP 5; O2SAT 94
[2023-01-15] MEDS: Albuterol/Ipratropium 3 ML UPD VIAL 9 ML UPD (10:15)
[2023-01-15] MEDS: LORazepam 0.5 MG TAB PO (10:15)
--- NOTE | 2023-01-15 10:39 | NUR.NOTE ---
Nursing Note: patient declined EKG This RN explained why the procedure was ordered patient stated I don't need my heart looked at I'm here for my asthma MD aware
[2023-01-15] MEDS: Budesonide/Formoterol 80/4.5 6.9 GM 60 PUFF INH IH (10:58)
[2023-01-15] MEDS: Inhaler, Assist Device 1 EACH MC (10:58)
[2023-01-15 11:15] LABS: COVID-19 PCR Negative (Negative); Influenza A PCR Negative (Negative); Influenza B PCR Negative (Negative); RSV PCR Negative (Negative); Source Nasopharynx
[2023-01-15 11:47] LABS: Lactate 1.2 mmol/L (0.6-1.4)
[2023-01-15 11:57] LABS: Abs Immature Grans 0.08 10^3/uL (0.0-0.06); Absolute Basophil Count 0.09 10^3/uL (0.0-0.2); Absolute Eosinophil Count 0.39 10^3/uL (0.0-0.7); Absolute Lymphocyte Count 1.72 10^3/uL (1.2-3.4); Absolute Monocyte Count 1.16 10^3/uL (0.1-0.8); Basophils % 0.6; Eosinophils % 2.5; HCT 46.9 % (40.0-50.0); HGB 15.1 g/dL (13.5-17.5); Immature Grans % 0.5; Lymphocytes % 11.1; MCH 26.4 pg (27.0-33.0); MCHC 32.2 % (32.0-36.0); MCV 82 fL (80-95); MPV 8.8 fL (8.0-11.0); Monocytes % 7.5; Neutrophils % 77.8; Platelet Count 239 10^3/uL (130-400); RBC 5.71 10^6/uL (4.36-5.78); RDW 12.5 % (11.8-14.1); RDW-SD 37.6 fL; WBC 15.46 10^3/uL (4.4-10.8)
[2023-01-15 11:58] LABS: Absolute Neutrophil Count 12.03 10^3/uL (1.2-6.7)
[2023-01-15] MEDS: methylPREDNISolone SUCC 125 MG VIAL IVP (12:00)
[2023-01-15 12:07] LABS: ALT 23 U/L (16-63); AST 16 U/L (15-37); Albumin 4.1 g/dL (3.4-5.0); Alkaline Phosphatase 86 U/L (46-116); Anion Gap 8.9 mmol/L (3-11); BUN 12 mg/dL (7-18); Bilirubin, Total 0.7 mg/dL (0.2-1.0); CO2 27.1 mmol/L (21.0-32.0); CREATININE 0.8 mg/dL (0.70-1.30); Calcium 9.7 mg/dL (8.5-10.1); Chloride 95 mmol/L (98-107); Estimated GFR 123.63 (mL/min/1.73m2); Glucose 143 mg/dL (74-106); Magnesium 1.9 mg/dL (1.8-2.4); Potassium 3.9 mmol/L (3.5-5.1); Sodium 131 mmol/L (136-145); Total Protein 8.5 g/dL (6.4-8.2)
[2023-01-15 12:11] LABS: Troponin I < 50 ng/L (<or=60)
[2023-01-15 12:27] LABS: Procalcitonin < 0.1 ng/mL
[2023-01-15 13:18] VITALS: BP 147/95; PULSE 138; RESP 20; O2SAT 94
--- NOTE | 2023-01-16 07:05 | NUR.NOTE ---
Accessed chart to determine orders for EKG and to determine whether or not one needs to be cancelled. Patient declined EKG. ORder cancelled.Nursing Note:
== END 2023-01-15 13:25 | disposition home or self-care (01) ==
PROVIDERS: Emergency Provider Physician Assistant; PCP Physician Assistant
DX: J45.901 Unspecified asthma with (acute) exacerbation (principal); Z20.822 Contact with and (suspected) exposure to COVID-19
CPT/HCPCS: 80053; 84145; 87040; 87637; 94640; 96374; 99284; 71046; 83605; 83735; 84484; 85025; 99283; J2930; J7620

== ENCOUNTER 2023-03-25 22:32 | Inpatient (IN) | payer MEDICARE, MEDICAID, SELFPAY ==
[2023-03-25] VITALS (21 sets, daily range): BP systolic 143–225; BP diastolic 83–149; PULSE 96–120; RESP 5–28; TEMP 36.2–36.5; O2SAT 94–100
--- NOTE | 2023-03-25 22:15 | DI.RAD_ITS ---
Exam(s) XR PORTABLE CHEST AP EXAM: XR PORTABLE CHEST AP CLINICAL HISTORY: asthma, sob TECHNIQUE: 2D digital imaging was performed. COMPARISON: CR XR CHEST 2V PA LATERAL from 01/15/2023 FINDINGS: LUNGS: Clear. No pleural abnormality seen. HEART: Normal size. AORTA: Normal diameter. BONES: Unremarkable for age. Soft tissues: Unremarkable. IMPRESSION: No acute findings. DATA REPOSITORY: RADIATION DOSE DELIVERED:
[2023-03-25] MEDS: Albuterol/Ipratropium 3 ML UPD VIAL 6 ML UPD (22:25)
[2023-03-25 22:37] LABS: Abs Immature Grans 0.03 10^3/uL (0.0-0.06); Absolute Basophil Count 0.06 10^3/uL (0.0-0.2); Absolute Eosinophil Count 0.44 10^3/uL (0.0-0.7); Absolute Lymphocyte Count 3.09 10^3/uL (1.2-3.4); Absolute Monocyte Count 0.93 10^3/uL (0.1-0.8); Absolute Neutrophil Count 5.32 10^3/uL (1.2-6.7); BE (Venous) 4 mmol/L (-2-3); Basophils % 0.6; Eosinophils % 4.5; HCO3 (Venous) 30 mmol/L (23-28); HCT 47.4 % (40.0-50.0); HGB 15.1 g/dL (13.5-17.5); Immature Grans % 0.3; Lymphocytes % 31.3; MCH 26.4 pg (27.0-33.0); MCHC 31.9 % (32.0-36.0); MCV 83 fL (80-95); MPV 8.6 fL (8.0-11.0); Monocytes % 9.4; Neutrophils % 53.9; O2 Sat (Venous) 94 %; Platelet Count 311 10^3/uL (130-400); RBC 5.73 10^6/uL (4.36-5.78); RDW 13.4 % (11.8-14.1); RDW-SD 40.8 fL; TCO2 (Venous) 27 mmol/L (24-29); WBC 9.87 10^3/uL (4.4-10.8); pCO2 (Venous) 59 mmHg (41-51); pH (Venous) 7.31 (7.31-7.41); pO2 (Venous) 73 mmHg
[2023-03-25] MEDS: EPINEPHrine 0.3 MG KIT 0.5 MG IM (22:45)
[2023-03-25 22:55] LABS: ALT 23 U/L (16-63); AST 27 U/L (15-37); Albumin 3.9 g/dL (3.4-5.0); Alkaline Phosphatase 84 U/L (46-116); Anion Gap 6.8 mmol/L (3-11); BUN 7 mg/dL (7-18); Bilirubin, Total 0.4 mg/dL (0.2-1.0); CO2 30.2 mmol/L (21.0-32.0); CREATININE 0.7 mg/dL (0.70-1.30); Calcium 8.9 mg/dL (8.5-10.1); Chloride 103 mmol/L (98-107); Estimated GFR 127.91 (mL/min/1.73m2); Glucose 107 mg/dL (74-106); Potassium 4.1 mmol/L (3.5-5.1); Sodium 140 mmol/L (136-145); Total Protein 8.1 g/dL (6.4-8.2)
[2023-03-25] MEDS: Normal Saline 1,000 ML 1000 ML IV (22:57)
[2023-03-25] MEDS: MAGNESIUM SULFATE 2 GM/50 ML BAG IVPB (22:57)
[2023-03-25] MEDS: Budesonide/Formoterol 160/4.5 6 GM 60 PUFF INH IH (22:59)
--- NOTE | 2023-03-25 23:14 | ED.GENADUL_ITS ---
HPI General Stated Complaint: RespSymp MINGO: 2 Date/Time Provider Initiated Documentation: 03/25/23 22:37. HPI Narrative: 28-year-old male with a past medical history of asthma, marijuana use, tobacco use, and multiple visits and admissions for asthma exacerbations, in addition to previous intubation for asthma, presents today for evaluation of extreme shortness of breath. He states that the symptoms have been going on for the last 6 to 12 hours. He states that he is out of his Symbicort currently. He states he has been actively smoking. He contacted EMS, and was notably dyspneic on their arrival. Oxygenation level was not able to be evaluated at that time. He was started on 10 L and given nebs and Solu-Medrol. He was brought to the ER for further assessment. He denies chest pain does admit to mild headache. He admits notable shortness of breath. He is conversationally dyspneic and does not give any other additional historical components. He is stating multiple times that he needs my Symbicort inhaler, that is just what I need!. Related Data Home Medications Medication Instructions Recorded Confirmed albuterol sulfate 2.5 mg/3 mL 2.5 mg (3 mL) inhalation QID PRN 05/20/18 03/25/23 (0.083 %) solution for nebulization shortness of breath or wheezing #75 mL buspirone 5 mg tablet 15 mg PO BID 09/22/18 03/25/23 ibuprofen 200 mg capsule 600 mg PO PRN PRN 05/20/20 03/25/23 hydroxyzine HCl 25 mg tablet See Rx Instructions .Route .COMPLEX 05/22/20 03/25/23 pantoprazole 40 mg tablet,delayed 40 mg PO DAILY 05/22/20 03/25/23 release sertraline 100 mg tablet 200 mg PO DAILY 05/22/20 03/25/23 budesonide-formoterol HFA 80 2 puff inhalation 6XD #3 ea 07/03/22 03/25/23 mcg-4.5 mcg/actuation aerosol inhaler (Symbicort) ipratropium 0.5 mg-albuterol 3 mg 3 ml inhalation Q4H PRN wheezing 07/04/22 03/25/23 (2.5 mg base)/3 mL nebulization #540 mL soln lisdexamfetamine 70 mg capsule 70 mg PO DAILY 10/02/22 03/25/23 (Vyvanse) Previous Rx's Medication Instructions Recorded albuterol sulfate 2.5 mg/3 mL 2.5 mg (3 mL) inhalation QID PRN 05/20/18 (0.083 %) solution for nebulization shortness of breath or wheezing #75 mL budesonide-formoterol HFA 80 2 puff inhalation 6XD #3 ea 07/03/22 mcg-4.5 mcg/actuation aerosol inhaler (Symbicort) ipratropium 0.5 mg-albuterol 3 mg 3 ml inhalation Q4H PRN wheezing 07/04/22 (2.5 mg base)/3 mL nebulization #540 mL soln Allergies Allergy/AdvReac Type Severity Reaction Status Date / Time cat dander Allergy Wheezing Unverified 03/25/23 22:45 migraine medication AdvReac Uncoded 03/25/23 22:45 Review of Systems All systems reviewed & are unremarkable except as noted in HPI and below PFSH All Active Problems (Updated 03/26/23 @ 00:09 by Aniket Bonilla DO) Acute respiratory distress (Acute) Lymphadenopathy (Acute) Hemorrhoids (Acute) Viral warts (Acute) Severe asthma with acute exacerbation (Acute) ADD (attention deficit disorder) (Acute) Marijuana smoker (Acute) Asthma (Chronic) Suicidal ideation (Acute) Depression (Chronic) Anxiety disorder (Chronic) Eczema (Chronic) Medical History Cyst of face Mass of left side of neck Acute asthma exacerbation Eczema Surgical History No significant past surgical history Family History Other Adopted Social History Smoking/Tobacco Use Status: Current every day Tobacco Type: e-cigarettes Counseling given: provider counseling Smoking risk assessment performed?: Yes Alcohol Intake: current Alcohol Intake frequency: holidays/special occasions only Alcohol type: beer Details: Minimal Drug use: Daily Substance use type: marijuana, crack/cocaine and heroin Counseling given: Yes Details: states he does not want to disclosed other drug use at this time. Placido RN 01/15/23 Adopted: Yes Housing: apartment Current gender identity: male Do you feel safe at home: Yes Do you feel safe in your relationship?: Yes Additional Social history: Grew up in [place], adopted, close with 1 of his moms who lives in [place]. Lives alone in apartment on [address] in [place]. Exam Narrative Exam Narrative: 1.Const: Well-nourished, Well-developed, appearing stated age 2.Eyes: PERRL, no conjunctival injection, and symmetrical lids. 3.ENT: Atraumatic external nose and ears. Dry MM. Neck: Symmetric, trachea midline, No thyromegaly. 4.CVS: +S1/S2, No murmurs or gallops. Peripheral pulses 2+ and equal in all extremities. Brisk capillary refill in all extremities. 5.RESP: Notably labored respiratory effort, notable wheeze, with delayed inspiratory and expiratory component. No crackles or rhonchi or rails. 6.GI: Soft, Nontender/Nondistended, No hepatosplenomegaly. No guarding or rebound. 7.MSK: Normocephalic/Atraumatic, Extremities w/o deformity or ttp No cyanosis or clubbing, Normal movement of all extremities 8.Skin: Warm, Dry. No rashes or lesions. 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 Sensation grossly intact, no focal neurologic deficits. 10.Psych: (AAO) x3. Notably anxious appearing Course Vital Signs Vital signs: Vital Signs Pulse 120 H 03/25/23 22:25 Respiratory Rate 24 03/25/23 22:25 Pulse Oximetry 100 03/25/23 22:25 Temperature 36.2 C L 03/25/23 22:46 Temperature Source Temporal Artery Scan 03/25/23 22:46 Pulse 105 H 03/25/23 23:03 Pulse 103 H 03/25/23 23:02 Respiratory Rate 20 03/25/23 23:03 Respiratory Effort Short of Breath, Labored, Accessory Muscle Use, Nasal Flaring, Tripod, Incrsd Work of Breathing 03/25/23 22:49 Blood Pressure 163/110 H 03/25/23 23:01 Blood Pressure Mean 127 03/25/23 23:01 Blood Pressure Position Sitting 03/25/23 22:46 Pulse Oximetry 99 03/25/23 23:03 Oxygen Delivery Method Room Air 03/25/23 23:03 Oxygen Flow Rate 0 03/25/23 23:03 Pain Level 5 03/25/23 23:03 Comment post NEB/EPI IM/inhaler 03/25/23 23:03 Lab/Test Results Lab/Test Results: Laboratory Tests Range/Units 03/25/23 22:32 WBC (4.4-10.8) 10^3/uL 9.87 RBC (4.36-5.78) 10^6/uL 5.73 Hgb (13.5-17.5) g/dL 15.1 Hct (40.0-50.0) % 47.4 MCV (80-95) fL 83 MCH (27.0-33.0) pg 26.4 L MCHC (32.0-36.0) % 31.9 L RDW (11.8-14.1) % 13.4 Plt Count (130-400) 10^3/uL 311 MPV (8.0-11.0) fL 8.6 Immature Gran % 0.3 Neutrophils % 53.9 Lymphocytes % 31.3 Monocytes % 9.4 Eosinophils % 4.5 Basophils % 0.6 Nucleated RBC % (0.0-0.3) % 0.0 Absolute Neutrophils (1.2-6.7) 10^3/uL 5.32 Absolute Lymphocytes (1.2-3.4) 10^3/uL 3.09 Absolute Monocytes (0.1-0.8) 10^3/uL 0.93 H Absolute Eosinophils (0.0-0.7) 10^3/uL 0.44 Absolute Basophils (0.0-0.2) 10^3/uL 0.06 VBG pH (7.31-7.41) 7.31 VBG pCO2 (41-51) mmHg 59 H VBG pO2 mmHg 73 VBG HCO3 (23-28) mmol/L 30 H VBG Total CO2 (24-29) mmol/L 27 VBG O2 Saturation % 94 VBG Base Excess (-2-3) mmol/L 4 H Sodium (136-145) mmol/L 140 Potassium (3.5-5.1) mmol/L 4.1 Chloride (98-107) mmol/L 103 Carbon Dioxide (21.0-32.0) mmol/L 30.2 Anion Gap (3-11) mmol/L 6.8 BUN (7-18) mg/dL 7 Creatinine (0.70-1.30) mg/dL 0.7 Est GFR (CKD-EPI 2020) (mL/min/1.73m2) 127.91 Glucose (74-106) mg/dL 107 H Calcium (8.5-10.1) mg/dL 8.9 Total Bilirubin (0.2-1.0) mg/dL 0.4 AST (15-37) U/L 27 ALT (16-63) U/L 23 Alkaline Phosphatase (46-116) U/L 84 Total Protein (6.4-8.2) g/dL 8.1 Albumin (3.4-5.0) g/dL 3.9 Medical Decision Making 28-year-old male with a past medical history of asthma, marijuana use, tobacco use, and multiple visits and admissions for asthma exacerbations, in addition to previous intubation for asthma, presents today for evaluation of extreme shortness of breath. He states that the symptoms have been going on for the last 6 to 12 hours. He states that he is out of his Symbicort currently. He states he has been actively smoking. He contacted EMS, and was notably dyspneic on their arrival. Oxygenation level was not able to be evaluated at that time. He was started on 10 L and given nebs and Solu-Medrol. He was brought to the ER for further assessment. He denies chest pain does admit to mild headache. He admits notable shortness of breath. He is conversationally dyspneic and does not give any other additional historical components. He is stating multiple times that he needs my Symbicort inhaler, that is just what I need!. Exam demonstrates an extremely dyspneic male, diffuse wheezes, prolonged expiratory phase. Patient is 1-2 word conversationally dyspneic. Oxygenation is currently on 10 L. Upon his immediate arrival we started him on 2 DuoNebs, and with his notable limited respiratory capability he was given 2 g of magnesium sulfate fast over 30 minutes. Patient did not have significant improvement with his symptoms, the decision was made to give 0.5 mg of epinephrine IM. Patient tolerated this well. During this entire. The patient was very persistent that he needed his Symbicort inhaler. We had to get this from pharmacy and there was a delay. I did describe to him and that I felt that that would not be the best single modality for treatment with his complex case, however he was quite persistent about his desire for it. Eventually we did get the Symbicort and he did take 2 puffs of this, after the other treatments were given already. On reassessment the patient is doing much better. After 4 DuoNebs total, Solu-Medrol, 2 g of magnesium, and 0.5 mg of IM epinephrine the patient is now saturating well on room air at 96%. Heart rate is 104, blood pressure is 146/83. He does have mild headache, we will give him Tylenol for this. Will avoid aspirin and ibuprofen secondary to the arachadonic acid pathway component. Patient's COVID test has returned positive. Pending x-ray results but I do not see any evidence of pneumonia. I do feel that he would benefit from admission for continued nebs and monitoring secondary to his notable respiratory effort that he was having. 12:08 AM Patient remained stable. Discussed case with the hospitalist Dr. Ocampo, he agrees to the assessment and plan. I will place admission orders on his behalf. Will start the patient on remdesivir. I have extensively reviewed the treatment plan with the patient. I have addressed all patient concerns at this time. I have also discussed the plan with the admitting physician and they agree with the current assessment and plan and have agreed to assume responsibility for the patient. All parties demonstrate verbal understanding and agreement with our assessment and plan at this time. The documentation in this chart was dictated using [employer] dictation software. Please excuse any dictation errors. FINDINGS: Lungs: Lungs are clear throughout with no mass or consolidation detected. Pleural spaces: No pneumothorax or pleural effusion detected. Heart/Mediastinum: Heart size is normal and vessel margins are sharply defined. Bones/joints: No acute osseous lesions are detected. IMPRESSION: No acute findings. Thank you for allowing us to participate in the care of your patient. Dictated and Authenticated by: Mitesh Almazan MD 03/25/2023 11:22 PM Eastern Time ([place] & [place]) Quality:SDOH Health Related Social Needs: No Data to Display Critical Care Time Critical Care Time Critical Care Time: Yes Total Critical Care Time: 45 Attestation: Upon my evaluation, this patient had a high probability of imminent or life- threatening deterioration, which required my direct attention, intervention, and personal management. I have personally provided 45 minutes of critical care time exclusive of time spent on separately billable procedures. Time includes review of laboratory data, radiology results, discussion with consultants, and monitoring for potential decompensation. Interventions were performed as documented. Discharge Plan Disposition Patient Disposition: Admit to [facility] Condition: Improving Discharge Details Chief Complaint: RespSymp Clinical Impression: Acute respiratory distress, Asthma Primary Care Provider: Dago Joaquin ED Provider: Aniket Bonilla Home Meds and New Rx's Prescriptions: No Action budesonide-formoterol [Symbicort] 80-4.5 mcg/actuation HFA aerosol inhaler 2 puff inhalation 6XD Qty: 3 12RF Rx Instructions: 2 puffs twice a day and as needed, up to 12 puffs in a 24 hour period Rinse mouth after use ipratropium-albuterol 0.5 mg-3 mg(2.5 mg base)/3 mL solution for nebulization 3 ml inhalation Q4H PRN (Reason: wheezing) Qty: 540 12RF Vyvanse 70 mg capsule 70 mg PO DAILY pantoprazole 40 mg tablet,delayed release (DR/EC) 40 mg PO DAILY Patient Comments: TAKE 1 TABLET BY MOUTH DAILY hydroxyzine HCl 25 mg tablet See Rx Instructions .ROUTE .COMPLEX Patient Comments: TAKE ONE TABLET BY MOUTH THREE TIMES A DAY AND TWO TABLETS AT BEDTIME NEEDED Rx Instructions: TAKE ONE TABLET BY MOUTH THREE TIMES A DAY AND TWO TABLETS AT BEDTIME NEEDED sertraline 100 mg tablet 200 mg PO DAILY albuterol sulfate 2.5 mg /3 mL (0.083 %) solution for nebulization 2.5 mg IH QID PRN (Reason: shortness of breath or wheezing) Qty: 75 0RF buspirone 5 mg Tablet 15 mg PO BID Patient Comments: Patient state he takes 15mg bid ibuprofen 200 mg Capsule 600 mg PO PRN PRN
[2023-03-25 23:18] LABS: Influenza A PCR Negative (Negative); Influenza B PCR Negative (Negative); RSV PCR Negative (Negative)
[2023-03-25 23:22] LABS: COVID-19 PCR Positive (Negative); Source Nasopharynx
--- NOTE | 2023-03-25 23:23 | DI.VRAD_ITS ---
PROCEDURE INFORMATION: Exam: XR Chest Exam date and time: 03/25/2023 11:09 PM Age: 28 years old Clinical indication: Shortness of breath; Patient HX: Asthma, SOB TECHNIQUE: Imaging protocol: Radiologic exam of the chest. Views: 1 view. COMPARISON: CR XR CHEST 2V PA LATERAL 01/15/2023 11:10 AM FINDINGS: Lungs: Lungs are clear throughout with no mass or consolidation detected. Pleural spaces: No pneumothorax or pleural effusion detected. Heart/Mediastinum: Heart size is normal and vessel margins are sharply defined. Bones/joints: No acute osseous lesions are detected. IMPRESSION: No acute findings. Dictated and Authenticated by: Mitesh Almazan MD. Ordering:MARTHA Marcial MD
--- NOTE | 2023-03-25 23:54 | W.PM.HP.N ---
Date of service: 03/25/23 Time of Service: 23:54 Assessment and Plan Assessment and plan (1) Acute respiratory distress: Status: Acute Assessment and plan: Admit to intensive care unit for overnight observation while he continues to receive scheduled DuoNeb treatments along with his Symbicort and continued steroids. Patient received Solu-Medrol 125 mg this evening. He should not need any further parenteral steroids tonight but will start on prednisone tomorrow. Will have his vice president of marketing Dr. Hayward see him tomorrow. Patient gave a history has been coughing up a lot of thick mucus therefore I am going to put him on some Mucinex and empirically treat him with Rocephin and doxycycline although there were no infiltrates on his chest x-ray as he probably has an acute bronchitis precipitated by his continued smoking and vaping. (2) Severe asthma with acute exacerbation: Status: Acute Assessment and plan: poor control and poor understanding of his asthma action plan; he insists that Symbicort is the only thing that will turn his asthma around. He does not carry his own albuterol inhaler as he says that it does not do anything. Qualifiers: Asthma persistence: persistent Qualified Code(s): J45.51 - Severe persistent asthma with (acute) exacerbation History of Present Illness History of Present Illness Chief Complaint: dyspnea Narrative: 28 yr old male w/ hx of asthma, who is a user of marijiuana, and vapes presents to the ED w/ acute dyspnea and non-productive cough. Patient says that his symptoms began earlier in the day and blames his exacerbation on running out of his Symbicort. He did borrow a Ventolin inhaler from a friend but says that it was of no use to him. EMS was called to his home because he was severely dyspneic. They gave him a DuoNeb, solumedrol 125 mg IV and put him on 10 liter oxygen mask. On arrival to the ED he was conversationally dyspneic and gave no other information leading up to his current attack other than to say that he just needs his Symbicort. 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 He was given his Symbicort as requested after the E.D. had worked to improve his air flow. CXR was done which showed no acute pulmonary findings. Labs were remarkable for Fluvid swab positive for SARS-CoV-19 but negative for RSV and influenza. VBG demonstrated some CO2 retention. The hospitalist service was asked to admit the patient for continued treatment of his asthma exacerbation. Per my discussion w/ Dr. Bonilla, we decided to observe him overnight in the ICU although he has made a remarkable turnaround after the epinephrine. Review of Systems All systems reviewed & are unremarkable except as noted in HPI and below PFSH All Active Problems (Updated 03/26/23 @ 01:32 by Andrés Ocampo MD) Acute respiratory distress (Acute) Lymphadenopathy (Acute) Hemorrhoids (Acute) Viral warts (Acute) Severe asthma with acute exacerbation (Acute) ADD (attention deficit disorder) (Acute) Marijuana smoker (Acute) Asthma (Chronic) Suicidal ideation (Acute) Depression (Chronic) Anxiety disorder (Chronic) Eczema (Chronic) Medical History Cyst of face Mass of left side of neck Acute asthma exacerbation Eczema Surgical History No significant past surgical history Family History Other Adopted Social History Smoking/Tobacco Use Status: Current every day Tobacco Type: e-cigarettes Counseling given: provider counseling Smoking risk assessment performed?: Yes Alcohol Intake: current Alcohol Intake frequency: holidays/special occasions only Alcohol type: beer Details: Minimal Drug use: Daily Substance use type: marijuana, crack/cocaine and heroin Counseling given: Yes Details: states he does not want to disclosed other drug use at this time. Placido RN 01/15/23 Adopted: Yes Housing: apartment Current gender identity: male Do you feel safe at home: Yes Do you feel safe in your relationship?: Yes Additional Social history: Grew up in [place], adopted, close with 1 of his moms who lives in [place]. Lives alone in apartment [address] in [place]. Meds Allergies and Home Medications Allergies Allergy/AdvReac Type Severity Reaction Status Date / Time cat dander Allergy Wheezing Unverified 03/25/23 22:45 migraine medication AdvReac Uncoded 03/25/23 22:45 Home Medications Medication Instructions Recorded Confirmed Type albuterol sulfate 2.5 mg/3 mL 2.5 mg (3 mL) inhalation QID PRN 05/20/18 03/25/23 Rx (0.083 %) solution for nebulization shortness of breath or wheezing #75 mL buspirone 5 mg tablet 15 mg PO BID 09/22/18 03/25/23 History ibuprofen 200 mg capsule 600 mg PO PRN PRN 05/20/20 03/25/23 History hydroxyzine HCl 25 mg tablet See Rx Instructions .Route .COMPLEX 05/22/20 03/25/23 History pantoprazole 40 mg tablet,delayed 40 mg PO DAILY 05/22/20 03/25/23 History release sertraline 100 mg tablet 200 mg PO DAILY 05/22/20 03/25/23 History budesonide-formoterol HFA 80 2 puff inhalation 6XD #3 ea 07/03/22 03/25/23 Rx mcg-4.5 mcg/actuation aerosol inhaler (Symbicort) ipratropium 0.5 mg-albuterol 3 mg 3 ml inhalation Q4H PRN wheezing 07/04/22 03/25/23 Rx (2.5 mg base)/3 mL nebulization #540 mL soln lisdexamfetamine 70 mg capsule 70 mg PO DAILY 10/02/22 03/25/23 History (Lili) Exam Narrative Exam Narrative: Young -Marshallese male sitting up on a gurney in the emergency room is requesting to be fed. He does not appear to be in any acute respiratory distress not using accessory respiratory muscles. Neck is supple nontender no adenopathy no JVD and no accessory respiratory muscle use Lungs with diffuse expiratory wheezes no rhonchi or rales Heart is regular no murmur rub Abdomen is soft and nontender Extremities without peripheral cyanosis or edema Results Labs 03/25/23 22:32 03/25/23 22:32 Labs: Laboratory Results - last 24 hr 03/25/23 03/25/23 22:32 22:33 WBC 9.87 RBC 5.73 Hgb 15.1 Hct 47.4 MCV 83 MCH 26.4 L MCHC 31.9 L RDW 13.4 Plt Count 311 MPV 8.6 Immature Gran % 0.3 Neutrophils % 53.9 Lymphocytes % 31.3 Monocytes % 9.4 Eosinophils % 4.5 Basophils % 0.6 Nucleated RBC % 0.0 Absolute Neutrophils 5.32 Absolute Lymphocytes 3.09 Absolute Monocytes 0.93 H Absolute Eosinophils 0.44 Absolute Basophils 0.06 VBG pH 7.31 VBG pCO2 59 H VBG pO2 73 VBG HCO3 30 H VBG Total CO2 27 VBG O2 Saturation 94 VBG Base Excess 4 H Sodium 140 Potassium 4.1 Chloride 103 Carbon Dioxide 30.2 Anion Gap 6.8 BUN 7 Creatinine 0.7 Est GFR (CKD-EPI 2020) 127.91 Glucose 107 H Calcium 8.9 Total Bilirubin 0.4 AST 27 ALT 23 Alkaline Phosphatase 84 Total Protein 8.1 Albumin 3.9 COVID-19 Source Nasopharynx SARS-CoV-2 (PCR) Positive A Influenza Type A (PCR) Negative Influenza Type B (PCR) Negative RSV (PCR) Negative Last Vital Signs Temp 36.2 C L 03/25/23 22:46 Pulse 105 H 03/25/23 23:03 Resp 20 03/25/23 23:03 BP 163/110 H 03/25/23 23:01 Pulse Ox 99 03/25/23 23:03 Time Spent Time spent with Patient: 55-74 minutes Time was spent: preparing to see the patient(eg.review tests), obtaining and/or reviewing separately otained hiistory, ordering medications,tests, procedures, referring, communicating with other health day care provider, indepentently interpreting results, counseling the patient and care coordination
[2023-03-26] VITALS (68 sets, daily range): BP systolic 100–153; BP diastolic 47–103; PULSE 78–122; RESP 13–28; TEMP 36.8–37.7; O2SAT 93–99
[2023-03-26] MEDS: cefTRIAXone 1 GM/50 ML BAG IVPB (02:58)
[2023-03-26] MEDS: DOXYCYCLINE 100 MG in Normal Saline 100 ML IVPB ×2 (04:17→17:12)
[2023-03-26] MEDS: REMDESIVIR 200 MG in Normal Saline 250 ML 250 MG IVPB (06:06)
[2023-03-26] MEDS: Water,Injection,Sterile 10 ML VIAL (06:19)
[2023-03-26] MEDS: Budesonide/Formoterol 160/4.5 6 GM 60 PUFF INH IH ×2 (08:23→19:50)
[2023-03-26] MEDS: guaiFENesin 600 MG TABCR PO ×2 (08:31→19:47)
[2023-03-26] MEDS: Sertraline 100 MG TAB 200 MG PO (08:31)
[2023-03-26] MEDS: busPIRone 5 MG TAB 15 MG PO ×2 (08:31→19:47)
[2023-03-26] MEDS: Pantoprazole 40 MG TABCR PO (08:31)
[2023-03-26] MEDS: predniSONE 20 MG TAB 60 MG PO (08:31)
[2023-03-26] MEDS: Normal Saline Flush 10 ML SYR IVP ×2 (08:32→19:46)
[2023-03-26] MEDS: hydrOXYzine HCL 25 MG TAB PO ×3 (08:32→19:47)
[2023-03-26] MEDS: Methadone Liquid 10 MG/ML 130 MG PO (09:59)
--- NOTE | 2023-03-26 15:04 | PGE_ITS ---
Date of Service Date of service: 03/26/23 Time of Service: 15:05 Assessment and Plan Assessment and plan (1) Acute respiratory distress: Status: Acute Assessment and plan: - Respiratory status improved, though patient no longer requiring supplemental oxygen he continues to have wheezing throughout expiration -Continue DuoNeb treatments along with his Symbicort and continued steroids. -Patient received Solu-Medrol 125 mg t on admission -Will continue 60 mg p.o. prednisone daily, and will transition to recommended taper dose as per pulmonology (2) Severe asthma with acute exacerbation: Status: Acute Assessment and plan: -poor control and poor understanding of his asthma action plan; he insists that Symbicort is the only thing that will turn his asthma around. He does not carry his own albuterol inhaler as he says that it does not do anything. -Given this, we will continue to treat patient until almost complete resolution of symptoms as he has a high likelihood of an appropriately managing his asthma as an outpatient Qualifiers: Asthma persistence: persistent Qualified Code(s): J45.51 - Severe persistent asthma with (acute) exacerbation Subjective Subjective Interval history since last seen: Patient states that he feels better as compared to admission but he continues to have some difficulty breathing. Exam Narrative Exam Narrative: Fatigued appearing young gentleman laying in bed in no acute distress, ANO x 4, no longer on supplemental oxygen, heart regular rate rhythm, lungs somewhat diminished in the bases with wheezing throughout expiration, abdomen soft, nontender, nondistended Objective Last Vital Signs Temp 99.9 F H 03/26/23 08:43 Pulse 97 H 03/26/23 10:31 Resp 20 03/26/23 10:31 BP 128/63 03/26/23 10:31 Pulse Ox 98 03/26/23 10:31 Laboratory Results - last 24 hr 03/25/23 03/25/23 22:32 22:33 WBC 9.87 RBC 5.73 Hgb 15.1 Hct 47.4 MCV 83 MCH 26.4 L MCHC 31.9 L RDW 13.4 Plt Count 311 MPV 8.6 Immature Gran % 0.3 Neutrophils % 53.9 Lymphocytes % 31.3 Monocytes % 9.4 Eosinophils % 4.5 Basophils % 0.6 Nucleated RBC % 0.0 Absolute Neutrophils 5.32 Absolute Lymphocytes 3.09 Absolute Monocytes 0.93 H Absolute Eosinophils 0.44 Absolute Basophils 0.06 VBG pH 7.31 VBG pCO2 59 H VBG pO2 73 VBG HCO3 30 H VBG Total CO2 27 VBG O2 Saturation 94 VBG Base Excess 4 H Sodium 140 Potassium 4.1 Chloride 103 Carbon Dioxide 30.2 Anion Gap 6.8 BUN 7 Creatinine 0.7 Est GFR (CKD-EPI 2020) 127.91 Glucose 107 H Calcium 8.9 Total Bilirubin 0.4 AST 27 ALT 23 Alkaline Phosphatase 84 Total Protein 8.1 Albumin 3.9 COVID-19 Source Nasopharynx SARS-CoV-2 (PCR) Positive A Influenza Type A (PCR) Negative Influenza Type B (PCR) Negative RSV (PCR) Negative Time Spent with Patient Time Spent with Patient: >50 minutes Time was spent: preparing to see the patient(eg.review tests), obtaining and/or reviewing separately otained hiistory, ordering medications,tests, procedures, referring, communicating with other health continuum of care manager, indepentently interpreting results, counseling the patient and care coordination
--- NOTE | 2023-03-26 15:15 | PHA.REVIEW2 ---
Pharmacy Admission Review Admission Clinical Review Admission Pharmacy Review: (Updated 03/26/23 @ 01:32 by Andrés Ocampo MD) Acute respiratory distress (Acute) Severe asthma with acute exacerbation (Acute) cat dander Allergy (Unverified 03/25/23 22:45) Wheezing migraine medication Adverse Reaction (Uncoded 03/25/23 22:45) Resuscitation Status Full Code Height 5 ft 4.96 in Weight 62 kg Comments Comments/Follow Ups: tMonitor and watch for any medication changes. Per progress note, patient now on room air but still experiencing some wheezing. Pharmacy Admission Review Renal Dosing Renal Dosing: BUN 7 mg/dL (7-18) 03/25/23 22:32 Creatinine 0.7 mg/dL (0.70-1.30) 03/25/23 22:32 Medications needing adjustments: Reviewed (CrCl 136 mL/min) Anticoagulation Anticoagulation: Hgb 15.1 g/dL (13.5-17.5) 03/25/23 22:32 Hct 47.4 % (40.0-50.0) 03/25/23 22:32 Plt Count 311 10^3/uL (130-400) 03/25/23 22:32 Creatinine 0.7 mg/dL (0.70-1.30) 03/25/23 22:32 DVT Prophylaxis: N/A (None at this time) Relevant Labs Relevant Labs: Sodium 140 mmol/L (136-145) 03/25/23 22:32 Potassium 4.1 mmol/L (3.5-5.1) 03/25/23 22:32 Chloride 103 mmol/L (98-107) 03/25/23 22:32 Electrolytes, C-Reactive P, ESR: Reviewed (No new labs today) Cardiac Review BP, HR, EF%: Reviewed (BP WNL, HR 97) QTc Review QTc: N/A (No EKG on file) IV to PO Switch IV Medications: Reviewed Home Meds Home Med List reviewed: Reviewed Relevent Home Meds Not ordered & why?: Patient has not picked up Vyvanse since September of 2022. Reached out to provider, who asked that the order be canceled. Called [facility] in [facility] to confirm methadone dose. Confirmed that patient takes 130mg daily and last dose was given yesterday (03/25/22). Current Meds Current Medication Order Review: Reviewed Pharmacy Antibiotic Review Pharmacy Antibiotic Activity: Reviewed, no change Comments: Current regimen of doxycycline, ceftriaxone and remdesivir. Temperature of 37.7 today at 0843, COVID positive at 2233 on 03/25/22. Comments Comments/Follow Ups: tMonitor and watch for any medication changes. Per progress note, patient now on room air but still experiencing some wheezing.
--- NOTE | 2023-03-26 16:48 | PDOC.CMIN ---
Date of service: 03/27/23 Time of Service: 07:26 Care Management Initial Assmt Initial Assessment REASON FOR HOSPITALIZATION:: Asthma exacerbation PREVIOUS FUNCTIONAL STATUS/SOCIAL/FAMILY SUPPORTS:: Resides in [facility], independent at baseline in the community, works at [employer], chronic asthma limits activity. CURRENT FUNCTIONAL STATUS:: Alden remains in the ICU, CM following. ADVANCE DIRECTIVES:: None on file. Has patient been provided with info about the portal/API?: No Did the patient sign up for the portal?: No CODE STATUS:: Full Code INSURANCE COVERAGE / FINANCIAL ISSUES:: MCR, AFIA CURRENT HOME/COMMUNITY SERVICES/EQUIPMENT:: Nebulizer, [employer] CM: Chastity, MC, LISA, Voc Rehab, Slot Technician, Economic Services, Insurance support and disability navigation support. PRIMARY CARE PHYSICIAN:: Dago Joaquin POTENTIAL DISCHARGE NEEDS:: Follow up appointments, housing resources PATIENT/FAMILY EDUCATION NEEDS:: Review discharge instructions, discuss Ask Me Three. ANTICIPATED BARRIERS TO DISCHARGE:: None identified. TRANSPORTATION:: Via private vehicle with or friend or via RCT. PLAN:: Alden will return home when ready per MD, he will follow up with his PCP and plan of care as prescribed. CM continues to follow. PFSH All Active Problems (Updated 03/26/23 @ 01:32 by Andrés Ocampo MD) Acute respiratory distress (Acute) Lymphadenopathy (Acute) Hemorrhoids (Acute) Viral warts (Acute) Severe asthma with acute exacerbation (Acute) ADD (attention deficit disorder) (Acute) Marijuana smoker (Acute) Asthma (Chronic) Suicidal ideation (Acute) Depression (Chronic) Anxiety disorder (Chronic) Eczema (Chronic) Medical History Cyst of face Mass of left side of neck Acute asthma exacerbation Eczema Surgical History No significant past surgical history Family History Other Adopted Social History Smoking/Tobacco Use Status: Current every day Tobacco Type: e-cigarettes Counseling given: provider counseling Smoking risk assessment performed?: Yes Alcohol Intake: current Alcohol Intake frequency: holidays/special occasions only Alcohol type: beer Details: Minimal Drug use: Daily Substance use type: marijuana, crack/cocaine and heroin Counseling given: Yes Details: states he does not want to disclosed other drug use at this time. Placido RN 01/15/23 Adopted: Yes Housing: apartment Current gender identity: male Do you feel safe at home: Yes Do you feel safe in your relationship?: Yes Additional Social history: Grew up in [place], adopted, close with 1 of his moms who lives in [place]. Lives alone in apartment [address] in [place]. SDOH(Care Management) Screening Will the Patient Participate in the Screening?: Yes Do you worry about having a steady place to live?: no Problems where you live: mold and water leaks In the past 12 months, have you had to go without electric, gas, oil or water in your home?: no Have you or anyone in your house had to go without enough food to eat?: yes Has lack of transportation kept you from medical appointments or from doing things needed for daily living?: yes Has anyone in your support network made you feel unsafe for any reason?: choose not to answer Health Related Social Needs Health related social needs: inadequate housing(Z59.1), food insecurity(Z59.41) and transportation insecurity(Z59.82)
[2023-03-27] VITALS (48 sets, daily range): BP systolic 116–144; BP diastolic 63–101; PULSE 68–102; RESP 11–21; TEMP 36–37.5; O2SAT 93–97
[2023-03-27] MEDS: cefTRIAXone 1 GM/50 ML BAG IVPB (02:23)
[2023-03-27] MEDS: DOXYCYCLINE 100 MG in Normal Saline 100 ML IVPB ×2 (03:53→16:31)
[2023-03-27] MEDS: REMDESIVIR 100 MG in Normal Saline 250 ML 250 MG IVPB (06:02)
[2023-03-27] MEDS: Methadone Liquid 10 MG/ML 130 MG PO (07:56)
[2023-03-27] MEDS: busPIRone 5 MG TAB 15 MG PO ×2 (07:57→20:28)
[2023-03-27] MEDS: Normal Saline Flush 10 ML SYR IVP ×2 (07:57→20:40)
[2023-03-27] MEDS: predniSONE 20 MG TAB 60 MG PO (07:58)
[2023-03-27] MEDS: Sertraline 100 MG TAB 200 MG PO (07:58)
[2023-03-27] MEDS: hydrOXYzine HCL 25 MG TAB PO ×3 (07:58→20:28)
[2023-03-27] MEDS: Pantoprazole 40 MG TABCR PO (07:58)
[2023-03-27] MEDS: guaiFENesin 600 MG TABCR PO ×2 (07:59→20:28)
[2023-03-27] MEDS: Budesonide/Formoterol 160/4.5 6 GM 60 PUFF INH IH ×2 (08:05→20:24)
--- NOTE | 2023-03-27 10:51 | NUR.NOTE ---
i asked pt in220 if he wanted anyone on his HIPAA , he said he wasnt sure , i replied i would check with him later .Nursing Note:
[2023-03-27] MEDS: Ipratropium/Albuterol 4 GM 120 PUFF INH IH ×3 (10:54→20:25)
--- NOTE | 2023-03-27 11:26 | W.PM.PROGNOT ---
Date of Service Date of service: 03/27/23 Time of Service: 11:26 Assessment and Plan Assessment and plan (1) Acute respiratory distress: Status: Acute Assessment and plan: - Respiratory status improved, though patient no longer requiring supplemental oxygen he continues to have wheezing throughout expiration -Continue steroids and Symbicort -Patient has agreed to use as needed albuterol inhaler -Patient received Solu-Medrol 125 mg t on admission -Will continue 60 mg p.o. prednisone daily, and will transition to recommended taper dose as per pulmonology (2) Severe asthma with acute exacerbation: Status: Acute Assessment and plan: -poor control and poor understanding of his asthma action plan; he insists that Symbicort is the only thing that will turn his asthma around. He does not carry his own albuterol inhaler as he says that it does not do anything. -Given this, we will continue to treat patient until almost complete resolution of symptoms as he has a high likelihood of an appropriately managing his asthma as an outpatient Qualifiers: Asthma persistence: persistent Qualified Code(s): J45.51 - Severe persistent asthma with (acute) exacerbation Subjective Subjective Interval history since last seen: Patient states that he is feeling a little bit better today but continues to be wheezy even at rest and becomes short of breath with minimal movement. Long discussion was had with the patient regarding his use of his inhalers. Ultimately, he did agree to attempt to use his albuterol while he is hospitalized. The hope is that this will lead to the final step of improvement and he will understand the importance of using his Symbicort daily as well as his albuterol inhaler as needed. Exam Narrative Exam Narrative: Fatigued appearing young gentleman laying in bed in no acute distress, ANO x 4, no longer on supplemental oxygen, heart regular rate rhythm, lungs last-minute chest compared to yesterday diminished in the bases but with continued wheezing throughout expiration, abdomen soft, nontender, nondistended Objective Last Vital Signs Temp 99.5 F 03/27/23 09:13 Pulse 83 03/27/23 09:58 Resp 11 L 03/27/23 09:58 BP 136/88 03/27/23 09:58 Pulse Ox 97 03/27/23 09:58 Time Spent with Patient Time Spent with Patient: >50 minutes Time was spent: preparing to see the patient(eg.review tests), obtaining and/or reviewing separately otained hiistory, ordering medications,tests, procedures, referring, communicating with other health customer care assistant, indepentently interpreting results, counseling the patient and care coordination
--- NOTE | 2023-03-27 17:10 | PDOC.CMPRO ---
Date of service: 03/27/23 Time of Service: 17:10 Care Management Progress Note Progress Note Text Progress Note Text: S/O: Per MD, Alden more agreeable to new inhaler today. He remains in the ICU and was sleeping when CM attempted consult. CM continues to follow. A: 28 year old admitted to [facility] 03/26/23 for asthma exacerbation P: Alden remains inpatient, no additional services anticipated for discharge at this time, CM continues to follow.
[2023-03-28] VITALS (73 sets, daily range): BP systolic 119–144; BP diastolic 68–99; PULSE 67–98; RESP 11–23; TEMP 36.8–37.7; O2SAT 92–97
[2023-03-28] MEDS: cefTRIAXone 1 GM/50 ML BAG IVPB (01:13)
[2023-03-28] MEDS: DOXYCYCLINE 100 MG in Normal Saline 100 ML IVPB ×2 (04:30→16:20)
[2023-03-28] MEDS: REMDESIVIR 100 MG in Normal Saline 250 ML 250 MG IVPB (06:20)
[2023-03-28] MEDS: Budesonide/Formoterol 160/4.5 6 GM 60 PUFF INH IH ×2 (07:41→22:14)
[2023-03-28] MEDS: Ipratropium/Albuterol 4 GM 120 PUFF INH IH ×4 (07:42→22:15)
[2023-03-28] MEDS: Normal Saline Flush 10 ML SYR IVP ×2 (08:11→21:41)
[2023-03-28] MEDS: Methadone Liquid 10 MG/ML 130 MG PO (08:16)
[2023-03-28] MEDS: hydrOXYzine HCL 25 MG TAB PO ×3 (08:17→21:42)
[2023-03-28] MEDS: Sertraline 100 MG TAB 200 MG PO (08:18)
[2023-03-28] MEDS: Pantoprazole 40 MG TABCR PO (08:18)
[2023-03-28] MEDS: guaiFENesin 600 MG TABCR PO ×2 (08:18→21:41)
[2023-03-28] MEDS: predniSONE 20 MG TAB 60 MG PO (08:18)
[2023-03-28 10:23] LABS: HCT 43.4 % (40.0-50.0); HGB 13.9 g/dL (13.5-17.5); MCH 26.6 pg (27.0-33.0); MCV 83 fL (80-95); MPV 8.6 fL (8.0-11.0); Platelet Count 292 10^3/uL (130-400); RBC 5.22 10^6/uL (4.36-5.78); RDW 14.3 % (11.8-14.1); RDW-SD 43.4 fL
--- NOTE | 2023-03-28 11:08 | W.PM.PROGNOT ---
Date of Service Date of service: 03/28/23 Time of Service: 11:09 Assessment and Plan Assessment and plan (1) Acute respiratory distress: Status: Acute Assessment and plan: -Respiratory status improved, though patient no longer requiring supplemental oxygen he continues to have wheezing throughout expiration -Continue steroids and Symbicort -Patient has agreed to use as needed albuterol inhaler -Patient received Solu-Medrol 125 mg t on admission -Will continue 60 mg p.o. prednisone daily, and will transition to recommended taper dose as per pulmonology (2) Severe asthma with acute exacerbation: Status: Acute Assessment and plan: -poor control and poor understanding of his asthma action plan; he insists that Symbicort is the only thing that will turn his asthma around. He does not carry his own albuterol inhaler as he says that it does not do anything. -Given this, we will continue to treat patient until almost complete resolution of symptoms as he has a high likelihood of an appropriately managing his asthma as an outpatient Qualifiers: Asthma persistence: persistent Qualified Code(s): J45.51 - Severe persistent asthma with (acute) exacerbation Subjective Subjective Interval history since last seen: Patient states that his breathing is a little better today but that he feels more weak and tired. He has been using his albuterol inhaler but also appears to have rigors. Exam Narrative Exam Narrative: Fatigued, acutely ill appearing young gentleman laying in bed in no acute distress, ANO x 4, no longer on supplemental oxygen, heart regular rate rhythm, lungs now with audible air movement throughout lungs field but still with wheezing throughout expiration, abdomen soft, nontender, nondistended Objective Last Vital Signs Temp 98.2 F 03/28/23 07:35 Pulse 79 03/28/23 07:01 Resp 16 03/28/23 07:33 BP 119/68 03/28/23 07:01 Pulse Ox 95 03/28/23 07:33 Laboratory Results - last 24 hr 03/28/23 10:12 WBC 11.20 H RBC 5.22 Hgb 13.9 Hct 43.4 MCV 83 MCH 26.6 L MCHC 32.0 RDW 14.3 H Plt Count 292 MPV 8.6 Time Spent with Patient Time Spent with Patient: >50 minutes Time was spent: preparing to see the patient(eg.review tests), obtaining and/or reviewing separately [facility], ordering medications,tests, procedures, referring, communicating with other health rn progressive care unit, indepentently interpreting results, counseling the patient and care coordination
[2023-03-28] MEDS: busPIRone 5 MG TAB 15 MG PO ×2 (11:43→21:42)
--- NOTE | 2023-03-28 16:37 | PDOC.CMPRO ---
Date of service: 03/28/23 Time of Service: 16:37 Care Management Progress Note Progress Note Text Progress Note Text: S/O: Alden remains in the ICU, no change to overall plan. CM continues to follow. A: 28 year old admitted to [facility] 03/26/23 for asthma exacerbation P: Alden remains inpatient, no additional services anticipated for discharge at this time, CM continues to follow.
--- NOTE | 2023-03-28 23:22 | W.PC.ACHO ---
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 Medical / Surgical History (Last Reviewed 03/26/23 @ 01:28 by Andrés Ocampo MD) Cyst of face Mass of left side of neck Acute asthma exacerbation Eczema (Last Reviewed 03/26/23 @ 01:28 by Andrés Ocampo MD) No significant past surgical history Most Recent Vital Signs Temperature 37.2 C 03/28/23 22:34 Temperature Source Temporal Artery Scan 03/28/23 22:34 Pulse 94 H 03/28/23 22:34 Pulse Rhythm Regular 03/28/23 22:20 Pulse 93 H 03/28/23 14:00 Respiratory Rate 16 03/28/23 22:34 Respiratory Effort Non-Labored 03/28/23 22:20 Respiratory Depth Normal 03/28/23 22:20 Respiratory Pattern Normal 03/28/23 22:20 Blood Pressure 135/99 H 03/28/23 22:34 Blood Pressure Mean 110 03/28/23 22:01 Blood Pressure Position Left Lateral 03/28/23 01:13 Pulse Oximetry 94 03/28/23 22:34 Oxygen Delivery Method Room Air 03/28/23 22:34 Oxygen Flow Rate 0 03/28/23 22:34 Pain Level 0 03/28/23 22:34 Comment post NEB/EPI IM/inhaler 03/25/23 23:03 Allergies cat dander Allergy (Unverified 03/25/23 22:45) Wheezing migraine medication Adverse Reaction (Uncoded 03/25/23 22:45) Precautions Isolation Standard precaution 03/25/23 22:49 Active Medications Generic Name Dose Route Start Last Admin Trade Name Freq PRN Reason Stop Dose Admin Albuterol/Ipratropium 1 puff 03/27/23 12:00 03/28/23 22:15 Ipratropium/Albuterol 4 Gm 120 Puff Inh IH 1 puff QID SHIRLEY Administration Budesonide/Formoterol Fumarate 2 puff 03/26/23 08:30 03/28/23 22:14 Budesonide/Formoterol 160/4.5 6 Gm 60 Puff Inh IH 2 puffs BID SHIRLEY Administration Buspirone HCl 15 mg 03/26/23 08:30 03/28/23 21:42 Buspirone 5 Mg Tab PO 15 mg BID SHIRLEY Administration Guaifenesin 600 mg 03/26/23 08:30 03/28/23 21:41 Guaifenesin 600 Mg Tabcr PO 600 mg BID SHIRLEY Administration Hydroxyzine HCl 25 mg 03/26/23 08:30 03/28/23 21:42 Hydroxyzine Hcl 25 Mg Tab PO 25 mg TID SHIRLEY Administration Remdesivir 100 mg/ Sodium 250 mls @ 250 mls/hr 03/27/23 06:00 03/28/23 07:27 Chloride IVPB 03/30/23 06:59 Infused Q24H SHIRLEY Infusion Ceftriaxone Sodium/Dextrose 1 gm in 50 mls @ 100 mls/hr 03/26/23 02:00 03/28/23 12:10 Rocephin IVPB Infused Q24H SHIRLEY Infusion Doxycycline Hyclate 100 mg/ 100 mls @ 100 mls/hr 03/26/23 04:00 03/28/23 17:20 Sodium Chloride IVPB Infused Q12H SHIRLEY Infusion Methadone HCl 130 mg 03/26/23 08:30 03/28/23 08:16 Methadone Liquid 10 Mg/Ml PO 130 mg DAILY SHIRLEY Administration Pantoprazole Sodium 40 mg 03/26/23 08:30 03/28/23 08:18 Pantoprazole 40 Mg Tabcr PO 40 mg DAILY SHIRLEY Administration Prednisone 60 mg 03/26/23 08:30 03/28/23 08:18 Prednisone 20 Mg Tab PO 60 mg DAILY SHIRLEY Administration Sertraline HCl 200 mg 03/26/23 08:30 03/28/23 08:18 Sertraline 100 Mg Tab PO 200 mg DAILY SHIRLEY Administration Sodium Chloride 0 ml 03/26/23 08:30 03/28/23 21:41 Normal Saline Flush 10 Ml Syr IVP 20 ml BID SHIRLEY Administration IV IV Catheter Type [Right Saline Lock Forearm] IV Catheter Type [Right Saline Lock Antecubital] IV Catheter Gauge [Right 20 Forearm] IV Catheter Gauge [Right 20 Antecubital] Diagnostics 03/28/23 Range/Units 10:12 WBC 11.20 H (4.4-10.8) 10^3/uL RBC 5.22 (4.36-5.78) 10^6/uL Hgb 13.9 (13.5-17.5) g/dL Hct 43.4 (40.0-50.0) % MCV 83 (80-95) fL MCH 26.6 L (27.0-33.0) pg MCHC 32.0 (32.0-36.0) % RDW 14.3 H (11.8-14.1) % Plt Count 292 (130-400) 10^3/uL MPV 8.6 (8.0-11.0) fL 03/27/23 14:25 Sputum Culture - Preliminary Sputum Jane Albicans Normal Carolina Gram Stain - Final Intake and Output - 24 Hour Total 03/25/23 22:25 thru 03/28/23 22:33 Intake Total 6500 Output Total 4900 Balance 1600 Weight 62.5 kg Intake: IV 2580 Oral 3920 Output: Urine 4900 Other: Urine Color Straw Urine Appearance Clear Urine Odor Normal Comment using urinal for urination Voiding Methods Urinal Falls Risk Assessment History of Falls No History 03/26/23 02:12 Contributing Factors No Factors 03/26/23 02:12 Ambulatory Aids Independent 03/26/23 02:12 Tubes/Lines With any additional score 03/26/23 02:12 Gait Evaluation No gait disturbance 03/26/23 02:12 Cognition No cognitive impairment 03/25/23 22:29 Fall Total Score 20 03/26/23 02:12 Level of Risk Standard/Low Risk 03/26/23 02:12 Problems (Last Reviewed 03/26/23 @ 01:28 by Andrés Ocampo MD) Acute respiratory distress (Acute) Severe asthma with acute exacerbation (Acute) Asthma (Chronic) Notes 03/27/23 10:51 Nursing Notes by Aminta Donnelly i asked pt in220 if he wanted anyone on his HIPAA , he said he wasnt sure , i replied i would check with him later .Nursing Note: Initialized on 03/27/23 10:51 - END OF NOTE v v v v v v v v v Sending and/or Receiving Nurses: Please use comment section below to note any information pertinent to the patient hand-off not included above. Information / Comments: Report received from: Jackie 03/25/23 at 0120 all questions answered: yes
[2023-03-29] MEDS: cefTRIAXone 1 GM/50 ML BAG IVPB (01:56)
[2023-03-29] MEDS: DOXYCYCLINE 100 MG in Normal Saline 100 ML IVPB (03:33)
[2023-03-29] MEDS: REMDESIVIR 100 MG in Normal Saline 250 ML 250 MG IVPB (05:30)
[2023-03-29 05:40] VITALS: BP 129/79; PULSE 78; RESP 16; TEMP 37.5; O2SAT 96
[2023-03-29 06:06] VITALS: BP 129/79; PULSE 78; RESP 16; TEMP 37.5; O2SAT 96
[2023-03-29] MEDS: Budesonide/Formoterol 160/4.5 6 GM 60 PUFF INH IH (07:45)
[2023-03-29] MEDS: Ipratropium/Albuterol 4 GM 120 PUFF INH IH (07:45)
[2023-03-29] MEDS: predniSONE 20 MG TAB 60 MG PO (08:14)
[2023-03-29] MEDS: busPIRone 5 MG TAB 15 MG PO (08:14)
[2023-03-29] MEDS: hydrOXYzine HCL 25 MG TAB PO (08:15)
[2023-03-29] MEDS: Pantoprazole 40 MG TABCR PO (08:15)
[2023-03-29] MEDS: guaiFENesin 600 MG TABCR PO (08:15)
[2023-03-29] MEDS: Sertraline 100 MG TAB 200 MG PO (08:15)
[2023-03-29] MEDS: Methadone Liquid 10 MG/ML 130 MG PO (08:16)
[2023-03-29 08:36] VITALS: BP 143/87; PULSE 105; O2SAT 98
--- NOTE | 2023-03-29 09:35 | DSE_ITS ---
Date of service: 03/29/23 Time of Service: 09:35 DS: Diagnosis Discharge Diagnosis (1) Acute respiratory distress: Status: Acute Asessment and Plan: -Respiratory status improved, though patient no longer requiring supplemental oxygen he continues to have wheezing throughout expiration -Continue steroids and Symbicort -Patient has agreed to use as needed albuterol inhaler -Patient received Solu-Medrol 125 mg t on admission -Will continue 60 mg p.o. prednisone daily, and will transition to recommended taper dose as per pulmonology (2) Severe asthma with acute exacerbation: Status: Acute Discharge Plan Disposition Patient Disposition: Home Condition: Good Discharge Details Reason For Visit: Asthma axacerbation Admit Date/Time: 03/26/23 00:03 Admit Provider: Andrés Ocampo Attending Provider: Andrés Ocampo Primary Care Provider: Dago Joaquin Hospital Course Hospital Course: Due to patient initially presented with an acute asthma exacerbation likely brought on by COVIN-19. While hospitalized patient was treated with remdesivir, as well as inhalers and albuterol as needed. Patient was briefly on oxygen but has been on room air for greater than 48 hours prior to discharge. The patient has had significant improvement, no longer requiring supplemental oxygen Mr. Carrillo that he was stable for discharge home Home Meds and New Rx's Prescriptions: Continued budesonide-formoterol [Symbicort] 80-4.5 mcg/actuation HFA aerosol inhaler 2 puff inhalation 6XD Qty: 3 12RF Rx Instructions: 2 puffs twice a day and as needed, up to 12 puffs in a 24 hour period Rinse mouth after use ipratropium-albuterol 0.5 mg-3 mg(2.5 mg base)/3 mL solution for nebulization 3 ml inhalation Q4H PRN (Reason: wheezing) Qty: 540 12RF Vyvanse 70 mg capsule 70 mg PO DAILY pantoprazole 40 mg tablet,delayed release (DR/EC) 40 mg PO DAILY Patient Comments: TAKE 1 TABLET BY MOUTH DAILY hydroxyzine HCl 25 mg tablet See Rx Instructions .ROUTE .COMPLEX Patient Comments: TAKE ONE TABLET BY MOUTH THREE TIMES A DAY AND TWO TABLETS AT BEDTIME NEEDED Rx Instructions: TAKE ONE TABLET BY MOUTH THREE TIMES A DAY AND TWO TABLETS AT BEDTIME NEEDED sertraline 100 mg tablet 200 mg PO DAILY albuterol sulfate 2.5 mg /3 mL (0.083 %) solution for nebulization 2.5 mg IH QID PRN (Reason: shortness of breath or wheezing) Qty: 75 0RF buspirone 5 mg Tablet 15 mg PO BID Patient Comments: Patient state he takes 15mg bid ibuprofen 200 mg Capsule 600 mg PO PRN PRN Discharge Instructions Instructions: Asthma (DC) Activity:: Activity as Tolerated Equipment/Supplies:: No Equipment Needed Diet:: As Tolerated Discharge Orders Discharge Orders: Discharge Order (Routine); Ordered 03/29/23 Ordered By: Carlos Navarrete DS: Summary Time Spent with Patient providing and/or coordinating discharge services: Greater than 30 minutes Status at Discharge Functional status at discharge: independent ambulation Overall status at discharge: patient is back to baseline Mental Status: mental status grossly normal Speech and Movement: speech and movement normal Mood: congruent mood Affect: normal affect Quality:SDOH Health Related Social Needs: Health related social needs inadequate housing, food i nsecurity, transpo insecurity Exam Narrative Exam Narrative: Well appearing appearing young gentleman laying in bed in no acute distress, ANO x 4, no longer on supplemental oxygen, heart regular rate rhythm, lungs with minimal end-expiratory wheezing in bilateral lower lung grossman, abdomen soft, nontender, nondistended Psych Mental Status: mental status grossly normal Speech and Movement: speech and movement normal Mood: congruent mood Affect: normal affect DS: Data Vitals/I&O Vitals and I&O: Vital Signs Temperature 99.5 F 03/29/23 06:06 Temperature Source Temporal Artery Scan 03/29/23 06:06 Pulse 105 H 03/29/23 08:36 Pulse Rhythm Regular 03/29/23 04:19 Pulse 93 H 03/28/23 14:00 Respiratory Rate 16 03/29/23 06:06 Respiratory Effort Short of Breath 03/29/23 09:05 Respiratory Depth Shallow 03/29/23 09:05 Respiratory Pattern Normal 03/29/23 04:19 Blood Pressure 143/87 H 03/29/23 08:36 Blood Pressure Mean 101 03/29/23 08:36 Blood Pressure Position Left Lateral 03/28/23 01:13 Pulse Oximetry 98 03/29/23 08:36 Oxygen Delivery Method Room Air 03/29/23 06:06 Oxygen Flow Rate 0 03/29/23 06:06 Pain Level 0 03/28/23 22:34 Comment post NEB/EPI IM/inhaler 03/25/23 23:03 Intake & Output 03/28/23 03/29/23 03/29/23 17:59 05:59 17:59 Intake Total 930 / 930 640 / 1570 670 / 670 Output Total 450 / 450 800 / 1250 Balance 480 / 480 -160 / 320 670 / 670 Weight 136 lb 10.986 oz Intake: IV 510 / 510 160 / 670 250 / 250 Oral 420 / 420 480 / 900 420 / 420 Output: Urine 450 / 450 800 / 1250 Other: Urine Color Straw Light Dyan Urine Appearance Clear Clear Clear Urine Odor Normal Normal Comment using urinal for urination Voiding Methods Urinal Urinal Data Completed and Pending Labs on day of discharge: Labs from last 24 hours 03/28/23 10:12 WBC 11.20 H RBC 5.22 Hgb 13.9 Hct 43.4 MCV 83 MCH 26.6 L MCHC 32.0 RDW 14.3 H Plt Count 292 MPV 8.6 Preliminary micro results at discharge 03/27/23 14:25 Sputum Culture - Preliminary Sputum Jane Albicans Normal [place] PFSH All Active Problems (Updated 03/26/23 @ 01:32 by Andrés Ocampo MD) Acute respiratory distress (Acute) Lymphadenopathy (Acute) Hemorrhoids (Acute) Viral warts (Acute) Severe asthma with acute exacerbation (Acute) ADD (attention deficit disorder) (Acute) Marijuana smoker (Acute) Asthma (Chronic) Suicidal ideation (Acute) Depression (Chronic) Anxiety disorder (Chronic) Eczema (Chronic) Medical History Cyst of face Mass of left side of neck Acute asthma exacerbation Eczema Surgical History No significant past surgical history Family History Other Adopted Social History Smoking/Tobacco Use Status: Current every day Tobacco Type: e-cigarettes Counseling given: provider counseling Smoking risk assessment performed?: Yes Alcohol Intake: current Alcohol Intake frequency: holidays/special occasions only Alcohol type: beer Details: Minimal Drug use: Daily Substance use type: marijuana, crack/cocaine and heroin Counseling given: Yes Details: states he does not want to disclosed other drug use at this time. Placido RN 01/15/23 Adopted: Yes Housing: apartment Current gender identity: male Do you feel safe at home: Yes Do you feel safe in your relationship?: Yes Additional Social history: Grew up in [place], adopted, close with 1 of his moms who lives in [place]. Lives alone in apartment [address] in [place]. Time Spent with Patient Time Spent with Patient: <45 minutes Time was spent: preparing to see the patient(eg.review tests), obtaining and/or reviewing separately otained hiistory, ordering medications,tests, procedures, referring, communicating with other health acute care nursing assistant, indepentently interpreting results, counseling the patient and care coordination
--- NOTE | 2023-03-29 13:16 | CMDISCH_ITS ---
Date of service: 03/29/23 Time of Service: 13:16 LACE Index Scoring Tool Questions: Length of Stay (in days): 3 Was the patient admitted via the E.D.?: Yes Comorbidities: Chronic Pulmonary Disease E.D. Visits: 1 Answers: Total Score: 9 Risk of Readmission: Low Risk Care Management Discharge Plan Reason for Hospitalization: Asthma exacerbation Discharge Plan: Alden will return home with no additional services, he will follow up with his PCP, community providers and plan of care as prescribed including new respiratory medications and transport via private vehicle with family. Patient/Family Education Needs: Review discharge instructions, discuss Ask Me Three. SDOH Health Related Social Needs: Health related social needs inadequate housing, food i nsecurity, transpo insecurity Health related social needs: inadequate housing(Z59.1), food insecurity(Z59.41) and transportation insecurity(Z59.82) Health related social needs details: Review of community based services for outreach.
== END 2023-03-29 09:50 | disposition home or self-care (01) | DRG 178 ==
LOC: ER 03-26 01:32 → ICU 03-26 02:03
PROVIDERS: Family Medicine; Admitting Provider Internal Medicine; Emergency Provider Student in an Organized Health Care Education/Training Program; PCP Physician Assistant; Visit Provider Internal Medicine
DX: U07.1 COVID-19; J45.51 Severe persistent asthma with (acute) exacerbation; R06.03 Acute respiratory distress; F17.290 Nicotine dependence, other tobacco product, uncomplicated; F12.90 Cannabis use, unspecified, uncomplicated; R59.1 Generalized enlarged lymph nodes; K64.8 Other hemorrhoids; F98.8 Other specified behavioral and emotional disorders with onset usually occurring in childhood and adolescence; F41.9 Anxiety disorder, unspecified; L30.9 Dermatitis, unspecified; F32.9 Major depressive disorder, single episode, unspecified
CPT/HCPCS: 00123; 36415; 80053; 82805; 85027; 87637; 94640; 96360; 96361; 99291; 71045; 85025; 87070; 87205; 94664; 94667; 99223; 99233; 99239; J0171; J0248; J0696; J3475; J3490; J7512; J7620

== ENCOUNTER 2023-03-29 17:48 | Emergency (ER) | payer MEDICARE, MEDICAID, SELFPAY ==
[2023-03-29 18:03] VITALS: PULSE 128; RESP 23; TEMP 36.1; O2SAT 97
[2023-03-29 18:29] VITALS: PULSE 122; RESP 19; O2SAT 97
--- NOTE | 2023-03-29 18:30 | ED.GENADUL_ITS ---
HPI General Mode of arrival: ambulatory . Date/Time Provider Initiated Documentation: 03/29/23 17:49 . Limitations to Documentation: no limitations . Information obtained by: patient . 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 patient is sitting on stretcher texting on his phone while demanding admission. skin of is natural color and well perfused, respirations are even and unlabored, satting 97% on room air. breath sounds are diminished throughout but with fair breath sounds, no wheezing. He is talking in complete full sentences. refusing to cooperate with peak flow. Related Data Home Medications Medication Instructions Recorded Confirmed albuterol sulfate 2.5 mg/3 mL 2.5 mg (3 mL) inhalation QID PRN 05/20/18 03/29/23 (0.083 %) solution for nebulization shortness of breath or wheezing #75 mL buspirone 5 mg tablet 15 mg PO BID 09/22/18 03/29/23 ibuprofen 200 mg capsule 600 mg PO PRN PRN 05/20/20 03/29/23 hydroxyzine HCl 25 mg tablet See Rx Instructions .Route .COMPLEX 05/22/20 03/29/23 pantoprazole 40 mg tablet,delayed 40 mg PO DAILY 05/22/20 03/29/23 release sertraline 100 mg tablet 200 mg PO DAILY 05/22/20 03/29/23 budesonide-formoterol HFA 80 2 puff inhalation 6XD #3 ea 07/03/22 03/29/23 mcg-4.5 mcg/actuation aerosol inhaler (Symbicort) ipratropium 0.5 mg-albuterol 3 mg 3 ml inhalation Q4H PRN wheezing 07/04/22 03/29/23 (2.5 mg base)/3 mL nebulization #540 mL soln lisdexamfetamine 70 mg capsule 70 mg PO DAILY 10/02/22 03/29/23 (Vyvanse) prednisone 10 mg tablet 10 mg PO DIRECTED #37 tabs 03/29/23 Previous Rx's Medication Instructions Recorded albuterol sulfate 2.5 mg/3 mL 2.5 mg (3 mL) inhalation QID PRN 05/20/18 (0.083 %) solution for nebulization shortness of breath or wheezing #75 mL budesonide-formoterol HFA 80 2 puff inhalation 6XD #3 ea 07/03/22 mcg-4.5 mcg/actuation aerosol inhaler (Symbicort) ipratropium 0.5 mg-albuterol 3 mg 3 ml inhalation Q4H PRN wheezing 07/04/22 (2.5 mg base)/3 mL nebulization #540 mL soln prednisone 10 mg tablet 10 mg PO DIRECTED #37 tabs 03/29/23 Allergies Allergy/AdvReac Type Severity Reaction Status Date / Time cat dander Allergy Wheezing Unverified 03/29/23 18:01 migraine medication AdvReac Uncoded 03/29/23 18:01 General Stated Complaint: RespSymp MINGO: 3 Review of Systems All systems reviewed & are unremarkable except as noted in HPI and below Course Vital Signs Vital signs: Vital Signs Temperature 36.1 C L 03/29/23 18:03 Pulse 128 H 03/29/23 18:03 Respiratory Rate 23 03/29/23 18:03 Pulse Oximetry 97 03/29/23 18:03 Temperature 36.1 C L 03/29/23 18:03 Temperature Source Temporal Artery Scan 03/29/23 18:03 Pulse 128 H 03/29/23 18:03 Respiratory Rate 23 03/29/23 18:03 Respiratory Effort Normal 03/29/23 18:28 Respiratory Depth Normal 03/29/23 18:28 Pulse Oximetry 97 03/29/23 18:03 Oxygen Delivery Method Room Air 03/29/23 18:03 Oxygen Flow Rate 0 03/29/23 18:03 Pain Level 8 03/29/23 18:03 Medical Decision Making This is a 28-year-old male patient discharged today after hospitalization for asthma exacerbation. He returns for reevaluation stating that he is not feeling any better. Additionally at triage he is requesting a meal. (not consistent with someone who is in asthma exacerbation). on evaluation patient is playing on his cell phone in no respiratory distress, his respirations are even and unlabored he is satting in the high 90s on room air. Breath sounds are heard throughout but slightly diminished but suspect possibly due to poor inspiratory effort. I hear no wheezing. He refuses to cooperate with peak flow measurement. When discussing with him that I see no evidence of asthma exacerbation he gets extremely irritated and argumentative and is speaking in complete sentences. Pulse is elevated and most likely secondary to patient's agitation. His respiratory rate is 16-20. I see no indication to repeat imaging or lab based on his physical exam. Patient is stable for discharge to home. There is no emergency medical condition noted on physical examination. He should continue outpatient medications as previously directed with a slow steroid taper. He should follow- up outpatient with his primary care provider or pulmonary medicine. Quality:SDOH Health Related Social Needs: Health related social needs inadequate housing, food i nsecurity, transpo insecurity Health related social needs details Review of communit based services for outreach. PFSH All Active Problems (Updated 03/30/23 @ 00:03 by JOANNA ARGUETA) Lymphadenopathy (Acute) Hemorrhoids (Acute) Viral warts (Acute) ADD (attention deficit disorder) (Acute) Marijuana smoker (Acute) Asthma (Chronic) Suicidal ideation (Acute) Depression (Chronic) Anxiety disorder (Chronic) Eczema (Chronic) Medical History Cyst of face Mass of left side of neck Acute asthma exacerbation Eczema Surgical History No significant past surgical history Family History Other Adopted Social History Smoking/Tobacco Use Status: Current every day Tobacco Type: e-cigarettes Counseling given: provider counseling Smoking risk assessment performed?: Yes Alcohol Intake: current Alcohol Intake frequency: holidays/special occasions only Alcohol type: beer Details: Minimal Drug use: Daily Substance use type: marijuana, crack/cocaine and heroin Counseling given: Yes Details: states he does not want to disclosed other drug use at this time. Placido, RN 01/15/23 Adopted: Yes Housing: apartment Current gender identity: male Do you feel safe at home: Yes Do you feel safe in your relationship?: Yes Additional Social history: Grew up in [place], adopted, close with 1 of his moms who lives in [place]. Lives alone in apartment [address] in [place]. Discharge Plan Disposition Patient Disposition: Home Condition: Stable Discharge Details Clinical Impression: Asthma Primary Care Provider: Dago Joaquin ED Provider: Monica Plasencia Home Meds and New Rx's Prescriptions: New prednisone 10 mg tablet 10 mg PO DIRECTED Qty: 37 0RF Rx Instructions: 60mg for 2 days, 40mg for 3 days, 20mg for 3 days, 10mg for 3 days, and 5mg for 4 days Continued budesonide-formoterol [Symbicort] 80-4.5 mcg/actuation HFA aerosol inhaler 2 puff inhalation 6XD Qty: 3 12RF Rx Instructions: 2 puffs twice a day and as needed, up to 12 puffs in a 24 hour period Rinse mouth after use ipratropium-albuterol 0.5 mg-3 mg(2.5 mg base)/3 mL solution for nebulization 3 ml inhalation Q4H PRN (Reason: wheezing) Qty: 540 12RF Vyvanse 70 mg capsule 70 mg PO DAILY pantoprazole 40 mg tablet,delayed release (DR/EC) 40 mg PO DAILY Patient Comments: TAKE 1 TABLET BY MOUTH DAILY hydroxyzine HCl 25 mg tablet See Rx Instructions .ROUTE .COMPLEX Patient Comments: TAKE ONE TABLET BY MOUTH THREE TIMES A DAY AND TWO TABLETS AT BEDTIME NEEDED Rx Instructions: TAKE ONE TABLET BY MOUTH THREE TIMES A DAY AND TWO TABLETS AT BEDTIME NEEDED sertraline 100 mg tablet 200 mg PO DAILY albuterol sulfate 2.5 mg /3 mL (0.083 %) solution for nebulization 2.5 mg IH QID PRN (Reason: shortness of breath or wheezing) Qty: 75 0RF buspirone 5 mg Tablet 15 mg PO BID Patient Comments: Patient state he takes 15mg bid ibuprofen 200 mg Capsule 600 mg PO PRN PRN Discharge Instructions Instructions: Asthma (ED) Additional Instructions: continue medications as previously directed Referrals: Dago Joaquin [Primary Care Provider] - Discharge Data Discharge Date/Time-TO BE ENTERED AT DEPARTURE: 03/29/23 19:56
[2023-03-29 19:43] VITALS: PULSE 110; RESP 18; O2SAT 100
--- NOTE | 2023-03-29 20:06 | NUR.NOTE ---
Nursing Note: Patient was medically cleared and discharged, adamantly refusing to leave. Nurse shellfish farming supervisor Porsche, as Amina and Chay from security were present outside the room. Patient was discharged by Robbin Al RN. Patient stating I can't breathe, I'm having an asthma attack. Patient escorted to the waiting room. Patient stood in waiting room for approximately 20 minutes speaking in full sentences with no signs of respiratory distress. Patient stated multiple times I will if I have to walk 3 miles home. State police were notified. Patient decided to exit the hospital on his own prior to state police arrival.
== END 2023-03-29 19:56 | disposition home or self-care (01) ==
PROVIDERS: Emergency Provider Nurse Practitioner Acute Care; PCP Physician Assistant
DX: R06.02 Shortness of breath (principal); J45.909 Unspecified asthma, uncomplicated; F17.290 Nicotine dependence, other tobacco product, uncomplicated
CPT/HCPCS: 99283

== ENCOUNTER 2023-04-15 21:51 | Emergency (ER) | payer MEDICARE, MEDICAID, SELFPAY ==
[2023-04-15 21:51] VITALS: BP 168/103; PULSE 114; RESP 18; TEMP 37.2; O2SAT 96
[2023-04-15 22:13] VITALS: BP 168/103; PULSE 114; RESP 18; TEMP 37.2; O2SAT 96
--- NOTE | 2023-04-15 22:15 | DI.RAD_ITS ---
Exam(s) XR ANKLE LT COMPLETE EXAM: XR ANKLE LT COMPLETE CLINICAL HISTORY: fall, left ankle pain. TECHNIQUE: 2D digital imaging was performed. COMPARISON: CR,XR XR ANKLE RT COMPLETE from 04/15/2023 FINDINGS: 3 views There is significant soft tissue swelling in the lower calf and on both sides of the ankle. There is no evidence fracture or widening of the ankle mortise. Talar dome appears unremarkable. No degener ative changes. No osteochondral defects. Bone density normal. No osseous lesions. No osseous tars al coalition. IMPRESSION: No fractures evident. Diffuse soft tissue swelling. DATA REPOSITORY: RADIATION DOSE DELIVERED:
--- NOTE | 2023-04-15 22:15 | DI.RAD_ITS ---
Exam(s) XR TIB/FIB LT EXAM: XR TIB/FIB LT CLINICAL HISTORY: fall, left calf pain. TECHNIQUE: 2D digital imaging was performed. COMPARISON: No exams were available for comparison FINDINGS: Two views. There is soft tissue swelling in the calf. No radiopaque foreign body. Bone density normal. No fra ctures in the tibia and fibula. Knee joint effusion is noted. IMPRESSION: No acute osseous findings in the tibia and fibula. Knee joint effusion noted. DATA REPOSITORY: RADIATION DOSE DELIVERED:
--- NOTE | 2023-04-15 22:15 | DI.RAD_ITS ---
Exam(s) XR ANKLE RT COMPLETE EXAM: XR ANKLE RT COMPLETE CLINICAL HISTORY: fall, right ankle pain. TECHNIQUE: 2D digital imaging was performed. COMPARISON: No exams were available for comparison FINDINGS: Four views. There is soft tissue swelling laterally but no fracture or widening of the ankle mortise. Talar dome unremarkable. Bone density normal. No osseous lesions. No joint space narrowing. IMPRESSION: Soft tissue swelling laterally. No acute osseous findings. DATA REPOSITORY: RADIATION DOSE DELIVERED:
[2023-04-15 22:26] LABS: Abs Immature Grans 0.04 10^3/uL (0.0-0.06); Absolute Eosinophil Count 0.26 10^3/uL (0.0-0.7); Absolute Monocyte Count 0.77 10^3/uL (0.1-0.8); Basophils % 0.4; Eosinophils % 1.9; HGB 13.7 g/dL (13.5-17.5); Immature Grans % 0.3; Lymphocytes % 10.3; MCH 27.2 pg (27.0-33.0); MCHC 33.4 % (32.0-36.0); MCV 82 fL (80-95); MPV 8.5 fL (8.0-11.0); Monocytes % 5.7; Neutrophils % 81.4; Platelet Count 208 10^3/uL (130-400); RBC 5.03 10^6/uL (4.36-5.78); RDW-SD 40.7 fL; WBC 13.44 10^3/uL (4.4-10.8)
[2023-04-15 22:28] LABS: Absolute Basophil Count 0.05 10^3/uL (0.0-0.2); Absolute Lymphocyte Count 1.38 10^3/uL (1.2-3.4); Absolute Neutrophil Count 10.94 10^3/uL (1.2-6.7)
[2023-04-15 22:30] LABS: ESR 13 mm/hr (0-15)
[2023-04-15] MEDS: Ketorolac 15 MG/ML VIAL IVP (22:30)
[2023-04-15] MEDS: Acetaminophen 500 MG TAB 1000 MG PO (22:30)
--- NOTE | 2023-04-15 22:41 | W.ED.GENAD ---
HPI General Date/Time Provider Initiated Documentation: 04/15/23 21:55. HPI Narrative: 28-year-old male with a past medical history of marijuana use, significant asthma history, recent COVID 3 weeks ago, presents today for left leg pain with minimal right leg pain. Patient states that 3 days ago he fell out of his bed and hit his heel/Achilles area on a cabinet. He had no pain at that time, however over the next 3 days he developed pain in the Achilles tendon bilaterally, and in the left leg swelling redness and tenderness that travels from the ankle to the calf and medial aspect of the knee. Pain is made worse with palpation and movement. He denies fever or chills. He denies IV or illicit drug use or needle injections in the legs. No other complaints at this time. No chest pain or shortness of breath. No fever or chills. Related Data Home Medications Medication Instructions Recorded Confirmed albuterol sulfate 2.5 mg/3 mL 2.5 mg (3 mL) inhalation QID PRN 05/20/18 04/15/23 (0.083 %) solution for nebulization shortness of breath or wheezing #75 mL buspirone 5 mg tablet 15 mg PO BID 09/22/18 04/15/23 ibuprofen 200 mg capsule 600 mg PO PRN PRN 05/20/20 04/15/23 hydroxyzine HCl 25 mg tablet See Rx Instructions .Route .COMPLEX 05/22/20 04/15/23 pantoprazole 40 mg tablet,delayed 40 mg PO DAILY 05/22/20 04/15/23 release sertraline 100 mg tablet 200 mg PO DAILY 05/22/20 04/15/23 budesonide-formoterol HFA 80 2 puff inhalation 6XD #3 ea 07/03/22 04/15/23 mcg-4.5 mcg/actuation aerosol inhaler (Symbicort) ipratropium 0.5 mg-albuterol 3 mg 3 ml inhalation Q4H PRN wheezing 07/04/22 04/15/23 (2.5 mg base)/3 mL nebulization #540 mL soln lisdexamfetamine 70 mg capsule 70 mg PO DAILY 10/02/22 04/15/23 (Vyvanse) prednisone 10 mg tablet 10 mg PO DIRECTED #37 tabs 03/29/23 04/15/23 clindamycin HCl 150 mg capsule 450 mg (3 x 150 mg) PO QID 7 days 04/15/23 (Cleocin HCl) #84 caps Previous Rx's Medication Instructions Recorded albuterol sulfate 2.5 mg/3 mL 2.5 mg (3 mL) inhalation QID PRN 05/20/18 (0.083 %) solution for nebulization shortness of breath or wheezing #75 mL budesonide-formoterol HFA 80 2 puff inhalation 6XD #3 ea 07/03/22 mcg-4.5 mcg/actuation aerosol inhaler (Symbicort) ipratropium 0.5 mg-albuterol 3 mg 3 ml inhalation Q4H PRN wheezing 07/04/22 (2.5 mg base)/3 mL nebulization #540 mL soln prednisone 10 mg tablet 10 mg PO DIRECTED #37 tabs 03/29/23 clindamycin HCl 150 mg capsule 450 mg (3 x 150 mg) PO QID 7 days 04/15/23 (Cleocin HCl) #84 caps Allergies Allergy/AdvReac Type Severity Reaction Status Date / Time cat dander Allergy Wheezing Unverified 03/29/23 18:01 migraine medication AdvReac Uncoded 03/29/23 18:01 General Stated Complaint: Cellulitis MINGO: 3 Review of Systems All systems reviewed & are unremarkable except as noted in HPI and below Exam Narrative Exam Narrative: 1.Const: Well-nourished, Well-developed, appearing stated age 2.Eyes: PERRL, no conjunctival injection, and symmetrical lids. 3.ENT: Atraumatic external nose and ears. Moist MM. Neck: Symmetric, trachea midline, No thyromegaly. 4.CVS: +S1/S2, No murmurs or gallops. Peripheral pulses 2+ and equal in all extremities. Brisk capillary refill in all extremities. 5.RESP: Unlabored respiratory effort. Minimal wheeze. No rhonchi or rales. 6.GI: Soft, Nontender/Nondistended, No hepatosplenomegaly. No guarding or rebound. 7.MSK: Right lower extremity demonstrates minimal tenderness over the Achilles tendon. Patient demonstrates good plantar dorsiflexion though. Negative Homans test, no pain in the calf. No significant ankle pain or calcaneal pain. No significant swelling. Left lower extremity demonstrates swelling around the ankle pinzon posteriorly, and calf. Minimal swelling to the medial aspect of the knee. No significant pain with movement of the knee. Significant pain with even light touch to the calf, ankle, and swollen areas. Minimal rash to the posterior aspect by the calcaneus. Minimal redness throughout. Mild edema throughout. 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 Sensation grossly intact, no focal neurologic deficits. 10.Psych: (AAO) x3. Appropriate mood and affect Course Vital Signs Vital signs: Vital Signs Temperature 37.2 C 04/15/23 21:51 Pulse 114 H 04/15/23 21:51 Respiratory Rate 18 04/15/23 21:51 Blood Pressure 168/103 H 04/15/23 21:51 Pulse Oximetry 96 04/15/23 21:51 Temperature 37.2 C 04/15/23 22:13 Temperature Source Temporal Artery Scan 04/15/23 22:13 Pulse 114 H 04/15/23 22:13 Respiratory Rate 18 04/15/23 22:13 Respiratory Effort Normal, Non-Labored 04/15/23 21:55 Blood Pressure 168/103 H 04/15/23 22:13 Blood Pressure Position Supine 04/15/23 22:13 Pulse Oximetry 96 04/15/23 22:13 Oxygen Delivery Method Room Air 04/15/23 22:13 Oxygen Flow Rate 0 04/15/23 21:51 Pain Level 10 04/15/23 22:13 Lab/Test Results Lab/Test Results: Laboratory Tests Range/Units 04/15/23 22:10 WBC (4.4-10.8) 10^3/uL 13.44 H RBC (4.36-5.78) 10^6/uL 5.03 Hgb (13.5-17.5) g/dL 13.7 Hct (40.0-50.0) % 41.0 MCV (80-95) fL 82 MCH (27.0-33.0) pg 27.2 MCHC (32.0-36.0) % 33.4 RDW (11.8-14.1) % 14.0 Plt Count (130-400) 10^3/uL 208 MPV (8.0-11.0) fL 8.5 Immature Gran % 0.3 Neutrophils % 81.4 Lymphocytes % 10.3 Monocytes % 5.7 Eosinophils % 1.9 Basophils % 0.4 Nucleated RBC % (0.0-0.3) % 0.0 Absolute Neutrophils (1.2-6.7) 10^3/uL 10.94 H Absolute Lymphocytes (1.2-3.4) 10^3/uL 1.38 Absolute Monocytes (0.1-0.8) 10^3/uL 0.77 Absolute Eosinophils (0.0-0.7) 10^3/uL 0.26 Absolute Basophils (0.0-0.2) 10^3/uL 0.05 ESR (0-15) mm/hr 13 Medical Decision Making 28-year-old male with a past medical history of marijuana use, significant asthma history, recent COVID 3 weeks ago, presents today for left leg pain with minimal right leg pain. Patient states that 3 days ago he fell out of his bed and hit his heel/Achilles area on a cabinet. He had no pain at that time, however over the next 3 days he developed pain in the Achilles tendon bilaterally, and in the left leg swelling redness and tenderness that travels from the ankle to the calf and medial aspect of the knee. Pain is made worse with palpation and movement. He denies fever or chills. He denies IV or illicit drug use or needle injections in the legs. No other complaints at this time. No chest pain or shortness of breath. No fever or chills. Physical exam demonstrates swelling in the left lower extremity around the ankle calf after the medial aspect of the knee, notable pain with even light palpation. Mild warmth, mild erythema. Minimal rash. Concern for cellulitis. He does not have any subcutaneous crepitus. Bedside ultrasound was performed and shows no free air. Symptoms appear inconsistent with neck Fash. Concern for cellulitis secondary to initial traumatic injury. Potential reflex and pathetic dystrophy. Calf is not tense. He has good distal pulses and capillary refill is posterior tibial and dorsalis pedis pulse. Good vascular flow on bedside ultrasound, no evidence of DVT that I can appreciate. No signs of compartment syndrome. Will get blood work to evaluate for reactivity markers for potential infection to confirm this. Will get D-dimer to help determine the likelihood of clot. Will monitor closely and reassess. Will give Tylenol and Toradol. Will get x-rays to evaluate for bony injury. Will get proBNP to evaluate for signs of CHF. 11:30 PM Laboratory workup is returned, proBNP normal suggesting no signs of heart strain or CHF overload. Mild white count of 13, mild left shift. No bandemia. D-dimer normal, low likelihood of clot. Bedside ultrasound was performed and limited exam showed no evidence of DVT or significant abnormality aside from mild edema. Electrolytes stable, ESR and CRP are normal. X-rays negative for acute process per radiology. Symptoms appear consistent with mild cellulitis, potential confused contusion, and potential for reflex and pathetic dystrophy. Will give clindamycin to treat for MRSA and common cellulitic agents. Will recommend continued NSAIDs at home. Patient was given a small bottle of [place] pills to use only as absolutely needed. Will place referral for outpatient ultrasound. Patient will be discharged home. No clinical evidence of neck Fash, septic shock, or PE. Discussed red flags which to return. I have extensively reviewed the treatment plan and discharge instructions with the patient. I have addressed all patient concerns at this time. The patient was made aware of what symptoms to monitor for that would warrant a return to the emergency department. Discussed the plan with the patient, they demonstrate verbal understanding and agreement with our assessment and plan at this time. The documentation in this chart was dictated using [employer] dictation software. Please excuse any dictation errors. FINDINGS: Bones/joints: Osseous alignment is normal. No acute fracture. No arthritic change. Soft tissues: Moderate diffuse soft tissue swelling of the left lower leg and ankle IMPRESSION: No acute fracture Thank you for allowing us to participate in the care of your patient. Dictated and Authenticated by: Attila Scott MD 04/15/2023 11:02 PM Eastern Time ([place] & [place] FINDINGS: Bones/joints: Normal. Soft tissues: Normal. IMPRESSION: No acute findings. Thank you for allowing us to participate in the care of your patient. Dictated and Authenticated by: Attila Scott MD 04/15/2023 11:01 PM Eastern Time ([place] FINDINGS: Bones/joints: Normal. Soft tissues: Normal. IMPRESSION: No acute findings. Thank you for allowing us to participate in the care of your patient. Dictated and Authenticated by: Attila Scott MD 04/15/2023 11:00 PM Eastern Time ([place] & [place]) Quality:SDOH Health Related Social Needs: Health related social needs inadequate housing, food insecurity, transpo insecurity Health related social needs details Review of community based services for outreach. PFSH All Active Problems (Updated 04/15/23 @ 23:20 by Aniket Bonilla DO) Contusion (Acute) Cellulitis of left leg (Acute) Lymphadenopathy (Acute) Hemorrhoids (Acute) Viral warts (Acute) ADD (attention deficit disorder) (Acute) Marijuana smoker (Acute) Asthma (Chronic) Suicidal ideation (Acute) Depression (Chronic) Anxiety disorder (Chronic) Eczema (Chronic) Medical History Cyst of face Mass of left side of neck Acute asthma exacerbation Eczema Surgical History No significant past surgical history Family History Other Adopted Social History Smoking/Tobacco Use Status: Current every day Tobacco Type: e-cigarettes Counseling given: provider counseling Smoking risk assessment performed?: Yes Alcohol Intake: current Alcohol Intake frequency: holidays/special occasions only Alcohol type: beer Details: Minimal Drug use: Daily Substance use type: marijuana, crack/cocaine and heroin Counseling given: Yes Details: drug used depends on the day Adopted: Yes Housing: apartment Current gender identity: male Do you feel safe at home: Yes Do you feel safe in your relationship?: Yes Additional Social history: Grew up in [place], adopted, close with 1 of his moms who lives in [place]. Lives alone in apartment on [address] in [place]. Discharge Plan Disposition Patient Disposition: Home Discharge Details Clinical Impression: Cellulitis of left leg, Contusion Primary Care Provider: Dago Joaquin ED Provider: Aniket Bonilla Home Meds and New Rx's Prescriptions: New clindamycin HCl [Cleocin HCl] 150 mg capsule 450 mg PO QID 7 Days Qty: 84 0RF No Action budesonide-formoterol [Symbicort] 80-4.5 mcg/actuation HFA aerosol inhaler 2 puff inhalation 6XD Qty: 3 12RF Rx Instructions: 2 puffs twice a day and as needed, up to 12 puffs in a 24 hour period Rinse mouth after use ipratropium-albuterol 0.5 mg-3 mg(2.5 mg base)/3 mL solution for nebulization 3 ml inhalation Q4H PRN (Reason: wheezing) Qty: 540 12RF Vyvanse 70 mg capsule 70 mg PO DAILY pantoprazole 40 mg tablet,delayed release (DR/EC) 40 mg PO DAILY Patient Comments: TAKE 1 TABLET BY MOUTH DAILY hydroxyzine HCl 25 mg tablet See Rx Instructions .ROUTE .COMPLEX Patient Comments: TAKE ONE TABLET BY MOUTH THREE TIMES A DAY AND TWO TABLETS AT BEDTIME NEEDED Rx Instructions: TAKE ONE TABLET BY MOUTH THREE TIMES A DAY AND TWO TABLETS AT BEDTIME NEEDED sertraline 100 mg tablet 200 mg PO DAILY albuterol sulfate 2.5 mg /3 mL (0.083 %) solution for nebulization 2.5 mg IH QID PRN (Reason: shortness of breath or wheezing) Qty: 75 0RF buspirone 5 mg Tablet 15 mg PO BID Patient Comments: Patient state he takes 15mg bid ibuprofen 200 mg Capsule 600 mg PO PRN PRN prednisone 10 mg tablet 10 mg PO DIRECTED Qty: 37 0RF Rx Instructions: 60mg for 2 days, 40mg for 3 days, 20mg for 3 days, 10mg for 3 days, and 5mg for 4 days Discharge Instructions Instructions: Cellulitis (ED), Contusion in Adults (ED) Additional Instructions: At this time your symptoms appear consistent with cellulitis which is a bacterial infection in your skin. Please take the antibiotic clindamycin as directed. A prescription has been sent to your pharmacy on file. Please continue to take Tylenol and Motrin as needed for the pain. Keep your legs elevated to help diminish the swelling. There is a low likelihood for concern for potential clot, however out of an abundance of precaution it would be beneficial to perform an ultrasound to definitively rule out blood clot. Please contact the radiology department tomorrow with the phone number sheet that was provided. If you notice any worsening of your symptoms, or any new symptoms such as vomiting, diarrhea, fever, chills, shortness of breath, chest pain, numbness, weakness, or fainting , please return immediately to the emergency department for reevaluation. Please follow up with your primary care provider as soon as possible for reassessment and reevaluation. As always, it was a pleasure participating in your medical care today. Referrals: Dago Joaquin [Primary Care Provider] - POCUS Exam (ED) Limited Vascular Exam DATE OF EXAM: 04/15/23 TIME OF EXAM: 22:52 PROVIDER THAT PERFORMED THE STUDY: Aniket Bonilla IS THIS A REPEAT EXAM DURING THIS ENCOUNTER: No Vascular Exam: Left lower extremity REASON FOR EXAM: Concern for DVT left lower extremity VISUALIZED STRUCTURES: Left common femoral vein, Left popliteal vein, Left superficial femoral vein and Left greater saphenous vein PERTINENT FINDINGS/IMPRESSION: Compressible veins left leg Exam Complete
[2023-04-15 22:42] LABS: INR 1.1 (0.9-1.1); PTT Activated 31.1 sec (23.6-32.8)
[2023-04-15 22:48] LABS: C-Reactive Protein 3.59 mg/dL (<or=0.5); NT-proBNP 96 pg/mL (<300)
[2023-04-15 22:56] LABS: ALT 33 U/L (16-63); AST 40 U/L (15-37); Alkaline Phosphatase 80 U/L (46-116); Anion Gap 9.1 mmol/L (3-11); BUN 14 mg/dL (7-18); Bilirubin, Total 1.2 mg/dL (0.2-1.0); CO2 28.9 mmol/L (21.0-32.0); CREATININE 0.9 mg/dL (0.70-1.30); Chloride 101 mmol/L (98-107); Estimated GFR 118.57 (mL/min/1.73m2); Glucose 109 mg/dL (74-106); Potassium 3.3 mmol/L (3.5-5.1); Sodium 139 mmol/L (136-145); Total Protein 7.1 g/dL (6.4-8.2)
--- NOTE | 2023-04-15 23:01 | DI.VRAD_ITS ---
PROCEDURE INFORMATION: Exam: XR Left Tibia and Fibula Exam date and time: 04/15/2023 10:36 PM Age: 28 years old Clinical indication: Other: Multiple wound and swelling TECHNIQUE: Imaging protocol: Radiologic exam of the left tibia and fibula. Views: 2 views. COMPARISON: CR XR ANKLE LT COMPLETE 04/15/2023 10:34 PM FINDINGS: Bones/joints: Normal. Soft tissues: Normal. IMPRESSION: No acute findings. Dictated and Authenticated by: Attila Scott MD. Ordering:MARTHA Marcial MD
--- NOTE | 2023-04-15 23:02 | DI.VRAD_ITS ---
PROCEDURE INFORMATION: Exam: XR Right Ankle Exam date and time: 04/15/2023 10:34 PM Age: 28 years old Clinical indication: Other: Multiple wound and swelling TECHNIQUE: Imaging protocol: Radiologic exam of the right ankle. Views: 3 or more views. COMPARISON: No relevant prior studies available. FINDINGS: Bones/joints: Normal. Soft tissues: Normal. IMPRESSION: No acute findings. Dictated and Authenticated by: Attila Scott MD. Ordering:MARTHA Marcial MD
--- NOTE | 2023-04-15 23:02 | DI.VRAD_ITS ---
PROCEDURE INFORMATION: Exam: XR Left Ankle Exam date and time: 04/15/2023 10:34 PM Age: 28 years old Clinical indication: Other: Multiple wound and swelling TECHNIQUE: Imaging protocol: Radiologic exam of the left ankle. Views: 3 or more views. COMPARISON: No relevant prior studies available. FINDINGS: Bones/joints: Osseous alignment is normal. No acute fracture. No arthritic change. Soft tissues: Moderate diffuse soft tissue swelling of the left lower leg and ankle IMPRESSION: No acute fracture Dictated and Authenticated by: Attila Scott MD. Ordering:MARTHA Marcial MD
[2023-04-15 23:04] LABS: D-Dimer 192 ng/mlFEU (<500)
[2023-04-15] MEDS: Clindamycin 150 MG CAP 450 MG PO (23:34)
[2023-04-15] MEDS: Clindamycin 150 MG CAP, 12 CAPS/BTL 450 MG PO (23:34)
[2023-04-15 23:35] VITALS: BP 150/90; PULSE 90; RESP 16; O2SAT 98
[2023-04-15 23:36] VITALS: BP 150/90; PULSE 90; RESP 16; O2SAT 98
--- NOTE | 2023-04-18 07:57 | NUR.NOTE ---
Patient scheduled for a left leg US today. Per DI he was a no show. Nursing Note:
== END 2023-04-16 06:55 | disposition home or self-care (01) ==
LOC: ER 04-16 07:05
PROVIDERS: Emergency Provider Student in an Organized Health Care Education/Training Program; PCP Physician Assistant
DX: L03.116 Cellulitis of left lower limb (principal); S80.12XA Contusion of left lower leg, initial encounter; J45.909 Unspecified asthma, uncomplicated; F17.290 Nicotine dependence, other tobacco product, uncomplicated; W06.XXXA Fall from bed, initial encounter; Y93.89 Activity, other specified; Y92.013 Bedroom of single-family (private) house as the place of occurrence of the external cause
CPT/HCPCS: 36415; 80053; 85652; 93971; 96374; 99284; 73590; 73610; 83880; 85025; 85379; 85610; 85730; 86140; J1885

== ENCOUNTER 2023-08-05 18:52 | Emergency (ER) | payer MEDICARE, MEDICAID, SELFPAY ==
[2023-08-05] VITALS (52 sets, daily range): BP systolic 107–144; BP diastolic 43–77; PULSE 101–143; RESP 5–22; TEMP 38.7; O2SAT 98–100
--- NOTE | 2023-08-05 19:00 | DI.RAD_ITS ---
Exam(s) XR PORTABLE CHEST AP EXAM: XR PORTABLE CHEST AP CLINICAL HISTORY: asthma fever resp distress TECHNIQUE: 2D digital imaging was performed. COMPARISON: CR,XR XR PORTABLE CHEST AP from 03/25/2023 FINDINGS: LUNGS: Clear. No pleural abnormality seen. HEART: Normal size. AORTA: Normal diameter. BONES: Unremarkable for age. Soft tissues: Unremarkable. IMPRESSION: No acute findings. DATA REPOSITORY: RADIATION DOSE DELIVERED:
--- NOTE | 2023-08-05 19:08 | ED.GENADUL_ITS ---
Discharge Plan Discharge Details Chief Complaint: RespSymp Primary Care Provider: Dago Joaquin ED Provider: Amilcar Nevarez Home Meds and New Rx's Prescriptions: No Action budesonide-formoterol [Symbicort] 80-4.5 mcg/actuation HFA aerosol inhaler 2 puff inhalation 6XD Qty: 3 12RF Rx Instructions: 2 puffs twice a day and as needed, up to 12 puffs in a 24 hour period Rinse mouth after use ipratropium-albuterol 0.5 mg-3 mg(2.5 mg base)/3 mL solution for nebulization 3 ml inhalation Q4H PRN (Reason: wheezing) Qty: 540 12RF Vyvanse 70 mg capsule 70 mg PO DAILY pantoprazole 40 mg tablet,delayed release (DR/EC) 40 mg PO DAILY Patient Comments: TAKE 1 TABLET BY MOUTH DAILY hydroxyzine HCl 25 mg tablet See Rx Instructions .ROUTE .COMPLEX Patient Comments: TAKE ONE TABLET BY MOUTH THREE TIMES A DAY AND TWO TABLETS AT BEDTIME NEEDED Rx Instructions: TAKE ONE TABLET BY MOUTH THREE TIMES A DAY AND TWO TABLETS AT BEDTIME NEEDED sertraline 100 mg tablet 200 mg PO DAILY albuterol sulfate 2.5 mg /3 mL (0.083 %) solution for nebulization 2.5 mg IH QID PRN (Reason: shortness of breath or wheezing) Qty: 75 0RF buspirone 5 mg Tablet 15 mg PO BID Patient Comments: Patient state he takes 15mg bid ibuprofen 200 mg Capsule 600 mg PO PRN PRN prednisone 10 mg tablet 10 mg PO DIRECTED Qty: 37 0RF Rx Instructions: 60mg for 2 days, 40mg for 3 days, 20mg for 3 days, 10mg for 3 days, and 5mg for 4 days HPI General Date/Time Provider Initiated Documentation: 08/05/23 19:02 . HPI Narrative: 28-year-old male history of asthma prior hospitalization and intubation presents with asthma exacerbation for the last 4 days, brought in in respiratory stress by EMS, given Solu-Medrol 125, 2 DuoNebs, magnesium 2 g patient endorses feeling better already. Related Data Home Medications Medication Instructions Recorded Confirmed albuterol sulfate 2.5 mg/3 mL 2.5 mg (3 mL) inhalation QID PRN 05/20/18 04/15/23 (0.083 %) solution for nebulization shortness of breath or wheezing #75 mL buspirone 5 mg tablet 15 mg PO BID 09/22/18 04/15/23 ibuprofen 200 mg capsule 600 mg PO PRN PRN 05/20/20 04/15/23 hydroxyzine HCl 25 mg tablet See Rx Instructions .Route .COMPLEX 05/22/20 04/15/23 pantoprazole 40 mg tablet,delayed 40 mg PO DAILY 05/22/20 04/15/23 release sertraline 100 mg tablet 200 mg PO DAILY 05/22/20 04/15/23 budesonide-formoterol HFA 80 2 puff inhalation 6XD #3 ea 07/03/22 04/15/23 mcg-4.5 mcg/actuation aerosol inhaler (Symbicort) ipratropium 0.5 mg-albuterol 3 mg 3 ml inhalation Q4H PRN wheezing 07/04/22 04/15/23 (2.5 mg base)/3 mL nebulization #540 mL soln lisdexamfetamine 70 mg capsule 70 mg PO DAILY 10/02/22 04/15/23 (Vyvanse) prednisone 10 mg tablet 10 mg PO DIRECTED #37 tabs 03/29/23 04/15/23 Previous Rx's Medication Instructions Recorded albuterol sulfate 2.5 mg/3 mL 2.5 mg (3 mL) inhalation QID PRN 05/20/18 (0.083 %) solution for nebulization shortness of breath or wheezing #75 mL budesonide-formoterol HFA 80 2 puff inhalation 6XD #3 ea 07/03/22 mcg-4.5 mcg/actuation aerosol inhaler (Symbicort) ipratropium 0.5 mg-albuterol 3 mg 3 ml inhalation Q4H PRN wheezing 07/04/22 (2.5 mg base)/3 mL nebulization #540 mL soln prednisone 10 mg tablet 10 mg PO DIRECTED #37 tabs 03/29/23 Allergies Allergy/AdvReac Type Severity Reaction Status Date / Time cat dander Allergy Wheezing Unverified 03/29/23 18:01 migraine medication AdvReac Uncoded 03/29/23 18:01 General Stated Complaint: RespSymp MINGO: 2 Review of Systems Narrative: Review of Systems Constitutional: negative Eyes: negative ENT: negative Cardiovascular: negative Respiratory: Shortness of breath Gastrointestinal: negative : negative Musculoskeletal: negative Skin: negative Neurologic: negative Psych: negative Exam Narrative Exam Narrative: Physical Examination General: alert, awake, respiratory distress HEENT: normocephalic, atraumatic; PERRL, EOM intact, conjunctiva normal; no nasal discharge; moist mucous membranes, oral and pharyngeal mucosa normal, tolerating secretions Neck: supple, trachea midline; full ROM Chest: normal to inspection Respiratory: Tory wheezing bilaterally, speaking in short sentences Cardiac: Tachycardia, regular rhythm, S1S2 intact, no murmurs rubs or gallops GI: abdomen soft, non-tender, non-distended; no palpable mass or hepatosplenomegaly Skin: no lesions, rashes or trauma appreciated Neuro: AAOx3, normal speech, moving all extremities Extremities: No peripheral edema Psych: Appropriate mood and affect Course Vital Signs Vital signs: Vital Signs Temperature 38.7 C H 08/05/23 18:54 Pulse 143 H 08/05/23 18:54 Respiratory Rate 22 08/05/23 18:54 Blood Pressure 138/77 08/05/23 18:54 Pulse Oximetry 100 08/05/23 18:54 Temperature 38.7 C H 08/05/23 18:54 Temperature Source Skin 08/05/23 18:54 Pulse 143 H 08/05/23 18:54 Respiratory Rate 22 08/05/23 18:54 Respiratory Effort Short of Breath, Labored, Incrsd Work of Breathing 08/05/23 19:01 Blood Pressure 138/77 08/05/23 18:54 Blood Pressure Position Sitting 08/05/23 18:54 Pulse Oximetry 100 08/05/23 18:54 Oxygen Delivery Method Nasal Cannula 08/05/23 18:54 Oxygen Flow Rate 8 08/05/23 18:54 Medical Decision Making 28-year-old male history of asthma prior intubation and hospitalization presents with 4 days of asthma exacerbation, brought in respiratory distress by EMS, giv en Solu-Medrol 125 in the field, as well as magnesium 2 g 2 DuoNebs, patient feeling better already however still with tachypnea bilateral expiratory wheeze speaking in short sentences. Febrile on arrival consider viral etiology versus bacterial pneumonia. Low suspicion for PE ACS or CHF. Will continue with medical management will obtain basic labs cultures chest x-ray will continue with DuoNeb close reassessment of symptoms 21: 29 great improvement of respiratory symptoms. Moving air more easily, speaking more clear full sentences, no longer retracting or tripoding. Does have persistent bilateral expiratory wheeze will continue with continuous albuterol. Close reassessment. 23: 06 patient improving greatly on continuous nebs, right lung field largely clear, still with some persistent expiratory wheeze left lung field,. Patient has improved appetite would like to eat. Will continue with nebs reassess for hopeful discharge home if continued improvement. Quality:SDOH Health Related Social Needs: Health related social needs inadequate housing, food i nsecurity, transpo insecurity Health related social needs details Review of communit y based services for outreach. PFSH All Active Problems (Updated 04/16/23 @ 00:06 by JOANNA ARGUETA) Lymphadenopathy (Acute) Hemorrhoids (Acute) Viral warts (Acute) ADD (attention deficit disorder) (Acute) Marijuana smoker (Acute) Asthma (Chronic) Suicidal ideation (Acute) Depression (Chronic) Anxiety disorder (Chronic) Eczema (Chronic) Medical History Cyst of face Mass of left side of neck Acute asthma exacerbation Eczema Surgical History No significant past surgical history Family History Other Adopted Social History Smoking/Tobacco Use Status: Current every day Tobacco Type: e-cigarettes Counseling given: provider counseling Smoking risk assessment performed?: Yes Alcohol Intake: current Alcohol Intake frequency: holidays/special occasions only Alcohol type: beer Details: Minimal Drug use: Daily Substance use type: marijuana, crack/cocaine and heroin Counseling given: Yes Details: drug used depends on the day Adopted: Yes Housing: apartment Current gender identity: male Do you feel safe at home: Yes Do you feel safe in your relationship?: Yes Additional Social history: Grew up in [place], adopted, close with 1 of his moms who lives in [place]. Lives alone in apartment [address] in [place].
[2023-08-05] MEDS: Albuterol/Ipratropium 3 ML UPD VIAL (19:14)
[2023-08-05 19:18] LABS: Abs Immature Grans 0.02 10^3/uL (0.0-0.06); Absolute Basophil Count 0.03 10^3/uL (0.0-0.2); Absolute Eosinophil Count 0.21 10^3/uL (0.0-0.7); Absolute Lymphocyte Count 0.91 10^3/uL (1.2-3.4); Absolute Monocyte Count 0.55 10^3/uL (0.1-0.8); Absolute Neutrophil Count 6.38 10^3/uL (1.2-6.7); Basophils % 0.4 %; Eosinophils % 2.6 %; HCT 39.7 % (40.0-50.0); HGB 12.7 g/dL (13.5-17.5); Immature Grans % 0.2 %; Lymphocytes % 11.2 %; MCH 26.3 pg (27.0-33.0); MCV 82 fL (80-95); MPV 8.2 fL (8.0-11.0); Monocytes % 6.8 %; Neutrophils % 78.8 %; Platelet Count 239 10^3/uL (130-400); RBC 4.82 10^6/uL (4.36-5.78); RDW 13.8 % (11.8-14.1); RDW-SD 41.1 fL
[2023-08-05] MEDS: ACETAMINOPHEN 1,000 MG/100 ML BTL 400 MG IVPB (19:26)
[2023-08-05] MEDS: Normal Saline 1,000 ML 1000 ML IV (19:27)
[2023-08-05] MEDS: Albuterol 2.5 MG/3 ML INH SOLN VIAL (19:32)
[2023-08-05 19:34] LABS: ALT 25 U/L (16-63); AST 17 U/L (15-37); Albumin 3.5 g/dL (3.4-5.0); Alkaline Phosphatase 75 U/L (46-116); Anion Gap 8.7 mmol/L (3-11); BUN 14 mg/dL (7-18); Bilirubin, Total 1.3 mg/dL (0.2-1.0); CO2 27.3 mmol/L (21.0-32.0); CREATININE 0.9 mg/dL (0.70-1.30); Calcium 8.4 mg/dL (8.5-10.1); Chloride 103 mmol/L (98-107); Estimated GFR 118.57 (mL/min/1.73m2); Glucose 129 mg/dL (74-106); Potassium 3.5 mmol/L (3.5-5.1); Sodium 139 mmol/L (136-145)
[2023-08-05 19:58] LABS: COVID-19 PCR Negative (Negative); Influenza A PCR Negative (Negative); Influenza B PCR Negative (Negative); RSV PCR Negative (Negative)
[2023-08-05 19:59] LABS: Source Nasopharynx
--- NOTE | 2023-08-05 20:07 | DI.VRAD_ITS ---
PROCEDURE INFORMATION: Exam: XR Chest Exam date and time: 08/05/2023 7:19 PM Age: 28 years old Clinical indication: Other: Asthma fever resp distress TECHNIQUE: Imaging protocol: Radiologic exam of the chest. Views: 1 view. COMPARISON: CR XR PORTABLE CHEST AP 03/25/2023 11:09 PM FINDINGS: Lungs: Normal. Pleural spaces: Unremarkable. No pleural effusion. No pneumothorax. Heart/Mediastinum: Normal. Bones/joints: No acute abnormality. IMPRESSION: No acute findings. Dictated and Authenticated by: Adilson Cowart MD. Ordering:YVONNE Fitzgerald MD
--- NOTE | 2023-08-05 23:44 | ED.PROG_ITS ---
Date of service: 08/05/23 Time of Service: 23:44 Medical Decision Making This patient was signed out to me. Please see previous notes for H&P and initial eval. In brief, 28yo M presenting with asthma exacerbation. Treated with nebs/steroids/mags, symptoms much improved. Finishing continuous albuterol neb now. Plan to PO challenge, reassess. PO challenged and tolerated well. On reassessment albuterol neb infusion. Good O2 sat, no increased work of breath, still some inspiratory and expiratory wheezing. Will give a dose of decadron (received solumedrol from EMS) and do another hour of continuous. On reassessment 3 hours after off albuterol patient satting well on room air, no increased work of breathing, mild end-expiratory wheeze. Given tylenol for fever. Slightly tachycardiac in low 100's in the setting of frequent albuterol; with reassuring labs, no leukoctysois, and normal CXR not concerned for pneumonia or sepsis. Discharged with symbicort (patient is out). Other than symbicort, patient not sure what meds he is taking. Discharge instructions and return precautions were reviewed with patient who verbalized understanding. All questions were answered and he is in full agreement with the plan. Quality:SDOH Health Related Social Needs: Health related social needs inadequate housing, food i nsecurity, transpo insecurity Health related social needs details Review of communit y based services for outreach. Sign Out Sign Out Data: Sign Out Comment: asthma exacerbation; duonebs, steroids, mag given, improving work of breathing and air movement; continuing with nebs, reassess comfort, hopeful dc home with albuterol and spacer Last updated by Amilcar Neavrez MD at 08/05/23 23:09 Discharge Plan Disposition Patient Disposition: Home Condition: Good Discharge Details Clinical Impression: Upper respiratory infection, Asthma Primary Care Provider: Dago Joaquin ED Provider: Tayler Regan Home Meds and New Rx's Prescriptions: No Action budesonide-formoterol [Symbicort] 80-4.5 mcg/actuation HFA aerosol inhaler 2 puff inhalation 6XD Qty: 3 12RF Patient Comments: Pt states he does not know if he takes this. Rx Instructions: 2 puffs twice a day and as needed, up to 12 puffs in a 24 hour period Rinse mouth after use ipratropium-albuterol 0.5 mg-3 mg(2.5 mg base)/3 mL solution for nebulization 3 ml inhalation Q4H PRN (Reason: wheezing) Qty: 540 12RF Patient Comments: Pt states he does not know if he takes this. Vyvanse 70 mg capsule 70 mg PO DAILY Patient Comments: Pt states he does not know if he takes this. pantoprazole 40 mg tablet,delayed release (DR/EC) 40 mg PO DAILY Patient Comments: TAKE 1 TABLET BY MOUTH DAILY hydroxyzine HCl 25 mg tablet See Rx Instructions .ROUTE .COMPLEX Patient Comments: TAKE ONE TABLET BY MOUTH THREE TIMES A DAY AND TWO TABLETS AT BEDTIME NEEDED Rx Instructions: TAKE ONE TABLET BY MOUTH THREE TIMES A DAY AND TWO TABLETS AT BEDTIME NEEDED sertraline 100 mg tablet 200 mg PO DAILY Patient Comments: Pt states he does not know if he takes this. albuterol sulfate 2.5 mg /3 mL (0.083 %) solution for nebulization 2.5 mg IH QID PRN (Reason: shortness of breath or wheezing) Qty: 75 0RF Patient Comments: Pt states he does not know if he takes this. buspirone 5 mg Tablet 15 mg PO BID Patient Comments: Patient state he takes 15mg bid ibuprofen 200 mg Capsule 600 mg PO PRN PRN Patient Comments: Pt states he does not know if he takes this. Discharge Instructions Instructions: Asthma (ED), Upper Respiratory Infection (ED) Additional Instructions: Call your primary care doctor today to schedule an appointment for within the next three days to follow up on your visit here. Return to the emergency department for new or worsening symptoms including if your breathing gets worse again. Referrals: Dago Joaquin [Primary Care Provider] -
[2023-08-06] VITALS (31 sets, daily range): BP systolic 122–138; BP diastolic 53–78; PULSE 104–120; RESP 11–20
[2023-08-06] MEDS: Dexamethasone 10 MG/ML VIAL IVP (00:17)
[2023-08-06] MEDS: Acetaminophen 500 MG TAB 1000 MG PO (04:24)
[2023-08-06] MEDS: Budesonide/Formoterol 80/4.5 6.9 GM 60 PUFF INH IH (04:25)
[2023-08-06] MEDS: Inhaler, Assist Device 1 EACH MC (04:25)
== END 2023-08-06 04:34 | disposition home or self-care (01) ==
PROVIDERS: Emergency Medicine; Emergency Provider Student in an Organized Health Care Education/Training Program; PCP Physician Assistant
DX: J06.9 Acute upper respiratory infection, unspecified (principal); J45.909 Unspecified asthma, uncomplicated
CPT/HCPCS: 00123; 36415; 80053; 87637; 94640; 96365; 96375; 99285; 71045; 85025; 99283; J0131; J1100; J7613; J7620

== ENCOUNTER 2023-08-09 17:47 | Inpatient (IN) | payer MEDICARE, MEDICAID, SELFPAY ==
[2023-08-09] VITALS (38 sets, daily range): BP systolic 147–177; BP diastolic 87–131; PULSE 94–141; RESP 5–124; TEMP 36.4–37.4; O2SAT 94–100
[2023-08-09] MEDS: Albuterol/Ipratropium 3 ML UPD VIAL UPD ×2 (17:56→22:36)
[2023-08-09 18:03] LABS: Abs Immature Grans 0.03 10^3/uL (0.0-0.06); Absolute Basophil Count 0.04 10^3/uL (0.0-0.2); Absolute Eosinophil Count 0.56 10^3/uL (0.0-0.7); Absolute Lymphocyte Count 2.53 10^3/uL (1.2-3.4); Absolute Monocyte Count 0.58 10^3/uL (0.1-0.8); Absolute Neutrophil Count 4.33 10^3/uL (1.2-6.7); Basophils % 0.5 %; Eosinophils % 6.9 %; HCT 48.3 % (40.0-50.0); HGB 15.2 g/dL (13.5-17.5); Immature Grans % 0.4 %; Lymphocytes % 31.4 %; MCHC 31.5 % (32.0-36.0); MCV 83 fL (80-95); MPV 7.9 fL (8.0-11.0); Monocytes % 7.2 %; Neutrophils % 53.6 %; Platelet Count 288 10^3/uL (130-400); RBC 5.85 10^6/uL (4.36-5.78); RDW 13.8 % (11.8-14.1); RDW-SD 41.3 fL; WBC 8.07 10^3/uL (4.4-10.8)
[2023-08-09] MEDS: Dexamethasone 10 MG/ML VIAL IVP (18:03)
--- NOTE | 2023-08-09 18:03 | W.ED.GENAD ---
Discharge Plan Disposition Patient Disposition: Admit to [facility] Condition: Stable Discharge Details Chief Complaint: SOB Clinical Impression: Asthma exacerbation Primary Care Provider: Dago Joaquin ED Provider: Amilcar Nevarez Home Meds and New Rx's Prescriptions: No Action budesonide-formoterol [Symbicort] 80-4.5 mcg/actuation HFA aerosol inhaler 2 puff inhalation 6XD Qty: 3 12RF Patient Comments: Pt states he does not know if he takes this. Rx Instructions: 2 puffs twice a day and as needed, up to 12 puffs in a 24 hour period Rinse mouth after use ipratropium-albuterol 0.5 mg-3 mg(2.5 mg base)/3 mL solution for nebulization 3 ml inhalation Q4H PRN (Reason: wheezing) Qty: 540 12RF Patient Comments: Pt states he does not know if he takes this. Vyvanse 70 mg capsule 70 mg PO DAILY Patient Comments: Pt states he does not know if he takes this. pantoprazole 40 mg tablet,delayed release (DR/EC) 40 mg PO DAILY Patient Comments: TAKE 1 TABLET BY MOUTH DAILY hydroxyzine HCl 25 mg tablet See Rx Instructions .ROUTE .COMPLEX Patient Comments: TAKE ONE TABLET BY MOUTH THREE TIMES A DAY AND TWO TABLETS AT BEDTIME NEEDED Rx Instructions: TAKE ONE TABLET BY MOUTH THREE TIMES A DAY AND TWO TABLETS AT BEDTIME NEEDED sertraline 100 mg tablet 200 mg PO DAILY Patient Comments: Pt states he does not know if he takes this. albuterol sulfate 2.5 mg /3 mL (0.083 %) solution for nebulization 2.5 mg IH QID PRN (Reason: shortness of breath or wheezing) Qty: 75 0RF Patient Comments: Pt states he does not know if he takes this. buspirone 5 mg Tablet 15 mg PO BID Patient Comments: Patient state he takes 15mg bid ibuprofen 200 mg Capsule 600 mg PO PRN PRN Patient Comments: Pt states he does not know if he takes this. HPI General Date/Time Provider Initiated Documentation: 08/09/23 17:53. HPI Narrative: 28-year-old male history of severe asthma, prior hospitalization, prior intubation, presents with worsening asthma over the last couple of days, given 1 DuoNeb in route Related Data Home Medications Medication Instructions Recorded Confirmed albuterol sulfate 2.5 mg/3 mL 2.5 mg (3 mL) inhalation QID PRN 05/20/18 04/15/23 (0.083 %) solution for nebulization shortness of breath or wheezing #75 mL buspirone 5 mg tablet 15 mg PO BID 09/22/18 04/15/23 ibuprofen 200 mg capsule 600 mg PO PRN PRN 05/20/20 08/06/23 hydroxyzine HCl 25 mg tablet See Rx Instructions .Route .COMPLEX 05/22/20 04/15/23 pantoprazole 40 mg tablet,delayed 40 mg PO DAILY 05/22/20 08/06/23 release sertraline 100 mg tablet 200 mg PO DAILY 05/22/20 04/15/23 budesonide-formoterol HFA 80 2 puff inhalation 6XD #3 ea 07/03/22 04/15/23 mcg-4.5 mcg/actuation aerosol inhaler (Symbicort) ipratropium 0.5 mg-albuterol 3 mg 3 ml inhalation Q4H PRN wheezing 07/04/22 08/06/23 (2.5 mg base)/3 mL nebulization #540 mL soln lisdexamfetamine 70 mg capsule 70 mg PO DAILY 10/02/22 04/15/23 (Vyvanse) Previous Rx's Medication Instructions Recorded albuterol sulfate 2.5 mg/3 mL 2.5 mg (3 mL) inhalation QID PRN 05/20/18 (0.083 %) solution for nebulization shortness of breath or wheezing #75 mL budesonide-formoterol HFA 80 2 puff inhalation 6XD #3 ea 07/03/22 mcg-4.5 mcg/actuation aerosol inhaler (Symbicort) ipratropium 0.5 mg-albuterol 3 mg 3 ml inhalation Q4H PRN wheezing 07/04/22 (2.5 mg base)/3 mL nebulization #540 mL soln Allergies Allergy/AdvReac Type Severity Reaction Status Date / Time cat dander Allergy Wheezing Unverified 08/09/23 17:54 migraine medication AdvReac Other (See Uncoded 08/09/23 17:54 Comment) General Stated Complaint: SOB MINGO: 3 Review of Systems Narrative: Review of Systems Constitutional: negative Eyes: negative ENT: negative Cardiovascular: negative Respiratory: Shortness of breath, wheeze Gastrointestinal: negative : negative Musculoskeletal: negative Skin: negative Neurologic: negative Psych: negative Exam Narrative Exam Narrative: Physical Examination General: alert, awake, cooperative, mild to moderate respiratory distress HEENT: normocephalic, atraumatic; PERRL, EOM intact, conjunctiva normal; no nasal discharge; moist mucous membranes, oral and pharyngeal mucosa normal, tolerating secretions Neck: supple, trachea midline; full ROM Chest: normal to inspection Respiratory: Tachypnea, bilateral expiratory wheezes, speaking in short sentences Cardiac: Tachycardia, regular rhythm, S1S2 intact, no murmurs rubs or gallops GI: abdomen soft, non-tender, non-distended; no palpable mass or hepatosplenomegaly Skin: no lesions, rashes or trauma appreciated Neuro: AAOx3, normal speech, moving all extremities Extremities: No peripheral edema Psych: Appropriate mood and affect Course Vital Signs Vital signs: Vital Signs Temperature 36.4 C L 08/09/23 17:48 Pulse 113 H 08/09/23 17:48 Blood Pressure 170/131 H 08/09/23 17:48 Pulse Oximetry 100 08/09/23 17:48 Temperature 36.4 C L 08/09/23 17:48 Temperature Source Skin 08/09/23 17:48 Pulse 113 H 08/09/23 17:56 Respiratory Rate 20 08/09/23 17:56 Blood Pressure 170/131 H 08/09/23 17:48 Pulse Oximetry 100 08/09/23 17:56 Oxygen Delivery Method Nasal Cannula 08/09/23 17:56 Oxygen Flow Rate 8 08/09/23 17:56 Medical Decision Making 28-year-old male history of severe asthma prior hospitalization, prior intubation, presents with worsening shortness of breath and wheezing over the past day, was seen here couple days ago for asthma exacerbation and discharged home, bilateral wheezing, tachypnea, speaking in short sentences, maintaining oxygen saturation, tolerating secretions, 1 DuoNeb given in route, will complete course with 2 DuoNebs, continuous albuterol nebulized, dexamethasone 10 mg IV, magnesium 2 g IV, bedside x-ray basic labs close reassessment of symptoms. Respiratory team at bedside. Likely asthma exacerbation consider environmental stimulus versus viral etiology versus less likely bacterial pneumonia lower suspicion for PE ACS or CHF. Disposition pending reassessment of symptomatology after medication 18: 55 some persistent expiratory wheeze. Will continue with an hour-long albuterol neb 19: 38 given persistent wheezing, I have terbutaline was given. Continue with nebs, patient is resting more comfortably however will require further monitoring and treatment. Quality:SDOH Health Related Social Needs: Health related social needs inadequate housing, food insecurity, transpo insecurity Health related social needs details Review of community based services for outreach. PFS All Active Problems (Updated 08/09/23 @ 19:38 by Amilcar Nevarez MD) Asthma exacerbation (Acute) Upper respiratory infection (Acute) Lymphadenopathy (Acute) Hemorrhoids (Acute) Viral warts (Acute) ADD (attention deficit disorder) (Acute) Marijuana smoker (Acute) Asthma (Chronic) Suicidal ideation (Acute) Depression (Chronic) Anxiety disorder (Chronic) Eczema (Chronic) Medical History Cyst of face Mass of left side of neck Acute asthma exacerbation Eczema Surgical History No significant past surgical history Family History Other Adopted Social History Smoking/Tobacco Use Status: Current every day Tobacco Type: e-cigarettes Counseling given: provider counseling Smoking risk assessment performed?: Yes Alcohol Intake: current Alcohol Intake frequency: holidays/special occasions only Alcohol type: beer Details: Minimal Drug use: Daily Substance use type: marijuana, crack/cocaine and heroin Counseling given: Yes Details: drug used depends on the day Adopted: Yes Housing: apartment Current gender identity: male Do you feel safe at home: Yes Do you feel safe in your relationship?: Yes Additional Social history: Grew up in [place], [facility], close with 1 of his moms who lives in [place]. Lives alone in apartment [address] in [place].
[2023-08-09] MEDS: MAGNESIUM SULFATE 2 GM/50 ML BAG IVINF (18:04)
--- NOTE | 2023-08-09 18:12 | DI.RAD_ITS ---
Exam(s) XR PORTABLE CHEST AP EXAM: XR PORTABLE CHEST AP CLINICAL HISTORY: severe asthma TECHNIQUE: 2D digital imaging was performed. COMPARISON: CR,XR XR PORTABLE CHEST AP from 08/05/2023 FINDINGS: Exam somewhat limited by overlying oxygen tubing LUNGS: Clear. No pleural abnormality seen. HEART: Normal size. AORTA: Normal diameter. BONES: Unremarkable for age. Soft tissues: Unremarkable. IMPRESSION: No acute findings. DATA REPOSITORY: RADIATION DOSE DELIVERED:
[2023-08-09 18:19] LABS: ALT 24 U/L (16-63); AST 10 U/L (15-37); Albumin 3.7 g/dL (3.4-5.0); Alkaline Phosphatase 82 U/L (46-116); Anion Gap 8.8 mmol/L (3-11); BUN 13 mg/dL (7-18); Bilirubin, Total 0.2 mg/dL (0.2-1.0); CO2 29.2 mmol/L (21.0-32.0); CREATININE 0.9 mg/dL (0.70-1.30); Calcium 8.8 mg/dL (8.5-10.1); Chloride 103 mmol/L (98-107); Estimated GFR 118.57 (mL/min/1.73m2); Glucose 111 mg/dL (74-106); Potassium 3.8 mmol/L (3.5-5.1); Sodium 141 mmol/L (136-145); Total Protein 7.9 g/dL (6.4-8.2)
[2023-08-09 20:10] LABS: BE (Venous) 1 mmol/L (-2-3); HCO3 (Venous) 26 mmol/L (23-28); O2 Sat (Venous) 98 %; TCO2 (Venous) 23 mmol/L (24-29); pCO2 (Venous) 44 mmHg (41-51); pH (Venous) 7.37 (7.31-7.41); pO2 (Venous) 95 mmHg
[2023-08-09 20:26] LABS: COVID-19 PCR Negative (Negative); Influenza A PCR Negative (Negative); Influenza B PCR Negative (Negative); RSV PCR Negative (Negative)
[2023-08-09 20:27] LABS: Source NASOPHARYNX
--- NOTE | 2023-08-09 20:32 | HPE_ITS ---
Date of service: 08/09/23 Time of Service: 20:32 Assessment and Plan Assessment and plan (1) Asthma exacerbation: Start date: 08/09/23 Status: Acute Assessment and plan: This is a 28-year-old chronic asthmatic with poor follow-up and poor control presenting with failed outpatient therapy of exacerbation of asthma. Aggressive nebulizer treatments and IV Solu-Medrol high-dose. Continue inhaler therapy with Symbicort. Patient does see pulmonology but has been about a year since his last visit. There was some discussion of treatment for increased eosinophils is chronically uncontrolled asthma. He appears to be noncompliant with follow-up. Patient has had status asthmaticus when he was younger but this presentation reveals no CO2 retention with reasonable VBG and no hypoxemia as well as normal chest x-ray. No indication for antibiotics at this time. Supportive care the patient continues to have extensive wheezing though comfortable and speaking in full sentences. He is a full code. Qualifiers: Asthma persistence: persistent Asthma severity: severe Qualified Code(s): J45.51 - Severe persistent asthma with (acute) exacerbation (2) Marijuana smoker: Status: Chronic Assessment and plan: Patient should stop smoking anything with his severe asthma. His urine drug screen was negative for THC and again no recent use. (3) Active intravenous drug use: Status: Chronic Assessment and plan: After hospitalized patient admitted to recent IV drug use and his urine drug screen was positive for cocaine but negative for THC. There is also positive for methadone with patient updating his active medical therapy with daily methadone with a local clinic which needs to be confirmed as to dosing before continuing as an admission. He does continue send treatment with cocaine and admits to taking this 3 days ago as a discussion when I reviewed his positive urine drug screen. He seems to be indicating that it should not have been in his urine. Insight is poor. Morning (4) Anxiety disorder: Status: Chronic Assessment and plan: Patient previously on BuSpar but not taking by history. Continue hydroxyzine without BuSpar for now. Qualifiers: Anxiety disorder type: generalized anxiety disorder Qualified Code(s): F41.1 - Generalized anxiety disorder (5) ADD (attention deficit disorder): Status: Chronic Assessment and plan: Continue Vyvanse while hospitalized with this to be reconciled in the morning as whether he is still on this medication. Qualifiers: Attention deficit-hyperactivity disorder type: combined inattentive- hyperactive Hyperactivity presence: present Qualified Code(s): F90.2 - Attention-deficit hyperactivity disorder, combined type (6) Depression: Status: Chronic Assessment and plan: Patient previously was on sertraline but has not been taking his medication. This will not be restarted. Long-term he should discuss treatment with PCP and be more compliant. Qualifiers: Active/Remission status: currently active Depression Type: major depressive disorder Major depression episode severity: severe Major depression recurrence: recurrent Psychotic features: without psychotic features Qualified Code(s): F33.2 - Major depressive disorder, recurrent severe without psychotic features (7) Gastritis: Status: Chronic Assessment and plan: Chronic on Protonix and does take ibuprofen per his medication list. Long-term he may want to avoid NSAIDs and try to stop the PPI with chronic use at his young age. Surgical consultation with EGD would be appropriate if he has symptoms off PPI. Qualifiers: Chronicity: chronic Gastritis bleeding: without bleeding Gastritis type: other gastritis Qualified Code(s): K29.50 - Unspecified chronic gastritis without bleeding History of Present Illness History of Present Illness Chief Complaint: Dyspnea with wheezing and exacerbation of asthma with marijuana use Narrative: This is a 28-year-old male patient who is asthmatic on long-term controller therapy and rescue therapy who does reportedly smoke tobacco but smokes marijuana routinely. He also has a history of IV drug use stating he has not used for months though he does admit to using cocaine in the last week and does inject. He has multiple track jennings over his arm and is on methadone not documented on his medication list with this dose to be confirmed in the morning. He is not taking most medications listed fasciculate not being on sertraline or BuSpar. He ran out of his Symbicort several days ago because of overuse using 6 times daily. He does not follow-up with fruit dumper routinely and has refused some therapy at last visit. He was seen in the ED 3 days prior to this visit with exacerbation of his asthma which was not responding to his usual home treatment. He was initiated on increased treatment and felt somewhat better with acute increase in treatment being discharged home. Patient returned to the ED today with worsening symptoms despite treatment with tight chest and expiratory with expiratory wheeze not responding to IV steroids and multiple nebulizers. He will be admitted for failed outpatient treatment for exacerbation of asthma though he is not hypoxic, tachypneic and ABG is reassuring. In reviewing the patient was met with resistance with the patient keeping his eyes closed and being short with answers. Once admitted to the floor he was also very demanding of the nurses or food and TV access. He has had his behavior in the past. He is a full code. Review of Systems Narrative: 13 point review of systems otherwise unrevealing or stable. Patient is short with his answers and gives verbal answers to questions. PFSH All Active Problems (Updated 08/09/23 @ 22:04 by Amadou Pérez) Active intravenous drug use (Chronic) Gastritis (Chronic) Asthma exacerbation (Acute) Upper respiratory infection (Acute) Lymphadenopathy (Acute) Hemorrhoids (Acute) Viral warts (Acute) ADD (attention deficit disorder) (Chronic) Marijuana smoker (Chronic) Asthma (Chronic) Suicidal ideation (Acute) Depression (Chronic) Anxiety disorder (Chronic) Eczema (Chronic) Medical History (Updated 08/09/23 @ 22:04 by Amadou Pérez) Cyst of face Mass of left side of neck Acute asthma exacerbation Eczema Surgical History No significant past surgical history Family History Other Adopted Social History Smoking/Tobacco Use Status: Current every day Tobacco Type: e-cigarettes Counseling given: provider counseling Smoking risk assessment performed?: Yes Alcohol Intake: current Alcohol Intake frequency: holidays/special occasions only Alcohol type: beer Details: Minimal Drug use: Daily Substance use type: marijuana, crack/cocaine and heroin Counseling given: Yes Details: drug used depends on the day Adopted: Yes Housing: apartment Current gender identity: male Do you feel safe at home: Yes Do you feel safe in your relationship?: Yes Additional Social history: Grew up in [place], [facility], close with 1 of his moms who lives in [place]. Lives alone in apartment [address] in [place]. Meds Allergies and Home Medications Allergies Allergy/AdvReac Type Severity Reaction Status Date / Time cat dander Allergy Wheezing Unverified 08/09/23 17:54 migraine medication AdvReac Other (See Uncoded 08/09/23 17:54 Comment) Home Medications Medication Instructions Recorded Confirmed Type albuterol sulfate 2.5 mg/3 mL 2.5 mg (3 mL) inhalation QID PRN 05/20/18 08/09/23 Rx (0.083 %) solution for nebulization shortness of breath or wheezing #75 mL buspirone 5 mg tablet 15 mg PO BID 09/22/18 08/09/23 History pantoprazole 40 mg tablet,delayed 40 mg PO DAILY 05/22/20 08/09/23 History release budesonide-formoterol HFA 80 2 puff inhalation 6XD #3 ea 07/03/22 08/09/23 Rx mcg-4.5 mcg/actuation aerosol inhaler (Symbicort) ipratropium 0.5 mg-albuterol 3 mg 3 ml inhalation Q4H PRN wheezing 07/04/22 08/09/23 Rx (2.5 mg base)/3 mL nebulization #540 mL soln methadone 08/09/23 History Exam Narrative Exam Narrative: General: Patient is lying in bed with his eyes closed being very short with his answers to questions. He appears agitated and response to questions hesitantly. He is alert and oriented to person, place and time. He appears to be in no acute distress though he is having audible wheezing. HEENT: Normocephalic, eyes with pupils equal and react to light symmetrically, extraocular movement and sclera anicteric oropharynx with moist mucosa and poor dentition. Neck: Supple without JVD. Back: Normal posture without CVA tenderness. Lungs: Inspiratory and expiratory wheeze with prolonged expiratory phase but no focalizing rales or rhonchi. Bronchovesicular breath sounds diffusely. Heart: Tachycardic rate with regular rhythm. No murmurs or gallops appreciated. Abdomen: Normal contour, soft nontender to palpation no palpable hepatosplenomegaly. Genitalia/rectal: Exam deferred. Extremities: Without clubbing, cyanosis or pitting edema. Scarring with what appears to be IV track jennings over right forearm especially. Patient does admit to IV drug use but states this was remote. Upon further questioning he has had problems with cocaine urine screen with negative THC and states that he did cocaine 3 days ago with injection. Skin: Dark brown, warm and dry. Old scars over her arms and forearms as mentioned. Neuro: Cranial nerves II through XII is intact. No focal motor deficits and no tremor. Psych: Agitated with flattened affect and depressed mood and easily agitated giving short and sarcastic responses to questions. Patient very demanding to the staff which is his typical behavior when hospitalized. Manage has no abnormal thought processes. Remote and recent memory. Grossly intact. Results Imaging Imaging Studies: EXAM: XR PORTABLE CHEST AP CLINICAL HISTORY: severe asthma TECHNIQUE: 2D digital imaging was performed. COMPARISON: CR,XR XR PORTABLE CHEST AP from 08/05/2023 FINDINGS: Exam somewhat limited by overlying oxygen tubing LUNGS: Clear. No pleural abnormality seen. HEART: Normal size. AORTA: Normal diameter. BONES: Unremarkable for age. Soft tissues: Unremarkable. IMPRESSION: No acute findings. Labs 08/09/23 18:00 08/09/23 18:00 Labs: Laboratory Results - last 24 hr 08/09/23 08/09/23 08/09/23 18:00 19:44 20:08 WBC 8.07 RBC 5.85 H Hgb 15.2 Hct 48.3 MCV 83 MCH 26.0 L MCHC 31.5 L RDW 13.8 Plt Count 288 MPV 7.9 L Immature Gran % 0.4 Neutrophils % 53.6 Lymphocytes % 31.4 Monocytes % 7.2 Eosinophils % 6.9 Basophils % 0.5 Nucleated RBC % 0.0 Absolute Neutrophils 4.33 Absolute Lymphocytes 2.53 Absolute Monocytes 0.58 Absolute Eosinophils 0.56 Absolute Basophils 0.04 VBG pH 7.37 VBG pCO2 44 VBG pO2 95 VBG HCO3 26 VBG Total CO2 23 L VBG O2 Saturation 98 VBG Base Excess 1 Sodium 141 Potassium 3.8 Chloride 103 Carbon Dioxide 29.2 Anion Gap 8.8 BUN 13 Creatinine 0.9 Est GFR (CKD-EPI 2020) 118.57 Glucose 111 H Calcium 8.8 Total Bilirubin 0.2 AST 10 L ALT 24 Alkaline Phosphatase 82 Total Protein 7.9 Albumin 3.7 COVID-19 Source NASOPHARYNX SARS-CoV-2 (PCR) Negative Influenza Type A (PCR) Negative Influenza Type B (PCR) Negative RSV (PCR) Negative Last Vital Signs Temp 36.4 C L 08/09/23 17:48 Pulse 126 H 08/09/23 20:16 Resp 19 08/09/23 20:20 BP 177/101 H 08/09/23 20:16 Pulse Ox 97 08/09/23 20:20 Time Spent Time spent with Patient: >75 minutes Time was spent: preparing to see the patient(eg.review tests), obtaining and/or reviewing separately otained hiistory, ordering medications,tests, procedures, indepentently interpreting results, counseling the patient and care coordination
[2023-08-09 23:03] LABS: Bilirubin Negative (Negative); Blood Negative (Negative); Clarity Clear (Clear); Glucose Negative (Negative); Ketones Negative (Negative); Leukocyte Esterase Negative (Negative); Nitrite Negative (Negative); Specific Gravity >= 1.030 (1.005-1.025); Urobilinogen 0.2 mg/dL (Up to 0.2)
[2023-08-09 23:18] LABS: *AMPHETAMINES SCREEN URINE Negative (Negative); *BARBITURATES SCREEN URINE Negative (Negative); *BENZODIAZEPINES SCREEN URINE Negative (Negative); Cannabinoids THC Negative (Negative); Cocaine Screen,Urine Positive (Negative); METHADONE URINE SCREEN Positive (Negative); OPIATES URINE SCREEN Negative (Negative); Tricyclic Antidepressants Negative (Negative)
[2023-08-10 03:17] VITALS: BP 131/79; PULSE 93; RESP 16; TEMP 36.5; O2SAT 97
[2023-08-10 07:23] LABS: HCT 42.5 % (40.0-50.0); HGB 13.7 g/dL (13.5-17.5); MCH 26.3 pg (27.0-33.0); MCHC 32.2 % (32.0-36.0); MCV 82 fL (80-95); MPV 8.8 fL (8.0-11.0); Platelet Count 329 10^3/uL (130-400); RDW 13.7 % (11.8-14.1); RDW-SD 40.6 fL; WBC 8.68 10^3/uL (4.4-10.8)
[2023-08-10 07:42] VITALS: BP 142/78; PULSE 98; RESP 20; TEMP 37.3; O2SAT 97
[2023-08-10 07:47] LABS: ALT 27 U/L (16-63); AST 13 U/L (15-37); Albumin 3.5 g/dL (3.4-5.0); Alkaline Phosphatase 109 U/L (46-116); Anion Gap 8.7 mmol/L (3-11); BUN 16 mg/dL (7-18); Bilirubin, Total 0.3 mg/dL (0.2-1.0); CO2 27.3 mmol/L (21.0-32.0); CREATININE 0.9 mg/dL (0.70-1.30); Calcium 8.6 mg/dL (8.5-10.1); Chloride 102 mmol/L (98-107); Estimated GFR 118.57 (mL/min/1.73m2); Glucose 132 mg/dL (74-106); Magnesium 2.2 mg/dL (1.8-2.4); Potassium 4.1 mmol/L (3.5-5.1); Sodium 138 mmol/L (136-145); Total Protein 7.7 g/dL (6.4-8.2)
[2023-08-10] MEDS: methylPREDNISolone SUCC 125 MG VIAL IVP (08:35)
[2023-08-10] MEDS: Normal Saline Flush 10 ML SYR IVP (08:43)
[2023-08-10] MEDS: Pantoprazole 40 MG TABCR PO (08:43)
[2023-08-10] MEDS: hydrOXYzine HCL 25 MG TAB PO ×2 (08:43→14:36)
[2023-08-10 09:47] VITALS: RESP 5
[2023-08-10] MEDS: Albuterol/Ipratropium 3 ML UPD VIAL UPD (09:47)
[2023-08-10] MEDS: Budesonide/Formoterol 80/4.5 6.9 GM 60 PUFF INH IH (09:49)
[2023-08-10] MEDS: Methadone Liquid 10 MG/ML 130 MG PO (10:43)
[2023-08-10 11:52] VITALS: BP 129/74; PULSE 82; RESP 18; TEMP 37.4; O2SAT 98
--- NOTE | 2023-08-10 12:34 | PDOC.CMIN ---
Date of service: 08/10/23 Time of Service: 12:34 Care Management Initial Assmt Initial Assessment Reason for Hospitalization: Asthma exacerbation with respiratory Functional Status/Living Situation Patient Presentation: Motivated for discharge, Alden engaged appropriately with this CM-identified needs for discharge stating he wanted to leave and did not wish to return. Town of Residence: [facility] Resides with: Alone Employment Status: Disabled Instrumental Activities of Daily Living (ADLs): Independent Medications Medication Management: Issues/Barriers (CM set up transportation; LISA provided prescription support. Pharmacy released inhaler. ) with Obtaining and Cost Advance Directives Advance Directives: Do you have an Advance Directive: N 07/16/15 08:20 AD On File at [facility]: N 07/16/15 08:20 Date Asked 08/05/23 08/05/23 19:29 AD Date Reviewed COLST On File at [facility] COLST Date Scanned Code Status Resuscitation Status Full Code Portal Pt does not currently have a portal and education provided: No Portal Education: Patient declined Insurance Coverage/Financial Issues Insurance: [facility], [facility]; Alden reports prescription coverage will be active within the next few days. Care Team Visit Care Team Role Provider Type Dago Joaquin Primary Care Provider NON-[facility] STAFF PHYSICIAN Amilcar Nevarez MD Emergency Provider [facility] STAFF PHYSICIAN Amadou Pérez Admit Provider NON-[facility] STAFF PHYSICIAN Attending Provider Discharge Anticipated Barriers to Discharge: None Identified Patient/Family Education Needs: Review discharge instructions, discuss Ask Me Three Transportation: Private vehicle Plan: CM confirmed availability of Symbicort Inhaler at [facility] in [facility] per provider request. PFSH All Active Problems (Updated 08/09/23 @ 22:04 by Amadou Pérez) Active intravenous drug use (Chronic) Gastritis (Chronic) Asthma exacerbation (Acute) Upper respiratory infection (Acute) Lymphadenopathy (Acute) Hemorrhoids (Acute) Viral warts (Acute) ADD (attention deficit disorder) (Chronic) Marijuana smoker (Chronic) Asthma (Chronic) Suicidal ideation (Acute) Depression (Chronic) Anxiety disorder (Chronic) Eczema (Chronic) Medical History (Updated 08/09/23 @ 22:04 by Amadou Pérez) Cyst of face Mass of left side of neck Acute asthma exacerbation Eczema Surgical History No significant past surgical history Family History Other Adopted Social History Smoking/Tobacco Use Status: Current every day Tobacco Type: e-cigarettes Counseling given: provider counseling Smoking risk assessment performed?: Yes Alcohol Intake: current Alcohol Intake frequency: holidays/special occasions only Alcohol type: beer Details: Minimal Drug use: Daily Substance use type: marijuana, crack/cocaine and heroin Counseling given: Yes Details: drug used depends on the day Adopted: Yes Housing: apartment Current gender identity: male Do you feel safe at home: Yes Do you feel safe in your relationship?: Yes Additional Social history: Grew up in [place], adopted, close with 1 of his moms who lives in [place]. Lives alone in apartment on [address] in [place]. SDOH(Care Management) Screening Will the Patient Participate in the Screening?: Yes Do you worry about having a steady place to live?: no Problems where you live: no known problems In the past 12 months, have you had to go without electric, gas, oil or water in your home?: no Have you or anyone in your house had to go without enough food to eat?: no Has lack of transportation kept you from medical appointments or from doing things needed for daily living?: yes Has anyone in your support network made you feel unsafe for any reason?: no Health Related Social Needs Health related social needs: transportation insecurity(Z59.82) and material hardship(utilities)(Z59.87) Interventions Referrals and interventions: RCT Care Management Referrals: LISA and Other (RCT) Referral for Financial Health Care Support: Prescriptions
--- NOTE | 2023-08-10 12:45 | DSE_ITS ---
Date of service: 08/10/23 Time of Service: 12:45 DS: Diagnosis Discharge Diagnosis (1) Asthma exacerbation: Status: Acute (2) Marijuana smoker: (3) Active intravenous drug use: (4) Anxiety disorder: (5) ADD (attention deficit disorder): (6) Depression: (7) Gastritis: Discharge Plan Disposition Patient Disposition: Home Condition: Fair Discharge Details Reason For Visit: Exacerbation asthma with respiratory distress Admit Date/Time: 08/09/23 20:38 Admit Provider: Amadou Pérez Attending Provider: Amadou Pérez Primary Care Provider: Dago Joaquin Hospital Course Hospital Course: This is a 28 year old male patient with past medical history of asthma with a history of poor follow-up and control, who presented to the [facility] ED with failed outpatient therapy for an exacerbation of asthma. Aggressive nebulizer treatments and IV Solu-Medrol were administered in the ED. The patient continued to have wheezing, although was comfortable and able to speak in full sentences. Patient was placed on observation status on the medical floor for further testing and treatment. The patient has a history of status asthmaticus in his youth. However, this presentation revealed no CO2 retention with reasonable VBG and no hypoxemia, as well as a normal chest x-ray. There was no indication for antibiotics at this time. The patient does have a history of seeing pulmonology, but it has been approximately a year since their last visit. There was some discussion of treatment for increased eosinophils in the context of chronically uncontrolled asthma. However, the patient appears to be noncompliant with follow-up. The patient refused albuterol inhaler and said he was using symbicort for rescue. He was re-educated regarding use of his inhalers. The patient was given a prednisone taper. Exercise oximetry; patient refused originally. When respiratory therapy returned he did comply. His SPO2 remained above 97% on room air with exercise, no wheezing and no increased work of breathing. Discussion with character actress, Dr Naqvi. Patient has not followed up. I advised the patient to stop smoking all substances. I called the pharmacy and the patient does have refills available for his inhalers. Please ensure close follow-up with pulmonology and emphasize the importance of compliance with treatment and follow-up appointments. Home Meds and New Rx's Prescriptions: New hydroxyzine HCl 25 mg Tablet 25 mg PO TID Qty: 30 0RF methadone [Methadose] 10 mg/mL Concentrate 130 mg PO DAILY Qty: 0 0RF prednisone 10 mg tablet See Taper PO DIRECTED Qty: 30 0RF Taper: Prednisone 10mg taper 40 mg Daily for 4 Days and 0 Hour 30 mg Daily for 3 Days and 0 Hour 20 mg Daily for 3 Days and 0 Hour 10 mg Daily for 3 Days and 0 Hour 5 mg Daily for 3 Days and 0 Hour Rx Instructions: see taper instructions Continued budesonide-formoterol [Symbicort] 80-4.5 mcg/actuation HFA aerosol inhaler 2 puff inhalation 6XD Qty: 3 12RF Patient Comments: Pt states he does not know if he takes this. Rx Instructions: 2 puffs twice a day and as needed, up to 12 puffs in a 24 hour period Rinse mouth after use ipratropium-albuterol 0.5 mg-3 mg(2.5 mg base)/3 mL solution for nebulization 3 ml inhalation Q4H PRN (Reason: wheezing) Qty: 540 12RF Patient Comments: Pt states he does not know if he takes this. pantoprazole 40 mg tablet,delayed release (DR/EC) 40 mg PO DAILY Patient Comments: TAKE 1 TABLET BY MOUTH DAILY albuterol sulfate 2.5 mg /3 mL (0.083 %) solution for nebulization 2.5 mg IH QID PRN (Reason: shortness of breath or wheezing) Qty: 75 0RF Patient Comments: Pt states he does not know if he takes this. buspirone 5 mg Tablet 15 mg PO BID Patient Comments: Patient state he takes 15mg bid No Action methadone Patient Comments: Patient states he is on methadone thru clinic Discharge Instructions Instructions: Albuterol (By breathing), Prednisolone (By mouth), Budesonide/Formoterol (By breathing), Asthma (DC) Additional Instructions: Stop smoking cigarettes, marijuana and cocaine. Use inhalers as prescribed. Continue symbicort and albuterol. Take prednisone until course is completed. Care managers will contact community connections for you to see if there is anything they can do to help you with the cost of your medications. You have not followed up with pulmonology - you should see them for chronic care and to mitigate exacerbations. Stand Alone Forms: Nursing Discharge Form Referrals: Dago Joaquin [Primary Care Provider] - (Follow up acute exac asthma ,Not compliant with medications, Continues to smoke substances. Please call the office to make a follow up apt within 10-14 days. I left a message with the office as well. ) Neema Naqvi MD [ [facility] STAFF PHYSICIAN] - 08/20/23 9:30 am (Acute exac. Asthma follow up - non complicant) Activity:: Activity as Tolerated Equipment/Supplies:: No Equipment Needed Diet:: As Tolerated Discharge Orders Discharge Orders: Discharge Order (Routine); Ordered 08/10/23 Ordered By: Catrina Brownlee Discharge Data Discharge Date/Time-TO BE ENTERED AT DEPARTURE: 08/10/23 15:49 DS: Summary Time Spent with Patient providing and/or coordinating discharge services: Greater than 30 minutes Status at Discharge Functional status at discharge: independent ambulation Overall status at discharge: patient is back to baseline Mental Status: mental status grossly normal Speech and Movement: speech and movement normal Mood: congruent mood Affect: normal affect Quality:SDOH Health Related Social Needs: Health related social needs transpo insecurity, materi al hardship Health related social needs details Review of [facility] based services for outreach. Exam Narrative Exam Narrative: Physical Examination General: alert, awake, no acute distress, speaking in full sentences, no wheezing HEENT: normocephalic, atraumatic; PERRL, EOM intact, conjunctiva normal; no nasal discharge; moist mucous membranes Neck: supple, trachea midline; full ROM Chest: normal to inspection Respiratory: lungs clear to auscultation, speaking in full sentences, no increased wob Cardiac: regular rhythm, S1S2 intact, no murmurs rubs or gallops GI: abdomen soft, non-tender, non-distended; no palpable mass or hepatosplenomegaly Skin: no lesions, rashes or trauma appreciated Neuro: AAOx3, normal speech, moving all extremities Extremities: No peripheral edema Psych: Appropriate mood and affect Psych Mental Status: mental status grossly normal Speech and Movement: speech and movement normal Mood: congruent mood Affect: normal affect DS: Data Vitals/I&O Vitals and I&O: Vital Signs Temperature 37.4 C 08/10/23 11:52 Temperature Source Temporal Artery Scan 08/10/23 11:52 Pulse 82 08/10/23 11:52 Pulse Rhythm Regular 05/31/24 07:30 Pulse 123 H 08/09/23 21:01 Respiratory Rate 18 08/10/23 11:52 Respiratory Effort Normal 08/10/23 07:30 Respiratory Depth Normal 08/10/23 07:30 Respiratory Pattern Normal 08/10/23 07:30 Blood Pressure 129/74 08/10/23 11:52 Blood Pressure Mean 112 08/09/23 21:01 Pulse Oximetry 98 08/10/23 11:52 Oxygen Delivery Method Room Air 08/10/23 11:52 Oxygen Flow Rate 0 08/10/23 11:52 Pain Level 0 08/10/23 10:43 Comment nurse notified. 08/10/23 07:42 Intake & Output 08/09/23 08/10/23 08/10/23 23:59 11:59 23:59 Intake Total 50 / 50 666 / 666 Output Total 525 / 525 Balance 50 / 50 141 / 141 Weight 59.874 kg 61.4 kg Intake: IV 50 / 50 Oral 666 / 666 Output: Urine 525 / 525 Other: Urine Color Light Dyan Urine Appearance Clear Clear Cloudy Comment voided in toilet Voiding Methods Toilet Data Completed and Pending Labs on day of discharge: Labs from last 24 hours 08/10/23 08/09/23 08/09/23 06:10 22:00 20:08 WBC 8.68 RBC 5.20 Hgb 13.7 Hct 42.5 MCV 82 MCH 26.3 L MCHC 32.2 RDW 13.7 Plt Count 329 MPV 8.8 Immature Gran % Neutrophils % Lymphocytes % Monocytes % Eosinophils % Basophils % Nucleated RBC % Absolute Neutrophils Absolute Lymphocytes Absolute Monocytes Absolute Eosinophils Absolute Basophils VBG pH 7.37 VBG pCO2 44 VBG pO2 95 VBG HCO3 26 VBG Total CO2 23 L VBG O2 Saturation 98 VBG Base Excess 1 Sodium 138 Potassium 4.1 Chloride 102 Carbon Dioxide 27.3 Anion Gap 8.7 BUN 16 Creatinine 0.9 Est GFR (CKD-EPI 2020) 118.57 Glucose 132 H Calcium 8.6 Magnesium 2.2 Total Bilirubin 0.3 AST 13 L ALT 27 Alkaline Phosphatase 109 Total Protein 7.7 Albumin 3.5 Urine Color Yellow Urine Clarity Clear Urine pH 6.0 Ur Specific [place] >= 1.030 H Urine Protein Negative Urine Ketones Negative Urine Blood Negative Urine Nitrite Negative Urine Bilirubin Negative Urine Urobilinogen 0.2 Ur Leukocyte Esterase Negative Urine Glucose Negative Urine Opiates Screen Negative Urine Methadone Screen Positive A Ur Barbiturates Screen Negative Ur Tricyclics Screen Negative Ur Amphetamines Screen Negative U Benzodiazepines Scrn Negative Urine Cocaine Screen Positive A Ur THC Screen Negative COVID-19 Source SARS-CoV-2 (PCR) Influenza Type A (PCR) Influenza Type B (PCR) RSV (PCR) 08/09/23 08/09/23 19:44 18:00 WBC 8.07 RBC 5.85 H Hgb 15.2 Hct 48.3 MCV 83 MCH 26.0 L MCHC 31.5 L RDW 13.8 Plt Count 288 MPV 7.9 L Immature Gran % 0.4 Neutrophils % 53.6 Lymphocytes % 31.4 Monocytes % 7.2 Eosinophils % 6.9 Basophils % 0.5 Nucleated RBC % 0.0 Absolute Neutrophils 4.33 Absolute Lymphocytes 2.53 Absolute Monocytes 0.58 Absolute Eosinophils 0.56 Absolute Basophils 0.04 VBG pH VBG pCO2 VBG pO2 VBG HCO3 VBG Total CO2 VBG O2 Saturation VBG Base Excess Sodium 141 Potassium 3.8 Chloride 103 Carbon Dioxide 29.2 Anion Gap 8.8 BUN 13 Creatinine 0.9 Est GFR (CKD-EPI 2020) 118.57 Glucose 111 H Calcium 8.8 Magnesium Total Bilirubin 0.2 AST 10 L ALT 24 Alkaline Phosphatase 82 Total Protein 7.9 Albumin 3.7 Urine Color Urine Clarity Urine pH Ur Specific [place] Urine Protein Urine Ketones Urine Blood Urine Nitrite Urine Bilirubin Urine Urobilinogen Ur Leukocyte Esterase Urine Glucose Urine Opiates Screen Urine Methadone Screen Ur Barbiturates Screen Ur Tricyclics Screen Ur Amphetamines Screen U Benzodiazepines Scrn Urine Cocaine Screen Ur THC Screen COVID-19 Source NASOPHARYNX SARS-CoV-2 (PCR) Negative Influenza Type A (PCR) Negative Influenza Type B (PCR) Negative RSV (PCR) Negative PFSH All Active Problems (Updated 08/11/23 @ 00:01 by ID AnalyticsDenys [email or web address]) Asthma exacerbation (Acute) Upper respiratory infection (Acute) Lymphadenopathy (Acute) Hemorrhoids (Acute) Viral warts (Acute) Asthma (Chronic) Suicidal ideation (Acute) Eczema (Chronic) Medical History (Updated 08/11/23 @ 00:01 by ID AnalyticsDenys ARGUETA) Active intravenous drug use Gastritis ADD (attention deficit disorder) Marijuana smoker Anxiety disorder Depression Cyst of face Mass of left side of neck Acute asthma exacerbation Eczema Surgical History No significant past surgical history Family History Other Adopted Social History Smoking/Tobacco Use Status: Current every day Tobacco Type: e-cigarettes Counseling given: provider counseling Smoking risk assessment performed?: Yes Alcohol Intake: current Alcohol Intake frequency: holidays/special occasions only Alcohol type: beer Details: Minimal Drug use: Daily Substance use type: marijuana, crack/cocaine and heroin Counseling given: Yes Details: drug used depends on the day Adopted: Yes Housing: apartment Current gender identity: male Do you feel safe at home: Yes Do you feel safe in your relationship?: Yes Additional Social history: Grew up in [place], adopted, close with 1 of his moms who lives in [place]. Lives alone in apartment on [address] in [place]. Time Spent with Patient Time Spent with Patient: 45-69 minutes Time was spent: preparing to see the patient(eg.review tests), ordering medications,tests, procedures, referring, communicating with other health director of home care hospice, indepentently interpreting results, counseling the patient and care coordination
[2023-08-10] MEDS: Albuterol HFA 8 GM 60 PUFF INH IH (15:04)
[2023-08-10 15:11] VITALS: PULSE 100; PULSE 103; PULSE 96; O2SAT 97; O2SAT 99
== END 2023-08-10 15:49 | disposition home or self-care (01) | DRG 202 ==
LOC: ER 19:38 → MS 21:21
PROVIDERS: Admitting Provider Family Medicine; Emergency Provider Emergency Medicine; PCP Physician Assistant; Visit Provider Family Medicine
DX: J45.51 Severe persistent asthma with (acute) exacerbation (principal); F11.20 Opioid dependence, uncomplicated; F33.2 Major depressive disorder, recurrent severe without psychotic features; F12.90 Cannabis use, unspecified, uncomplicated; F90.2 Attention-deficit hyperactivity disorder, combined type; F41.1 Generalized anxiety disorder; K29.50 Unspecified chronic gastritis without bleeding; F17.290 Nicotine dependence, other tobacco product, uncomplicated; L30.9 Dermatitis, unspecified; F14.90 Cocaine use, unspecified, uncomplicated; Z91.148 Patient's other noncompliance with medication regimen for other reason; Z79.899 Other long term (current) drug therapy
CPT/HCPCS: 00123; 80053; 80307; 82805; 85027; 87637; 94618; 94640; 96365; 96366; 96375; 99285; 71045; 81003; 83735; 85025; 94664; 99223; 99239; J1100; J2919; J3475; J7613; J7620

== ENCOUNTER 2023-10-05 11:32 | Observation (INO) | payer MEDICARE, MEDICAID, SELFPAY ==
[2023-10-05] VITALS (8 sets, daily range): BP systolic 137–147; BP diastolic 85–109; PULSE 80–120; RESP 5–22; TEMP 36.2–37.1; O2SAT 96–100
--- NOTE | 2023-10-05 14:05 | ED.GENADUL_ITS ---
Discharge Plan Disposition Patient Disposition: Admit to [facility] Discharge Details Clinical Impression: Asthma exacerbation, Prolonged Q-T interval on ECG, Acute hypokalemia Primary Care Provider: Dago Joaquin ED Provider: Johnny Metz Home Meds and New Rx's Prescriptions: New prednisone 50 mg tablet 50 mg PO DAILY Qty: 4 0RF Rx Instructions: Please begin taking tomorrow as you have received steroids in the emergency department Continued budesonide-formoterol [Symbicort] 80-4.5 mcg/actuation HFA aerosol inhaler 2 puff inhalation 6XD Qty: 3 12RF Patient Comments: Pt states he does not know if he takes this. Rx Instructions: 2 puffs twice a day and as needed, up to 12 puffs in a 24 hour period Rinse mouth after use ipratropium-albuterol 0.5 mg-3 mg(2.5 mg base)/3 mL solution for nebulization 3 ml inhalation Q4H PRN (Reason: wheezing) Qty: 540 12RF Patient Comments: Pt states he does not know if he takes this. pantoprazole 40 mg tablet,delayed release (DR/EC) 40 mg PO DAILY Patient Comments: TAKE 1 TABLET BY MOUTH DAILY albuterol sulfate 2.5 mg /3 mL (0.083 %) solution for nebulization 2.5 mg IH QID PRN (Reason: shortness of breath or wheezing) Qty: 75 0RF Patient Comments: Pt states he does not know if he takes this. buspirone 5 mg Tablet 15 mg PO BID Patient Comments: Patient state he takes 15mg bid methadone Patient Comments: Patient states he is on methadone thru clinic hydroxyzine HCl 25 mg Tablet 25 mg PO TID Qty: 30 0RF methadone [Methadose] 10 mg/mL Concentrate 130 mg PO DAILY Qty: 0 0RF prednisone 10 mg tablet See Taper PO DIRECTED Qty: 30 0RF Taper: Prednisone 10mg taper 40 mg Daily for 4 Days and 0 Hour 30 mg Daily for 3 Days and 0 Hour 20 mg Daily for 3 Days and 0 Hour 10 mg Daily for 3 Days and 0 Hour 5 mg Daily for 3 Days and 0 Hour Rx Instructions: see taper instructions HPI General Date/Time Provider Initiated Documentation: 10/05/23 12:06 . HPI Narrative: MDM This is an overall well-appearing tachycardic but normothermic 28-year-old male with history of asthma and recent medication nonadherence for which patient will receive nebulized albuterol treatment and oral dexamethasone. No pain out of proportion to suggest necrotizing soft tissue infection. No chest pain to suggest ACS so did not obtain ECG nor send a troponin. No fevers nor cough so doubt pneumonia so did not obtain a chest x-ray. No calf pain leg swelling no history of PEs or DVTs I did not send a D-dimer. No trauma to chest to suggest pneumothorax. No black nor bloody stools so doubt anemia. I did not send a COVID swab as patient does not have sick contacts or fevers. Will reassess following albuterol and oral dexamethasone. 2:36 PM Repeat heart rate 84 bpm. 6:20 PM Patient received multiple rounds of nebulized albuterol. Respiratory therapy was ultimately consulted and patient received 10 mg of continuous albuterol. He had persistent wheezes and I do not feel he is appropriate for discharge. I ordered basic labs and patient was found to be mildly hypokalemic. Given potassium less than 3 we will obtain ECG and replete orally and IV. 6:[address] Pérez by phone who graciously agreed to accept the patient for hospitalization. He requested a VBG which I ordered. Patient will require cardiac monitoring as he has a prolonged QT interval at 541 ms. He takes methadone. Given his significant history of asthma and multiple rounds of nebulizers required I feel that hospitalization is the most appropriate. He will furthermore benefit from cardiac monitoring given QTc prolongation likely from methadone compounded by hypokalemia secondary to nebulized beta agonists. ECG shows biphasic T waves in V2 and V3. In the absence of chest pain I am not concerned for Wellens syndrome. 8:12 PM Basic metabolic panel lacks acidemia and hypercarbia. Chronic conditions affecting the care of the patient: Asthma History obtained from an outside historian: N/A External record review: N/A Medications: Nebulized albuterol dexamethasone Social determinants of health affecting disposition: Difficulty accessing medications Management discussed with: N/A Treatment/interventions considered: Chest x-ray but deferred Response to therapies provided: Improved symptoms in the ED HPI This is a 28-year-old male with a history of asthma prior hospitalizations and intubation arrived to the emergency by via private vehicle in setting of difficulty breathing for the past several days. Patient notes that he does not have access to his inhalers as his insurance does not cover them he reports. He began feeling short of breath yesterday. He denies sick contacts. He is a daily tobacco user and occasionally smokes cocaine. He denies history of leg pain PE and DVT. He is not having any chest pain just shortness of breath. Denies fevers increased cough and nausea vomiting. No recent falls. No trauma to chest. Exam General: Well-appearing in no acute distress speaking in complete sentences. Head: Normocephalic, atraumatic. Eye: Extraocular eye movements intact. No conjunctival injection. No scleral icterus. Ear, nose, mouth, throat: Grossly normal inspection. Normal voice, handling secretions normally. Neck: Trachea midline. Cardiovascular: Well-perfused distal extremities. Regular rate and rhythm Respiratory: Nonlabored respiration. Diminished breath sounds diffusely. Gastrointestinal: Nondistended abdomen. Musculoskeletal: No calf tenderness bilaterally. Moving all 4 extremities spontaneously. Skin: Normal for age and race, grossly normal temperature and turgor. No acute rash. Neurologic: Alert and appropriate, no apparent acute deficits. Psychiatric: Mood and manner are appropriate. Grooming and personal hygiene are appropriate. Related Data Home Medications ?Medication ?Instructions ?Recorded ?Confirmed albuterol sulfate 2.5 mg/3 mL 2.5 mg (3 mL) inhalation QID PRN 05/20/18 08/09/23 (0.083 %) solution for nebulization shortness of breath or wheezing #75 mL buspirone 5 mg tablet 15 mg PO BID 09/22/18 08/09/23 pantoprazole 40 mg tablet,delayed 40 mg PO DAILY 05/22/20 08/09/23 release budesonide-formoterol HFA 80 2 puff inhalation 6XD #3 ea 07/03/22 08/09/23 mcg-4.5 mcg/actuation aerosol inhaler (Symbicort) ipratropium 0.5 mg-albuterol 3 mg 3 ml inhalation Q4H PRN wheezing 07/04/22 08/09/23 (2.5 mg base)/3 mL nebulization #540 mL soln methadone 08/09/23 hydroxyzine HCl 25 mg tablet 25 mg PO TID #30 tabs 08/10/23 methadone 10 mg/mL oral 130 mg (13 mL) PO DAILY #0 mL 08/10/23 concentrate (Methadose) prednisone 10 mg tablet See Taper PO DIRECTED #30 tabs 08/10/23 prednisone 50 mg tablet 50 mg PO DAILY #4 tabs 10/05/23 Previous Rx's ?Medication ?Instructions ?Recorded albuterol sulfate 2.5 mg/3 mL 2.5 mg (3 mL) inhalation QID PRN 05/20/18 (0.083 %) solution for nebulization shortness of breath or wheezing #75 mL budesonide-formoterol HFA 80 2 puff inhalation 6XD #3 ea 07/03/22 mcg-4.5 mcg/actuation aerosol inhaler (Symbicort) ipratropium 0.5 mg-albuterol 3 mg 3 ml inhalation Q4H PRN wheezing 07/04/22 (2.5 mg base)/3 mL nebulization #540 mL soln hydroxyzine HCl 25 mg tablet 25 mg PO TID #30 tabs 08/10/23 methadone 10 mg/mL oral 130 mg (13 mL) PO DAILY #0 mL 08/10/23 concentrate (Methadose) prednisone 10 mg tablet See Taper PO DIRECTED #30 tabs 08/10/23 prednisone 50 mg tablet 50 mg PO DAILY #4 tabs 10/05/23 Allergies Allergy/AdvReac Type Severity Reaction Status Date / Time cat dander Allergy Wheezing Unverified 10/05/23 11:41 migraine medication AdvReac Other (See Uncoded 10/05/23 11:41 Comment) General Stated Complaint: RespSymp MINGO: 3 Course Vital Signs Vital signs: Vital Signs Temperature 37.1 C 10/05/23 11:38 Pulse 120 H 10/05/23 11:38 Respiratory Rate 22 10/05/23 11:38 Blood Pressure 147/109 H 10/05/23 11:38 Pulse Oximetry 100 10/05/23 11:38 Temperature 37.1 C 10/05/23 11:38 Temperature Source Temporal Artery Scan 10/05/23 11:38 Pulse 120 H 10/05/23 11:38 Respiratory Rate 22 10/05/23 11:38 Respiratory Effort Short of Breath 10/05/23 11:41 Blood Pressure 147/109 H 10/05/23 11:38 Blood Pressure Position Sitting 10/05/23 11:38 Pulse Oximetry 100 10/05/23 11:38 Oxygen Delivery Method Room Air 10/05/23 11:38 Oxygen Flow Rate 0 10/05/23 11:38 Medical Decision Making Quality:SDOH Health Related Social Needs: Health related social needs transpo insecurity, materi al hardship Health related social needs details Review of communit y based services for outreach. Critical Care Time Critical Care Time Critical Care Time: Yes Total Critical Care Time: 30 Attestation: Bedside management of asthma exacerbation PFSH All Active Problems (Updated 10/05/23 @ 19:57 by Amadou Pérez) Tobacco abuse (Chronic) Moderate opioid dependence on maintenance therapy (Chronic) Acute hypokalemia (Acute) Prolonged Q-T interval on ECG (Acute) Upper respiratory infection (Acute) Lymphadenopathy (Acute) Hemorrhoids (Acute) Viral warts (Acute) Asthma (Chronic) Suicidal ideation (Acute) Eczema (Chronic) Medical History (Updated 10/05/23 @ 19:57 by Amadou Pérez) Active intravenous drug use Gastritis ADD (attention deficit disorder) Marijuana smoker Anxiety disorder Depression Cyst of face Mass of left side of neck Acute asthma exacerbation Eczema Surgical History No significant past surgical history Family History Other Adopted Social History Smoking/Tobacco Use Status: Current every day Tobacco Type: e-cigarettes Counseling given: provider counseling Smoking risk assessment performed?: Yes Alcohol Intake: current Alcohol Intake frequency: holidays/special occasions only Alcohol type: beer Details: Minimal Drug use: Daily Substance use type: crack/cocaine and heroin Counseling given: Yes Details: drug used depends on the day Adopted: Yes Housing: apartment Current gender identity: male Do you feel safe at home: Yes Do you feel safe in your relationship?: Yes Additional Social history: Grew up in [place], adopted, close with 1 of his moms who lives in [place]. Lives alone in apartment on [address] in [place].
[2023-10-05] MEDS: Albuterol 2.5 MG/3 ML INH SOLN VIAL 5 MG UPD ×2 (14:29→15:05)
[2023-10-05] MEDS: Dexamethasone 4 MG TAB 8 MG PO (14:30)
[2023-10-05] MEDS: Albuterol 2.5 MG/3 ML INH SOLN VIAL 10 MG UPD (14:30)
[2023-10-05] MEDS: Budesonide/Formoterol 160/4.5 6 GM 60 PUFF INH IH (15:06)
--- NOTE | 2023-10-05 17:59 | DI.RAD_ITS ---
Exam(s) XR PORTABLE CHEST AP EXAM: XR PORTABLE CHEST AP CLINICAL HISTORY: SOB. TECHNIQUE: 2D digital imaging was performed. COMPARISON: CR XR PORTABLE CHEST AP from 08/09/2023 FINDINGS: Single AP portable view. Heart size is upper normal. The mediastinum is not widened. Lungs are clear. No infiltrates nor obvious pleural effusions. IMPRESSION: No acute pulmonary findings on this single AP portable view of the chest. DATA REPOSITORY: RADIATION DOSE DELIVERED:
[2023-10-05 18:02] LABS: Abs Immature Grans 0.02 10^3/uL (0.0-0.06); Absolute Basophil Count 0.02 10^3/uL (0.0-0.2); Absolute Eosinophil Count 0.08 10^3/uL (0.0-0.7); Absolute Lymphocyte Count 0.74 10^3/uL (1.2-3.4); Absolute Monocyte Count 0.11 10^3/uL (0.1-0.8); Absolute Neutrophil Count 5.64 10^3/uL (1.2-6.7); Basophils % 0.3 %; Eosinophils % 1.2 %; HCT 40.9 % (40.0-50.0); HGB 12.9 g/dL (13.5-17.5); Immature Grans % 0.3 %; Lymphocytes % 11.2 %; MCH 26.2 pg (27.0-33.0); MCHC 31.5 % (32.0-36.0); MCV 83 fL (80-95); Monocytes % 1.7 %; Neutrophils % 85.3 %; Platelet Count 230 10^3/uL (130-400); RBC 4.93 10^6/uL (4.36-5.78); RDW 13.8 % (11.8-14.1); WBC 6.61 10^3/uL (4.4-10.8)
[2023-10-05] MEDS: MAGNESIUM SULFATE 2 GM/50 ML BAG IVINF (18:07)
[2023-10-05 18:13] LABS: Anion Gap 8.3 mmol/L (3-11); BUN 16 mg/dL (7-18); CO2 29.7 mmol/L (21.0-32.0); Calcium 8.7 mg/dL (8.5-10.1); Chloride 102 mmol/L (98-107); Estimated GFR 104.48 (mL/min/1.73m2); Glucose 184 mg/dL (74-106); Sodium 140 mmol/L (136-145)
[2023-10-05 18:15] LABS: Potassium 2.9 mmol/L (3.5-5.1)
--- NOTE | 2023-10-05 18:15 | RT.EKG_ITS ---
APPROVED REPORT Exam: Resting ECG Reason for Exam: Hypokalemia Patient Location: E HR:93 bpm ECG Measurements Heart Rate 93 AXIS VA 140 P 66 QRSd 112 QRS 27 QT 434 T 10 QTc 541 Conclusion Sinus rhythm...normal P axis, V-rate 60- [address] elevation, anterior leads...ST >0.15mV in V1-V4 Prolonged QT interval...QTc >488mS Normal sinus rhythm at a rate of 93. Normal axis. VA within normal limits. Interventricular conduc tion delay QRS of 112 ms. Markedly prolonged QTc at 541 ms. Biphasic T wave in 2 and V3.
[2023-10-05] MEDS: Potassium Chloride 20 MEQ TABCR 40 MEQ PO (19:08)
[2023-10-05 19:12] LABS: BE (Venous) 2 mmol/L (-2-3); HCO3 (Venous) 28 mmol/L (23-28); O2 Sat (Venous) 89 %; TCO2 (Venous) 25 mmol/L (24-29); pCO2 (Venous) 48 mmHg (41-51); pH (Venous) 7.37 (7.31-7.41); pO2 (Venous) 55 mmHg
--- NOTE | 2023-10-05 19:36 | W.PM.HP.N ---
Date of service: 10/05/23 Time of Service: 19:37 Assessment and Plan Assessment and plan (1) Acute hypokalemia: Start date: 10/05/23 Status: Acute Assessment and plan: This is a 28-year-old male patient presented to the ED with shortness of breath after washing his pet bunny and exacerbating asthma. His asthma was not severe as far as hypoxemia or tachypnea but he did have incomplete sentences when first arriving in the ED with his improving at the time I saw the patient. He was not sent home on a prednisone pulse and his inhalers which she has been off for at least a month because of EKG changes and hypokalemia also possibly exacerbated by treatment of his acute asthma exacerbation. His hypokalemia is improving with repletion and will continue with IV repletion overnight or upon lab. His magnesium is normal to high having received magnesium for asthma exacerbation. Long-term he should eat potassium rich foods. He does have food deficit risk being on food stamps and running out of food before the end of the month in his household. 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 This can be through counseling with his methadone clinic and PCP. He is a full code. (2) Prolonged Q-T interval on ECG: Start date: 10/05/23 Status: Acute Assessment and plan: QT is now just at 500 and appears to be improving. EKG will be repeated in the morning. Patient is on methadone and with treatment of his exacerbated asthma, he is at risk for QT prolongation. He is not on BuSpar. 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 His urine drug screen was positive for cocaine and THC as well as amphetamines though he is off his prescribed Adderall for. It was also positive for methadone. Patient still has a probably polysubstance abuse. (4) Acute asthma exacerbation: Start date: 10/05/23 Assessment and plan: Patient asthma is not treated as an outpatient and he did wash his bunny the day prior to presentation and this may have part of his asthma. He has had no cold symptoms or other reasons for exacerbation. He will be discharged on Symbicort and albuterol from this facility but needs to follow-up with his PCP for long-term treatment and better options for affordability. He appears very noncompliant with maintaining his insurance. Qualifiers: Asthma severity: severe Asthma persistence: persistent Qualified Code(s): J45.51 - Severe persistent asthma with (acute) exacerbation (5) Tobacco abuse: Status: Chronic Assessment and plan: Patient was advised to stop smoking tobacco which also may help him divert funds for food and medications. He has stopped in the past. This may be used for self treatment of his ADHD. Patient also has polysubstance abuse with cocaine, THC and amphetamines (though not prescribed) in his COLLIN. (6) Anxiety disorder: Qualifiers: Anxiety disorder type: generalized anxiety disorder Qualified Code(s): F41.1 - Generalized anxiety disorder (7) ADD (attention deficit disorder): Assessment and plan: Patient is fidgety and tremors over lower extremities all Vyvanse and Adderall for which he needs to see his PCP for reinitiation of 1 of these medications. He is at higher risk with patient being on methadone. Qualifiers: Hyperactivity presence: present Attention deficit-hyperactivity disorder type: combined inattentive-hyperactive Qualified Code(s): F90.2 - Attention-deficit hyperactivity disorder, combined type History of Present Illness History of Present Illness Chief Complaint: Difficulty breathing with wheezing. Narrative: This is a 28-year-old male patient who presented to the ED with acute exacerbation of asthma off inhalers for at least 1 month and having exposure to his pet bunny which he washed the day prior to presentation. He is on methadone chronically which she has been receiving at the clinic and is off his ADHD treatment also because of cost and. Will follow-up with his PCP. He reported to the ED with respiratory distress and received IV dexamethasone with aggressive nebulizer treatments of albuterol. He was having difficulty talking initially but was not hypoxic or tachypneic during the end of his ED visit with consideration for discharge home with prednisone pulse and reinstitution of his inhalers though he will continue to have significant wheezing. He was found to have a prolonged QT interval and hypokalemia which was being monitored with telemetry and repleted with IV potassium respectively. Concerns were that his QT prolongation, which could be caused by his chronic medical therapy with methadone exacerbated by bronchodilators may be problematic if discharged home prematurely. He was admitted for observation on telemetry and continued treatment of his asthma exacerbation but mostly for observing his QT interval monitoring overnight for dysrhythmias and to replace potassium and continue nebulizer treatments. Patient does want to be discharged early in the morning to make his methadone clinic visit at 10 AM and if he could be discharged with his inhalers with prednisone pulse, that might carry him to the next month to receive appropriate outpatient follow-up. His QT interval was improving and potassium was improving but not safe during his ED visit. He will have follow-up EKG in the morning with lab trending. His COLLIN was positive for multiple substances which he is not prescribed and this should be followed up with the methadone clinic. Patient is a full code. Review of Systems Narrative: 13 point review of systems positive for occasional swelling in his legs, otherwise unrevealing or stable. PFSH All Active Problems (Updated 10/05/23 @ 19:57 by Amadou Pérez) Tobacco abuse (Chronic) Moderate opioid dependence on maintenance therapy (Chronic) Acute hypokalemia (Acute) Prolonged Q-T interval on ECG (Acute) Upper respiratory infection (Acute) Lymphadenopathy (Acute) Hemorrhoids (Acute) Viral warts (Acute) Asthma (Chronic) Suicidal ideation (Acute) Eczema (Chronic) Medical History (Updated 10/05/23 @ 19:57 by Amadou Pérez) Active intravenous drug use Gastritis ADD (attention deficit disorder) Marijuana smoker Anxiety disorder Depression Cyst of face Mass of left side of neck Acute asthma exacerbation Eczema Surgical History No significant past surgical history Family History Other Adopted Social History Smoking/Tobacco Use Status: Current every day Tobacco Type: e-cigarettes Counseling given: provider counseling Smoking risk assessment performed?: Yes Alcohol Intake: current Alcohol Intake frequency: holidays/special occasions only Alcohol type: beer Details: Minimal Drug use: Daily Substance use type: crack/cocaine and heroin Counseling given: Yes Details: drug used depends on the day Adopted: Yes Housing: homeless Current gender identity: male Do you feel safe at home: Yes Do you feel safe in your relationship?: Yes Additional Social history: Grew up in [place], adopted, close with 1 of his moms who lives in [place]. Lives alone in apartment on [address] in [place]. Meds Allergies and Home Medications Allergies Allergy/AdvReac Type Severity Reaction Status Date / Time cat dander Allergy Wheezing Unverified 10/05/23 11:41 migraine medication AdvReac Other (See Uncoded 10/05/23 11:41 Comment) Home Medications ?Medication ?Instructions ?Recorded ?Confirmed ?Type albuterol sulfate 2.5 mg/3 mL 2.5 mg (3 mL) inhalation QID PRN 05/20/18 10/05/23 Rx (0.083 %) solution for nebulization shortness of breath or wheezing #75 mL buspirone 5 mg tablet 15 mg PO BID 09/22/18 10/05/23 History pantoprazole 40 mg tablet,delayed 40 mg PO DAILY 05/22/20 10/05/23 History release budesonide-formoterol HFA 80 2 puff inhalation 6XD #3 ea 07/03/22 10/05/23 Rx mcg-4.5 mcg/actuation aerosol inhaler (Symbicort) ipratropium 0.5 mg-albuterol 3 mg 3 ml inhalation Q4H PRN wheezing 07/04/22 10/05/23 Rx (2.5 mg base)/3 mL nebulization #540 mL soln methadone 08/09/23 History hydroxyzine HCl 25 mg tablet 25 mg PO TID #30 tabs 08/10/23 10/05/23 Rx methadone 10 mg/mL oral 130 mg (13 mL) PO DAILY #0 mL 08/10/23 10/05/23 Rx concentrate (Methadose) prednisone 50 mg tablet 50 mg PO DAILY #4 tabs 10/05/23 Rx Exam Narrative Exam Narrative: General: Patient appears well for age, thinly built, alert and oriented x 3 and in no acute distress. He is not tachypneic and speaking in full sentences. HEENT: Normocephalic, eyes with pupils equal and reactive to light symmetrically, extraocular movement intact and sclera anicteric. Moist oral mucosa with good dentition. Neck: Supple without JVD. Back: Normal posture without CVA tenderness. Lungs: Fairly good aeration with prolonged expiratory phase and expiratory wheeze diffusely and scant inspiratory wheeze with rapid inspiration. No focalizing rales or rhonchi. Bronchovesicular breath sounds diffusely. Heart: Regular rate and rhythm with no murmurs or gallops appreciated. Abdomen: Scaphoid contour, soft and nontender to palpation with no palpable hepatosplenomegaly. Bowel sounds normoactive in all quadrants. Genitalia/rectal: Exam deferred. Extremities: Without clubbing, cyanosis or pitting edema. Nonpitting edema ankles and feet. Peripheral pulses intact. Skin: Brown color, warm and dry. Neuro: Cranial nerves II through XII gross intact, no focalizing motor deficits. Patient does have fidgety movement of his lower extremities as a tremor which he states is from his ADHD being untreated. No tremor over his hands and no increased tone. Psych: Flattened affect, slightly agitated at times during discussion, but normal mood. No abnormal thought processes. Remote and recent memory intact. Results Imaging Imaging Studies: EXAM: XR PORTABLE CHEST AP CLINICAL HISTORY: SOB. TECHNIQUE: 2D digital imaging was performed. COMPARISON: CR XR PORTABLE CHEST AP from 08/09/2023 FINDINGS: Single AP portable view. Heart size is upper normal. The mediastinum is not widened. Lungs are clear. No infiltrates nor obvious pleural effusions. IMPRESSION: No acute pulmonary findings on this single AP portable view of the chest. Labs 10/05/23 17:50 10/05/23 17:50 Labs: Laboratory Results - last 24 hr 10/05/23 10/05/23 17:50 19:07 WBC 6.61 RBC 4.93 Hgb 12.9 L Hct 40.9 MCV 83 MCH 26.2 L MCHC 31.5 L RDW 13.8 Plt Count 230 MPV 9.0 Immature Gran % 0.3 Neutrophils % 85.3 Lymphocytes % 11.2 Monocytes % 1.7 Eosinophils % 1.2 Basophils % 0.3 Nucleated RBC % 0.0 Absolute Neutrophils 5.64 Absolute Lymphocytes 0.74 L Absolute Monocytes 0.11 Absolute Eosinophils 0.08 Absolute Basophils 0.02 VBG pH 7.37 VBG pCO2 48 VBG pO2 55 VBG HCO3 28 VBG Total CO2 25 VBG O2 Saturation 89 VBG Base Excess 2 Sodium 140 Potassium 2.9 L* Chloride 102 Carbon Dioxide 29.7 Anion Gap 8.3 BUN 16 Creatinine 1.0 Est GFR (CKD-EPI 2020) 104.48 Glucose 184 H Calcium 8.7 Last Vital Signs Temp 37.1 C 10/05/23 11:38 Pulse 102 H 10/05/23 16:43 Resp 16 10/05/23 16:43 BP 147/109 H 10/05/23 11:38 Pulse Ox 99 10/05/23 16:43 Time Spent Time spent with Patient: >75 minutes Time was spent: preparing to see the patient(eg.review tests), obtaining and/or reviewing separately otained hiistory, ordering medications,tests, procedures, indepentently interpreting results, counseling the patient and care coordination
[2023-10-05] MEDS: POTASSIUM CHLORIDE/D5-0.9%NACL 1,000 ML 500 MEQ IV (20:32)
--- NOTE | 2023-10-05 20:52 | W.PCEDHO ---
Registration Status: Primary Language: Preferred Language: ED Information & Data Chief Complaint RespSymp 10/05/23 14:05 Triage Note Patient complaining of diff 10/05/23 11:38 breathing/ wheezing for a couple of days. Medical / Surgical History (Last Updated 10/05/23 @ 19:43 by Amadou Pérez) Active intravenous drug use Gastritis ADD (attention deficit disorder) Marijuana smoker Anxiety disorder Depression Cyst of face Mass of left side of neck Acute asthma exacerbation Eczema (Last Reviewed 10/05/23 @ 19:39 by Amadou Pérez) No significant past surgical history Most Recent Vital Signs Temperature 37.1 C 10/05/23 11:38 Temperature Source Temporal Artery Scan 10/05/23 11:38 Pulse 102 H 10/05/23 16:43 Respiratory Rate 16 10/05/23 16:43 Respiratory Effort Short of Breath 10/05/23 16:10 Blood Pressure 147/109 H 10/05/23 11:38 Blood Pressure Position Sitting 10/05/23 11:38 Pulse Oximetry 99 10/05/23 16:43 Oxygen Delivery Method Room Air 10/05/23 16:13 Oxygen Flow Rate 0 10/05/23 16:13 Allergies cat dander Allergy (Unverified 10/05/23 11:41) Wheezing migraine medication Adverse Reaction (Uncoded 10/05/23 11:41) Other (See Comment) Precautions Isolation Standard precaution 10/05/23 11:41 Active Medications Generic Name Dose Route Start Last Admin Trade Name Freq PRN Reason Stop Dose Admin Albuterol Sulfate 10 mg/ 0 mg 10/05/23 16:00 10/05/23 16:13 Sodium Chloride 9 ml UPD 10 mg DIRECTED SHIRLEY Administration Potassium Chloride/Dextrose/Sod Cl 1,000 mls @ 500 mls/hr 10/05/23 18:30 10/05/23 20:32 Kcl 20meq/D5-0.9% Nacl IV 500 mls/hr INFUSION SHIRLEY Administration IV IV Catheter Gauge [Right] 20 Diet Orders Category Date Time Status Regular/Normal [DIET] Nutrition 10/05/23 Dinner Active Diagnostics 10/05/23 10/05/23 10/05/23 Range/Units 22:00 20:28 19:49 WBC (4.4-10.8) 10^3/uL RBC (4.36-5.78) 10^6/uL Hgb (13.5-17.5) g/dL Hct (40.0-50.0) % MCV (80-95) fL MCH (27.0-33.0) pg MCHC (32.0-36.0) % RDW (11.8-14.1) % Plt Count (130-400) 10^3/uL MPV (8.0-11.0) fL Immature Gran % % Neutrophils % % Lymphocytes % % Monocytes % % Eosinophils % % Basophils % % Nucleated RBC % (0.0-0.3) % Absolute Neutrophils (1.2-6.7) 10^3/uL Absolute Lymphocytes (1.2-3.4) 10^3/uL Absolute Monocytes (0.1-0.8) 10^3/uL Absolute Eosinophils (0.0-0.7) 10^3/uL Absolute Basophils (0.0-0.2) 10^3/uL VBG pH (7.31-7.41) VBG pCO2 (41-51) mmHg VBG pO2 mmHg VBG HCO3 (23-28) mmol/L VBG Total CO2 (24-29) mmol/L VBG O2 Saturation % VBG Base Excess (-2-3) mmol/L Sodium Pending (136-145) mmol/L Potassium Pending (3.5-5.1) mmol/L Chloride Pending (98-107) mmol/L Carbon Dioxide Pending (21.0-32.0) mmol/L Anion Gap Pending (3-11) mmol/L BUN Pending (7-18) mg/dL Creatinine Pending (0.70-1.30) mg/dL Est GFR (CKD-EPI 2020) Pending (mL/min/1.73m2) Glucose Pending (74-106) mg/dL Calcium Pending (8.5-10.1) mg/dL Magnesium Pending COVID-19 Source Pending SARS-CoV-2 (PCR) Pending Influenza Type A (PCR) Pending Influenza Type B (PCR) Pending RSV (PCR) Pending 10/05/23 10/05/23 Range/Units 19:07 17:50 WBC 6.61 (4.4-10.8) 10^3/uL RBC 4.93 (4.36-5.78) 10^6/uL Hgb 12.9 L (13.5-17.5) g/dL Hct 40.9 (40.0-50.0) % MCV 83 (80-95) fL MCH 26.2 L (27.0-33.0) pg MCHC 31.5 L (32.0-36.0) % RDW 13.8 (11.8-14.1) % Plt Count 230 (130-400) 10^3/uL MPV 9.0 (8.0-11.0) fL Immature Gran % 0.3 % Neutrophils % 85.3 % Lymphocytes % 11.2 % Monocytes % 1.7 % Eosinophils % 1.2 % Basophils % 0.3 % Nucleated RBC % 0.0 (0.0-0.3) % Absolute Neutrophils 5.64 (1.2-6.7) 10^3/uL Absolute Lymphocytes 0.74 L (1.2-3.4) 10^3/uL Absolute Monocytes 0.11 (0.1-0.8) 10^3/uL Absolute Eosinophils 0.08 (0.0-0.7) 10^3/uL Absolute Basophils 0.02 (0.0-0.2) 10^3/uL VBG pH 7.37 (7.31-7.41) VBG pCO2 48 (41-51) mmHg VBG pO2 55 mmHg VBG HCO3 28 (23-28) mmol/L VBG Total CO2 25 (24-29) mmol/L VBG O2 Saturation 89 % VBG Base Excess 2 (-2-3) mmol/L Sodium 140 (136-145) mmol/L Potassium 2.9 L* (3.5-5.1) mmol/L Chloride 102 (98-107) mmol/L Carbon Dioxide 29.7 (21.0-32.0) mmol/L Anion Gap 8.3 (3-11) mmol/L BUN 16 (7-18) mg/dL Creatinine 1.0 (0.70-1.30) mg/dL Est GFR (CKD-EPI 2020) 104.48 (mL/min/1.73m2) Glucose 184 H (74-106) mg/dL Calcium 8.7 (8.5-10.1) mg/dL Magnesium COVID-19 Source SARS-CoV-2 (PCR) Influenza Type A (PCR) Influenza Type B (PCR) RSV (PCR) Intake and Output - 24 Hour Total 10/05/23 11:32 thru 10/05/23 11:38 Weight 58.967 kg Falls Risk Assessment History of Falls No History 10/05/23 16:12 Contributing Factors No Factors,Confusion 10/05/23 16:12 Ambulatory Aids Independent 10/05/23 16:12 Tubes/Lines None 10/05/23 16:12 Gait Evaluation No gait disturbance 10/05/23 16:12 Fall Total Score 3 10/05/23 16:12 Level of Risk Standard/Low Risk 10/05/23 16:12 Problems (Last Updated 10/05/23 @ 19:43 by Amadou éPrez) Tobacco abuse (Chronic) Moderate opioid dependence on maintenance therapy (Chronic) Acute hypokalemia (Acute) Prolonged Q-T interval on ECG (Acute) v v v v v v v v v Sending and/or Receiving Nurses: Please use comment section below to note any information pertinent to the patient hand-off not included above. Information / Comments: Hx of noncompliance with medications, difficulty obtaining medications, THC/tobacco/cocaine use (inhalant), goes to methadone clinic locally, Skin: scabbed areas throughout PIV: Right forearm 20g Flu/covid/PNA swab: pending UA/UDS: patient discarding samples VBG OK Report received from: Erica Jaimes RN
[2023-10-05 21:14] LABS: COVID-19 PCR Negative (Negative); Influenza A PCR Negative (Negative); Influenza B PCR Negative (Negative); RSV PCR Negative (Negative)
[2023-10-05 21:15] LABS: Source Nasopharynx
[2023-10-05] MEDS: Doxycycline Hyclate 100 MG CAP PO (22:12)
[2023-10-05] MEDS: Albuterol/Ipratropium 3 ML UPD VIAL UPD (22:12)
[2023-10-05] MEDS: methylPREDNISolone SUCC 125 MG VIAL 80 MG IVP (22:13)
[2023-10-05] MEDS: Normal Saline Flush 10 ML SYR IVP (22:14)
[2023-10-05 22:27] LABS: *AMPHETAMINES SCREEN URINE Positive (Negative); *BARBITURATES SCREEN URINE Negative (Negative); *BENZODIAZEPINES SCREEN URINE Negative (Negative); Cannabinoids THC Positive (Negative); Cocaine Screen,Urine Positive (Negative); METHADONE URINE SCREEN Positive (Negative); OPIATES URINE SCREEN Negative (Negative)
[2023-10-05 22:29] LABS: Tricyclic Antidepressants Negative (Negative)
[2023-10-05 22:39] LABS: Anion Gap 11.7 mmol/L (3-11); BUN 18 mg/dL (7-18); CO2 22.3 mmol/L (21.0-32.0); Calcium 8.3 mg/dL (8.5-10.1); Chloride 102 mmol/L (98-107); Estimated GFR 104.48 (mL/min/1.73m2); Glucose 188 mg/dL (74-106); Magnesium 2.5 mg/dL (1.8-2.4); Potassium 3.2 mmol/L (3.5-5.1); Sodium 136 mmol/L (136-145)
[2023-10-05 23:20] LABS: Bilirubin Negative (Negative); Blood Negative (Negative); Clarity Clear (Clear); Glucose 250 mg/dL (Negative); Ketones Negative (Negative); Leukocyte Esterase Negative (Negative); Nitrite Negative (Negative)
[2023-10-06] VITALS (11 sets, daily range): BP systolic 95–117; BP diastolic 49–63; PULSE 83–102; RESP 2–18; TEMP 36.3–37.3; O2SAT 96–98
[2023-10-06] MEDS: POTASSIUM CHLORIDE 20 MEQ/100 ML BAG 50 MEQ IVINF ×2 (01:07→03:17)
[2023-10-06] MEDS: methylPREDNISolone SUCC 125 MG VIAL 80 MG IVP ×3 (05:32→21:20)
[2023-10-06 06:36] LABS: HCT 36.7 % (40.0-50.0); HGB 11.8 g/dL (13.5-17.5); MCH 26.3 pg (27.0-33.0); MCHC 32.2 % (32.0-36.0); MCV 82 fL (80-95); MPV 8.8 fL (8.0-11.0); Platelet Count 243 10^3/uL (130-400); RBC 4.48 10^6/uL (4.36-5.78); RDW 13.8 % (11.8-14.1); RDW-SD 41.2 fL; WBC 5.76 10^3/uL (4.4-10.8)
[2023-10-06 06:57] LABS: ALT 17 U/L (16-63); AST 11 U/L (15-37); Albumin 3.4 g/dL (3.4-5.0); Alkaline Phosphatase 77 U/L (46-116); Anion Gap 10.6 mmol/L (3-11); BUN 16 mg/dL (7-18); Bilirubin, Total 0.45 mg/dL (0.2-1.0); CO2 24.4 mmol/L (21.0-32.0); CREATININE 0.7 mg/dL (0.70-1.30); Calcium 8.8 mg/dL (8.5-10.1); Chloride 103 mmol/L (98-107); Estimated GFR 127.91 (mL/min/1.73m2); Glucose 164 mg/dL (74-106); Magnesium 2.2 mg/dL (1.8-2.4); Potassium 4.1 mmol/L (3.5-5.1); Sodium 138 mmol/L (136-145); Total Protein 7.1 g/dL (6.4-8.2)
--- NOTE | 2023-10-06 07:00 | RT.EKG_ITS ---
APPROVED REPORT Exam: Resting ECG Reason for Exam: Prolonged QT interval Patient Location: I HR:95 bpm ECG Measurements Heart Rate 95 AXIS IL 128 P 53 QRSd 115 QRS 37 QT 445 T 4 QTc 560 Conclusion Sinus rhythm...normal P axis, V-rate 60- 99 Nonspecific intraventricular conduction delay...QRSd >115mS, not LBBB/RBBB Consider anterior infarct...Q >30mS in V2-V5 Prolonged QT interval...QTc >488mS
[2023-10-06] MEDS: Methadone Liquid 10 MG/ML 130 MG PO (08:38)
[2023-10-06] MEDS: Normal Saline Flush 10 ML SYR IVP ×2 (08:40→21:21)
[2023-10-06] MEDS: Budesonide/Formoterol 80/4.5 6.9 GM 60 PUFF INH IH ×2 (08:43→19:17)
[2023-10-06] MEDS: Albuterol/Ipratropium 3 ML UPD VIAL UPD ×3 (09:59→21:49)
[2023-10-06] MEDS: Doxycycline Hyclate 100 MG CAP PO (10:08)
--- NOTE | 2023-10-06 10:55 | INITIAL_ITS ---
Date of service: 10/06/23 Time of Service: 10:55 Care Management Initial Assmt Initial Assessment Reason for Hospitalization: acute hypokalemia and asthma exacerbation Functional Status/Living Situation Patient Presentation: Alden was lying in bed when CM met with him. He had been dozing and was sluggish in his responses at first. As the conversation continued however, Alden became more talkative and engaged, He shared that things are going really well for him right now. He has a home with friends and someone special who cares about me.He has been able to resolve his transportation issues and is off drugs for the most part. He stated that he is happy and things are really good. He denied the need for any services. 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 Care Team Visit Care Team Role Provider Type Dago Joaquin Primary Care Provider NON-[facility] STAFF PHYSICIAN Johnny Metz MD Emergency Provider [facility] STAFF PHYSICIAN Amadou Pérez Admit Provider NON-[facility] STAFF PHYSICIAN Attending Provider Discharge Potential Discharge Needs: PCP F/U Appt Anticipated Barriers to Discharge: None Identified Patient/Family Education Needs: Review discharge instructions, discuss Ask Me Three Transportation: Private vehicle Plan: Anticipate Alden will be discharged home with no new services. He will follow up with his PCP and plan of care and transport via private vehicle vs [id number]. CM will continue to assess for discharge needs. PFSH All Active Problems (Updated 10/05/23 @ 19:57 by Amadou Pérez) Tobacco abuse (Chronic) Moderate opioid dependence on maintenance therapy (Chronic) Acute hypokalemia (Acute) Prolonged Q-T interval on ECG (Acute) Upper respiratory infection (Acute) Lymphadenopathy (Acute) Hemorrhoids (Acute) Viral warts (Acute) Asthma (Chronic) Suicidal ideation (Acute) Eczema (Chronic) Medical History (Updated 10/05/23 @ 19:57 by Amadou Pérez) Active intravenous drug use Gastritis ADD (attention deficit disorder) Marijuana smoker Anxiety disorder Depression Cyst of face Mass of left side of neck Acute asthma exacerbation Eczema Surgical History No significant past surgical history Family History Other Adopted Social History Smoking/Tobacco Use Status: Current every day Tobacco Type: e-cigarettes Counseling given: provider counseling Smoking risk assessment performed?: Yes Alcohol Intake: current Alcohol Intake frequency: holidays/special occasions only Alcohol type: beer Details: Minimal Drug use: Daily Substance use type: crack/cocaine and heroin Counseling given: Yes Details: drug used depends on the day Adopted: Yes Housing: homeless Current gender identity: male Do you feel safe at home: Yes Do you feel safe in your relationship?: Yes Additional Social history: Grew up in [place], [facility], close with 1 of his moms who lives in [place]. Lives alone in apartment on [address] in [place]. SDOH(Care Management) Screening Will the Patient Participate in the Screening?: Yes Do you worry about having a steady place to live?: no In the past 12 months, have you had to go without electric, gas, oil or water in your home?: no Have you or anyone in your house had to go without enough food to eat?: no Has lack of transportation kept you from medical appointments or from doing things needed for daily living?: no Has anyone in your support network made you feel unsafe for any reason?: no Social Determinants of Health Comments(SDOH Details): Had had issues with housing and food insecurity and transportation but has resolved those issues
--- NOTE | 2023-10-06 11:47 | PGE_ITS ---
Date of Service Date of service: 10/06/23 Time of Service: 11:48 Assessment and Plan Assessment and plan (1) Acute hypokalemia: Start date: 10/05/23 Status: Acute Assessment and plan: -3.2 on admision -4.1 this AM after repletion -will f.u AM BMP (2) Prolonged Q-T interval on ECG: Start date: 10/05/23 Status: Acute Assessment and plan: -QT on admission, improved to 445 on AM 10/05 AM -Patient is on methadone and with treatment of his exacerbated asthma, he is at risk for QT prolongation (3) Moderate opioid dependence on maintenance therapy: Status: Chronic Assessment and plan: -His urine drug screen was positive for cocaine and THC as well as amphetamines though he is off his prescribed Adderall for. -It was also positive for methadone. Patient still has a probably polysubstance abuse. (4) Acute asthma exacerbation: Start date: 10/05/23 Assessment and plan: -Patient asthma is not treated as an outpatient and he did wash his bunny the day prior to presentation and this may have part of his asthma. He has had no cold symptoms or other reasons for exacerbation. He will be discharged on Symbicort and albuterol from this facility but needs to follow-up with his PCP for long-term treatment and better options for affordability. He appears very noncompliant with maintaining his insurance. Qualifiers: Asthma severity: severe Asthma persistence: persistent Qualified Code(s): J45.51 - Severe persistent asthma with (acute) exacerbation (5) Tobacco abuse: Status: Chronic Assessment and plan: Patient was advised to stop smoking tobacco which also may help him divert funds for food and medications. He has stopped in the past. This may be used for self treatment of his ADHD. Patient also has polysubstance abuse with cocaine, THC and amphetamines (though not prescribed) in his COLLIN. (6) Anxiety disorder: Qualifiers: Anxiety disorder type: generalized anxiety disorder Qualified Code(s): F41.1 - Generalized anxiety disorder (7) ADD (attention deficit disorder): Assessment and plan: Patient is fidgety and tremors over lower extremities all Vyvanse and Adderall for which he needs to see his PCP for reinitiation of 1 of these medications. He is at higher risk with patient being on methadone. Qualifiers: Hyperactivity presence: present Attention deficit-hyperactivity disorder type: combined inattentive-hyperactive Qualified Code(s): F90.2 - Attention-deficit hyperactivity disorder, combined type Subjective Subjective Interval history since last seen: Patient states that he is continuing to feel weak and wheezy though is a little better as compared to admission. Exam Narrative Exam Narrative: young gentleman laying in bed in no acute distress, AOx4, heart RRR, lungs with expiratory wheezing during exam and are audible from patients bedside though this was not observed when observing the patient from outside the room and went away once discussing the Olympics, abdomen soft, non-tender, non-distended Objective Last Vital Signs Temp 98.2 F 10/06/23 11:23 Pulse 95 H 10/06/23 11:23 Resp 15 10/06/23 11:23 BP 95/49 L 10/06/23 11:23 Pulse Ox 96 10/06/23 11:23 Laboratory Results - last 24 hr 10/05/23 10/05/23 10/05/23 17:50 19:07 20:28 WBC 6.61 RBC 4.93 Hgb 12.9 L Hct 40.9 MCV 83 MCH 26.2 L MCHC 31.5 L RDW 13.8 Plt Count 230 MPV 9.0 Immature Gran % 0.3 Neutrophils % 85.3 Lymphocytes % 11.2 Monocytes % 1.7 Eosinophils % 1.2 Basophils % 0.3 Nucleated RBC % 0.0 Absolute Neutrophils 5.64 Absolute Lymphocytes 0.74 L Absolute Monocytes 0.11 Absolute Eosinophils 0.08 Absolute Basophils 0.02 VBG pH 7.37 VBG pCO2 48 VBG pO2 55 VBG HCO3 28 VBG Total CO2 25 VBG O2 Saturation 89 VBG Base Excess 2 Sodium 140 Potassium 2.9 L* Chloride 102 Carbon Dioxide 29.7 Anion Gap 8.3 BUN 16 Creatinine 1.0 Est GFR (CKD-EPI 2020) 104.48 Glucose 184 H Calcium 8.7 Magnesium Total Bilirubin AST ALT Alkaline Phosphatase Total Protein Albumin Urine Color Urine Clarity Urine pH Ur Specific [place] Urine Protein Urine Ketones Urine Blood Urine Nitrite Urine Bilirubin Urine Urobilinogen Ur Leukocyte Esterase Urine Glucose Urine Opiates Screen Urine Methadone Screen Ur Barbiturates Screen Ur Tricyclics Screen Ur Amphetamines Screen U Benzodiazepines Scrn Urine Cocaine Screen Ur THC Screen COVID-19 Source Nasopharynx SARS-CoV-2 (PCR) Negative Influenza Type A (PCR) Negative Influenza Type B (PCR) Negative RSV (PCR) Negative 10/05/23 10/05/23 10/05/23 21:35 21:48 22:20 WBC RBC Hgb Hct MCV MCH MCHC RDW Plt Count MPV Immature Gran % Neutrophils % Lymphocytes % Monocytes % Eosinophils % Basophils % Nucleated RBC % Absolute Neutrophils Absolute Lymphocytes Absolute Monocytes Absolute Eosinophils Absolute Basophils VBG pH VBG pCO2 VBG pO2 VBG HCO3 VBG Total CO2 VBG O2 Saturation VBG Base Excess Sodium Cancelled 136 Potassium Cancelled 3.2 L Chloride Cancelled 102 Carbon Dioxide Cancelled 22.3 Anion Gap Cancelled 11.7 H BUN Cancelled 18 Creatinine Cancelled 1.0 Est GFR (CKD-EPI 2020) Cancelled 104.48 Glucose Cancelled 188 H Calcium Cancelled 8.3 L Magnesium Cancelled 2.5 H Total Bilirubin AST ALT Alkaline Phosphatase Total Protein Albumin Urine Color Yellow Urine Clarity Clear Urine pH 7.0 Ur Specific [place] 1.020 Urine Protein Negative Urine Ketones Negative Urine Blood Negative Urine Nitrite Negative Urine Bilirubin Negative Urine Urobilinogen 2.0 H Ur Leukocyte Esterase Negative Urine Glucose 250 H Urine Opiates Screen Negative Urine Methadone Screen Positive A Ur Barbiturates Screen Negative Ur Tricyclics Screen Negative Ur Amphetamines Screen Positive A U Benzodiazepines Scrn Negative Urine Cocaine Screen Positive A Ur THC Screen Positive A COVID-19 Source SARS-CoV-2 (PCR) Influenza Type A (PCR) Influenza Type B (PCR) RSV (PCR) 10/06/23 06:25 WBC 5.76 RBC 4.48 Hgb 11.8 L Hct 36.7 L MCV 82 MCH 26.3 L MCHC 32.2 RDW 13.8 Plt Count 243 MPV 8.8 Immature Gran % Neutrophils % Lymphocytes % Monocytes % Eosinophils % Basophils % Nucleated RBC % Absolute Neutrophils Absolute Lymphocytes Absolute Monocytes Absolute Eosinophils Absolute Basophils VBG pH VBG pCO2 VBG pO2 VBG HCO3 VBG Total CO2 VBG O2 Saturation VBG Base Excess Sodium 138 Potassium 4.1 Chloride 103 Carbon Dioxide 24.4 Anion Gap 10.6 BUN 16 Creatinine 0.7 Est GFR (CKD-EPI 2020) 127.91 Glucose 164 H Calcium 8.8 Magnesium 2.2 Total Bilirubin 0.45 AST 11 L ALT 17 Alkaline Phosphatase 77 Total Protein 7.1 Albumin 3.4 Urine Color Urine Clarity Urine pH Ur Specific [place] Urine Protein Urine Ketones Urine Blood Urine Nitrite Urine Bilirubin Urine Urobilinogen Ur Leukocyte Esterase Urine Glucose Urine Opiates Screen Urine Methadone Screen Ur Barbiturates Screen Ur Tricyclics Screen Ur Amphetamines Screen U Benzodiazepines Scrn Urine Cocaine Screen Ur THC Screen COVID-19 Source SARS-CoV-2 (PCR) Influenza Type A (PCR) Influenza Type B (PCR) RSV (PCR) Time Spent with Patient Time Spent with Patient: >50 minutes Time was spent: preparing to see the patient(eg.review tests), obtaining and/or reviewing separately otained hiistory, ordering medications,tests, procedures, referring, communicating with other health intensive care anaesthetist, indepentently interpreting results, counseling the patient and care coordination
[2023-10-07] VITALS (11 sets, daily range): BP systolic 105–120; BP diastolic 51–71; PULSE 82–104; RESP 2–18; TEMP 36.2–37.2; O2SAT 96–98
[2023-10-07] MEDS: Albuterol/Ipratropium 3 ML UPD VIAL UPD ×4 (04:06→22:10)
[2023-10-07] MEDS: methylPREDNISolone SUCC 125 MG VIAL 80 MG IVP ×3 (06:23→20:55)
[2023-10-07] MEDS: Normal Saline Flush 10 ML SYR IVP ×4 (06:24→20:56)
[2023-10-07] MEDS: Budesonide/Formoterol 80/4.5 6.9 GM 60 PUFF INH IH ×2 (08:04→22:10)
[2023-10-07] MEDS: Methadone Liquid 10 MG/ML 130 MG PO (08:50)
--- NOTE | 2023-10-07 12:28 | PGE_ITS ---
Date of Service Date of service: 10/07/23 Time of Service: 12: Assessment and Plan Assessment and plan (1) Acute hypokalemia: Start date: 10/05/23 Status: Acute Assessment and plan: -3.2 on admision -4.1 AM 10/05 after repletion (2) Prolonged Q-T interval on ECG: Start date: 10/05/23 Status: Acute Assessment and plan: -QT on admission, improved to 445 on AM 10/05 AM -Patient is on methadone and with treatment of his exacerbated asthma, he is at risk for QT prolongation (3) Moderate opioid dependence on maintenance therapy: Status: Chronic Assessment and plan: -His urine drug screen was positive for cocaine and THC as well as amphetamines though he is off his prescribed Adderall for. -It was also positive for methadone. Patient still has a probably polysubstance abuse. (4) Acute asthma exacerbation: Start date: 10/05/23 Assessment and plan: -Patient asthma is not treated as an outpatient and he did wash his bunny the day prior to presentation and this may have part of his asthma. He has had no cold symptoms or other reasons for exacerbation. He will be discharged on Symbicort and albuterol from this facility but needs to follow-up with his PCP for long-term treatment and better options for affordability. He appears very noncompliant with maintaining his insurance. Qualifiers: Asthma severity: severe Asthma persistence: persistent Qualified Code(s): J45.51 - Severe persistent asthma with (acute) exacerbation (5) Tobacco abuse: Status: Chronic Assessment and plan: Patient was advised to stop smoking tobacco which also may help him divert funds for food and medications. He has stopped in the past. This may be used for self treatment of his ADHD. Patient also has polysubstance abuse with cocaine, THC and amphetamines (though not prescribed) in his COLLIN. (6) Anxiety disorder: Qualifiers: Anxiety disorder type: generalized anxiety disorder Qualified Code(s): F41.1 - Generalized anxiety disorder (7) ADD (attention deficit disorder): Assessment and plan: Patient is fidgety and tremors over lower extremities all Vyvanse and Adderall for which he needs to see his PCP for reinitiation of 1 of these medications. He is at higher risk with patient being on methadone. Qualifiers: Hyperactivity presence: present Attention deficit-hyperactivity disorder type: combined inattentive-hyperactive Qualified Code(s): F90.2 - Attention-deficit hyperactivity disorder, combined type Subjective Subjective Interval history since last seen: Patient states that he is feeling a little better today but is worried about going home given that he does not have appropriate inhalers or a nebulizer. He understands the plan to continue current treatment for one more day with the plan to discharge tomorrow, Saturday 10/07. Exam Narrative Exam Narrative: young gentleman laying in bed in no acute distress, AOx4, heart RRR, lungs with expiratory wheezing during exam and are audible from patients bedside though this was not observed when observing the patient from outside the room, abdomen soft, non-tender, non-distended Objective Last Vital Signs Temp 98.6 F 10/07/23 11:57 Pulse 96 H 10/07/23 11:57 Resp 18 10/07/23 11:57 BP 117/60 10/07/23 11:57 Pulse Ox 96 10/07/23 11:57 Time Spent with Patient Time Spent with Patient: >50 minutes Time was spent: preparing to see the patient(eg.review tests), obtaining and/or reviewing separately otained hiistory, ordering medications,tests, procedures, referring, communicating with other health ambulatory care coordinator, indepentently interpreting results, counseling the patient and care coordination
[2023-10-08] VITALS (7 sets, daily range): BP systolic 114; BP diastolic 69; PULSE 79–112; RESP 2–18; TEMP 36.4; O2SAT 96–100
[2023-10-08] MEDS: Albuterol/Ipratropium 3 ML UPD VIAL UPD ×3 (04:14→15:06)
[2023-10-08] MEDS: Budesonide/Formoterol 80/4.5 6.9 GM 60 PUFF INH IH (08:09)
[2023-10-08] MEDS: Methadone Liquid 10 MG/ML 130 MG PO (08:32)
[2023-10-08] MEDS: Pantoprazole 40 MG TABCR PO (08:33)
[2023-10-08] MEDS: Normal Saline Flush 10 ML SYR IVP (09:55)
[2023-10-08] MEDS: methylPREDNISolone SUCC 125 MG VIAL 80 MG IVP (09:56)
--- NOTE | 2023-10-08 14:16 | W.PM.DS.N ---
Date of service: 10/08/23 Time of Service: 14:17 DS: Diagnosis Discharge Diagnosis (1) Acute asthma exacerbation: (2) Prolonged Q-T interval on ECG: Status: Acute (3) Acute hypokalemia: Status: Acute (4) Moderate opioid dependence on maintenance therapy: Status: Chronic (5) Tobacco abuse: Status: Chronic (6) Anxiety disorder: (7) ADD (attention deficit disorder): Discharge Plan Disposition Patient Disposition: Home Condition: Good Discharge Details Reason For Visit: Acute hypokalemia, QT interval prolongation Admit Date/Time: 10/05/23 19:45 Admit Provider: Amadou Pérez Attending Provider: Amadou Pérez Primary Care Provider: Dago Joaquin Hospital Course Hospital Course: 28-year-old -Citizen Of [place] male with a history of chronic asthma with frequent exacerbations partially due to environmental exposures including his pet rabbit as well as his chronic tobacco addiction and marijuana use. Also partly due to noncompliance due to failure to fill his medications. Patient has been off his bronchodilators for the past month and recently was exposed to his P.I.C.C. body which she did wash the day prior to admission came in the ED on 10/05/2023 with acute exacerbation of COPD was found to be hypokalemic and with prolonged QT interval. Initially he was treated with bronchodilators did not require any supplemental oxygen was felt to be stable from a asthma standpoint that he can be discharged home on a tapered dose of prednisone and bronchodilators however because of his chronic use of methadone and his QT prolongation and hypokalemia is recommended he be admitted and have his potassium repleted and his QT interval monitored while treating his asthma exacerbation. His urine for drugs of abuse was positive for multiple substances for which she is not prescribed including cocaine and THC. However he is also positive for methadone which she is supposed to be taking through this clinic and was positive for amphetamines even though he stated that he been out of his [place] for his ADHD. Potassium level on arrival to emergency department is down to 2.9 came up to 3.2 prior to admission on the day of discharge was 4.1. Chest x-ray showed no acute pulmonary findings. Patient never required supplemental oxygen. He was never hypoxemic throughout his hospital stay with SpO2 ranging between 96 to 100%. Although he has some chronic wheezing his asthma exacerbation was not severe and was felt to be able to be managed as an outpatient. Nevertheless he was treated with IV methylprednisolone and resumed on his Symbicort and treated with albuterol nebulizer treatments. He will be discharged home on tapering dose of prednisone continued use of his Symbicort 2 puffs 3 times a day along with albuterol inhaler 2 puffs every 4 hours as needed. Home Meds and New Rx's Prescriptions: New budesonide-formoterol [Symbicort] 80-4.5 mcg/actuation Hfa Aerosol Inhaler 2 puff inhalation TID Qty: 10.2 0RF Inhaler, Assist Devices [Pocket Chamber] 1 ea miscellaneous DIRECTED Qty: 0 0RF albuterol sulfate [Proventil HFA] 90 mcg/actuation HFA aerosol inhaler 2 puff inhalation Q4H PRNQty: 8.5 0RF prednisone 20 mg tablet See Rx Instructions .ROUTE .COMPLEX Qty: 26 0RF Taper: Prednisone 20mg taper 60 mg Daily for 4 Days and 0 Hour 40 mg Daily for 4 Days and 0 Hour 20 mg Daily for 4 Days and 0 Hour 10 mg Daily for 4 Days and 0 Hour Rx Instructions: See Taper orally Continued ipratropium-albuterol 0.5 mg-3 mg(2.5 mg base)/3 mL solution for nebulization 3 ml inhalation Q4H PRN (Reason: wheezing) Qty: 540 12RF Patient Comments: Pt states he does not know if he takes this. pantoprazole 40 mg tablet,delayed release (DR/EC) 40 mg PO DAILY Patient Comments: TAKE 1 TABLET BY MOUTH DAILY buspirone 5 mg Tablet 15 mg PO BID Patient Comments: Patient state he takes 15mg bid methadone Patient Comments: Patient states he is on methadone thru clinic hydroxyzine HCl 25 mg Tablet 25 mg PO TID Qty: 30 0RF methadone [Methadose] 10 mg/mL Concentrate 130 mg PO DAILY Qty: 0 0RF Changed albuterol sulfate 2.5 mg /3 mL (0.083 %) solution for nebulization 2.5 mg IH Q4H PRN PRN (Reason: shortness of breath or wheezing) Qty: 180 0RF Discontinued budesonide-formoterol [Symbicort] 80-4.5 mcg/actuation HFA aerosol inhaler 2 puff inhalation 6XD Qty: 3 12RF Patient Comments: Pt states he does not know if he takes this. Rx Instructions: 2 puffs twice a day and as needed, up to 12 puffs in a 24 hour period Rinse mouth after use Discharge Instructions Instructions: Asthma, Adult ED Additional Instructions: You were admitted to the hospital for acute exacerbation of your asthma and were treated w/ iv corticosteroids and inhaled bronchodilators. An prescription for a tapering dose of prednisone along w/ prescription for both albuterol inhaler and nebulizer solution along w/ Symbicort has been sent to [facility] in [facility]. Please begin the prednisone taper and use your Symbicort regularly 3 x per day along w/ use of albuterol inhaler or nebulizer every 2 to 4 hour as needed for acute wheezing. Avoid vaping or inhalation of any tobacco or marijiuana products. Stand Alone Forms: Nursing Discharge Form Referrals: Dago Joaquin [Primary Care Provider] - 10/16/23 8:30 am () Activity:: Activity as Tolerated Equipment/Supplies:: No Equipment Needed Diet:: Normal Diet Discharge Orders Discharge Orders: Discharge Order (Routine); Ordered 10/08/23 Ordered By: Andrés Ocampo Discharge Data Discharge Date/Time-TO BE ENTERED AT DEPARTURE: 10/08/23 15:57 DS: Summary Time Spent with Patient providing and/or coordinating discharge services: Less than 30 minutes Specific discharge activities: Interview/exam of patient; review of discharge instructions, completion of prescriptions/discharge instructions; discussion w/ nursing and CM; documentation of hospital visit Status at Discharge Functional status at discharge: independent ambulation Overall status at discharge: patient is back to baseline Mental Status: mental status grossly normal Speech and Movement: speech and movement normal Mood: congruent mood Affect: normal affect Quality:SDOH Health Related Social Needs: Health related social needs transpo insecurity, material hardship Health related social needs details Review of community based services for outreach. Exam Narrative Exam Narrative: Young -Citizen Of [place] male lying in bed with his eyes shut he awakens easily does not appear to be dyspneic not using accessory respiratory muscles he is able to talk in complete paragraphs without dyspnea. Lungs with diffuse end expiratory wheezes no rhonchi or rales no inspiratory wheezing Heart is regular rate and rhythm Abdomen scaphoid soft nontender nondistended Extremities without edema Psych Mental Status: mental status grossly normal Speech and Movement: speech and movement normal Mood: congruent mood Affect: normal affect DS: Data Vitals/I&O Vitals and I&O: Vital Signs Temperature 36.4 C L 10/08/23 03:47 Temperature Source Temporal Artery Scan 10/08/23 03:47 Pulse 101 H 10/08/23 10:16 Pulse Rhythm Regular 10/08/23 10:05 Respiratory Rate 18 10/08/23 10:16 Respiratory Effort Normal 10/08/23 10:05 Respiratory Depth Normal 10/08/23 10:05 Respiratory Pattern Normal 10/08/23 10:05 Blood Pressure 114/69 10/08/23 03:47 Blood Pressure Position Sitting 10/05/23 11:38 Pulse Oximetry 96 10/08/23 10:16 Oxygen Delivery Method Room Air 10/08/23 10:11 Oxygen Flow Rate 0 10/08/23 10:11 Pain Level 5 10/07/23 20:32 Intake & Output 10/07/23 10/08/23 10/08/23 23:59 11:59 23:59 Intake Total 480 / 480 130 / 130 Balance 480 / 480 130 / 130 Intake: IV Oral 480 / 480 120 / 120 Other: Urine Color Pale Urine Appearance Clear Clear Urine Odor None Comment per patient report been voiding in the tiolet Voiding Methods Toilet [facility] All Active Problems Tobacco abuse (Chronic) Moderate opioid dependence on maintenance therapy (Chronic) Acute hypokalemia (Acute) Prolonged Q-T interval on ECG (Acute) Upper respiratory infection (Acute) Lymphadenopathy (Acute) Hemorrhoids (Acute) Viral warts (Acute) Asthma (Chronic) Suicidal ideation (Acute) Eczema (Chronic) Medical History Active intravenous drug use Gastritis ADD (attention deficit disorder) Marijuana smoker Anxiety disorder Depression Cyst of face Mass of left side of neck Acute asthma exacerbation Eczema Surgical History No significant past surgical history Family History Other Adopted Social History Smoking/Tobacco Use Status: Current every day Tobacco Type: e-cigarettes Counseling given: provider counseling Smoking risk assessment performed?: Yes Alcohol Intake: current Alcohol Intake frequency: holidays/special occasions only Alcohol type: beer Details: Minimal Drug use: Daily Substance use type: crack/cocaine and heroin Counseling given: Yes Details: drug used depends on the day Adopted: Yes Housing: homeless Current gender identity: male Do you feel safe at home: Yes Do you feel safe in your relationship?: Yes Additional Social history: Grew up in [place], adopted, close with 1 of his moms who lives in [place]. Lives alone in apartment [address] in [place]. Time Spent with Patient Time Spent with Patient: <45 minutes Time was spent: preparing to see the patient(eg.review tests), ordering medications,tests, procedures, referring, communicating with other health respiratory care instructor, indepentently interpreting results, counseling the patient and care coordination
--- NOTE | 2023-10-08 18:13 | CMDISCH_ITS ---
Date of service: 10/08/23 Time of Service: 18:13 LACE Index Scoring Tool Questions: Length of Stay (in days): 3 Was the patient admitted via the E.D.?: Yes E.D. Visits: 4 Answers: Total Score: 10 Risk of Readmission: High Risk Care Management Discharge Plan Reason for Hospitalization: hypokalemia Discharge Plan: Alden will be discharged home with no new services. This morning RT informed CM that Alden needs a nebulizer bur as he has received one within the past 5 years, his insurance will not pay for another one. CM reached out to [employer] to see if funds are available to support the cost but had to leave a message. Alden was provided with contact information and requested that he call for follow up regarding the funding for a nebulizer. He will transport with friends and follow up with his PCP. Patient/Family Education Needs: Review discharge instructions and discuss Ask me Three. SDOH Health Related Social Needs: Health related social needs transpo insecurity, materi al hardship Health related social needs details Review of communit y based services for outreach. Care Management Referrals: LISA
== END 2023-10-08 15:57 | disposition home or self-care (01) ==
LOC: ER 19:29 → MS 21:16
PROVIDERS: Admitting Provider Family Medicine; Emergency Provider Emergency Medicine; PCP Physician Assistant; Visit Provider Family Medicine
DX: J45.51 Severe persistent asthma with (acute) exacerbation (principal); E87.6 Hypokalemia; R94.31 Abnormal electrocardiogram [ECG] [EKG]; F17.210 Nicotine dependence, cigarettes, uncomplicated; F90.2 Attention-deficit hyperactivity disorder, combined type; F41.1 Generalized anxiety disorder; R06.02 Shortness of breath; F11.20 Opioid dependence, uncomplicated; F19.10 Other psychoactive substance abuse, uncomplicated; Z79.899 Other long term (current) drug therapy
CPT/HCPCS: 00123; 36415; 80048; 80053; 80307; 82805; 85027; 87637; 93005; 94640; 96365; 96366; 96375; 96376; 99291; 71045; 81003; 83735; 85025; 93010; 94664; 94760; 99223; 99233; 99238; G0378; J2919; J3475; J3480; J7613; J7620; J8540